=== PATIENT | female | born 1940 | race Caucasian/White ===

== ENCOUNTER 2017-11-30 23:46 | Emergency (ER) | payer MEDICARE, MEDICAID, SELFPAY ==
[2017-11-30 23:53] VITALS: BP 131/74; PULSE 82; RESP 18; TEMP 37.8; O2SAT 94; BMI 76.1
--- NOTE | 2017-12-01 00:12 | [facility].EDFEV ---
ED Disposition Clinical Impression: Influenza Disposition: Home, Self-Care Condition on Discharge: Good Instructions: DI for Influenza -- Adult Additional Instructions: advil/tyenol and see pcp for follow up Referrals: Fidel Muse MD [Emergency Provider] - - Critical Care Critical Care Time: No Attestation: On , the high probability of a clinically significant, sudden or life threatening deterioration of the following system(s) required my full and direct attention, intervention and personal management. The time I documented below is in addition to time spent performing reported procedures but includes the following listed in this critical care notation. Medical Decision Making - Medical Records Medical records reviewed: Yes: I reviewed the patient's medical records. Vital Signs: 11/30/17 23:53 Temperature 100.1 F H Temperature Source Oral Pulse Rate [Right Radial] 82 Respiratory Rate 18 Blood Pressure [Right Arm] 131/74 Blood Pressure Mean [Right Arm] 93 Blood Pressure Source [Right Arm] Automatic Cuff Blood Pressure Position [Right Arm] Supine 02 Sat by Pulse Oximetry 94 L Oxygen Delivery Method Room Air - Lab Data Lab results reviewed: Yes: I reviewed the patient's lab results. Lab Results 12/01/17 00:28: WBC 4.7 L, RBC 4.33, Hgb 12.3, Hct 36.0 L, MCV 83.1, MCH 28.3, MCHC 34.1, RDW 13.9, Plt Count 178, MPV 7.0 L, Neut % (Auto) 78.7, Lymph % (Auto) 12.2, Bureau % (Auto) 8.3, Eos % (Auto) 0.3, Baso % (Auto) 0.6, Neut # (Auto) 3.7, Lymph # (Auto) 0.6 L, Bureau # (Auto) 0.4, Eos # (Auto) 0.0, Baso # (Auto) 0.0 12/01/17 00:28: Sodium 134 L, Potassium 3.9, Chloride 99, Carbon Dioxide 29, Anion Gap 9.9, BUN 14, Creatinine 1.46 H, Estimated Creat Clear 27, Estimated GFR 35 L, Est GFR ( Amer) 42 L, Glucose 108 H, Calcium 8.6, Total Bilirubin 0.5, AST 43 H, ALT 27, Alkaline Phosphatase 78, Total Protein 7.2, Albumin 3.3 L, Globulin 3.9 H, Albumin/Globulin Ratio 0.8 L 12/01/17 00:28: Lactic Acid 1.1 12/01/17 00:28: Influenza Type A Ag Positive A, Influenza Type B Ag Negative 12/01/17 00:40: Urine Color Dark yellow, Urine Appearance Clear, Urine pH 6.0, Ur Specific [place] 1.025, Urine Protein Trace, Urine Glucose (UA) Negative, Urine Ketones Negative, Urine Blood 1+, Urine Nitrate Negative, Urine Bilirubin Negative, Urine Urobilinogen 0.2, Ur Leukocyte Esterase Negative, Urine RBC 3-5, Urine WBC 3-5, Ur Squamous Epith Cells 5-10, Urine Bacteria 1+, Fine Granular Casts Occasional, Urine Mucus 1+ Result diagrams: 12/01/17 00:28 12/01/17 00:28 Orders (Tests/Meds): ED MEDICATIONS Discontinued Medications Generic Name Dose Route Start Last Admin Trade Name Freq PRN Reason Stop Dose Admin Lactated Ringer's 0 ml 12/01/17 00:15 12/01/17 00:47 Lactated Ringer's 1000 Ml Bag IV 12/01/17 00:16 1,000 ml BOLUS ONE Administration ORDERS Category Date Time Status CXR 2 view (NOT portable) [XR chest 2V] Stat Exams 12/01/17 00:14 Taken Blood Culture Stat Micro 12/01/17 00:28 Received - Radiology Data #1 Image(s): Chest Image Reviewed: Yes I reviewed the patient's radiology image Preliminary Findings: Normal/NAD - Bro Inquiry Pt receiving controlled substance: No Fever HPI - General Chief Complaint: Fever Stated Complaint: Fever of 103 Sore throat,coughing Time Seen by Provider: 12/01/17 00:12 Mode of Arrival: Ambulatory Source of Information: Patient, Relative, Medical Record Limitations: No Limitations Description of Symptoms (Recalled from ER Triage Doc. by RN): fever, sore throat, possible loose stool - History of Present Illness HPI Narrative: pt with fever and make up arranger cough which started over the last 2 days MD complaint: fever Onset (ago): day(s) Associated symptoms: sore throat Treatments prior to arrival fever: acetaminophen - Related Data Home Medications Medication Instructions Recorded Confirmed Amlodipine Besylate [Norvasc 5mg 5 mg P
--- NOTE | 2017-12-01 00:14 | XR_ITS ---
XR chest 2V HISTORY: ITS.REASON: cough ORDERING PHYSICIAN: Fidel Muse MD PATIENT AGE: 77 years COMPARISON: 02/27/2016 FINDINGS: The cardiomediastinal silhouette and pulmonary vascularity are within normal limits. The lungs are clear without infiltrates, suspicious nodules, or pleural effusions. No acute bony abnormalities. IMPRESSION: No change with no acute finding
--- NOTE | 2017-12-01 00:16 | ED_ITS ---
ED Disposition Clinical Impression: Influenza Disposition: Home, Self-Care Condition on Discharge: Good Instructions: DI for Influenza -- Adult Additional Instructions: advil/tyenol and see pcp for follow up Referrals: Fidel Muse MD [Emergency Provider] - - Critical Care Critical Care Time: No Attestation: On , the high probability of a clinically significant, sudden or life threatening deterioration of the following system(s) required my full and direct attention, intervention and personal management. The time I documented below is in addition to time spent performing reported procedures but includes the following listed in this critical care notation. Medical Decision Making - Medical Records Medical records reviewed: Yes: I reviewed the patient's medical records. Vital Signs: 11/30/17 23:53 Temperature 100.1 F H Temperature Source Oral Pulse Rate [Right Radial] 82 Respiratory Rate 18 Blood Pressure [Right Arm] 131/74 Blood Pressure Mean [Right Arm] 93 Blood Pressure Source [Right Arm] Automatic Cuff Blood Pressure Position [Right Arm] Supine 02 Sat by Pulse Oximetry 94 L Oxygen Delivery Method Room Air - Lab Data Lab results reviewed: Yes: I reviewed the patient's lab results. Lab Results 12/01/17 00:28: WBC 4.7 L, RBC 4.33, Hgb 12.3, Hct 36.0 L, MCV 83.1, MCH 28.3, MCHC 34.1, RDW 13.9, Plt Count 178, MPV 7.0 L, Neut % (Auto) 78.7, Lymph % (Auto ) 12.2, [place] % (Auto) 8.3, Eos % (Auto) 0.3, Baso % (Auto) 0.6, Neut # (Auto) 3.7, Lymph # (Auto) 0.6 L, [place] # (Auto) 0.4, Eos # (Auto) 0.0, Baso # (Auto) 0.0 12/01/17 00:28: Sodium 134 L, Potassium 3.9, Chloride 99, Carbon Dioxide 29, Anion Gap 9.9, BUN 14, Creatinine 1.46 H, Estimated Creat Clear 27, Estimated GFR 35 L, Est GFR ( Amer) 42 L, Glucose 108 H, Calcium 8.6, Total Bilirubin 0.5, AST 43 H, ALT 27, Alkaline Phosphatase 78, Total Protein 7.2, Albumin 3.3 L, Globulin 3.9 H, Albumin/Globulin Ratio 0.8 L 12/01/17 00:28: Lactic Acid 1.1 12/01/17 00:28: Influenza Type A Ag Positive A, Influenza Type B Ag Negative 12/01/17 00:40: Urine Color Dark yellow, Urine Appearance Clear, Urine pH 6.0, Ur Specific [place] 1.025, Urine Protein Trace, Urine Glucose (UA) Negative, Urine Ketones Negative, Urine Blood 1+, Urine Nitrate Negative, Urine Bilirubin Negative, Urine Urobilinogen 0.2, Ur Leukocyte Esterase Negative, Urine RBC 3-5 , Urine WBC 3-5, Ur Squamous Epith Cells 5-10, Urine Bacteria 1+, Fine Granular Casts Occasional, Urine Mucus 1+ Result diagrams: 12/01/17 00:28 12/01/17 00:28 Orders (Tests/Meds): ED MEDICATIONS Discontinued Medications Generic Name Dose Route Start Last Admin Trade Name Freq PRN Reason Stop Dose Admin Lactated Ringer's 0 ml 12/01/17 00:15 12/01/17 00:47 Lactated Ringer's 1000 Ml Bag IV 12/01/17 00:16 1,000 ml BOLUS ONE Administration ORDERS Category Date Time Status CXR 2 view (NOT portable) [XR chest 2V] Stat Exams 12/01/17 00:14 Taken Blood Culture Stat Micro 12/01/17 00:28 Received - Radiology Data #1 Image(s): Chest Image Reviewed: Yes I reviewed the patient's radiology image Preliminary Findings: Normal/NAD - Bro Inquiry Pt receiving controlled substance: No Fever HPI - General Chief Complaint: Fever Stated Complaint: Fever of 103 Sore throat,coughing Time Seen by
[2017-12-01 00:56] LABS: Microscopic, Urine URINE MICROSCOPIC (MICROSCOPIC)
[2017-12-01 00:57] LABS: Alanine Aminotransferase 27 U/L (12-78); Albumin Level 3.3 gm/dL (3.4-5.0); Albumin/Globulin Ratio 0.8 (1.1-1.8); Alkaline Phosphatase 78 U/L (46-116); Anion Gap 9.9 mEq/L (5-15); Aspartate Amino Transferase 43 U/L (15-37); Basophils % 0.6 % (0.1-2.0); Bilirubin,Total 0.5 mg/dL (0.2-1.0); Blood Urea Nitrogen 14 mg/dL (7-18); Calcium 8.6 mg/dL (8.5-10.1); Carbon Dioxide 29 mmol/L (21.0-32.0); Chloride 99 mmol/L (98-107); Creatinine Clearance Estimated 27 mL/min (0-300); Creatinine,Serum 1.46 mg/dL (0.55-1.02); Eosinophils % 0.3 % (0.1-12.0); Estimated Glomerular Filt Rate 35 ml/min (>60); GFR (African American) 42 ML/MIN (>60); Globulin 3.9 gm/dl (1.3-3.2); Glucose 108 mg/dL (74-106); Hemoglobin 12.3 g/dL (12.2-16.2); Lymphocytes # 0.6 K/mm3 (0.7-4.5); Lymphocytes % 12.2 K/mm3 (10-50); Mean Corpuscular HGB Conc 34.1 g/dL (31.8-35.4); Mean Corpuscular Hemoglobin 28.3 pg (27.0-31.2); Mean Corpuscular Volume 83.1 fl (81-99); Monocytes # 0.4 K/mm3 (0.1-1.0); Monocytes % 8.3 % (1.7-9.3); Neutrophils # 3.7 K/mm3 (1.8-7.8); Neutrophils % 78.7 % (37.0-80.0); Platelet Count 178 K/mm3 (142-424); Potassium 3.9 mmoL/L (3.5-5.1); Red Blood Count 4.33 M/mm3 (4.20-5.40); Red Cell Distribution Width 13.9 % (11.5-17.5); Sodium 134 mmol/L (136-145); Total Protein,Serum 7.2 gm/dL (6.4-8.2); White Blood Count 4.7 K/mm3 (4.8-10.8)
[2017-12-01 01:01] LABS: Lactic Acid 1.1 mmol/L (0.4-2.0)
[2017-12-01 01:13] LABS: Appearance,Urine Clear (Clear); Color,Urine Dark Yellow (Yellow); Protein,Urine Trace (Negative); Specific Gravity, Urine 1.025 (1.005-1.030)
[2017-12-01 01:14] LABS: Bilirubin,Urine Negative (Negative); Blood, Urine 1+ (Negative); Glucose,Urine (UA) Negative (Negative); Ketones,Urine Negative (Negative); Leukocyte Esterase,Urine Negative (Negative); Nitrate,Urine Negative (Negative); Urobilinogen,Urine 0.2 EU/dl (0.2)
[2017-12-01 01:24] LABS: Bacteria,Urine 1+ /lpf; Fine Granular Casts,Urine Occasional #/lpf (0); Mucus,Urine 1+ /lpf
[2017-12-01 02:02] VITALS: BP 148/62; PULSE 78; RESP 18; TEMP 37.7
== END 2017-12-01 02:04 | disposition home or self-care (01) ==
PROVIDERS: Emergency Provider Emergency Medicine; Family Provider Nurse Practitioner Family; PCP Internal Medicine Adolescent Medicine
DX: J11.1 Influenza due to unidentified influenza virus with other respiratory manifestations (principal); Z79.02 Long term (current) use of antithrombotics/antiplatelets; Z79.899 Other long term (current) drug therapy
CPT/HCPCS: 71046; 80053; 81001; 83605; 85025; 87040; 87275; 87276; 96360; 96365; 99284

== ENCOUNTER → 2018-02-02 13:01 | Outpatient (CLI) | payer MEDICARE, MEDICAID, SELFPAY ==
--- NOTE | 2018-02-02 13:03 | CI_ITS ---
Cerebrovascular Exam Indications: 433.10 Occlusion/stenosis of carotid artery without cerebral infarction. IMPRESSIONS 1. The bilateral vertebral arteries are patent with normal antegrade flow. 2. Study suggests 50-69% stenosis involving the right internal carotid artery. 3. Study suggests 20-49% stenosis involving the left internal carotid artery. 4. . No change from the study of 25-Mar-2017. History: A bruit of the left carotid artery. A bruit of the right carotid artery. Stroke. Risk factors: Hypertension. Carotid duplex study. Complete study and Doppler flow study including spectral analysis, color and gomez scale imaging. Location: Vascular laboratory. Patient status: Outpatient. Tables: Arterial flow: + +--------+--------+ Location V sys V ed + +--------+--------+ Right CCA - proximal 111cm/s 22.8cm/s + +--------+--------+ Right CCA - distal 85.6cm/s 14.9cm/s + +--------+--------+ Right ECA 150cm/s -------- + +--------+--------+ Right ICA - proximal 158cm/s 42.4cm/s + +--------+--------+ Right ICA - mid 151cm/s 45.6cm/s + +--------+--------+ Right ICA - distal 120cm/s 32.2cm/s + +--------+--------+ Right vertebral 69.9cm/s -------- + +--------+--------+ Left CCA - proximal 109cm/s 23.6cm/s + +--------+--------+ Left CCA - distal 91.1cm/s 21.2cm/s + +--------+--------+ Left ECA 129cm/s -------- + +--------+--------+ Left ICA - proximal 123cm/s 32.2cm/s + +--------+--------+ Left ICA - mid 110cm/s 25.9cm/s + +--------+--------+ Left ICA - distal 69.9cm/s 20.4cm/s + +--------+--------+ Left vertebral 67.6cm/s -------- + +--------+--------+ Velocity ratios: + + + + + + Right, V sys Right, V ed Left, V sys Left, V ed + + + + + + Max ICA/dist CCA 1.85 3.06 1.35 1.52 + + + + + + (Report amended ) Electronically signed by: Romeo Boyd [id number]
== END ==
PROVIDERS: Family Provider Nurse Practitioner Family; PCP Nurse Practitioner Family; Visit Provider Internal Medicine
DX: I25.10 Atherosclerotic heart disease of native coronary artery without angina pectoris (principal); I65.29 Occlusion and stenosis of unspecified carotid artery; R09.89 Other specified symptoms and signs involving the circulatory and respiratory systems
CPT/HCPCS: 93880

== ENCOUNTER → 2018-03-01 09:42 | Outpatient (CLI) | payer MEDICARE, MEDICAID, SELFPAY ==
[2018-03-01 10:35] LABS: Blood Urea Nitrogen 21 mg/dL (7-18); Creatinine,Serum 1.38 mg/dL (0.55-1.02); Estimated Glomerular Filt Rate 37 ml/min (>60); GFR (African American) 45 ML/MIN (>60)
--- NOTE | 2018-03-01 10:55 | CT_ITS ---
CT soft tissue neck w con CLINICAL INDICATION: Throat pain, difficulty swallowing, swollen larynx ITS.REASON: THROAT PAIN ORDERING PHYSICIAN: Go Garcia PATIENT AGE: 77 years TECHNIQUE:Axial, sagittal, and coronal images are generated and reviewed with 75 mL of Isovue-370 contrast. The patient was phonating during the exam. All CT scans at the facility use one or more dose reduction, viz: automated exposure control; ma/kV adjustment per patient size (including targeted exams where dose is matched to indication; i.e. head); or iterative reconstruction technique. FINDINGS: The nasopharynx has an unremarkable appearance. The uvula and epiglottis are unremarkable. No tonsillar abscess or mass evident. There is mild degree of motion artifact obscuring fine detail of the submandibular region and area epiglottic folds. Unremarkable appearing thyroid gland. The trachea and esophagus are midline. No bulky adenopathy. There is mild thickening of the lower cervical esophagus. This is nonspecific. Upper thoracic images show calcified nodes in the pretracheal region. Diffuse idiopathic skeletal hyperostosis is present at C3, C4, C5, and C6 with prominent anterior bridging osteophytes. This could be causing some degree of a dysphagia. Modified barium swallow with speech pathology may further evaluate. There is indentation upon the hypopharynx centrally and on the right secondary to the prominent osteophytes There are air-fluid levels in both maxillary sinuses and sphenoid sinus with moderate mucosal thickening of the ethmoid sinuses. There is mild rightward nasal septal deviation. IMPRESSION: 1. Sinusitis. 2. 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 3. Mild thickening of the lower cervical esophagus nonspecific
== END ==
PROVIDERS: Family Provider Nurse Practitioner Family; PCP Nurse Practitioner Family; Visit Provider Otolaryngology
DX: J38.4 Edema of larynx (principal); K21.9 Gastro-esophageal reflux disease without esophagitis
CPT/HCPCS: 36415; 70491; 82565; 84520; Q9967

== ENCOUNTER → 2018-04-05 14:43 | Outpatient (POV) | payer MEDICARE, MEDICAID, SELFPAY | PROVIDERS: Visit Provider Nurse Practitioner Acute Care | DX: Z00.00 Encounter for general adult medical examination without abnormal findings (principal) ==

== ENCOUNTER → 2019-05-27 09:19 | Outpatient (CLI) | payer MEDICARE, MEDICAID, SELFPAY ==
--- NOTE | 2019-05-27 09:21 | CI_ITS ---
Cerebrovascular Exam Indications: 433.10 Occlusion/stenosis of carotid artery without cerebral infarction. IMPRESSIONS 1. The bilateral vertebral arteries are patent with normal antegrade flow. 2. Study suggests 50-69% stenosis involving the right internal carotid artery. No change from the study of 02-Feb-2018. 3. Study suggests 20-49% stenosis involving the left internal carotid artery. No change from the study of 02-Feb-2018. History: Risk factors: Hypertension. Diabetes mellitus. Hyperlipidemia. Carotid duplex study. Complete study and Doppler flow study including spectral analysis, color and gomez scale imaging. Height: Height: 162.6cm. Height: 64in. Weight: Weight: 93.4kg. Weight: 205.6lb. Body mass index: BMI: 35.4kg/m^2. Body surface area: BSA: 2.09m^2. Location: Vascular laboratory. Patient status: Outpatient. Tables: Arterial flow: + +--------+--------+ Location V sys V ed + +--------+--------+ Right CCA - proximal 99.8cm/s 22.8cm/s + +--------+--------+ Right CCA - distal 99cm/s 19.6cm/s + +--------+--------+ Right ECA 133cm/s -------- + +--------+--------+ Right ICA - proximal 183cm/s 48.3cm/s + +--------+--------+ Right ICA - mid 161cm/s 46cm/s + +--------+--------+ Right ICA - distal 101cm/s 30.6cm/s + +--------+--------+ Right vertebral 65.2cm/s -------- + +--------+--------+ Left CCA - proximal 103cm/s 19.6cm/s + +--------+--------+ Left CCA - distal 85.2cm/s 21.6cm/s + +--------+--------+ Left ECA 121cm/s -------- + +--------+--------+ Left ICA - proximal 128cm/s 34.1cm/s + +--------+--------+ Left ICA - mid 111cm/s 31.4cm/s + +--------+--------+ Left ICA - distal 96.9cm/s 32.3cm/s + +--------+--------+ Left vertebral 57.6cm/s -------- + +--------+--------+ Velocity ratios: + + + + + + Right, V sys Right, V ed Left, V sys Left, V ed + + + + + + Max ICA/dist CCA 1.85 2.46 1.5 1.58 + + + + + + (Report amended ) Electronically signed by: Romeo Boyd [id number]
--- NOTE | 2019-05-27 09:21 | CA_ITS ---
PROCEDURE: 2-D M-mode and color Doppler study INDICATIONS FOR THE TEST: Chest pain COPD Heart Murmur Tobacco Smoking Palpitations Fatigue Syncope Edema HypertensionXDiabetes MellitusX Rheumatic Fever SOBXDOEXObesityXHyperlipidemia Family History HD Additional History PHTN PATIENT INFORMATION HEIGHT: 64 WEIGHT:206 GENDER: Female B/P:126/70 2-D/M-MODE INTERPRETATION: 2-D MEASUREMENTS OBSERVED VALUES IN CMS Right Ventricular Dimension (RVDd) 1.9 Interventricular Septum (Thickness)(IVsd) .9 Left Ventricular Internal Dimensions(LVIDd) 5.0 Left Ventricular Posterior Wall (Thickness)(LVPWd) .9 Aortic Root 2.7 Aortic Cusp Separation 1.9 Left Atrial Dimensions (LAD) 3.1 2D 1. Left atrium is mildly enlarged, left ventricle is normal size, visually estimated ejection fraction 55% with no regional wall motion abnormality. 2. The right atrium and right ventricle are mildly enlarged with normal contractility. 3. The aortic valve is minimally thickened and fibrosed. 4. The mitral and tricuspid valve leaflets are minimally thickened. 5. The pulmonic valve is poorly visualized. 6. No significant pericardial effusion noted. DOPPLER INTERROGATION: Doppler interrogation of the aortic, mitral and tricuspid valvular presence of mild mitral and tricuspid regurgitation, calculated right ventricular systolic pressure is 47 mmHg consistent with moderate pulmonary hypertension. Diastolic parameters are inconclusive CONCLUSION: 1. Mildly enlarged left atrium, normal left ventricular size, visually estimated ejection fraction 55% with no regional wall motion abnormality, diastolic parameters are inconclusive. 2. Mildly enlarged right ventricle with normal contractility. 3. Mild mitral and tricuspid regurgitation, calculated right ventricular systolic pressure is 47 mmHg consistent with moderate pulmonary hypertension. Inferior vena cava is not well visualized. 4. No significant pericardial effusion noted.
--- NOTE | 2019-05-27 09:22 | NM_ITS ---
CARDIOLITE SPECT MYOCARDIAL PERFUSION LEXISCAN, REST AND STRESS: History: Obesity, hypertension, diabetes, hyperlipidemia, family history, shortness of breath, syncope and fatigue Procedure: Patient received a 0.4 mg of intravenous Lexiscan, resting heart rate was 54 bpm resting blood pressure 147/83, with Lexiscan maximum heart rate achieved was 72 bpm which is less than 85% of the maximum] heart rate and a blood pressure was 115/50. With Lexiscan patient complained of shortness of breath Electrocardiogram: Resting echocardiogram showed sinus bradycardia, with Lexiscan there is less than 1.[address] segment depression noted from the baseline EKG, occasional premature ventricular complexes were also seen. The EKG portion of the Lexiscan Myoview is nondiagnostic. . Cardiac stress and resting SPECT images: Cardiac stress and resting SPECT images were obtained using technetium 99 Myoview 30.7 mCi at stress and 10.3 mCi at rest. Gated SPECT further analysis of segmental wall motion and calculation of the ejection fraction also done. Cardiac stress and resting SPECT images show uniform myocardial activity without segmental perfusion abnormality, computer derived ejection fraction is over 65% with no regional wall motion abnormality, right ventricle is normal size and contractility. Conclusion: 1. The EKG portion of the Lexiscan Myoview is nondiagnostic. 2. No scintigraphic evidence of reversible ischemia seen, computer derived ejection fraction is over 65% with no regional wall motion abnormality, right ventricle is normal size and contractility. 3. Normal Lexiscan Myoview study.
[2019-05-27 12:47] LABS: Basophils % 0.5 % (0.1-2.0); Eosinophils # 0.1 K/mm3 (0.0-0.4); Eosinophils % 1.2 % (0.1-12.0); Hematocrit 36.5 % (37.0-47.0); Hemoglobin 11.5 g/dL (12.2-16.2); Lymphocytes # 1.8 K/mm3 (0.7-4.5); Lymphocytes % 30.4 % (10-50); Mean Corpuscular HGB Conc 31.6 g/dL (31.8-35.4); Mean Corpuscular Hemoglobin 26.1 pg (27.0-31.2); Mean Corpuscular Volume 82.8 fl (81-99); Monocytes # 0.2 K/mm3 (0.1-1.0); Monocytes % 3.8 % (1.7-9.3); Neutrophils # 3.8 K/mm3 (1.8-7.8); Neutrophils % 64.1 % (37.0-80.0); Platelet Count 269 K/mm3 (142-424); Red Cell Distribution Width 14.2 % (11.5-17.5)
[2019-05-27 13:31] LABS: Alanine Aminotransferase 43 U/L (12-78); Albumin Level 3.3 gm/dL (3.4-5.0); Albumin/Globulin Ratio 0.9 (1.1-1.8); Alkaline Phosphatase 60 U/L (46-116); Anion Gap 8.9 mEq/L (5-15); Aspartate Amino Transferase 18 U/L (15-37); Bilirubin,Total 0.5 mg/dL (0.2-1.0); Blood Urea Nitrogen 13 mg/dL (7-18); Carbon Dioxide 31 mmol/L (21.0-32.0); Chloride 102 mmol/L (98-107); Chol/HDL Ratio 2.6 (1-3.5); Cholesterol 185 mg/dL (140-200); Estimated Glomerular Filt Rate 44 ml/min (>60); GFR (African American) 53 ML/MIN (>60); Globulin 3.8 gm/dl (1.3-3.2); Glucose 126 mg/dL (74-106); HDL Cholesterol 70 mg/dL (29-89); LDL Cholesterol 78 mg/dL (0-130); Sodium 139 mmol/L (136-145); Thyroid Stimulating Hormone 1.57 uIU/ml (0.358-3.740); Total Protein,Serum 7.1 gm/dL (6.4-8.2); Triglycerides 186 mg/dL (30-200); VLDL Cholesterol 37 mg/dL (0-40)
[2019-05-27 14:22] LABS: Potassium 2.9 mmoL/L (3.5-5.1)
[2019-05-27 16:21] LABS: Hemoglobin A1C 7.4 % (0.0-7.0)
[2019-05-29 22:51] LABS: Microalbumin, Urine <3.0 ug/mL (Not Estab.)
== END ==
PROVIDERS: PCP Nurse Practitioner Family; Visit Provider Urology
DX: I10 Essential (primary) hypertension; I65.23 Occlusion and stenosis of bilateral carotid arteries; R00.1 Bradycardia, unspecified; R06.00 Dyspnea, unspecified; R60.9 Edema, unspecified; Z86.73 Personal history of transient ischemic attack (TIA), and cerebral infarction without residual deficits; E11.9 Type 2 diabetes mellitus without complications; R53.83 Other fatigue; E78.49 Other hyperlipidemia
CPT/HCPCS: 36415; 78452; 80053; 80061; 82043; 82652; 83036; 84436; 84443; 85025; 93017; 93306; 93880; A9502; J2785

== ENCOUNTER → 2019-07-07 08:14 | Outpatient (CLI) | payer MEDICARE, MEDICAID, SELFPAY ==
--- NOTE | 2019-07-07 08:15 | MM_ITS ---
PROCEDURE: MM DIG SCREENING MAMM BI W/CAD CLINICAL INDICATION: screening There is no personal or family history of breast cancer COMPARISON: DIGMAMMS MAMMOGRAM SCREEN-SENIOR STRATEGY ANALYST N/C from 07/28/2007 DIGMAMMS MAMMOGRAM SCREEN-SENIOR STRATEGY ANALYST N/C from 03/08/2009 DMSB DIGITAL MAMM-SCREEN BILATERAL from 07/04/2010 TECHNIQUE: Standard CC and MLO images were obtained. R2 CAD reviewed. FINDINGS: The breasts are composed primarily of fat with minimal scattered fibroglandular densities in each breast. There are scattered benign-appearing micro and macrocalcifications in each breast. There is a biopsy clip seen just deep to the nipple right breast. There is a low-lying node right axilla. There is minimal arterial calcification in each breast. There is no suspicious lesion and no suspicious microcalcifications. IMPRESSION: Fibrofatty parenchyma with no suspicious lesions seen BI-RAD Category: 2 Benign Finding(s) FOLLOW-UP: 1YR 1 Year Follow-up (A letter has been sent to the patient regarding results of the study.) Dictated by: Dr. Jasper Alcantar MD 07/09/2019 10:46 Signed by: <Electronically signed by Dr. Jasper Alcantar MD in [facility]> 07/09/2019 10:46
== END ==
PROVIDERS: PCP Nurse Practitioner Family; Visit Provider Nurse Practitioner Family
DX: Z12.31 Encounter for screening mammogram for malignant neoplasm of breast (principal)
CPT/HCPCS: 77067

== ENCOUNTER → 2019-07-13 17:10 | Outpatient (CLI) | payer MEDICARE, MEDICAID, SELFPAY ==
[2019-07-13 17:54] LABS: Basophils % 0.2 % (0.1-2.0); Eosinophils # 0.1 K/mm3 (0.0-0.4); Eosinophils % 1.7 % (0.1-12.0); Hemoglobin 12.7 g/dL (12.2-16.2); Lymphocytes # 1.6 K/mm3 (0.7-4.5); Lymphocytes % 32.6 % (10-50); Mean Corpuscular HGB Conc 32.6 g/dL (31.8-35.4); Mean Corpuscular Hemoglobin 28.2 pg (27.0-31.2); Mean Corpuscular Volume 86.6 fl (81-99); Monocytes # 0.3 K/mm3 (0.1-1.0); Monocytes % 5.2 % (1.7-9.3); Neutrophils # 2.9 K/mm3 (1.8-7.8); Neutrophils % 60.3 % (37.0-80.0); Platelet Count 262 K/mm3 (142-424); White Blood Count 4.8 K/mm3 (4.8-10.8)
[2019-07-13 19:17] LABS: Alanine Aminotransferase 23 U/L (12-78); Albumin Level 3.3 gm/dL (3.4-5.0); Albumin/Globulin Ratio 0.9 (1.1-1.8); Alkaline Phosphatase 76 U/L (46-116); Anion Gap 11.3 mEq/L (5-15); Aspartate Amino Transferase 20 U/L (15-37); Bilirubin,Total 0.4 mg/dL (0.2-1.0); Blood Urea Nitrogen 10 mg/dL (7-18); Carbon Dioxide 28 mmol/L (21.0-32.0); Chloride 106 mmol/L (98-107); Chol/HDL Ratio 3.8 (1-3.5); Cholesterol 245 mg/dL (140-200); Creatinine,Serum 1.07 mg/dL (0.55-1.02); Estimated Glomerular Filt Rate 50 ml/min (>60); GFR (African American) 60 ML/MIN (>60); Globulin 3.5 gm/dl (1.3-3.2); Glucose 125 mg/dL (74-106); HDL Cholesterol 64 mg/dL (29-89); LDL Cholesterol 149 mg/dL (0-130); Potassium 3.3 mmoL/L (3.5-5.1); Sodium 142 mmol/L (136-145); T4 (Thyroxine) 9.1 ug/dl (4.7-13.3); Total Protein,Serum 6.8 gm/dL (6.4-8.2); Triglycerides 159 mg/dL (30-200); VLDL Cholesterol 32 mg/dL (0-40)
[2019-07-15 14:21] LABS: Vitamin D 25 Hydroxy 12.4 ng/mL (30.0-100.0)
== END ==
PROVIDERS: Visit Provider Nurse Practitioner Family
DX: F41.9 Anxiety disorder, unspecified (principal); I65.29 Occlusion and stenosis of unspecified carotid artery; R53.83 Other fatigue; R22.1 Localized swelling, mass and lump, neck; E55.9 Vitamin D deficiency, unspecified
CPT/HCPCS: 80053; 80061; 82652; 84436; 84443; 85025

== ENCOUNTER → 2019-07-25 13:15 | Outpatient (CLI) | payer MEDICARE, MEDICAID, SELFPAY ==
--- NOTE | 2019-07-25 13:16 | US_ITS ---
PROCEDURE: US THYROID CLINICAL INDICATION: throat pain Right neck pain, on thyroid medication COMPARISON: No exams were available for comparison FINDINGS: Right lobe: 4.5 x 1.7 x 3.3 cm. A 4 mm hypoechoic nodules present in the mid aspect of the right lobe with benign features. In the lower pole there is a 3 mm hypoechoic nodule benign-appearing. Left lobe: 4.5 x 1.4 x 1.8 cm. No discrete nodule. Isthmus: Unremarkable Additional findings: IMPRESSION: Bilateral enlarged thyroid gland. There are 2 small nodules on the right with low level of suspicion for malignancy and none demonstrated on the left Dictated by: Romeo Boyd MD 07/25/2019 16:09 Electronically signed by Romeo Boyd MD in [facility] 07/25/2019 16:09
== END ==
PROVIDERS: PCP Nurse Practitioner Family; Visit Provider Nurse Practitioner Family
DX: R22.1 Localized swelling, mass and lump, neck (principal)
CPT/HCPCS: 76536

== ENCOUNTER → 2019-08-12 13:27 | Outpatient (CLI) | payer MEDICARE, MEDICAID, SELFPAY ==
--- NOTE | 2019-08-12 13:29 | CT_ITS ---
PROCEDURE: CT SOFT TISSUE NECK WO CON CLINICAL HISTORY: abnormal ultrasound COMPARISON: NECKW CT soft tissue neck w con from 03/01/2018 US THYROID from 07/25/2019 TECHNIQUE: Oral Contrast: None IV Contrast: None Axial images obtained with sagittal and coronal reformats. All CT scans at the facility use one or more dose reduction, viz: automated exposure control, ma/kV adjustment per patient size (including targeted exams where dose is matched to indication, i.e. head), or iterative reconstruction technique. FINDINGS: Unremarkable nasopharynx. The maxillary and sphenoid sinuses are unremarkable. The ethmoid sinuses are is are incompletely image superiorly. No mastoid effusion. Scattered small nodes are present in the neck. The submandibular and right parotid glands have an unremarkable appearance. There is a 5 mm soft tissue density in the left parotid gland and may be due to small lymph node. No abnormal fluid collections. No soft tissue masses. There is DISH of the cervical spine as previously described causing some indentation upon the central and right aspect of the esophagus. This is at the C3-C4 C5 and C6 level. This is most pronounced at the C3-C4 and C4-C5 level. Not significantly changed. Lung apices are unremarkable. The thyroid gland does not appear enlarged. The small nodule seen on the ultrasound of the thyroid gland are below limits of resolution on this unenhanced CT scan. There are mild osteoarthritic changes of the sternoclavicular joints. IMPRESSION: Overall no significant change with no acute finding. DISH of the cervical spine. Scattered small cervical nodes with no adenopathy mass or other significant anomaly Dictated by: Romeo Boyd MD 08/13/2019 11:09 Electronically signed by Romeo Boyd MD in [facility] 08/13/2019 11:09
== END ==
PROVIDERS: PCP Nurse Practitioner Family; Visit Provider Nurse Practitioner Family
DX: R13.10 Dysphagia, unspecified (principal)
CPT/HCPCS: 70490

== ENCOUNTER → 2019-08-18 08:39 | Outpatient (CLI) | payer MEDICARE, MEDICAID, SELFPAY ==
--- NOTE | 2019-08-18 08:41 | FL_ITS ---
PROCEDURE: FL BARIUM SWALLOW CLINICAL INDICATION: swallowing difficulty COMPARISON: No exams were available for comparison FINDINGS: Rapid sequence views of the neck and oral pharyngeal area shows no evidence of aspiration. There are prominent anterior spurs in the cervical spine at C3 through C C5 levels. This causes some mass effect upon the cervical esophagus without persistent narrowing. Thoracic esophagus shows moderate tertiary type contractions with a small 3 centimeter sliding-type of hiatal hernia without definite reflux. There is no persistent stricture or mucosal abnormality. IMPRESSION: Cervical spine anterior spurs causing some mass effect upon the cervical esophagus without significant delay in swallowing. No aspiration. Esophageal tertiary contractions. Small sliding-type of hiatal hernia without evidence of esophagitis. Dictated by: Jose Luis Wood 08/18/2019 09:52 Electronically signed by Jose Luis Wood in [facility] 08/18/2019 09:52
== END ==
PROVIDERS: PCP Nurse Practitioner Family; Visit Provider Otolaryngology
DX: E04.1 Nontoxic single thyroid nodule (principal); R13.10 Dysphagia, unspecified
CPT/HCPCS: 74220

== ENCOUNTER → 2019-10-18 15:12 | Outpatient (CLI) | payer MEDICARE, MEDICAID, SELFPAY ==
[2019-10-18 17:14] LABS: Alanine Aminotransferase 15 U/L (12-78); Albumin/Globulin Ratio 0.8 (1.1-1.8); Alkaline Phosphatase 65 U/L (46-116); Anion Gap 11.1 mEq/L (5-15); Aspartate Amino Transferase 12 U/L (15-37); Bilirubin,Total 0.3 mg/dL (0.2-1.0); Blood Urea Nitrogen 12 mg/dL (7-18); Calcium 8.4 mg/dL (8.5-10.1); Carbon Dioxide 29 mmol/L (21.0-32.0); Chloride 105 mmol/L (98-107); Estimated Glomerular Filt Rate 54 ml/min (>60); GFR (African American) 65 ML/MIN (>60); Globulin 3.7 gm/dl (1.3-3.2); Glucose 101 mg/dL (74-106); Potassium 3.1 mmoL/L (3.5-5.1); Sodium 142 mmol/L (136-145); Total Protein,Serum 6.7 gm/dL (6.4-8.2)
== END ==
PROVIDERS: Visit Provider Nurse Practitioner Psychiatric/Mental Health
DX: Z00.00 Encounter for general adult medical examination without abnormal findings (principal); F32.9 Major depressive disorder, single episode, unspecified; F41.1 Generalized anxiety disorder; E87.6 Hypokalemia
CPT/HCPCS: 36415; 80053

== ENCOUNTER → 2019-12-19 15:24 | Outpatient (CLI) | payer MEDICARE, SELFPAY ==
[2019-12-19 17:31] LABS: Alanine Aminotransferase 20 U/L (12-78); Albumin Level 3.3 gm/dL (3.4-5.0); Albumin/Globulin Ratio 1.1 (1.1-1.8); Alkaline Phosphatase 71 U/L (46-116); Anion Gap 12.3 mEq/L (5-15); Aspartate Amino Transferase 18 U/L (15-37); Bilirubin,Total 0.7 mg/dL (0.2-1.0); Blood Urea Nitrogen 8 mg/dL (7-18); Calcium 8.7 mg/dL (8.5-10.1); Carbon Dioxide 29 mmol/L (21.0-32.0); Chloride 105 mmol/L (98-107); Creatinine,Serum 1.09 mg/dL (0.55-1.02); Estimated Glomerular Filt Rate 49 ml/min (>60); GFR (African American) 59 ML/MIN (>60); Glucose 124 mg/dL (74-106); Potassium 3.3 mmoL/L (3.5-5.1); Sodium 143 mmol/L (136-145); Total Protein,Serum 6.3 gm/dL (6.4-8.2)
== END ==
PROVIDERS: Visit Provider Nurse Practitioner Psychiatric/Mental Health
DX: Z00.00 Encounter for general adult medical examination without abnormal findings (principal)
CPT/HCPCS: 36415; 80053

== ENCOUNTER → 2019-12-21 13:28 | Outpatient (CLI) | payer MEDICARE, MEDICAID, SELFPAY ==
--- NOTE | 2019-12-21 13:48 | CA_ITS ---
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 Laterality: Bilateral Indications: Carotid stenosis Risk Factors Hypertension: Hyperlipidemia Diabetes Doppler Spectral Velocity Analysis ECA (R) 141.60/27.90 cm/s ECA (L) 93.40/3.40 cm/s dICA (R) 97.60/27.00 cm/s dICA (L) 69.40/18.00 cm/s Ashwini (R) 163.40/35.30 cm/s Ashwini (L) 102.80/20.60 cm/s pICA (R) 186.90/42.30 cm/s pICA (L) 98.80/17.60 cm/s dCCA (R) 72.80/16.30 cm/s dCCA (L) 72.00/15.40 cm/s pCCA (R) 88.30/13.70 cm/s pCCA (L) 102.30/22.30 cm/s Vert (R) 60.00/13.70 cm/s Vert (L) 49.20/12.30 cm/s ICA/CCA 2.60 ICA/CCA 1.40 Conclusion Duplex evaluation demonstrates stenosis of the right proximal internal carotid artery in the range of 50-69% with PSV =140 cm/sec, EDV <100 cm/sec, and IC/CC Ratio <4.0. Duplex evaluation demonstrates stenosis of the left proximal internal carotid artery in the range of 20-49% with PSV <140 cm/sec, EDV <100 cm/sec, and IC/CC Ratio <4.0. Duplex evaluation demonstrates antegrade flow of the bilateral Vertebral Arteries. Electronically signed by : Romeo Boyd MD 12/21/2019 16:38:40
== END ==
PROVIDERS: PCP Nurse Practitioner Family; Visit Provider Nurse Practitioner Family
DX: I65.23 Occlusion and stenosis of bilateral carotid arteries (principal)
CPT/HCPCS: 93880

== ENCOUNTER → 2020-01-11 15:08 | Outpatient (CLI) | payer MEDICARE, MEDICAID, SELFPAY ==
[2020-01-11 17:33] LABS: Chloride 102 mmol/L (98-107); Potassium 4.6 mmoL/L (3.5-5.1); Sodium 137 mmol/L (136-145)
[2020-01-11 17:35] LABS: Alanine Aminotransferase 23 U/L (12-78); Aspartate Amino Transferase 27 U/L (14-36); Blood Urea Nitrogen 19 mg/dl (7-17); Estimated Glomerular Filt Rate 43 ml/min (>60); GFR (African American) 53 ML/MIN (>60)
[2020-01-11 17:36] LABS: Albumin/Globulin Ratio 1.3 (1.1-1.8); Alkaline Phosphatase 69 U/L (38-126); Anion Gap 14.6 mEq/L (5-15); Bilirubin,Total 0.5 mg/dl (0.2-1.3); Calcium 9.6 mg/dl (8.4-10.2); Carbon Dioxide 25 mmol/L (22.0-30.0); Chol/HDL Ratio 2.4 (1-3.5); Cholesterol 186 mg/dl (140-200); Glucose 130 mg/dl (74-100); HDL Cholesterol 78 mg/dl (40-60); Triglycerides 121 mg/dl (30-150); VLDL Cholesterol 24 mg/dL (0-40)
[2020-01-11 17:43] LABS: INR 0.96 (0.9-1.1)
[2020-01-11 17:48] LABS: Direct LDL Cholesterol 95.34 mg/dL (100-129)
[2020-01-11 17:53] LABS: T4 (Thyroxine) 9.3 ug/dl (5.53-11.0)
[2020-01-11 18:01] LABS: Basophils % 0.5 % (0.1-2.0); Eosinophils # 0.1 K/mm3 (0.0-0.4); Eosinophils % 1.3 % (0.1-12.0); Hematocrit 39.1 % (37.0-47.0); Hemoglobin 12.8 g/dL (12.2-16.2); Lymphocytes # 1.9 K/mm3 (0.7-4.5); Lymphocytes % 31.9 % (10-50); Mean Corpuscular HGB Conc 32.9 g/dL (31.8-35.4); Mean Corpuscular Hemoglobin 28.1 pg (27.0-31.2); Mean Corpuscular Volume 85.7 fl (81-99); Mean Platelet Volume 8.4 fl (7.4-10.4); Monocytes # 0.3 K/mm3 (0.1-1.0); Monocytes % 4.1 % (1.7-9.3); Neutrophils # 3.7 K/mm3 (1.8-7.8); Neutrophils % 62.2 % (37.0-80.0); Platelet Count 245 K/mm3 (142-424); Red Blood Count 4.56 M/mm3 (4.20-5.40); Red Cell Distribution Width 13.9 % (11.5-17.5)
[2020-01-11 18:07] LABS: Thyroid Stimulating Hormone 1.13 uIU/mL (0.465-4.68)
[2020-01-11 20:01] LABS: Hemoglobin A1C 6.8 % (4.0-6.0)
[2020-01-13 10:15] LABS: Vitamin D 25 Hydroxy 14.8 ng/mL (30.0-100.0)
== END ==
PROVIDERS: Visit Provider Nurse Practitioner Family
DX: E11.9 Type 2 diabetes mellitus without complications (principal); R05 Cough; F41.9 Anxiety disorder, unspecified; I65.29 Occlusion and stenosis of unspecified carotid artery; M79.646 Pain in unspecified finger(s); E55.9 Vitamin D deficiency, unspecified; Z79.84 Long term (current) use of oral hypoglycemic drugs; Z79.899 Other long term (current) drug therapy
CPT/HCPCS: 36415; 80053; 80061; 82652; 83036; 84436; 84443; 85025; 85610

== ENCOUNTER → 2020-09-26 15:57 | Outpatient (CLI) | payer MEDICARE, MEDICAID, SELFPAY ==
[2020-09-26 18:12] LABS: Alanine Aminotransferase 17 U/L (12-78); Albumin Level 3.9 g/dl (3.5-5.0); Albumin/Globulin Ratio 1.2 (1.1-1.8); Alkaline Phosphatase 95 U/L (38-126); Aspartate Amino Transferase 28 U/L (14-36); Bilirubin,Total 0.9 mg/dl (0.2-1.3); Blood Urea Nitrogen 8 mg/dl (7-17); Calcium 9.6 mg/dl (8.4-10.2); Carbon Dioxide 29 mmol/L (22.0-30.0); Chloride 102 mmol/L (98-107); Cholesterol 259 mg/dl (140-200); Estimated Glomerular Filt Rate 61 ml/min (>60); GFR (African American) 73 ML/MIN (>60); Globulin 3.3 g/dL (1.3-3.2); Glucose 138 mg/dl (74-100); HDL Cholesterol 85 mg/dl (40-60); Sodium 137 mmol/L (136-145); Total Protein,Serum 7.2 g/dl (6.3-8.2); Triglycerides 131 mg/dl (30-150); VLDL Cholesterol 26 mg/dL (0-40)
[2020-09-26 18:30] LABS: T4 (Thyroxine) 10.5 ug/dl (5.53-11.0)
[2020-09-26 18:43] LABS: Thyroid Stimulating Hormone 1.52 uIU/mL (0.465-4.68)
[2020-09-27 20:52] LABS: Microalbumin/Creatinine Ratio 42.6
[2020-09-27 20:56] LABS: Creatinine,Urine Random 118 mg/dL (Not Estab.)
== END ==
PROVIDERS: Visit Provider Nurse Practitioner Family
DX: E11.9 Type 2 diabetes mellitus without complications (principal); I65.29 Occlusion and stenosis of unspecified carotid artery; R19.7 Diarrhea, unspecified; Z79.84 Long term (current) use of oral hypoglycemic drugs; Z79.899 Other long term (current) drug therapy
CPT/HCPCS: 80053; 80061; 82043; 82570; 84436; 84443

== ENCOUNTER → 2020-10-02 14:21 | Outpatient (CLI) | payer MEDICARE, MEDICAID, SELFPAY ==
[2020-10-02 15:13] LABS: Basophils % 0.4 % (0.1-2.0); Eosinophils # 0.2 K/mm3 (0.0-0.4); Eosinophils % 3.2 % (0.1-12.0); Hematocrit 38.7 % (37.0-47.0); Hemoglobin 13.1 g/dL (12.2-16.2); Lymphocytes # 1.7 K/mm3 (0.7-4.5); Lymphocytes % 34.5 % (10-50); Mean Corpuscular HGB Conc 33.8 g/dL (31.8-35.4); Mean Corpuscular Volume 82.7 fl (81-99); Mean Platelet Volume 6.8 fl (7.4-10.4); Monocytes # 0.2 K/mm3 (0.1-1.0); Neutrophils # 2.9 K/mm3 (1.8-7.8); Neutrophils % 57.9 % (37.0-80.0); Platelet Count 294 K/mm3 (142-424); Red Blood Count 4.68 M/mm3 (4.20-5.40); Red Cell Distribution Width 14.3 % (11.5-17.5)
[2020-10-02 17:01] LABS: Hemoglobin A1C 6.4 % (4.0-6.0)
== END ==
PROVIDERS: Visit Provider Nurse Practitioner Family
DX: E11.9 Type 2 diabetes mellitus without complications (principal); E55.9 Vitamin D deficiency, unspecified; Z79.84 Long term (current) use of oral hypoglycemic drugs
CPT/HCPCS: 36415; 83036; 85025

== ENCOUNTER → 2020-11-01 13:43 | Outpatient (CLI) | payer MEDICARE, MEDICAID, SELFPAY ==
--- NOTE | 2020-11-01 13:49 | XR_ITS ---
PROCEDURE: XR PELVIS 1-2V CLINICAL INDICATION: lower back pain/hip pain, recent fall COMPARISON: No exams were available for comparison TECHNIQUE: XR Pelvis AP View FINDINGS: No fracture or dislocation is evident. There are mild osteoarthritic changes of the hips. Degenerative changes are present in the lumbar spine. No lytic or blastic change. IMPRESSION: Degenerative changes otherwise negative Dictated by: Romeo Boyd MD 11/01/2020 16:50 Romeo Boyd MD in [facility] 11/01/2020 16:50
--- NOTE | 2020-11-01 13:49 | XR_ITS ---
PROCEDURE: XR LUMBAR SPINE 2-3V CLINICAL INDICATION: lower back pain/hip pain, recent fall COMPARISON: CR LS5 LUMBAR SPINE 5 VIEWS from 07/30/2017 FINDINGS: Mild lumbar scoliosis convex right. Multilevel degenerative disc disease from T12 to S1 with anterior osteophytes. 5 mm anterolisthesis of L3 on L4. No fracture or dislocation. No lytic or blastic change. Other findings:Generalized vascular calcification IMPRESSION: Multilevel lumbar spondylosis which is slightly progressed compared to the previous exam Dictated by: Romeo Boyd MD 11/01/2020 16:45 Romeo Boyd MD in [facility] 11/01/2020 16:45
== END ==
PROVIDERS: PCP Nurse Practitioner Family; Visit Provider Nurse Practitioner Family
DX: M25.552 Pain in left hip (principal); M25.551 Pain in right hip; M54.5 Low back pain
CPT/HCPCS: 72100; 72170

== ENCOUNTER → 2020-11-23 13:20 | Outpatient (CLI) | payer MEDICARE, MEDICAID, SELFPAY ==
--- NOTE | 2020-11-23 13:21 | MR_ITS ---
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 3-D MIP and myelographic images are also rendered and reviewed FINDINGS: There is normal alignment. The spinal cord ends at the L2-L3 level. L1-L2: Bulging disc is present anteriorly with anterior osteophytes. L2-L3: Degenerative disc disease with bulging disc. There is a small left paracentral disc protrusion/small disc osteophyte complex. This along with facet and ligamentum hypertrophy is causing moderate left lateral recess narrowing and left-sided foraminal narrowing. The left paracentral disc protrusion has developed since the previous exam L3-L4: Mild concentric bulging disc with facet and ligamentum hypertrophy. There is 3 mm anterolisthesis of L3. There is moderate bilateral lateral recess narrowing and mild right and moderate left foraminal narrowing not significantly changed L4-5: Degenerative disc disease with bulging disc with facet and ligamentum hypertrophy causing moderate bilateral foraminal narrowing right greater than left not significantly changed. L5-S1: Degenerative disc disease with bulging disc eccentric to the right causing moderate to severe right-sided foraminal narrowing not significantly changed. No extruded herniated disc are evident. No bony canal stenosis IMPRESSION: Multilevel lumbar spondylosis as described above with degenerative disc disease, facet and ligamentum hypertrophy with bulging discs with lateral recess and foraminal narrowing as detailed above. There is a small left paracentral disc protrusion/disc osteophyte complex at L2-L3. Please see above for detailed description at each level Dictated by: Romeo Boyd MD 11/24/2020 11:48 Romeo Boyd MD in [facility] 11/24/2020 11:48
== END ==
PROVIDERS: PCP Nurse Practitioner Family; Visit Provider Nurse Practitioner Family
DX: R93.89 Abnormal findings on diagnostic imaging of other specified body structures (principal); M54.5 Low back pain
CPT/HCPCS: 72148; 76376

== ENCOUNTER 2021-01-31 14:10 | Emergency (ER) | payer MEDICARE, MEDICAID, SELFPAY ==
[2021-01-31 14:22] VITALS: BP 154/48; PULSE 78; RESP 16; TEMP 37; O2SAT 98; BMI 34.3
--- NOTE | 2021-01-31 14:26 | XR_ITS ---
PROCEDURE: XR ANKLE RT MIN 3V CLINICAL INDICATION: PAIN COMPARISON: CR ANKR3 ANKLE-RT-3 VIEWS from 10/03/2014 FINDINGS: Prior ORIF distal tib fib. There is a lateral fibular bone plate with multiple cortical screws tube which extend into the distal tibia. The most cephalad of these 2 screws is broken in the medial cortical area of the fibula. This is not significantly changed from nichols 18 14. There are mild osteoarthritic changes at the ankle joint with hypertrophic changes of the medial malleolar region and medial aspect of the talus. There is loss of joint space of the ankle joint anteriorly with osteophyte formation and osteosclerosis. Small calcaneal spurs noted in there is enthesophyte at the Achilles insertion. IMPRESSION: Postsurgical changes with broken screw as described above. Osteoarthritic changes. No acute finding. Dictated by: Romeo Boyd MD 01/31/2021 15:39 Romeo Boyd MD in [facility] 01/31/2021 15:39
--- NOTE | 2021-01-31 15:19 | HMH.EDGENADL ---
ED Disposition Clinical Impression: Right ankle pain Qualifiers: Chronicity: acute Qualified Code(s): M25.571 - Pain in right ankle and joints of right foot Disposition: Home, Self-Care Condition on Discharge: Good Additional Instructions: Wear orthopedic boot and stay off of your feet as much as possible. Ibuprofen as prescribed. Tylenol 3 as needed for pain. Follow-up with orthopedics, Dr. Goins, call for appointment. Additional instructions for CONTROLLED SUBSTANCES: You have been prescribed a medication that is a controlled substance. Controlled substances include pain medications known as opiates and sedative nerve medications known as benzodiazepines. Tramadol, fioricet, and gabapentin are also controlled substances. Some common opiates include: Codeine (such as Tylenol #3) Hydrocodone (Vicodin, Lortab, Lorcet, [place]) Oxycodone (Percocet, Percodan, Oxycodone, Oxy IR) Some common benzodiazepines include: Diazepam (Valium) Lorazepam (Ativan) Alprazolam (Xanax) Clonazepam (Klonopin) Oxazepam (Serax) All of these controlled substances are highly addictive and frequently abused. Misuse can and frequently does lead to addiction as well as overdose and . Medication should be stored in a locked cabinet or other secure storage unit. Do not store the medication in a motor vehicle. Short term supplies, 3 days or less, are prescribed because of the highly addictive nature of the medication. Any of the controlled substance medication NOT taken should be disposed of properly and NOT SAVED. The recommended method of disposing of unused medications is: Place the medicines in a sealable plastic bag. If the medicine is a solid, crush it or add water to dissolve it. Add something undesirable (cat litter, coffee grounds, etc.) Dispose of sealed bag in household trash Do not flush or pour unused medicines down a sink or drain. Controlled substances should not be shared, given away or sold. Because of the addictive nature and frequent abuse, these medications are sometimes stolen. These medications should be kept in a safe place where they cannot be stolen. Do not keep them in your car or purse. Lost or stolen prescriptions for controlled substances WILL NOT BE REFILLED in this emergency department, regardless of whether a police report was filed. Prescriptions: Acetaminophen with Codeine [Tylenol with Codeine #3 tablet] 1 tab PO Q6HP PRN #10 tab PRN Reason: Moderate Pain Transmission Status: [facility] Ibuprofen [Ibuprofen 600mg Tab] 600 mg PO Q8H #12 tab Transmission Status: P[facility] to [facility] Referrals: Betsy Klein APRN [Primary Care Provider] - Latrice Goins MD [Physician] - - Critical Care Critical Care Time: No Attestation: On 01/31/21, the high probability of a clinically significant, sudden or life threatening deterioration of the following system(s) required my full and direct attention, intervention and personal management. The time I documented below is in addition to time spent performing reported procedures but includes the following listed in this critical care notation. Medical Decision Making - Bro Inquiry Pt receiving controlled substance: Yes Bro was queried for this patient: Yes Risks and benefits of using a controlled substance: were discussed with pt by me Vital Signs: 01/31/21 14:22 Temperature 98.6 F Temperature Source Oral Pulse Rate [Radial] 78 Respiratory Rate 16 Blood Pressure [Right Arm] 154/48 H Blood Pressure Mean [Right Arm] 83 Blood Pressure Source [Right Arm] Manual Cuff/ Palpation 02 Sat by Pulse Oximetry 98 Oxygen Delivery Method Room Air Orders (Tests/Meds): ORDERS Category Date Time Status Ankle XR -Right minimum 3 Views [XR ankle RT min 3V] Exams 01/31/21 14:26 Taken Stat General Adult HPI - General Chief complaint: PAIN Stated complaint: right ankle pain, unknown jaison
[2021-01-31 15:51] VITALS: BP 130/74; PULSE 78; RESP 16; TEMP 36.6; O2SAT 98
== END 2021-01-31 15:52 | disposition home or self-care (01) ==
PROVIDERS: Emergency Provider Emergency Medicine; PCP Nurse Practitioner Family
DX: M25.571 Pain in right ankle and joints of right foot (principal); F41.8 Other specified anxiety disorders; E78.5 Hyperlipidemia, unspecified; K21.9 Gastro-esophageal reflux disease without esophagitis; I25.10 Atherosclerotic heart disease of native coronary artery without angina pectoris; I10 Essential (primary) hypertension; Z90.11 Acquired absence of right breast and nipple
CPT/HCPCS: 29515; 73610; 99282

== ENCOUNTER 2021-05-26 19:41 | Emergency (ER) | payer MEDICARE, MEDICAID, SELFPAY ==
[2021-05-26 19:45] VITALS: BP 127/85; PULSE 85; RESP 18; TEMP 36.7; O2SAT 98; BMI 34.3
--- NOTE | 2021-05-26 19:48 | XR_ITS ---
PROCEDURE INFORMATION: Exam: XR Left Ankle Exam date and time: 05/26/2021 7:48 PM Age: 80 years old Clinical indication: Injury or trauma; Blunt trauma; Patient HX: Fall , left ankle pain TECHNIQUE: Imaging protocol: XR Left ankle. Views: 3 or more views. COMPARISON: CR FTL3 FOOT-LT-3 VIEWS 01/23/2015 12:22 PM FINDINGS: Bones/joints: Chronic posttraumatic changes in the distal tibia and fibula. No definite acute fracture or malalignment. Soft tissues: Moderate soft tissue edema about the ankle. IMPRESSION: No definite acute osseous abnormality in the left ankle, noting that extensive chronic posttraumatic changes may obscure subtle nondisplaced fractures.
--- NOTE | 2021-05-26 20:30 | HMH.EDUTC ---
[facility] [place] Clinical Impression: Ankle fracture Qualifiers: Encounter type: initial encounter Fracture type: closed Laterality: left Qualified Code(s): S82.892A - Other fracture of left lower leg, initial encounter for closed fracture Disposition: Home, Self-Care Condition on Discharge: Good Instructions: How To Perform RICE (Rest, Ice, Compress, Elevate) Additional Instructions: *weight bearing as tolerated *RICE, Rest the extremity, Ice 15-20 minutes 3-4 times daily, Compress- wear the ryan wrap as discussed as much as possible to help reduce swelling and pain, Elevate the extremity when at rest *Ryan wrap is for support and help control swelling, use it except in the shower. Be sure that is not to tight but not to loose either *Elevate when resting *Ibuprofen every 6-8 hours as needed for pain an inflammation. If need something more can take Tylenol in between doses of Ibuprofen to help Immediately follow up with your family doctor for new or worsening of symptoms, or no noticeable improvement over the next 3-5 days Prescriptions: Wheelchair 1 each MISCELLANE DIRECTED #1 each Prescription Printed Referrals: Betsy Klein APRN [Primary Care Provider] - As needed Eric Cronin MD [Staff Physician] - (Call office in the morning for appointment) Time of Disposition: 20:55 Medical Decision Making - Bro Inquiry Pt receiving controlled substance: No Bro was queried for this patient: No Vital Signs: 05/26/21 19:45 05/26/21 20:42 Temperature 98.0 F 98.0 F Temperature Source Temporal Artery Scan Pulse Rate 85 Pulse Rate [Right Brachial] 85 Respiratory Rate 18 18 Blood Pressure 127/85 Blood Pressure [Right Arm] 127/85 Blood Pressure Mean [Right Arm] 99 Blood Pressure Source [Right Arm] Automatic Cuff Blood Pressure Position [Right Arm] Sitting 02 Sat by Pulse Oximetry 98 Oxygen Delivery Method Room Air Orders (Tests/Meds): ORDERS Category Date Time Status XR ankle LT min 3V Stat Exams 05/26/21 19:48 Taken - Radiology Data #1 Image(s): Ankle Image Reviewed: Yes I reviewed the patient's radiology image ?fracture lateral malleous - Physician Consults Physician Consulted: Dr Cronin Time: 20:52 Reason -: Orthopedic Eval/Care Comment/Response: Spoke with Dr Cronin and he viewed xray and agreed ? fracture lateral malleous advised to place her in short leg splint non-weight bearing RICE and have her call office in the morning for appointment [facility] [place] - General Stated complaint: a/o 05/26 1925 fell twisted ankle Time Seen by Provider: 05/26/21 20:31 Mode of Arrival: Ambulatory Source of Information: Patient Limitations: No Limitations Description of Symptoms (Recalled from Triage Doc. 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 DENIES HITTING HEAD OR LOC HEENT Symptoms (Recalled from RN notes): No Resp Symptoms (Recalled from RN notes): No Skin Symptoms (Recalled from RN notes): No MS Symptoms (Recalled from RN notes): Yes Functional Status (Recalled from RN notes): WNL - History of Present Illness Provider Complaint: Patient states that she was in the bathroom at [facility] [place] when she slipped and fell and twisted her left ankle States that ever since she has been having pain and swelling in her left ankle and hurts when she moves it or tries to walk on it States that she did not hurt herself anywhere else - Related Data Previous Rx's Medication Instructions Recorded amlodipine 5 mg tablet 5 mg PO DAILY #90 tab 05/26/19 hydrochlorothiazide 25 mg tablet 25 mg PO DAILY #90 tab 05/26/19 simvastatin 40 mg tablet 40 mg PO HS #90 tab 05/26/19 metformin 500 mg tablet 500 mg PO DAILY #90 tab 10/21/19 pantoprazole 40 mg tablet,delayed 40 mg PO DAILY #90 tab 10/21/19 release propranolol 10 mg tablet 10 mg PO DAILY #90 tab 10/21/19 trazodone 50 mg tablet 50 mg PO HS #30 tab 03/28/20 Acetaminophen with Codeine 1 tab PO Q6HP PRN #10 tab 01/31/21 [T
[2021-05-26 20:42] VITALS: BP 127/85; PULSE 85; RESP 18; TEMP 36.7; O2SAT 98
== END 2021-05-26 21:06 | disposition home or self-care (01) ==
PROVIDERS: Emergency Provider Nurse Practitioner; PCP Nurse Practitioner Family
DX: S82.892A Other fracture of left lower leg, initial encounter for closed fracture (principal); W01.0XXA Fall on same level from slipping, tripping and stumbling without subsequent striking against object, initial encounter; Y92.019 Unspecified place in single-family (private) house as the place of occurrence of the external cause; I25.10 Atherosclerotic heart disease of native coronary artery without angina pectoris; I10 Essential (primary) hypertension; E78.5 Hyperlipidemia, unspecified; K21.9 Gastro-esophageal reflux disease without esophagitis; F17.210 Nicotine dependence, cigarettes, uncomplicated
CPT/HCPCS: 29515; 73610; 99202; 99203; G0463

== ENCOUNTER → 2021-06-04 12:47 | Outpatient (CLI) | payer MEDICARE, MEDICAID, SELFPAY ==
--- NOTE | 2021-06-04 12:54 | XR_ITS ---
PROCEDURE: XR ANKLE LT MIN 3V CLINICAL INDICATION: left ankle injury COMPARISON: CR FTR3 FOOT-RT-3 VIEWS from 10/03/2014 CR LLL LOWER LEG-LT from 10/03/2014 CR ANKR3 ANKLE-RT-3 VIEWS from 10/03/2014 CR FTL3 FOOT-LT-3 VIEWS from 01/23/2015 CR XR ANKLE RT MIN 3V from 01/31/2021 CR XR ANKLE LT MIN 3V from 05/26/2021 FINDINGS: Displaced distal tibial fracture extends into the medial malleolus is noted with intra-articular extension. Old fractures at the tip of the fibula. Generalized osteopenia is noted. Degenerative changes of the distal tibial fibular joint. The soft tissue swelling adjacent to the medial and lateral malleolus. Achilles tendon enthesopathy and calcaneal spur are noted. IMPRESSION: Displaced distal tibial fracture extending into the medial malleolus with intra-articular extension. Old lateral malleolar fracture. Osteopenia. Dictated by: Dasha Cronin 06/04/2021 14:33 Dasha Cronin in [facility] 06/04/2021 14:33
== END ==
PROVIDERS: PCP Nurse Practitioner Family; Visit Provider Orthopaedic Surgery
DX: S82.892A Other fracture of left lower leg, initial encounter for closed fracture (principal)
CPT/HCPCS: 73610

== ENCOUNTER → 2021-06-12 12:34 | Outpatient (CLI) | payer MEDICARE, MEDICAID, SELFPAY ==
--- NOTE | 2021-06-12 12:43 | XR_ITS ---
PROCEDURE: XR ANKLE LT MIN 3V CLINICAL INDICATION: left ankle fracture; in splint COMPARISON: CR ANKR3 ANKLE-RT-3 VIEWS from 10/03/2014 CR XR ANKLE RT MIN 3V from 01/31/2021 CR XR ANKLE LT MIN 3V from 05/26/2021 CR XR ANKLE LT MIN 3V from 06/04/2021 FINDINGS: Status post closed reduction left distal tibial fracture There is good alignment of the medial malleolar fragment. Fracture line is not well visualized. There is an overlying splint. There is an old fracture of the lateral malleolus with degenerative change at the ankle. Other findings:None. IMPRESSION: Status post closed reduction with good alignment of the medial malleolar intra-articular fracture. Dictated by: Romeo Boyd MD 06/12/2021 14:10 Romeo Boyd MD in [facility] 06/12/2021 14:10
== END ==
PROVIDERS: PCP Nurse Practitioner Family; Visit Provider Orthopaedic Surgery
DX: S82.892A Other fracture of left lower leg, initial encounter for closed fracture (principal)
CPT/HCPCS: 73610

== ENCOUNTER → 2021-06-19 15:55 | Outpatient (CLI) | payer MEDICARE, MEDICAID, SELFPAY ==
--- NOTE | 2021-06-19 15:59 | XR_ITS ---
PROCEDURE: XR ANKLE LT MIN 3V CLINICAL INDICATION: left ankle fx, cast applied COMPARISON: CR XR ANKLE RT MIN 3V from 01/31/2021 CR XR ANKLE LT MIN 3V from 05/26/2021 CR XR ANKLE LT MIN 3V from 06/04/2021 CR XR ANKLE LT MIN 3V from 06/12/2021 FINDINGS: Cast has been placed. There is good alignment of the distal tibial and fibular fractures with only minimal anterior displacement of the distal fibular fracture. Ankle mortise is preserved. The joint spaces are well-preserved. No significant degenerative/arthritic changes. No erosive changes evident. Other findings:None. IMPRESSION: Good alignment status post cast placement of distal tibial and fibular fractures Dictated by: Romeo Boyd MD 06/19/2021 16:50 Romeo Boyd MD in [place] 06/19/2021 16:50
== END ==
PROVIDERS: PCP Nurse Practitioner Family; Visit Provider Orthopaedic Surgery
DX: S82.899A Other fracture of unspecified lower leg, initial encounter for closed fracture (principal)
CPT/HCPCS: 73610

== ENCOUNTER 2021-06-29 16:49 | Emergency (ER) | payer MEDICARE, MEDICAID, SELFPAY ==
[2021-06-29 16:26] VITALS: BP 176/66; PULSE 68; RESP 14; TEMP 36.7; O2SAT 95; BMI 38.6
--- NOTE | 2021-06-29 16:37 | XR_ITS ---
PROCEDURE INFORMATION: Exam: XR Left Hip Exam date and time: 06/29/2021 4:37 PM Age: 80 years old Clinical indication: Injury or trauma; Fall; Blunt trauma (contusions or hematomas); Left; Hip TECHNIQUE: Imaging protocol: XR Left hip. Views: 2 or 3 views hip with pelvis when performed. COMPARISON: CR XR PELVIS 1-2V 11/01/2020 1:56 PM FINDINGS: Bones/joints: Mild degenerative changes in the left hip. No malalignment. No fracture identified. Soft tissues: Soft tissues notable for phleboliths. IMPRESSION: No evidence of acute osseous injury
--- NOTE | 2021-06-29 16:37 | XR_ITS ---
PROCEDURE INFORMATION: Exam: XR Right Hip Exam date and time: 06/29/2021 4:37 PM Age: 80 years old Clinical indication: Injury or trauma; Fall; Blunt trauma (contusions or hematomas); Right; Hip TECHNIQUE: Imaging protocol: XR Right hip. Views: 2 or 3 views hip with pelvis when performed. COMPARISON: CR XR PELVIS 1-2V 11/01/2020 1:56 PM FINDINGS: Bones/joints: Unremarkable. No acute fracture. Soft tissues: Unremarkable. IMPRESSION: No acute findings.
--- NOTE | 2021-06-29 16:53 | CT_ITS ---
PROCEDURE INFORMATION: Exam: CT Pelvis Without Contrast; Skeletal Exam date and time: 06/29/2021 4:53 PM Age: 80 years old Clinical indication: Injury or trauma; Fall; Blunt trauma (contusions or hematomas); Left; Hip TECHNIQUE: Imaging protocol: Computed tomography images of the pelvis without contrast. Exam focused on the skeletal structures. 3D rendering (Not supervised by radiologist): MIP and/or 3D reconstructed images were created by the technologist. Radiation optimization: All CT scans at this facility use at least one of these dose optimization techniques: automated exposure control; mA and/or kV adjustment per patient size (includes targeted exams where dose is matched to clinical indication); or iterative reconstruction. COMPARISON: CT ABDOMEN PELVIS W CON 07/28/2019 4:27 AM FINDINGS: Reproductive: Status post hysterectomy. Bones/joints: Unremarkable. No acute fracture. No dislocation. Mild degenerative changes in the hips, SI joints, and lower lumbar facets. Bones appear osteopenic. Soft tissues: Unremarkable. IMPRESSION: No evidence of acute osseous injury
[2021-06-29 17:19] VITALS: BP 176/66; PULSE 103; RESP 18; O2SAT 96
--- NOTE | 2021-06-29 18:49 | HMH.EDGENADL ---
ED Disposition Clinical Impression: Left groin pain Disposition: Home, Self-Care Condition on Discharge: Good Additional Instructions: Tylenol for pain. Follow-up with your primary care doctor next week. Referrals: Betsy Klein APRN [Primary Care Provider] - - Critical Care Critical Care Time: No Attestation: On 06/29/21, the high probability of a clinically significant, sudden or life threatening deterioration of the following system(s) required my full and direct attention, intervention and personal management. The time I documented below is in addition to time spent performing reported procedures but includes the following listed in this critical care notation. Medical Decision Making - Bro Inquiry Pt receiving controlled substance: No Vital Signs: 06/29/21 16:26 06/29/21 17:19 Temperature 98.1 F Temperature Source Oral Pulse Rate 103 H Pulse Rate [Right Radial] 68 Respiratory Rate 14 18 Blood Pressure 176/66 H Blood Pressure [Right Arm] 176/66 H Blood Pressure Mean [Right Arm] 102 Blood Pressure Source [Right Arm] Automatic Cuff Blood Pressure Position [Right Arm] Supine 02 Sat by Pulse Oximetry 95 96 Oxygen Delivery Method Room Air - Radiology Data #1 Image(s): Hip (bilat) Image Reviewed: Yes I have reviewed radiologist's interpretation PROCEDURE INFORMATION: Exam: XR Right Hip Exam date and time: 06/29/2021 4:37 PM Age: 80 years old Clinical indication: Injury or trauma; Fall; Blunt trauma (contusions or hematomas); Right; Hip TECHNIQUE: Imaging protocol: XR Right hip. Views: 2 or 3 views hip with pelvis when performed. COMPARISON: CR XR PELVIS 1-2V 11/01/2020 1:56 PM FINDINGS: Bones/joints: Unremarkable. No acute fracture. Soft tissues: Unremarkable. IMPRESSION: No acute findings. EDURE INFORMATION: Exam: XR Left Hip Exam date and time: 06/29/2021 4:37 PM Age: 80 years old Clinical indication: Injury or trauma; Fall; Blunt trauma (contusions or hematomas); Left; Hip TECHNIQUE: Imaging protocol: XR Left hip. Views: 2 or 3 views hip with pelvis when performed. COMPARISON: CR XR PELVIS 1-2V 11/01/2020 1:56 PM FINDINGS: Bones/joints: Mild degenerative changes in the left hip. No malalignment. No fracture identified. Soft tissues: Soft tissues notable for phleboliths. IMPRESSION: No evidence of acute osseous injury - CT Data CT Scan: Pelvis Time Received: 18:[address] Reviewed: Yes: I have viewed the radiologist's interpretation Findings Narrative: PROCEDURE INFORMATION: Exam: CT Pelvis Without Contrast; Skeletal Exam date and time: 06/29/2021 4:53 PM Age: 80 years old Clinical indication: Injury or trauma; Fall; Blunt trauma (contusions or hematomas); Left; Hip TECHNIQUE: Imaging protocol: Computed tomography images of the pelvis without contrast. Exam focused on the skeletal structures. 3D rendering (Not supervised by radiologist): MIP and/or 3D reconstructed images were created by the technologist. Radiation optimization: All CT scans at this facility use at least one of these dose optimization techniques: automated exposure control; mA and/or kV adjustment per patient size (includes targeted exams where dose is matched to clinical indication); or iterative reconstruction. COMPARISON: CT ABDOMEN PELVIS W CON 07/28/2019 4:27 AM FINDINGS: Reproductive: Status post hysterectomy. Bones/joints: Unremarkable. No acute fracture. No dislocation. Mild degenerative changes in the hips, SI joints, and lower lumbar facets. Bones appear osteopenic. Soft tissues: Unremarkable. IMPRESSION: No evidence of acute osseous injury General Adult HPI
[2021-06-29 19:37] VITALS: BP 168/74; PULSE 89; RESP 18; TEMP 36.8; O2SAT 95
--- NOTE | 2021-07-01 10:58 | SW/DCPLANNER ---
Addendum entered by Lucita Love 07/01/21 13:21: Melissa with [facility] has stated that she can NOT accept this patient at this time. I attempted to contact patients daughter: no answer and VM full. Patient information has been faxed to [facility] and [facility]. Original Note: I received a phone call from patients daughter (Bonnie) regarding an interest in placement for this patient. Bonnie stated that patient currently has a broken foot and is needed assistance around the home. Bonnie expressed an interest in possible [facility] placement and preferred [facility]. I have faxed patient information to [facility] and I will follow up with Melissa regarding referral. I have explained to Bonnie that patient must be willing to go to placement. Patient currently resides at home.
== END 2021-06-29 19:40 | disposition home or self-care (01) ==
PROVIDERS: Emergency Provider Emergency Medicine; PCP Nurse Practitioner Family
DX: S70.02XA Contusion of left hip, initial encounter (principal); W01.0XXA Fall on same level from slipping, tripping and stumbling without subsequent striking against object, initial encounter; Y92.019 Unspecified place in single-family (private) house as the place of occurrence of the external cause; I10 Essential (primary) hypertension; K21.9 Gastro-esophageal reflux disease without esophagitis; E78.5 Hyperlipidemia, unspecified; I25.10 Atherosclerotic heart disease of native coronary artery without angina pectoris; F41.8 Other specified anxiety disorders; E11.9 Type 2 diabetes mellitus without complications
CPT/HCPCS: 72192; 73502; 99282

== ENCOUNTER → 2021-07-10 13:41 | Outpatient (CLI) | payer MEDICARE, MEDICAID, SELFPAY ==
--- NOTE | 2021-07-10 13:51 | XR_ITS ---
PROCEDURE: XR ANKLE LT MIN 3V CLINICAL INDICATION: left ankle fracture; OUT OF CAST COMPARISON: CR XR ANKLE LT MIN 3V from 05/26/2021 CR XR ANKLE LT MIN 3V from 06/04/2021 CR XR ANKLE LT MIN 3V from 06/12/2021 CR XR ANKLE LT MIN 3V from 06/19/2021 FINDINGS: The cast has been removed. There is good alignment. Soft tissue swelling is present laterally. Old fractures involve the distal fibula. Nondisplaced fractures present at the base of the medial malleolar region. The ankle mortise is slightly widened. There is an old avulsion at the tip of the lateral malleolus. There is diffuse osteopenia. IMPRESSION: Nondisplaced fracture at the base of the medial malleolus not significantly changed. Mildly widened ankle mortise. Old distal fibular fracture. Dictated by: Romeo Boyd MD 07/10/2021 15:20 Romeo Boyd MD in [place] 07/10/2021 15:20
--- NOTE | 2021-07-10 14:34 | XR_ITS ---
PROCEDURE: XR HIP LT 2-3V W/PELVIS CLINICAL INDICATION: left hip pain COMPARISON: CT CT PELVIS WO CON from 06/29/2021 CR XR HIP LT 2-3V W/PELVIS from 06/29/2021 FINDINGS: There has been interval development of a oblique area of sclerosis involving the left femur at the femoral head/neck junction consistent with a nondisplaced fracture with minimal impaction. There are mild osteoarthritic changes of both hips and degenerative changes in the lower lumbar spine. IMPRESSION: Nondisplaced left subcapital femoral neck fracture Dictated by: Romeo Boyd MD 07/10/2021 14:56 Romeo Boyd MD in [facility] 07/10/2021 14:56
== END ==
PROVIDERS: PCP Nurse Practitioner Family; Visit Provider Orthopaedic Surgery
DX: S82.899A Other fracture of unspecified lower leg, initial encounter for closed fracture (principal); M25.552 Pain in left hip
CPT/HCPCS: 73502; 73610

== ENCOUNTER 2021-07-10 15:20 | Outpatient (RCR) | payer MEDICARE, MEDICAID, SELFPAY | END 2021-07-10 16:30 | disposition home or self-care (01) | LOC: PT 15:20 | PROVIDERS: Visit Provider Orthopaedic Surgery | DX: S82.892A Other fracture of left lower leg, initial encounter for closed fracture (principal) | CPT/HCPCS: 97760 ==

== ENCOUNTER 2021-07-10 15:35 | Inpatient (IN) | payer MEDICARE, MEDICAID, SELFPAY ==
[2021-07-10 16:00] VITALS: BP 174/82; PULSE 80; RESP 16; TEMP 36.9; O2SAT 97; BMI 35.0
[2021-07-10 16:26] LABS: Coronavirus 19, PCR Not Detected (NotDetected); Influenza A, PCR Not Detected (NotDetected); Influenza B, PCR Not Detected (NotDetected)
--- NOTE | 2021-07-10 16:54 | XR_ITS ---
PROCEDURE: XR CHEST PORTABLE CLINICAL HISTORY: Preoperative, hip fracture COMPARISON: CR CXR CHEST(2 VIEWS-NOT PORTABLE) from 02/27/2016 CR CXR2V XR chest 2V from 12/01/[address] soft tissue neck w con from 03/01/2018 CR XR CHEST PORTABLE from 02/20/2020 FINDINGS: Mild cardiomegaly without failure. No lobar consolidation or collapse. There is a 14 mm nodular opacity overlying the right upper lobe nonspecific not readily apparent on the previous exam. Calcified node is present in the right hilum. No acute bony abnormalities. IMPRESSION: 14 mm right upper lobe nodular opacity. Nonemergent chest CT suggested for further evaluation. No acute finding. Mild cardiomegaly Dictated by: Romeo Boyd MD 07/10/2021 17:26 Romeo Boyd MD in [facility] 07/10/2021 17:26
[2021-07-10 17:26] LABS: Microscopic, Urine URINE MICROSCOPIC (MICROSCOPIC)
[2021-07-10 17:28] LABS: Basophils % 0.3 % (0.1-2.0); Eosinophils # 0.2 K/mm3 (0.0-0.4); Eosinophils % 2.5 % (0.1-12.0); Hematocrit 33.7 % (37.0-47.0); Hemoglobin 11.1 g/dL (12.2-16.2); Mean Corpuscular Hemoglobin 27.3 pg (27.0-31.2); Mean Corpuscular Volume 82.7 fl (81-99); Mean Platelet Volume 8.7 fl (7.4-10.4); Monocytes # 0.3 K/mm3 (0.1-1.0); Monocytes % 3.6 % (1.7-9.3); Neutrophils # 4.7 K/mm3 (1.8-7.8); Neutrophils % 65.6 % (37.0-80.0); Platelet Count 299 K/mm3 (142-424); Red Blood Count 4.07 M/mm3 (4.20-5.40); Red Cell Distribution Width 14.8 % (11.5-17.5); White Blood Count 7.1 K/mm3 (4.8-10.8)
[2021-07-10 17:48] LABS: Alanine Aminotransferase 20 U/L (12-78); Albumin Level 3.6 g/dl (3.5-5.0); Alkaline Phosphatase 81 U/L (38-126); Anion Gap 10.1 mEq/L (5-15); Aspartate Amino Transferase 30 U/L (14-36); Bilirubin,Total 0.8 mg/dl (0.2-1.3); Blood Urea Nitrogen 8 mg/dl (7-17); Calcium 8.7 mg/dl (8.4-10.2); Carbon Dioxide 30 mmol/L (22.0-30.0); Chloride 100 mmol/L (98-107); Creatinine Clearance Estimated 67 mL/min (50-200); Estimated Glomerular Filt Rate 81 ml/min (>60); GFR (African American) 98 ML/MIN (>60); Globulin 3.5 g/dL (1.3-3.2); Glucose 132 mg/dl (74-100); Potassium 3.1 mmoL/L (3.5-5.1); Sodium 137 mmol/L (136-145); Total Protein,Serum 7.1 g/dl (6.3-8.2)
[2021-07-10 17:51] VITALS: O2SAT 97
[2021-07-10 18:08] LABS: Appearance,Urine CLEAR (Clear); Bilirubin,Urine Negative (Negative); Blood, Urine Negative (Negative); Color,Urine YELLOW (Yellow); Glucose,Urine (UA) Negative (Negative); Ketones,Urine Negative (Negative); Leukocyte Esterase,Urine Negative (Negative); Nitrate,Urine Negative (Negative); Protein,Urine Negative (Negative); Urobilinogen,Urine 0.2 EU/dl (0.2)
[2021-07-10 20:00] VITALS: BP 160/76; PULSE 74; RESP 18; TEMP 36.9; O2SAT 97
--- NOTE | 2021-07-10 21:31 | HMH.HP ---
*Admission Date: 07/10/21 *Chief complaint: hip pain *History of present illness: this patient presented to the ortho office for follow up for prev lt ankle fx - pt had been living with son - pt has been non-compliant with use of walker and wt bearing and had had a fall 06/29/21 and was seen in the ed and had neg xrays of hip and pelvis including ct of pelvis - pt was seen by myself in office and continued to have groin pain and dec wt bearing - pt has hx of lumbar disease on mri with both facet and foraminal disease- pt was seen by ortho with persistent sx of hip and groin pain - pt was discovered to have hip fx and admitted for eval and treatment - [facility] History I have reviewed the patient's past medical history: Yes Medical History: Reports:: Anxiety, Arrhythmia, Carotid Stenosis, Coronary Artery Disease, Cerebrovascular Accident, Depression, Gastroesophageal Reflux Disease(GERD), Hyperlipidemia, Hypertension, MRSA Denies:: Cancer, Diabetes Mellitus Type 1, Diabetes Mellitus Type 2, Internal Pacemaker, Lung Disease, Seizures *Have you ever received a pneumonia vaccine?: Yes *Have you received a flu vaccine this season?: Yes Other Medical History: Reports: Arthritis, Sinus Problems. Denies: Blood Transfusion Reaction Laterality Cases: Right: Mastectomy, Tonsillectomy, Bilateral: Carpal Tunnel Release, Other Other Surgeries: Yes: Appendectomy, Cardiac Catheterization, Cholecystectomy, Colonoscopy, Hysterectomy-Total, Hysterectomy-Partial. No: Pacemaker Amputation: No Fractures: Yes - *Social History Smoking Status: Never smoker Tobacco Type: cigarettes # Packs/Day (cigarettes): 1 Alcohol Intake: never Substance Use Type: denies use *Occupational Status:: retired Housing: house Household Members: family *Travel in the last 8 weeks: None - Psychiatric History Pschychiatric History:: Reports:: Anxiety, Depression Family Hx:: Cancer, Heart Attack, Stroke Review of Systems - Review of Systems Review of systems:: pertinent systems reviewed and negative unless documented below - Constitutional Denies fever(s) - Eyes Denies change in vision - ENT Denies sore throat - *Cardiovascular Denies chest pain - *Respiratory Denies cough - *Gastrointestinal Denies abdominal pain - *Genitourinary Denies blood in urine - *Musculoskeletal Reports joint pain, Reports back pain, Reports limited joint movement - Integumentary/Breasts Denies rash - *Neurologic Reports frequent falls, Denies seizure-like activity - Psychiatric Denies behavioral changes Meds Home Medications Medication Instructions Recorded Confirmed Type amlodipine 5 mg tablet 5 mg PO DAILY #90 tab 05/26/19 07/10/21 Rx hydrochlorothiazide 25 mg tablet 25 mg PO DAILY #90 tab 05/26/19 07/10/21 Rx simvastatin 40 mg tablet 40 mg PO HS #90 tab 05/26/19 07/10/21 Rx metformin 500 mg tablet 500 mg PO DAILY #90 tab 10/21/19 07/10/21 Rx pantoprazole 40 mg tablet,delayed 40 mg PO DAILY #90 tab 10/21/19 07/10/21 Rx release propranolol 10 mg tablet 10 mg PO DAILY #90 tab 10/21/19 07/10/21 Rx trazodone 50 mg tablet 50 mg PO HS #30 tab 03/28/20 07/10/21 Rx tramadol 50 mg tablet 50 mg PO TID PRN #14 tab 05/28/21 07/10/21 Rx Cetirizine HCl See Rx Instructions .ROUTE .COMPLEX 07/10/21 07/10/21 History Cholecalciferol (Vitamin D3) See Rx Instructions .ROUTE .COMPLEX 07/10/21 07/10/21 History [Vitamin D3] Clopidogrel Bisulfate [Plavix] See Rx Instructions .ROUTE .COMPLEX 07/10/21 07/10/21 History Ergocalciferol (Vitamin D2) See Rx Instructions .ROUTE .COMPLEX 07/10/21 07/10/21 History [Drisdol] Ibuprofen [Ibuprofen 600mg Tab] 600 mg PO Q8H 07/10/21 07/10/21 History Montelukast Sodium [Singulair] See Rx Instructions .ROUTE .COMPLEX 07/10/21 07/10/21 History Sertraline HCl [Zoloft] See Rx Instructions .ROUTE .COMPLEX 07/10/21 07/10/21 History Wheelchair 1 each MISCELLANE DIRECTED 07/10/21 07/10/21 History hydrOXYzine HCL [Hydroxyzine HCl] See Rx Instructions .ROUTE
--- NOTE | 2021-07-10 23:27 | ECG_ITS ---
APPROVED REPORT Exam: Resting ECG HR:77 bpm ECG Measurements Heart Rate 77 AXES ND 118 P 63 QRSd 82 QRS 14 QT 404 T 34 QTc 457 Conclusion Normal sinus rhythm Low voltage QRS Late R wave progression Abnormal ECG Electronically signed by : Ted Mares MD 07/11/2021 17:34:14
[2021-07-11] VITALS (29 sets, daily range): BP systolic 113–192; BP diastolic 52–79; PULSE 54–69; RESP 14–20; TEMP 35.5–37.2; O2SAT 95–100; BMI 35.0
--- NOTE | 2021-07-11 03:50 | PC.NURSE ---
Pt is A/O x4. No acute changes this shift. Pt remains on room air with stats >90%. Bowles is draining clear, yellow urine. Pt has had x3 loose BM this shift. Pt denies any pain this shift. Pt has a surgical/walking boot on her left foot. Bruising noted to left hip from fall. IV is patent and infusing LR @ 75ml/hr. VSS, will continue to monitor.
--- NOTE | 2021-07-11 07:00 | CA_ITS ---
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00 (160-240 msec) E/A Ratio 1.62 MED E' 13.70 (< 7 cm/sec) MED A' 4.50 cm/s E'/MED E' Ratio 6.83 (>14) LAT E' 10.90 (<10 cm/sec) LAT A' 3.40 cm/s E/LAT E' Ratio 8.59 (>14) Aortic Valve AO Peak GR. 6.50 mmHg Mitral Valve MV E Max Edilberto. 94.00 (40-130 cm/s) MV A Velocity 58.00 (40-130 cm/s) E/A Ratio 1.62 MV Decel. Time 207.00 (160-240 ms) MV PHT 61.00 ms Pulmonary Valve PV Peak Velocity 150.00 (50-150 cm/s) Tricuspid Valve TR P. Velocity 335.00 cm/s RAP Estimate 10.00 mmHg RVSP 54.80 mmHg Left Ventricle Left atrium is moderately enlarged, left ventricle is normal size, mild concentric left ventricular hypertrophy, visually estimated ejection fraction 55% with no regional wall motion abnormality, grade 2 diastolic dysfunction seen without tissue Doppler evidence of raise left atrial pressure. Right Ventricle Right atrium is moderately enlarged, right ventricle is mildly dilated with normal contractility. Aortic Valve Aortic valve is minimally thickened and fibrosed, there is no aortic stenosis or aortic insufficiency. Mitral Valve Mitral valve leaflets are minimally thickened, there is mild mitral regurgitation. Tricuspid Valve Tricuspid valve grossly normal, there is mild tricuspid regurgitation, calculated right ventricular systolic pressure is 55 mmHg. Pulmonic Valve Pulmonic valve is poorly visualized. Great Vessels Aortic root is normal size. Pericardium No significant pericardial effusion noted. Conclusion 1. Moderate biatrial enlargement, normal left ventricular size, mild concentric left ventricular hypertrophy, visually estimated ejection fraction 55% with no regional wall motion abnormality, grade 2 diastolic dysfunction seen without tissue Doppler evidence of raise left atrial pressure. 2. Mildly enlarged right ventricle with normal contractility. 3. Mild mitral and tricuspid regurgitation, calculated right ventricular systolic pressure is 55 mmHg. 4. No significant pericardial effusion noted. Electronically signed by : Marc Gibbons MD 07/12/2021 12:39:18
--- NOTE | 2021-07-11 07:00 | CA_ITS ---
APPROVED REPORT Bilateral Lower Extremity Venous Study for DVT. 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 Indications immbolity and left hip fx Risk Factors Immobility Obesity Vein Imaging CFV (R): compressive, spontaneous, phasic, augmentation SFJ (R): compressive, spontaneous, phasic, augmentation FEM (R): compressive, spontaneous, phasic, augmentation POP (R): compressive, spontaneous, phasic, augmentation DFV (R): compressive, spontaneous, phasic, augmentation PTV (R): compressive, spontaneous, phasic, augmentation GSV (R): compressive, spontaneous, phasic, augmentation Peroneals (R):Difficult to image compressive, spontaneous, phasic, augmentation GAS (R): compressive, spontaneous, phasic, augmentation CFV (L): compressive, spontaneous, phasic, augmentation SFJ (L): compressive, spontaneous, phasic, augmentation FEM (L): compressive, spontaneous, phasic, augmentation POP (L): compressive, spontaneous, phasic, augmentation DFV (L): compressive, spontaneous, phasic, augmentation PTV (L): Not Visualized GSV (L): compressive, spontaneous, phasic, augmentation Peroneals (L):Not Visualized GAS (L): Not Visualized Findings Bilateral lower extremity negative for DVT/SVT. Vessels compressible LLE has boot , LLE not scanned below the popliteal vein d/t boot for ankle fx. Conclusion Bilateral lower extremity negative for DVT/SVT. Vessels compressible LLE has boot , LLE not scanned below the popliteal vein d/t boot for ankle fx. Electronically signed by : Romeo Boyd MD 07/11/2021 16:08:21
--- NOTE | 2021-07-11 07:18 | P.CONPHA_ITS ---
[facility] Pharmacy VTE Monitoring - Patient Demographics Admission date: 07/11/21 Report Date: 07/11/21 Time: 07:18 Allergies/Adverse Reactions: Patient Allergies No Known Allergies Allergy (Verified 07/10/21 14:10) Height: 1.63 m Weight: 93.1 kg Patient Problems: Current Active Problems Hip fracture (Acute) Obesity (BMI 30-39.9) (Acute) CAD (coronary artery disease) (Acute) High grade dysplasia in colonic adenoma (Acute) Depression (Acute) Hypokalemia (Acute) Carotid artery stenosis (Chronic) HLD (hyperlipidemia) (Chronic) HTN (hypertension) (Chronic) GERD (gastroesophageal reflux disease) (Chronic) History of CVA (cerebrovascular accident) (Acute) - VTE Risk Labs: VTE Related Lab Results Hgb 11.1 g/dL (12.2-16.2) L 07/10/21 17:02 Hct 33.7 % (37.0-47.0) L 07/10/21 17:02 Plt Count 299 K/mm3 (142-424) 07/10/21 17:02 BUN 8 mg/dl (7-17) 07/10/21 17:02 Creatinine 0.70 mg/dl (0.52-1.04) 07/10/21 17:02 Estimated Creat Clear 67 mL/min (50-200) 07/10/21 17:02 Clinical Trial Participant: No - Prophylaxis VTE Prophylaxis Ordered?: Yes Types of VTE Prophylaxis: IPCS Knee High
--- NOTE | 2021-07-11 08:03 | HMH.PHAINT ---
CLARIFIED HOME MEDICATION LIST USING LIST FROM OUTPATIENT PHARMACY AND USING PATIENT INTERVIEW
--- NOTE | 2021-07-11 08:21 | HMH.CNCARD ---
History of Present Illness Consult date: 07/11/21 Requesting physician: Fidel Muse Consult reason: pre-op evaluation Chief complaint: left hip pain after fall Additional Medical History:: 1. Suspected CAD, no history of cardiac angiogram A. Lexiscan Myoview 06/03, no ischemia with normal ejection fraction 2. History of CVA, on Plavix therapy A. Carotid ultrasound, 12/2019, R ICA 50-69%, LICA, 20/49% 3. Hypertension 4. Hyperlipidemia 5. 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 History of GERD 7. History of anxiety 8. 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, 2019, lost to follow up due to COVID History of present illness: this patient presented to the ortho office for follow up for prev lt ankle fx - pt had been living with son - pt has been non-compliant with use of walker and wt bearing and had had a fall 06/29/21 and was seen in the ed and had neg xrays of hip and pelvis including ct of pelvis - pt was seen by myself in office and continued to have groin pain and dec wt bearing - pt has hx of lumbar disease on mri with both facet and foraminal disease- pt was seen by ortho with persistent sx of hip and groin pain - pt was discovered to have hip fx and admitted for eval and treatment - The above per Dr. Muse Cardiology consulted for preop evaluation. Patient was cleared for colonoscopy early last year and denies any cardiac complaints since that visit in November 2019. Preliminary report of echocardiogram today shows preserved ejection fraction with no significant valvular heart disease. [facility] History Medical History: Reports:: Anxiety, Arrhythmia, Carotid Stenosis, Coronary Artery Disease, Cerebrovascular Accident, Depression, Gastroesophageal Reflux Disease(GERD), Hyperlipidemia, Hypertension, MRSA Denies:: Cancer, Diabetes Mellitus Type 1, Diabetes Mellitus Type 2, Internal Pacemaker, Lung Disease, Seizures *Have you ever received a pneumonia vaccine?: Yes *Have you received a flu vaccine this season?: Yes Other Medical History: Reports: Arthritis, Sinus Problems. Denies: Blood Transfusion Reaction Laterality Cases: Right: Mastectomy, Tonsillectomy, Bilateral: Carpal Tunnel Release, Other Other Surgeries: Yes: Appendectomy, Cardiac Catheterization, Cholecystectomy, Colonoscopy, Hysterectomy-Total, Hysterectomy-Partial. No: Pacemaker Amputation: No Fractures: Yes - *Social History Smoking Status: Never smoker Tobacco Type: cigarettes # Packs/Day (cigarettes): 1 Alcohol Intake: never Substance Use Type: denies use *Occupational Status:: other Housing: house Household Members: family *Travel in the last 8 weeks: None - Psychiatric History Pschychiatric History:: Reports:: Anxiety, Depression Family Hx:: Cancer, Heart Attack, Stroke Meds Home Medications Medication Instructions Recorded Confirmed Type trazodone 50 mg tablet 50 mg PO HS #30 tab 03/28/20 07/10/21 Rx Cetirizine HCl 10 mg PO DAILY 07/10/21 07/11/21 History Cholecalciferol (Vitamin D3) 50 mcg PO DAILY 07/10/21 07/11/21 History [Vitamin D3] Clopidogrel Bisulfate [Plavix] 75 mg PO DAILY 07/10/21 07/11/21 History Ergocalciferol (Vitamin D2) 1,250 mcg PO WEEKLY 07/10/21 07/11/21 History [Drisdol] Ibuprofen [Ibuprofen 600mg Tab] 600 mg PO TIDP PRN 07/10/21 07/11/21 History Montelukast Sodium [Singulair] 10 mg PO HS 07/10/21 07/11/21 History Sertraline HCl [Zoloft] 100 mg PO HS 07/10/21 07/11/21 History hydrOXYzine HCL [Hydroxyzine HCl] 25 mg PO HS 07/10/21 07/11/21 History lisinopriL [Lisinopril] 10 mg PO DAILY 07/10/21 07/11/21 History Allergies Allergy/AdvReac Type Severity Reaction Status Date / Time No Known Allergies Allergy Verified 07/10/21 14:10 Exam Vital signs and Labs for Last 24 Hours: Temp Pulse Resp BP Pulse Ox 98.2 F 67 20 192/79 H 97 07/11/21 08:00 07/11/21 08:00 07/11/21 08:00 07/11/21 08:00 07/11/21 08:00 Laboratory Results - last 24 hr
--- NOTE | 2021-07-11 08:29 | HMH.ACPN2 ---
Internal Medicine - PN: Subj *Date: 07/11/21 *Time: 09:53 Interval history: 80 YOF sitting bed, she reports L Hip pain is controlled, long discussion regarding need for surgery. She agrees to surgery and will discuss rehab post-surgery. Exam Vital signs and Labs for Last 24 Hours: Temp Pulse Resp BP Pulse Ox 98.2 F 67 20 192/79 H 97 07/11/21 08:00 07/11/21 08:00 07/11/21 08:00 07/11/21 08:00 07/11/21 08:00 Laboratory Results - last 24 hr 07/10/21 16:20: SARS-CoV-2 (PCR) Not detected, Influenza A Untype (PCR) Not detected, Influenza Type B (PCR) Not detected 07/10/21 17:02: WBC 7.1, RBC 4.07 L, Hgb 11.1 L, Hct 33.7 L, MCV 82.7, MCH 27.3, MCHC 33.0, RDW 14.8, Plt Count 299, MPV 8.7, Neut % (Auto) 65.6, Lymph % (Auto) 28.0, [place] % (Auto) 3.6, Eos % (Auto) 2.5, Baso % (Auto) 0.3, Neut # (Auto) 4.7, Lymph # (Auto) 2.0, [place] # (Auto) 0.3, Eos # (Auto) 0.2, Baso # (Auto) 0.0 07/10/21 17:02: Sodium 137, Potassium 3.1 L, Chloride 100, Carbon Dioxide 30, Anion Gap 10.1, BUN 8, Creatinine 0.70, Estimated Creat Clear 67, Estimated GFR 81, Est GFR ( Amer) 98, Glucose 132 H, Calcium 8.7, Total Bilirubin 0.8, AST 30, ALT 20, Alkaline Phosphatase 81, Total Protein 7.1, Albumin 3.6, Globulin 3.5 H, Albumin/Globulin Ratio 1.0 L 07/10/21 17:02: Blood Type A Negative, Antibody Screen Negative 07/10/21 17:24: Urine Color Yellow, Urine Appearance Clear, Urine pH 6.0, Ur Specific [place] 1.010, Urine Protein Negative, Urine Glucose (UA) Negative, Urine Ketones Negative, Urine Blood Negative, Urine Nitrate Negative, Urine Bilirubin Negative, Urine Urobilinogen 0.2, Ur Leukocyte Esterase Negative, Urine RBC None, Urine WBC None, Ur Squamous Epith Cells None, Urine Bacteria None I & O for Last 24 hours: Intake & Output 07/08/21 07/09/21 07/10/21 07/11/21 23:59 23:59 23:59 23:59 Intake Total 120 / 120 350 / 350 Output Total 1950 / 1950 Balance 120 / 120 -1600 / -1600 Weight 204 lb 5 oz 205 lb 4 oz - Constitutional no acute distress, chronically ill appearing - *Routine HEENT Exam Head: Present: normocephalic Eye: Present: EOMI ENT: Present: mucous membranes moist - *Routine Neck Exam Present: trachea midline. Absent: tracheal deviation - *Routine Respiratory Exam Present: CTA bilaterally. Absent: accessory muscle use - *Routine Cardiovascular Exam Present: RRR - *Routine Abdominal Exam Present: soft, normoactive bowel sounds. Absent: tenderness, firm - *Routine Extremities Exam Present: edema, pulses intact. Absent: cyanosis, clubbing, full ROM, calf tenderness Comments: Boot to LLE - *Routine Skin Exam Present: intact, dry, warm, scars. Absent: cyanosis Comments: Surgical scars R Ankle - *Routine Neurological Exam Present: alert, oriented X3. Absent: altered mental status - Routine Psychiatric Exam Present: normal affect, normal thought process Assessment and Plan (1) Hip fracture Status: Acute Qualifiers: Encounter type: initial encounter Fracture type: closed Laterality: left Qualified Code(s): S72.002A - Fracture of unspecified part of neck of left femur, initial encounter for closed fracture Category: Medical Code(s): S72.009A - Fracture of unspecified part of neck of unspecified femur, initial encounter for closed fracture (2) Obesity (BMI 30-39.9) Status: Acute Category: Medical Code(s): E66.9 - Obesity, unspecified (3) History of CVA (cerebrovascular accident) Status: Acute Category: Medical Code(s): Z86.73 - Personal history of transient ischemic attack (TIA), and cerebral infarction without residual deficits (4) Carotid artery stenosis Status: Chronic Qualifiers: Laterality: bilateral Qualified Code(s): I65.23 - Occlusion and stenosis of bilateral carotid arteries Category: Medical Code(s): I65.29 - Occlusion and stenosis of unspecified carotid artery (5) GERD (gastroesophageal reflux disease) Status: Chronic Qu
--- NOTE | 2021-07-11 09:21 | HMH.ANESCL ---
[facility] Anesthesia Checklist - Patient Identification Patient Identification: Arm Band - Structural Data Admitted From: Inpatient Planned Operative Procedure/s: Hip pinning Consent for Planned Operative Procedure(s) Verified: Yes - NPO Status Verified Time NPO: 00:00 - Additional verifications Anesthesia Reactions: No Hx Blood Transfusions: No Blood Transfusion Reaction: No - Airway Assessment C-Spine Mobility Assessed: Yes TMJ Mobility Assessed: Yes Dentition: Edentulous - Neurological Assessment Level of Consciousness: Awake Hx Seizures: No Numbness or tingling in extremities: No - Anesthesia Plan Anesthesia Risk discussed: Yes Anesthesia Plan: Verified ASA Class: III Anesthesia Type: MAC w/Spinal [facility] History I have reviewed the patient's past medical history: Yes Medical History: Reports:: Anxiety, Arrhythmia, Carotid Stenosis, Coronary Artery Disease, Cerebrovascular Accident, Depression, Gastroesophageal Reflux Disease(GERD), Hyperlipidemia, Hypertension, MRSA Denies:: Cancer, Diabetes Mellitus Type 1, Diabetes Mellitus Type 2, Internal Pacemaker, Lung Disease, Seizures *Have you ever received a pneumonia vaccine?: Yes *Have you received a flu vaccine this season?: Yes Other Medical History: Reports: Arthritis, Sinus Problems. Denies: Blood Transfusion Reaction Anesthesia experience/problems:: None Laterality Cases: Right: Mastectomy, Tonsillectomy, Bilateral: Carpal Tunnel Release, Other Other Surgeries: Yes: Appendectomy, Cardiac Catheterization, Cholecystectomy, Colonoscopy, Hysterectomy-Total, Hysterectomy-Partial. No: Pacemaker Amputation: No Fractures: Yes - *Social History Smoking Status: Never smoker Tobacco Type: cigarettes # Packs/Day (cigarettes): 1 Alcohol Intake: never Substance Use Type: denies use *Occupational Status:: other Housing: house Household Members: family *Travel in the last 8 weeks: None - Psychiatric History Pschychiatric History:: Reports:: Anxiety, Depression Family Hx:: Cancer, Heart Attack, Stroke
--- NOTE | 2021-07-11 09:25 | HMH.ORTHPN ---
Subjective Date: 07/11/21 Time: 08:50 Principal diagnosis: Fracture neck of femur, left hip Interval history: 80-year-old female with closed nondisplaced/minimally impacted subcapital femoral neck fracture admitted for cannulated screw fixation today. She says she is doing well and had a good night. She reports mild left hip pain. She is cleared for surgery by cardiology as well as by Dr. Muse. She is n.p.o. for surgery later this morning. She says she is hungry and wants to eat. PN: Obj Ex Vital signs: Temp Pulse Resp BP Pulse Ox 98.2 F 67 20 192/79 H 97 07/11/21 08:00 07/11/21 08:00 07/11/21 08:00 07/11/21 08:00 07/11/21 08:00 - Constitutional no acute distress, obese - Routine HEENT Exam Head: Present: normocephalic, atraumatic Eye: Present: EOMI ENT: Present: mucous membranes moist - Routine Neck Exam Present: supple, trachea midline - Routine Respiratory Exam Present: CTA bilaterally - Routine Cardiovascular Exam Present: RRR - Routine Abdominal Exam Present: soft, normoactive bowel sounds - Routine Extremities Exam Comments: On examination of her lower extremities, the limb lengths are equal. The alignment is neutral. On examination of the LEFT hip the skin is intact. There is fading ecchymosis over the lateral aspect of the upper thigh. She has large pannus with dermatitis/rash over the groin crease. She is tender over the LEFT hip. Any attempted movements of the LEFT hip are painful. Thigh and calf are soft and nontender. She has well-healed surgical scar over the anterior aspect of both knee joints. Dorsalis pedis and posterior tibial pulses are palpable 1+ bilaterally. Sensation is grossly intact. She is nontender over the knee joint and has good range of knee movements. Diagnostic imaging: The left hip x-rays performed yesterday show a mildly impacted nondisplaced left subcapital femoral neck fracture. The hip joint space is well preserved. No other acute changes noted. On examination of the left ankle, she is in a cam walker boot. On examination out of the boot, there is no erythema or induration. There is minimal residual swelling around the ankle and over the dorsum of the foot. There is mild tenderness over the ankle joint and both the malleoli. She is nontender over the proximal fibula; nontender over the soft tissue compartments. Calf is soft and nontender. No signs of compartment syndrome or DVT noted. The ankle joint is somewhat stiff. Patient has good range of active toe movements. Dorsalis pedis pulses 1+ distally. Capillary refill is brisk. Sensation is intact to light touch throughout. Diagnostic imaging: X-rays of the ankle performed yesterday are showing healing medial and lateral malleolus fractures. No complications noted on the x-rays. - Routine Skin Exam Present: intact - Routine Neurological Exam Present: alert, oriented X3 - Routine Psychiatric Exam Present: normal affect, cooperative - Urinary Catheter Management Bowles Cath placed during this visit: no Progress Note: A&P (1) Hip fracture Status: Acute (2) Obesity (BMI 30-39.9) Status: Acute (3) History of CVA (cerebrovascular accident) Status: Acute (4) Carotid artery stenosis Status: Chronic (5) GERD (gastroesophageal reflux disease) Status: Chronic (6) HLD (hyperlipidemia) Status: Chronic (7) HTN (hypertension) Status: Chronic (8) CAD (coronary artery disease) Status: Acute (9) Depression Status: Acute (10) High grade dysplasia in colonic adenoma Status: Acute (11) Hypokalemia Status: Acute Assessment and Plan for All Diagnoses:: I have again reviewed the clinical and x-ray findings with the patient a. I have discussed the diagnosis and management options in detail including both nonsurgical and surgical. She sustained a nondisplaced/impacted subcapital femoral neck fracture on the left side when she fell 10 days ago. The fr
--- NOTE | 2021-07-11 09:38 | HMH.PHAINT ---
CLARIFIED HOME MEDICATION LIST USING LIST FROM CLINIC PHARMACY, PT INTERVIEW AND LISTS FROM VARIOUS OFFICES
--- NOTE | 2021-07-11 11:06 | XR_ITS ---
PROCEDURE: XR HIP LT 2-3V W/PELVIS CLINICAL INDICATION: LT HIP SCREW FIXATION COMPARISON: No exams were available for comparison FINDINGS: Fluoroscopy time: 1.18 minutes Multiple images submitted with C-arm showing interval placement of 3 screws from the greater trochanteric region there is a femoral neck into the femoral head region stabilizing the sub capital fracture with good alignment. IMPRESSION: Good alignment status post ORIF left subcapital NOF fracture Dictated by: Romeo Boyd MD 07/11/2021 12:16 Romeo Boyd MD in [place] 07/11/2021 12:16
--- NOTE | 2021-07-11 11:43 | P.PN_ITS ---
[facility] Anesthesia Record Part I Intake, IV Amount: 150 Estimated blood loss (mL): 50 Urine output (mL): 500 Blood Pressure: 113/63 SaO2: 97 Pulse Rate: 56 Respiratory Rate: 14 Temperature: 98 F Patient is:: Drowsy Stable to PACU at:: 11:53
--- NOTE | 2021-07-11 12:21 | SUR.PHASEI ---
1213- detailed report called to eloise Powers on med surg by eloise rainey. Pt has large bruise on left hip from the prior fall. Reddened, raw areas under folds.
--- NOTE | 2021-07-11 12:40 | HMH.OPNOTE ---
Date of procedure: 07/11/21 Pre-op Diagnosis:: Fracture neck of femur, left hip Post-op Diagnosis:: Same Procedure performed:: Cannulated screw fixation, left hip Surgeon:: Eric Cronin MD Logistics System Engineer(s):: Shivani Boucher CHANGE MANAGEMENT DIRECTOR:: Jesse David Anesthesia: spinal Estimated blood loss (mL): 50 Clinical Note:: Patient is a 80-year-old female who sustained a closed nondisplaced, minimally impacted fracture neck of LEFT femur following an unwitnessed fall at home about 10 days ago. Internal fixation with cannulated hip screws was indicated to relieve pain and restore function. Patient is recovering from a left ankle fracture sustained about 6 weeks ago and is in a cam walker boot. Please refer to my office note for full details. Operative findings:: Closed nondisplaced minimally impacted femoral neck fracture LEFT hip as noted on the preoperative hip x-rays. The proximal femur bone quality is good. Operative note:: On the day of the procedure the patient was met on the floor, and a physical examination was performed. The operative side and site were marked and initialed by me. I reviewed the clinical and x-ray findings with the patient. I have discussed the diagnosis and management options in detail including both nonsurgical and surgical. We discussed the surgical options in the form of either cannulated hip screw fixation or hemiarthroplasty/total hip arthroplasty. We discussed the pros and cons of these procedures. Given that the fracture appears to be stable with valgus impaction, I have recommended a cannulated hip screw fixation. We discussed the possibility of nonunion, avascular necrosis, loss of fixation and the likely need for further surgery in future if we elected this option. I explained the procedure, risks and benefits, alternatives and the expected postoperative course. I explained with drawings and x-ray pictures of the fracture and the proposed surgical procedure. The complications discussed include but are not limited to- infection, injury to nerves and blood vessels, DVT and PE, femur fracture, limb length inequality, implant failure, nonunion, malunion, avascular necrosis, loss of fixation, heterotopic ossification, incomplete relief of pain, incomplete return of function or motion, likely need for further surgery in future including conversion to a brittany-or total hip arthroplasty, anesthetic/medical complications including heart attack, stroke, transfusion reactions and even . We discussed how any of these events can be devastating. We have discussed nonsurgical alternatives as well. We also discussed the postoperative course including the rehab and physical therapy required. All the questions were answered and patient verbalized a good understanding. Patient understood the risks, agreed to proceed with surgery, signed the consent form and no guarantees or assurances were given or implied. Following appropriate preoperative workup and medical clearance, patient was brought to the operating room and a spinal anesthesia was administered. Patient was then positioned supine on the fracture table and all the bony prominences were appropriately padded. The LEFT foot was secured in the footplate and the footplate was attached to the fracture table. The RIGHT leg was placed out of the way in a leg rose. Under fluoroscopic guidance the fracture was visualized and noted to be still holding good in valgus impaction with no change in position compared to the preoperative x-rays. The LEFT hip and thigh were then prepped and draped in the usual sterile fashion. Administration of prophylactic antibiotics was confirmed with the anesthetic team (2 g of IV Ancef was administered). A preprocedure timeout was performed as per the hospital protocol. After marking the level of the greater trochanter on the skin and the proposed screw trajectory under fluoroscopy, a skin incision was made for the lateral approach to the proximal femur. The dissection was then carried
--- NOTE | 2021-07-11 12:58 | SUR.PHASEI ---
1215- Prior to discharge from PACU, attempted to obtain temp. and was unable to get axillary or oral temp readings with multiple attempts. Rectal temp- 94.1 obtained. Pt kept in PACU at this time with additional cyndi paws and blankets applied to pt. POLY OPERATOR notified, no further orders given at this time. Med surg was notified of this. Will continue to monitor.
--- NOTE | 2021-07-11 13:14 | SUR.PHASEI ---
1235- Rechecked rectal temp, it was 95.9 at this time. Jann paws and warm blankets remain on the pt. Continuing to monitor. 1300- 96.1 rectal temp at this time. Jann paws and warm blankets remain. Continuing to monitor.
--- NOTE | 2021-07-11 13:22 | SUR.PHASEI ---
1315- recal temp 97.4 at this time. Report called to Med surg to then transport pt upstairs. Warm blankets applied for transport. V/S stable at this time.
--- NOTE | 2021-07-11 13:39 | SW/DCPLANNER ---
Addendum entered by [facility] 07/12/21 14:11: Jessica with [facility] has confirmed that services will begin Thursday for this patient. Addendum entered by [facility] 07/12/21 12:53: Patient information has been faxed to [facility]. I also spoke with son whom would rather patient discharge to a skilled facility but understands it is patients decision. Son stated that patient has a walker, wheelchair if needed and BSC. Patient will discharge today. Addendum entered by [facility] 07/12/21 10:51: CORRECTION patient will be set up with [facility] home health: currently established but will require a new order. Addendum entered by [facility] 07/12/21 09:55: I spoke with this patient this AM regarding discharge plans. Patient has stated multiple times that she wants to discharge back home with her sons. Patient stated that she has a walker at home but is agreeable to home health services. I will set up home health at time of discharge w/ [facility]. Patient will discharge home later today. Original Note: I have attempt to contact patients family regarding discharge plans for this patient: no answer VM left. I will follow up with patient once surgery is complete and patient arrives back to Med/Surg floor. Placement options available in [place] at this time are [facility] and [facility].
[2021-07-11 14:40] LABS: Basophils % 0.4 % (0.1-2.0); Eosinophils % 0.5 % (0.1-12.0); Hematocrit 32.1 % (37.0-47.0); Hemoglobin 10.5 g/dL (12.2-16.2); Lymphocytes # 1.1 K/mm3 (0.7-4.5); Lymphocytes % 14.1 % (10-50); Mean Corpuscular HGB Conc 32.8 g/dL (31.8-35.4); Mean Corpuscular Hemoglobin 27.2 pg (27.0-31.2); Mean Platelet Volume 8.2 fl (7.4-10.4); Monocytes # 0.2 K/mm3 (0.1-1.0); Monocytes % 2.4 % (1.7-9.3); Neutrophils # 6.4 K/mm3 (1.8-7.8); Neutrophils % 82.6 % (37.0-80.0); Platelet Count 297 K/mm3 (142-424); Red Blood Count 3.87 M/mm3 (4.20-5.40); Red Cell Distribution Width 14.7 % (11.5-17.5); White Blood Count 7.8 K/mm3 (4.8-10.8)
[2021-07-11 14:44] LABS: Blood Urea Nitrogen 8 mg/dl (7-17); Calcium 8.3 mg/dl (8.4-10.2); Carbon Dioxide 30 mmol/L (22.0-30.0); Chloride 100 mmol/L (98-107); Creatinine Clearance Estimated 67 mL/min (50-200); Estimated Glomerular Filt Rate 81 ml/min (>60); GFR (African American) 98 ML/MIN (>60); Glucose 173 mg/dl (74-100); Magnesium 1.6 mg/dl (1.6-2.3); Sodium 137 mmol/L (136-145)
[2021-07-11 14:49] LABS: C-Reactive Protein 4.5 mg/L (0-4)
[2021-07-11 16:46] LABS: Erythrocyte Sedimentation Rate 31 mm/hr (0-30)
[2021-07-11 17:51] LABS: POC Glucose,Bedside 184 (70-110)
[2021-07-11 17:51] LABS: POC Glucose,Bedside 149 (70-110)
[2021-07-11 19:48] LABS: POC Glucose,Bedside 168 (70-110)
--- NOTE | 2021-07-12 03:20 | PC.NURSE ---
Pt rested well this shift. No acute changes t/o night. Pt c/o pain x1, admin meds per MAR with favorable results. Pt remains on 2L NC with stats 98%-99%. Dressing on left hip is C/D/I. Bowles is draining clear, yellow urine. Noted walking boot to left foot from recent left ankle fracture. Pt denies N/V. VSS, will continue to monitor.
[2021-07-12 04:00] VITALS: BP 182/60; PULSE 63; RESP 18; TEMP 37; O2SAT 99
[2021-07-12 05:30] LABS: POC Glucose,Bedside 162 (70-110)
[2021-07-12 06:33] LABS: Basophils % 0.3 % (0.1-2.0); Eosinophils # 0.2 K/mm3 (0.0-0.4); Eosinophils % 2.8 % (0.1-12.0); Hematocrit 32.2 % (37.0-47.0); Hemoglobin 10.7 g/dL (12.2-16.2); Lymphocytes # 1.7 K/mm3 (0.7-4.5); Lymphocytes % 20.3 % (10-50); Mean Corpuscular HGB Conc 33.2 g/dL (31.8-35.4); Mean Corpuscular Hemoglobin 27.9 pg (27.0-31.2); Mean Corpuscular Volume 83.9 fl (81-99); Mean Platelet Volume 8.2 fl (7.4-10.4); Monocytes # 0.3 K/mm3 (0.1-1.0); Monocytes % 3.4 % (1.7-9.3); Neutrophils % 73.2 % (37.0-80.0); Platelet Count 274 K/mm3 (142-424); Red Blood Count 3.83 M/mm3 (4.20-5.40); Red Cell Distribution Width 14.8 % (11.5-17.5); White Blood Count 8.2 K/mm3 (4.8-10.8)
[2021-07-12 06:36] VITALS: BMI 34.3
[2021-07-12 06:41] VITALS: BP 162/84; PULSE 58; RESP 18; O2SAT 97
[2021-07-12 06:58] LABS: Alanine Aminotransferase 22 U/L (12-78); Albumin Level 3.4 g/dl (3.5-5.0); Albumin/Globulin Ratio 1.2 (1.1-1.8); Alkaline Phosphatase 73 U/L (38-126); Anion Gap 10.4 mEq/L (5-15); Aspartate Amino Transferase 34 U/L (14-36); Bilirubin,Total 0.5 mg/dl (0.2-1.3); Blood Urea Nitrogen 10 mg/dl (7-17); Calcium 8.4 mg/dl (8.4-10.2); Carbon Dioxide 32 mmol/L (22.0-30.0); Chloride 98 mmol/L (98-107); Creatinine Clearance Estimated 66 mL/min (50-200); Estimated Glomerular Filt Rate 69 ml/min (>60); GFR (African American) 84 ML/MIN (>60); Globulin 2.9 g/dL (1.3-3.2); Glucose 155 mg/dl (74-100); Potassium 3.4 mmoL/L (3.5-5.1); Sodium 137 mmol/L (136-145); Total Protein,Serum 6.3 g/dl (6.3-8.2)
[2021-07-12 08:00] VITALS: BP 152/57; PULSE 66; RESP 18; TEMP 36.8; O2SAT 100
--- NOTE | 2021-07-12 09:20 | PC.NURSE ---
at to change incisional dressing. Pt assisted to standing position per me and (while using her walker for stability. Pt tolerated getting out of chair and to a standing position x2 assist well. V/O received from to discontinue Bowles Cath, IV, and O2 at this time. Repeated/Verified.
--- NOTE | 2021-07-12 09:33 | HMH.OTEV ---
OT Inpatient Evaluation Rehab OT IP Evaluation Start: 07/11/21 12:25 Freq: ONCE Status: Active Protocol: Document 07/12/21 08:58 MIRTA (Rec: 07/12/21 09:28 ELISAMARIBELL [id number]) Rehab OT IP Assessment Subjective History 80 year old female referred to skilled IP services after s/p Cannulated screw fixation, who sustained a closed nondisplaced, minimally impacted fracture neck of LEFT femur following an unwitnessed fall at home about 10 days ago. Internal fixation with cannulated hip screws was indicated to relieve pain and restore function. Patient is recovering from a left ankle fracture sustained about 6 weeks ago and is in a cam walker boot. Patient lives in 1 story home with son and no GARIMA. Patient verbalize using cane and RW at times but ambulated independently. Patient completed all ADLS independently with son who assisted housekeeping and cooking. Subjective I want to go home. Instructed Patient on proper hand/foot placement to complete supine->sit @ EOB requiring Min A. Instructed Patient on proper hand and foot placement to complete SPT from EOB->recliner with usage of RW. No LOB. Consulted with family service caseworker re: proper placement. Objective Patient Orientation Person,Time,Name,Birthday,Year Upper Extremity Gross ROM WNL Bed Mobility bed mobility - supine/sit Assist Level Minimal x 1 (25% assist) Transfer Training Sit/Stand Transfer Assist Level Minimal x 1 (25% assist) Chair Transfer Ability Minimal x 1 (25% assist) Chair Transfer Technique Sit to/from Ambulatory Chair Transfer Assistive Devices Rolling Walker Lower Body Dressing Ability Assistance X1 Upper Body Dressing Ability Assistance X1 Rehab OT IP prob,goals,plan Problems Date of Evaluation:
--- NOTE | 2021-07-12 09:40 | PC.NURSE ---
F/C discontinued per protocol. Tolerated well. IV saline also discontinued with catheter intact. 2x2 gauze and coban applied to site. Tolerated well.
--- NOTE | 2021-07-12 09:46 | HMH.DCSUM ---
General - General Admission date:: 07/10/21 Discharge date: 07/12/21 HPI HPI: this patient presented to the ortho office for follow up for prev lt ankle fx - pt had been living with son - pt has been non-compliant with use of walker and wt bearing and had had a fall 06/29/21 and was seen in the ed and had neg xrays of hip and pelvis including ct of pelvis - pt was seen by myself in office and continued to have groin pain and dec wt bearing - pt has hx of lumbar disease on mri with both facet and foraminal disease- pt was seen by ortho with persistent sx of hip and groin pain - pt was discovered to have hip fx and admitted for eval and treatment - Hospital Course Hospital Course: 80 YOF presented to the ortho office for follow up for prev lt ankle fx - pt had been living with son - pt has been non-compliant with use of walker and wt bearing and had had a fall 06/29/21 and was seen in the ed and had neg xrays of hip and pelvis including ct of pelvis - pt was seen by myself in office and continued to have groin pain and dec wt bearing - pt has hx of lumbar disease on mri with both facet and foraminal disease- pt was seen by ortho with persistent sx of hip and groin pain - pt was discovered to have hip fx and admitted for eval and treatment - 07/10/21 CXR: IMPRESSION: 14 mm right upper lobe nodular opacity. Nonemergent chest CT suggested for further evaluation. No acute finding. Mild cardiomegaly Dictated by: Romeo Boyd MD 07/10/21 ECHO: Conclusion 1. Moderate biatrial enlargement, normal left ventricular size, mild concentric left ventricular hypertrophy, visually estimated ejection fraction 55% with no regional wall motion abnormality, grade 2 diastolic dysfunction seen without tissue Doppler evidence of raise left atrial pressure. 2. Mildly enlarged right ventricle with normal contractility. 3. Mild mitral and tricuspid regurgitation, calculated right ventricular systolic pressure is 55 mmHg. 4. No significant pericardial effusion noted. Electronically signed by : Marc Gibbons MD 07/11/21 Venous Dupplez: Findings Bilateral lower extremity negative for DVT/SVT. Vessels compressible LLE has boot , LLE not scanned below the popliteal vein d/t boot for ankle fx. Conclusion Bilateral lower extremity negative for DVT/SVT. Vessels compressible LLE has boot , LLE not scanned below the popliteal vein d/t boot for ankle fx. Electronically signed by : Romeo Boyd MD 07/11/21 L Hip XR: FINDINGS: Fluoroscopy time: 1.18 minutes Multiple images submitted with C-arm showing interval placement of 3 screws from the greater trochanteric region there is a femoral neck into the femoral head region stabilizing the sub capital fracture with good alignment. IMPRESSION: Good alignment status post ORIF left subcapital NOF fracture Dictated by: Romeo Boyd MD 07/11/21 Ortho performed a cannulated screw fixation LEFT hip Ortho has seen and recommends: I have reviewed the clinical findings and progress with the patient. Patient is doing well and advised her to continue mobilization weight bearing as tolerated. Discontinue IV fluids as patient is eating and drinking well. Discontinue Bowles catheter today. Continue PT/OT, pain management with as needed narcotic analgesics. Apparently patient refused to go to rehab facility and is keen to go back home with home health after discharge. Care management to look into discharge planning. From an orthopedic standpoint, patient can be discharged when medically appropriate. Recommend DVT prophylaxis for 6 weeks postop- appropriate agents include Lovenox, Aspirin 325 mg, Xarelto (Rivaroxaban), Eliquis (apixaban) and Coumadin. Follow-up in my office in 2 weeks? time with check x-ray. Please feel free to call our office at [phone] for any orthopaedic questions. Continue medical management as per Dr. Muse. 80-year-old female patient lying in bed resting quiet
--- NOTE | 2021-07-12 10:25 | HMH.ANESII ---
[facility] Anesthesia Record Part II Discharge Time: 12:23 Destination: floor PACU nurse assessment reviewed?: Yes Patient Condition:: Good Anesthesia Complications:: None Swallowing reflex intact?: Yes Cyanosis?: No Blood Pressure: 150/73 Pulse Rate: 63 Temperature: 97.8 F Mental Status: Alert & Oriented Pain level:: 5 Nausea and/or vomitting:: None Intake, IV Amount: 1,500
[2021-07-12 10:26] VITALS: BP 150/73; PULSE 63; TEMP 36.6
--- NOTE | 2021-07-12 10:30 | HMH.ORTHPN ---
Subjective Date: 07/12/21 Time: 10:00 Principal diagnosis: Fracture neck of femur, left hip Interval history: Patient is a 80-year-old female, status post cannulated screw fixation LEFT hip, post op day #1. She is sitting out in a chair and appears comfortable; says she is doing well and is eating and drinking well. She says her pain is well controlled with as needed pain medication. No history of any fevers, chills or rigors. No history of any nausea, vomiting, chest pain or SOB. PN: Obj Ex Vital signs: Temp Pulse Resp BP Pulse Ox 97.8 F 63 18 150/73 H 100 07/12/21 10:07/12/21 10:07/12/21 08:00 07/12/21 10:07/12/21 08:00 Narrative: Laboratory Results - last 24 hr 07/11/21 05:39: POC Glucose 149 H 07/11/21 14:10: WBC 7.8, RBC 3.87 L, Hgb 10.5 L, Hct 32.1 L, MCV 83.0, MCH 27.2, MCHC 32.8, RDW 14.7, Plt Count 297, MPV 8.2, Neut % (Auto) 82.6 H, Lymph % (Auto) 14.1, Bracken % (Auto) 2.4, Eos % (Auto) 0.5, Baso % (Auto) 0.4, Neut # (Auto) 6.4, Lymph # (Auto) 1.1, Bracken # (Auto) 0.2, Eos # (Auto) 0.0, Baso # (Auto) 0.0 07/11/21 14:10: Sodium 137, Potassium 3.0 L, Chloride 100, Carbon Dioxide 30, Anion Gap 10.0, BUN 8, Creatinine 0.70, Estimated Creat Clear 67, Estimated GFR 81, Est GFR ( Amer) 98, Glucose 173 H D, Calcium 8.3 L, Magnesium 1.6 07/11/21 14:10: ESR 31 H 07/11/21 14:10: C-Reactive Protein 4.5 H 07/11/21 17:38: POC Glucose 184 H 07/11/21 19:42: POC Glucose 168 H 07/12/21 05:12: POC Glucose 162 H 07/12/21 06:15: WBC 8.2, RBC 3.83 L, Hgb 10.7 L, Hct 32.2 L, MCV 83.9, MCH 27.9, MCHC 33.2, RDW 14.8, Plt Count 274, MPV 8.2, Neut % (Auto) 73.2, Lymph % (Auto) 20.3, Bracken % (Auto) 3.4, Eos % (Auto) 2.8, Baso % (Auto) 0.3, Neut # (Auto) 6.0, Lymph # (Auto) 1.7, Bracken # (Auto) 0.3, Eos # (Auto) 0.2, Baso # (Auto) 0.0 07/12/21 06:15: Sodium 137, Potassium 3.4 L, Chloride 98, Carbon Dioxide 32 H, Anion Gap 10.4, BUN 10, Creatinine 0.80, Estimated Creat Clear 66, Estimated GFR 69, Est GFR ( Amer) 84, Glucose 155 H, Calcium 8.4, Total Bilirubin 0.5, AST 34, ALT 22, Alkaline Phosphatase 73, Total Protein 6.3, Albumin 3.4 L, Globulin 2.9, Albumin/Globulin Ratio 1.2 Intake & Output 07/09/21 07/10/21 07/11/21 07/12/21 11:59 11:59 11:59 11:59 Intake Total 620 / 620 2330 / 2330 Output Total 1950 / 1950 550 / 550 Balance -1330 / -1330 1780 / 1780 Weight 205 lb 4 oz 201 lb 1 oz Vitals, I&O and Labs: I reviewed the vital signs, lab results, medication, nursing notes, medical progress notes and also discussed with the nursing staff regarding patient?s progress.] Exam: General appearance: Alert, awake, no acute distress Cardiovascular: regular rate & rhythm Respiratory: no respiratory distress; speaks in full sentences ABD: soft and nontender. Neuro: alert, awake oriented x 3 Psych: Appropriate mood and affect Genitourinary: Catheter in situ. On examination of the LEFT lower extremity, the limb lengths are equal. The alignment is neutral. The dressings over the hip/thigh are clean, dry and intact. I have changed the dressings and the incision looks clean and healthy. Attempted movements of the hip are painful. Distal neurovascular status is intact. Distal pulses are 1+. Distal sensation is intact to light touch throughout. No motor deficits noted distally. Calf is soft and nontender. No clinical signs of DVT noted. 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
--- NOTE | 2021-07-12 10:44 | PC.NURSE ---
Pt's son at bs visiting. Waiting to speak to CM.
--- NOTE | 2021-07-12 11:23 | PC.NURSE ---
PT here to see pt.
--- NOTE | 2021-07-12 11:39 | PC.NURSE ---
PT x2 walking with pt (while using her walker) in hallway
[2021-07-12 12:00] VITALS: BP 173/71; PULSE 62; RESP 20; TEMP 36.8; O2SAT 93
--- NOTE | 2021-07-12 12:00 | HMH.PTEV ---
Physical Therapy Evaluation Rehab PT IP Evaluation Start: 07/11/21 12:25 Freq: ONCE Status: Active Protocol: Document 07/12/21 11:49 PHORNE (Rec: 07/12/21 12:00 PHORNE [id number]) Subjective/History History History Pt is 80 year old female admitted to [facility] s/p left hip ORIF. Pt also has left ankle fracture. Subjective Subjective Pt reports feeling well this morning and stated she has already been out of the bed once. Pt reports she lives alone in one level home and lives next door to her son. Pt said she used a rollator prior to admittance to [facility]. Pt reported left ankle fracture secondary to fall in bathroom in community. Eval completed by TYLER Mcmahon. Rehab PT IP Eval Objective Appearance Patient Behavior Appropriate,Cooperative Patient Orientation Place,Name,Birthday Difficulty following instructions none Speech Pattern Clear,Appropriate,Coherent Ambulation Patient Able to Ambulate Yes Ambulation Observation IP General Gait Pattern Observation Wide Based Gait,Shuffling Step Ambulation Distance (feet) 50 Ambulation Assistive Device Rolling Walker Ambulation Ability Contact Guard/Hand Hold Balance Ability to Arise Able, w/o using arms Standing Balance Steady, wide stance Dynamic Sitting Balance Ability Normal Dynamic Standing Balance Ability Good Transfers Bed Transfer Ability Minimal x 1 (25% assist) Sit to Stand Bed Transfer Ability Contact Guard/Hand Hold ROM All Extremities PT ROM Status WFL MMT All Extremities PT MMT WFL Rehab PT IP prob,goals,plan Problems Date of Evaluation: 07/12/21 PT IP Problems Bed Mobility,Gait,Balance, Safety Rehab Potential Rehab Potential Good Equipment Needs Assistive Devices Rolling / Wheeled Walker Plan PT Intervention Plan Bed Mobility,Gait,Balance, Safety,Therapeutic Exercise PT Plan Frequency BID Duration LOS Discharge Goals Bed Transfer Ability Contact Guard/Hand Hold Sit to Stand Chair Transfer Ability Contact Guard/Hand Hold Ambulation Assistive Device Rolling Walker Ambulation Distance (feet) 60 Discharge Plan PT Discharge Plan Pt would be
--- NOTE | 2021-07-12 13:29 | HMH.PHAINT ---
DISCHARGE MEDICATION COUNSELING COMPLETE. DISCUSSED ADDITION OF XARELTO AND NORCO. DISCUSSED BLEED RISK AND WHEN TO SEEK CARE. PATIENT ENDORSED NO QUESTIONS AT THIS TIME.
--- NOTE | 2021-07-12 15:37 | PC.NURSE ---
Discharged home via w/c with son. discharge instructions given to both pt and son. both verbalizes understanding.
== END 2021-07-12 15:39 | disposition home health service (06) | DRG 482 ==
PROVIDERS: Orthopaedic Surgery; Admitting Provider Emergency Medicine; PCP Nurse Practitioner Family; Visit Provider Emergency Medicine
PROC: 0QH704Z Insertion of Internal Fixation Device into Left Upper Femur, Open Approach (ICD-10-PCS; principal; 2021-07-11 09:00)
DX: S72.002A Fracture of unspecified part of neck of left femur, initial encounter for closed fracture (principal); I25.10 Atherosclerotic heart disease of native coronary artery without angina pectoris; I10 Essential (primary) hypertension; K21.9 Gastro-esophageal reflux disease without esophagitis; E11.9 Type 2 diabetes mellitus without complications; Z79.84 Long term (current) use of oral hypoglycemic drugs; E87.6 Hypokalemia; Z79.01 Long term (current) use of anticoagulants; F32.9 Major depressive disorder, single episode, unspecified; Z79.899 Other long term (current) drug therapy; W01.0XXA Fall on same level from slipping, tripping and stumbling without subsequent striking against object, initial encounter; Y92.019 Unspecified place in single-family (private) house as the place of occurrence of the external cause; E66.9 Obesity, unspecified; Z86.73 Personal history of transient ischemic attack (TIA), and cerebral infarction without residual deficits; E78.5 Hyperlipidemia, unspecified; I65.29 Occlusion and stenosis of unspecified carotid artery; Z68.34 Body mass index [BMI] 34.0-34.9, adult; M19.90 Unspecified osteoarthritis, unspecified site; Z91.19 Patient's noncompliance with other medical treatment and regimen
CPT/HCPCS: 36415; 71045; 73502; 73610; 76000; 80048; 80053; 81001; 82962; 83735; 85025; 85651; 86140; 86850; 93005; 93306; 93970; 97162; 97165; 97760; C1713; J3370; U0003

== ENCOUNTER → 2021-07-24 14:41 | Outpatient (CLI) | payer MEDICARE, MEDICAID, SELFPAY ==
--- NOTE | 2021-07-24 14:47 | XR_ITS ---
PROCEDURE: XR HIP LT 2-3V W/PELVIS CLINICAL INDICATION: sp LT hip cannulated screw fixation COMPARISON: CR XR HIP LT 2-3V W/PELVIS from 07/10/2021 FINDINGS: S/p cannulated screw fixation of the mildly impacted left femoral neck fracture. There is good alignment. 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
== END ==
PROVIDERS: PCP Nurse Practitioner Family; Visit Provider Orthopaedic Surgery
DX: S72.002A Fracture of unspecified part of neck of left femur, initial encounter for closed fracture (principal); Z09 Encounter for follow-up examination after completed treatment for conditions other than malignant neoplasm
CPT/HCPCS: 73502

== ENCOUNTER 2021-07-24 16:59 | Emergency (ER) | payer MEDICARE, MEDICAID, SELFPAY ==
[2021-07-24 17:00] VITALS: BP 175/71; PULSE 75; RESP 18; TEMP 36.8; O2SAT 95; BMI 32.5
--- NOTE | 2021-07-24 17:04 | HMH.EDGENADL ---
ED Disposition Clinical Impression: Hypertension Qualifiers: Hypertension type: primary hypertension Qualified Code(s): I10 - Essential (primary) hypertension Disposition: Home, Self-Care Condition on Discharge: Fair Additional Instructions: Please follow-up with your primary care physician in about 1 week to have your blood pressure medicines adjusted. Return immediately to the emergency department if you should develop headache, shortness of breath, chest pain, or if you feel confused. Referrals: Betsy Klein APRN [Primary Care Provider] - - Critical Care Critical Care Time: No Attestation: On , the high probability of a clinically significant, sudden or life threatening deterioration of the following system(s) required my full and direct attention, intervention and personal management. The time I documented below is in addition to time spent performing reported procedures but includes the following listed in this critical care notation. Medical Decision Making - Medical Records Medical records reviewed: Yes: I reviewed the patient's medical records. - Bro Inquiry Pt receiving controlled substance: No Medical Decision Narrative: The patient was referred to the emergency department by her primary care provider for elevated blood pressure. Upon arrival to the emergency department and prior to any intervention the patient's blood pressure was 175/71. The patient is asymptomatic. Based on the recommendations and clinical guidelines of the [employer] for asymptomatic hypertension the patient does not require a work-up in the emergency department today. She will be discharged in stable condition with instructions to follow-up with her primary care physician for outpatient management of her blood pressure. General Adult HPI - General Stated complaint: BP up Time Seen by Provider: 07/24/21 17:05 Mode of Arrival: Ambulatory Source of Information: Patient - History of Present Illness HPI narrative: The patient was referred to the emergency department by her primary care physician for elevated blood pressure. The patient denies chest pain, shortness of breath, or headache, or confusion. - Related Data Home Medications Medication Instructions Recorded Confirmed Cetirizine HCl 10 mg PO DAILY 07/10/21 07/24/21 Cholecalciferol (Vitamin D3) 50 mcg PO DAILY 07/10/21 07/24/21 [Vitamin D3] Clopidogrel Bisulfate [Plavix] 75 mg PO DAILY 07/10/21 07/24/21 Ergocalciferol (Vitamin D2) 1,250 mcg PO WEEKLY 07/10/21 07/24/21 [Drisdol] Ibuprofen [Ibuprofen 600mg 600 mg PO TIDP PRN 07/10/21 07/24/21 Tablet] Montelukast Sodium [Singulair] 10 mg PO HS 07/10/21 07/24/21 Sertraline HCl [Zoloft] 100 mg PO HS 07/10/21 07/24/21 hydrOXYzine HCL [Hydroxyzine HCl] 25 mg PO HS 07/10/21 07/24/21 lisinopriL [Lisinopril] 10 mg PO DAILY 07/10/21 07/24/21 Previous Rx's Medication Instructions Recorded trazodone 50 mg tablet 50 mg PO HS #30 tab 03/28/20 Rivaroxaban [Xarelto 10mg tablet] 10 mg PO DAILY 35 Days #35 tab 07/12/21 Allergies Allergy/AdvReac Type Severity Reaction Status Date / Time No Known Allergies Allergy Verified 07/24/21 15:30 [facility] History - Hepatitis A Screen Drug use history?: No Attestation statement:: This patient has been screened for Hepatitis A risk factors. I have reviewed the patient's past medical history: Yes Medical History: Reports:: Anxiety, Arrhythmia, Carotid Stenosis, Coronary Artery Disease, Cerebrovascular Accident, Depression, Gastroesophageal Reflux Disease(GERD), Hyperlipidemia, Hypertension, MRSA Denies:: Cancer, Diabetes Mellitus Type 1, Diabetes Mellitus Type 2, Internal Pacemaker, Lung Disease, Seizures Other Medical History: Reports: Arthritis, Sinus Problems. Denies: Blood Transfusion Reaction Comment: hypertension, depression, acid reflux, stroke, anemia, angina, RA, CTS, Heart failure Laterality Cases: Right: Mastectomy, Tonsi
[2021-07-24 17:05] VITALS: BP 175/71; PULSE 90; O2SAT 95
[2021-07-24 17:31] VITALS: BP 157/56; PULSE 75; O2SAT 96
[2021-07-24 18:03] VITALS: BP 157/56; PULSE 80; RESP 18; TEMP 36.8; O2SAT 95
== END 2021-07-24 18:05 | disposition home or self-care (01) ==
LOC: ER 17:15
PROVIDERS: Emergency Provider Emergency Medicine; PCP Nurse Practitioner Family
DX: I16.0 Hypertensive urgency (principal); F41.8 Other specified anxiety disorders; I25.10 Atherosclerotic heart disease of native coronary artery without angina pectoris; K21.9 Gastro-esophageal reflux disease without esophagitis; E78.5 Hyperlipidemia, unspecified; Z79.899 Other long term (current) drug therapy
CPT/HCPCS: 73502; 99281

== ENCOUNTER 2021-07-25 11:55 | Emergency (ER) | payer MEDICARE, MEDICAID, SELFPAY ==
[2021-07-25] VITALS (9 sets, daily range): BP systolic 98–203; BP diastolic 72–81; PULSE 67–71; RESP 20; TEMP 37; O2SAT 95–99; BMI 42.9
--- NOTE | 2021-07-25 12:03 | PC.NURSE ---
Pt asked to sit in lobby due to high volume in ED at this time. Went out and assessed patient. No distress at this time. Pt b/p 180/80. Pt advised as soon as bed was available we would bring her back. Pt agreeable with POC at this time.
--- NOTE | 2021-07-25 13:13 | HMH.EDGENADL ---
ED Disposition Clinical Impression: Elevated blood pressure reading Disposition: Home, Self-Care Condition on Discharge: Fair Additional Instructions: You have been evaluated for elevated blood pressure reading. There are no signs of endorgan damage at this time. Please take all medications as prescribed. Follow-up with your primary care doctor. Return to the emergency department at once for any symptoms of elevated blood pressure including headache, vision changes, chest pain, palpitations Referrals: Betsy Klien APRN [Primary Care Provider] - Time of Disposition: 16:04 - Critical Care Critical Care Time: No Attestation: On 07/25/21, the high probability of a clinically significant, sudden or life threatening deterioration of the following system(s) required my full and direct attention, intervention and personal management. The time I documented below is in addition to time spent performing reported procedures but includes the following listed in this critical care notation. Medical Decision Making - Medical Records Medical records reviewed: Yes: I reviewed the patient's medical records. - Bro Inquiry Pt receiving controlled substance: No Vital Signs: 07/25/21 13:08 07/25/21 13:12 07/25/21 13:31 Temperature 98.6 F Temperature Source Oral Pulse Rate 71 69 Pulse Rate [Left Radial] 71 Respiratory Rate 20 Blood Pressure 203/78 H 196/80 H Blood Pressure [Right Arm] 129/81 Blood Pressure Mean 97 118 Blood Pressure Mean [Right Arm] 97 Blood Pressure Source [Right Arm] Automatic Cuff Blood Pressure Position [Right Arm] Sitting 02 Sat by Pulse Oximetry 99 97 97 Oxygen Delivery Method Room Air 07/25/21 14:01 Temperature Temperature Source Pulse Rate 68 Pulse Rate [Left Radial] Respiratory Rate Blood Pressure 98/72 L Blood Pressure [Right Arm] Blood Pressure Mean 80 Blood Pressure Mean [Right Arm] Blood Pressure Source [Right Arm] Blood Pressure Position [Right Arm] 02 Sat by Pulse Oximetry 96 Oxygen Delivery Method - Lab Data Lab Results 07/25/21 14:51: WBC 6.3, RBC 3.92 L, Hgb 10.7 L, Hct 33.4 L, MCV 85.1, MCH 27.3, MCHC 32.1, RDW 15.9, Plt Count 289, MPV 7.9, Neut % (Auto) 68.1, Lymph % (Auto) 26.4, [place] % (Auto) 2.6, Eos % (Auto) 2.3, Baso % (Auto) 0.5, Neut # (Auto) 4.3, Lymph # (Auto) 1.7, [place] # (Auto) 0.2, Eos # (Auto) 0.2, Baso # (Auto) 0.0 07/25/21 14:51: Sodium 138, Potassium 3.1 L, Chloride 98, Carbon Dioxide 32 H, Anion Gap 11.1, BUN 5 L, Creatinine 0.70, Estimated Creat Clear 39, Estimated GFR 81, Est GFR ( Amer) 98, Glucose 121 H, Calcium 8.9, Total Bilirubin 1.2, AST 27, ALT 17, Alkaline Phosphatase 94, Total Protein 7.0, Albumin 3.7, Globulin 3.3 H, Albumin/Globulin Ratio 1.1 Result diagrams: 07/25/21 14:51 07/25/21 14:51 Medical Decision Narrative: In summary this is a 80-year-old female ending to the emergency department with elevated blood pressure reading at home. Patient clinically stable on arrival. Vital signs within normal limits, pressure is 150 systolic. Plan to observe. Next blood pressure reading was 210 systolic. She states she does not have headache or vision changes. Is asymptomatic when her blood pressure is this high. Will obtain CBC and BMP to assess for endorgan dysfunction. Initial laboratory results are reassuring. No renal insufficiency. Patient counseled to continue taking medications as prescribed. Follow-up with PCP. Monitor blood pressure at home. Return for any symptoms of high blood pressure including vision changes, headache, dizziness, nausea, vomiting. General Adult HPI - General Stated complaint: high blood pressure Time Seen by Provider: 07/25/21 13:13 Mode of Arrival: Wheelchair Source of Information: Patient Limitations: No Limitations - History of Present Illness HPI narrative: 80-year-old female presenting to the emergency department with elevated blood pressure reading. She arr
[2021-07-25 15:11] LABS: Basophils % 0.5 % (0.1-2.0); Eosinophils # 0.2 K/mm3 (0.0-0.4); Eosinophils % 2.3 % (0.1-12.0); Hematocrit 33.4 % (37.0-47.0); Hemoglobin 10.7 g/dL (12.2-16.2); Lymphocytes # 1.7 K/mm3 (0.7-4.5); Lymphocytes % 26.4 % (10-50); Mean Corpuscular HGB Conc 32.1 g/dL (31.8-35.4); Mean Corpuscular Hemoglobin 27.3 pg (27.0-31.2); Mean Corpuscular Volume 85.1 fl (81-99); Mean Platelet Volume 7.9 fl (7.4-10.4); Monocytes # 0.2 K/mm3 (0.1-1.0); Monocytes % 2.6 % (1.7-9.3); Neutrophils # 4.3 K/mm3 (1.8-7.8); Neutrophils % 68.1 % (37.0-80.0); Platelet Count 289 K/mm3 (142-424); Red Blood Count 3.92 M/mm3 (4.20-5.40); Red Cell Distribution Width 15.9 % (11.5-17.5); White Blood Count 6.3 K/mm3 (4.8-10.8)
[2021-07-25 15:27] LABS: Alanine Aminotransferase 17 U/L (12-78); Albumin Level 3.7 g/dl (3.5-5.0); Albumin/Globulin Ratio 1.1 (1.1-1.8); Alkaline Phosphatase 94 U/L (38-126); Anion Gap 11.1 mEq/L (5-15); Aspartate Amino Transferase 27 U/L (14-36); Bilirubin,Total 1.2 mg/dl (0.2-1.3); Blood Urea Nitrogen 5 mg/dl (7-17); Calcium 8.9 mg/dl (8.4-10.2); Carbon Dioxide 32 mmol/L (22.0-30.0); Chloride 98 mmol/L (98-107); Creatinine Clearance Estimated 39 mL/min (50-200); Estimated Glomerular Filt Rate 81 ml/min (>60); GFR (African American) 98 ML/MIN (>60); Globulin 3.3 g/dL (1.3-3.2); Glucose 121 mg/dl (74-100); Potassium 3.1 mmoL/L (3.5-5.1); Sodium 138 mmol/L (136-145)
== END 2021-07-25 16:29 | disposition home or self-care (01) ==
PROVIDERS: Emergency Medicine; Emergency Provider Nurse Practitioner; PCP Nurse Practitioner Family
DX: I16.0 Hypertensive urgency (principal); I25.10 Atherosclerotic heart disease of native coronary artery without angina pectoris; F41.8 Other specified anxiety disorders; K21.9 Gastro-esophageal reflux disease without esophagitis; E78.5 Hyperlipidemia, unspecified; Z79.899 Other long term (current) drug therapy
CPT/HCPCS: 80053; 85025; 99282

== ENCOUNTER → 2021-07-31 12:35 | Outpatient (CLI) | payer MEDICARE, MEDICAID, SELFPAY ==
--- NOTE | 2021-07-31 12:36 | CA_ITS ---
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 Indications: bilateral carotid artery stenosis Risk Factors Hypertension: Hyperlipidemia Doppler Spectral Velocity Analysis ECA (R) 92.50/ cm/s ECA (L) 105.40/ cm/s dICA (R) 80.10/17.20 cm/s dICA (L) 96.30/20.20 cm/s Ashwini (R) 111.20/26.70 cm/s Ashwini (L) 96.30/15.40 cm/s pICA (R) 152.90/34.20 cm/s pICA (L) 99.40/23.10 cm/s dCCA (R) 89.00/18.70 cm/s dCCA (L) 76.30/16.30 cm/s pCCA (R) 95.00/18.70 cm/s pCCA (L) 108.80/15.40 cm/s Vert (R) 47.90/ cm/s Vert (L) 43.30/ cm/s ICA/CCA 1.70 ICA/CCA 1.30 Findings Duplex evaluation demonstrates stenosis of the right proximal internal carotid artery in the range of 50-69%. Duplex evaluation demonstrates stenosis of the left proximal internal carotid artery in the range of 20-49%. Duplex evaluation demonstrates antegrade flow of the bilateral Vertebral Arteries. Conclusion Duplex evaluation demonstrates stenosis of the right proximal internal carotid artery in the range of 50-69%. Duplex evaluation demonstrates stenosis of the left proximal internal carotid artery in the range of 20-49%. Duplex evaluation demonstrates antegrade flow of the bilateral Vertebral Arteries. Electronically signed by : Romeo Boyd MD 07/31/2021 16:21:08
== END ==
PROVIDERS: PCP Nurse Practitioner Family; Visit Provider Urology
DX: I65.23 Occlusion and stenosis of bilateral carotid arteries (principal); Z86.73 Personal history of transient ischemic attack (TIA), and cerebral infarction without residual deficits
CPT/HCPCS: 93880

== ENCOUNTER → 2021-08-05 13:47 | Outpatient (CLI) | payer MEDICARE, MEDICAID, SELFPAY ==
[2021-08-05 15:05] LABS: Anion Gap 11.7 mEq/L (5-15); Blood Urea Nitrogen 10 mg/dl (7-17); Calcium 9.3 mg/dl (8.4-10.2); Carbon Dioxide 32 mmol/L (22.0-30.0); Chloride 96 mmol/L (98-107); Estimated Glomerular Filt Rate 60 ml/min (>60); GFR (African American) 73 ML/MIN (>60); Glucose 129 mg/dl (74-100); Potassium 3.7 mmoL/L (3.5-5.1); Sodium 136 mmol/L (136-145)
== END ==
PROVIDERS: Visit Provider Nurse Practitioner Family
DX: E78.2 Mixed hyperlipidemia (principal); I10 Essential (primary) hypertension; K21.9 Gastro-esophageal reflux disease without esophagitis; Z86.73 Personal history of transient ischemic attack (TIA), and cerebral infarction without residual deficits
CPT/HCPCS: 36415; 80048

== ENCOUNTER → 2021-08-14 08:18 | Outpatient (CLI) | payer MEDICARE, MEDICAID, SELFPAY ==
[2021-08-15 09:38] LABS: Basophils % 0.4 % (0.1-2.0); Eosinophils # 0.1 K/mm3 (0.0-0.4); Eosinophils % 1.1 % (0.1-12.0); Hematocrit 42.1 % (37.0-47.0); Hemoglobin 13.1 g/dL (12.2-16.2); Lymphocytes # 2.3 K/mm3 (0.7-4.5); Lymphocytes % 37.3 % (10-50); Mean Corpuscular HGB Conc 31.1 g/dL (31.8-35.4); Mean Corpuscular Hemoglobin 27.2 pg (27.0-31.2); Mean Corpuscular Volume 87.4 fl (81-99); Mean Platelet Volume 10.3 fl (7.4-10.4); Monocytes # 0.3 K/mm3 (0.1-1.0); Monocytes % 5.1 % (1.7-9.3); Neutrophils # 3.5 K/mm3 (1.8-7.8); Neutrophils % 56.1 % (37.0-80.0); Platelet Count 294 K/mm3 (142-424); Red Blood Count 4.81 M/mm3 (4.20-5.40); Red Cell Distribution Width 15.2 % (11.5-17.5); White Blood Count 6.3 K/mm3 (4.8-10.8)
[2021-08-15 10:17] LABS: Alanine Aminotransferase 29 U/L (12-78); Albumin/Globulin Ratio 1.2 (1.1-1.8); Alkaline Phosphatase 94 U/L (38-126); Anion Gap 11.9 mEq/L (5-15); Aspartate Amino Transferase 36 U/L (14-36); Bilirubin,Total 0.4 mg/dl (0.2-1.3); Blood Urea Nitrogen 28 mg/dl (7-17); Calcium 9.3 mg/dl (8.4-10.2); Carbon Dioxide 27 mmol/L (22.0-30.0); Chloride 101 mmol/L (98-107); Chol/HDL Ratio 3.1 (1-3.5); Cholesterol 251 mg/dl (140-200); Estimated Glomerular Filt Rate 48 ml/min (>60); GFR (African American) 58 ML/MIN (>60); Globulin 3.3 g/dL (1.3-3.2); Glucose 169 mg/dl (74-100); HDL Cholesterol 81 mg/dl (40-60); Potassium 3.9 mmoL/L (3.5-5.1); Sodium 136 mmol/L (136-145); Total Protein,Serum 7.3 g/dl (6.3-8.2); Triglycerides 136 mg/dl (30-150); VLDL Cholesterol 27 mg/dL (0-40)
[2021-08-15 10:28] LABS: Direct LDL Cholesterol 135.38 mg/dL (100-129)
[2021-08-15 10:34] LABS: 25-OH Vitamin D, Total 40.7 ng/mL (30-100)
[2021-08-15 10:36] LABS: T4 (Thyroxine) 8.4 ug/dl (5.53-11.0)
[2021-08-15 10:49] LABS: Thyroid Stimulating Hormone 1.73 uIU/mL (0.465-4.68)
[2021-08-15 22:04] LABS: Hemoglobin A1C 6.7 % (4.0-6.0)
== END ==
PROVIDERS: Visit Provider Nurse Practitioner Family
DX: E11.9 Type 2 diabetes mellitus without complications; I10 Essential (primary) hypertension; E78.5 Hyperlipidemia, unspecified; R19.7 Diarrhea, unspecified; E55.9 Vitamin D deficiency, unspecified; E66.9 Obesity, unspecified
CPT/HCPCS: 80053; 80061; 82306; 83036; 84436; 84443; 85025

== ENCOUNTER → 2021-08-21 13:29 | Outpatient (CLI) | payer MEDICARE, MEDICAID, SELFPAY ==
--- NOTE | 2021-08-21 13:32 | XR_ITS ---
PROCEDURE: XR HIP LT 2-3V W/PELVIS CLINICAL INDICATION: sx 07/11/21 Follow-up surgery COMPARISON: CT CT ABDOMEN PELVIS W CON from 07/28/2019 CR XR HIP LT 2-3V W/PELVIS from 07/24/2021 FINDINGS: Status post left hip pinning. Good alignment of the femoral neck fracture with no significant displacement. Osteosclerosis noted at the fracture site. Mild osteoarthritic changes of the hips and degenerative changes in the lumbar spine. There is a linear area of calcification noted projecting over the left ilium inferiorly and is actually within the soft tissues as seen on a previous CT of 07/28/2019 IMPRESSION: Good alignment status post pinning left hip Dictated by: Romeo Boyd MD 08/21/2021 15:42 Romeo Boyd MD in [place] 08/21/2021 15:42
--- NOTE | 2021-08-21 13:32 | XR_ITS ---
PROCEDURE: XR ANKLE LT MIN 3V CLINICAL INDICATION: left ankle fracture COMPARISON: CR XR ANKLE LT MIN 3V from 06/04/2021 CR XR ANKLE LT MIN 3V from 06/12/2021 CR XR ANKLE LT MIN 3V from 06/19/2021 CR XR ANKLE LT MIN 3V from 07/10/2021 FINDINGS: There is a healing fracture involving the distal aspect of the left fibula. The fracture line is still visible medially. Developing callus formation is noted. There is good alignment. Ankle mortise is preserved. Well-circumscribed calcific density overlies the tip of the fibula may be due to an old injury. IMPRESSION: Healing distal fibular fracture Dictated by: Romeo Boyd MD 08/21/2021 15:44 Romeo Boyd MD in [place] 08/21/2021 15:44
== END ==
PROVIDERS: PCP Nurse Practitioner Family; Visit Provider Orthopaedic Surgery
DX: S82.842D Displaced bimalleolar fracture of left lower leg, subsequent encounter for closed fracture with routine healing (principal); S72.002A Fracture of unspecified part of neck of left femur, initial encounter for closed fracture; Z09 Encounter for follow-up examination after completed treatment for conditions other than malignant neoplasm
CPT/HCPCS: 73502; 73610

== ENCOUNTER → 2021-08-30 09:06 | Outpatient (CLI) | payer MEDICARE, MEDICAID, SELFPAY ==
--- NOTE | 2021-08-30 09:07 | XR_ITS ---
PROCEDURE: XR DEXA AXIAL SKELETON CLINICAL HISTORY: evaluate for osteoporosis COMPARISON: No exams were available for comparison FINDINGS: The right hip BMD is 0.696 with a T-score of -1.4. The left hip BMD is with a T-score of . The lumbar spine BMD is 1.111 with a T-score of 0.6. 1/3 radius density is 0.543 with a T-score -2.5 IMPRESSION: This patient is considered osteoporotic according to the World Health Organization criteria. Fracture risk is high. Treatment is advised. Based on these results a follow-up exam is recommended in 1 year. Dictated by: Romeo Boyd MD 08/30/2021 13:31 Romeo Boyd MD in [place] 08/30/2021 13:31
== END ==
PROVIDERS: PCP Nurse Practitioner Family; Visit Provider Orthopaedic Surgery
DX: M81.0 Age-related osteoporosis without current pathological fracture (principal)
CPT/HCPCS: 77080

== ENCOUNTER → 2021-10-02 14:18 | Outpatient (CLI) | payer MEDICARE, MEDICAID, SELFPAY ==
--- NOTE | 2021-10-02 14:21 | XR_ITS ---
PROCEDURE: XR HIP LT 2-3V W/PELVIS CLINICAL INDICATION: sp LT hip cannulated screw fixation, sx 07/11/21 COMPARISON: CR XR HIP LT 2-3V W/PELVIS from 08/21/2021 FINDINGS: Status post cannulated screw placement on the left with a nondisplaced subcapital femoral neck fracture with sclerosis developing at the fracture site consistent with healing. Mild osteoarthritic changes of the hips. IMPRESSION: Good alignment status post cannulated screw placement stabilizing the healing left femoral neck fracture Dictated by: Romeo Boyd MD 10/02/2021 18:26 Romeo Boyd MD in [place] 10/02/2021 18:26
== END ==
PROVIDERS: PCP Nurse Practitioner Family; Visit Provider Orthopaedic Surgery
DX: Z09 Encounter for follow-up examination after completed treatment for conditions other than malignant neoplasm (principal); S72.002D Fracture of unspecified part of neck of left femur, subsequent encounter for closed fracture with routine healing
CPT/HCPCS: 73502

== ENCOUNTER 2021-11-26 09:40 | Emergency (ER) | payer MEDICARE, MEDICAID, SELFPAY ==
[2021-11-26 09:55] VITALS: BP 111/85; PULSE 66; RESP 18; TEMP 36.8; O2SAT 97; BMI 34.3
--- NOTE | 2021-11-26 09:55 | XR_ITS ---
FINAL REPORT TECHNIQUE: Single view chest CLINICAL HISTORY: cough COMPARISON: 07/10/2021 FINDINGS: A single view of the chest was obtained. The heart and mediastinum are within normal limits. There is mild right base atelectasis or pneumonia, worse from prior exam. There is no pneumothorax. Osseous structures are unremarkable. IMPRESSION: Mild right base atelectasis or pneumonia. Reviewed, Interpreted and Dictated by Brian Queen III, MD Transcribed by Yuliya Anthony Authenticated by Brian Queen III, MD on 11/26/2021 11:15:00 AM [facility]
[2021-11-26 10:18] LABS: Influenza A, PCR Not Detected (NotDetected); Influenza B, PCR Not Detected (NotDetected)
--- NOTE | 2021-11-26 10:20 | ECG_ITS ---
APPROVED REPORT Exam: Resting ECG HR:60 bpm ECG Measurements Heart Rate 60 AXES [place] 120 P 46 QRSd 80 QRS 11 QT 434 T 42 QTc 434 Conclusion Normal sinus rhythm Normal ECG Electronically signed by : Ted Mares MD 11/28/2021 13:46:49
[2021-11-26 10:26] LABS: Basophils % 0.5 % (0.1-2.0); Eosinophils % 0.9 % (0.1-12.0); Hematocrit 39.2 % (37.0-47.0); Hemoglobin 13.2 g/dL (12.2-16.2); Lymphocytes # 1.2 K/mm3 (0.7-4.5); Lymphocytes % 31.5 % (10-50); Mean Corpuscular HGB Conc 33.6 g/dL (31.8-35.4); Mean Corpuscular Hemoglobin 27.6 pg (27.0-31.2); Mean Corpuscular Volume 82.2 fl (81-99); Mean Platelet Volume 8.1 fl (7.4-10.4); Monocytes # 0.2 K/mm3 (0.1-1.0); Monocytes % 3.7 % (1.7-9.3); Neutrophils # 2.5 K/mm3 (1.8-7.8); Neutrophils % 63.5 % (37.0-80.0); Platelet Count 195 K/mm3 (142-424); Red Blood Count 4.77 M/mm3 (4.20-5.40); Red Cell Distribution Width 16.4 % (11.5-17.5)
[2021-11-26 10:28] LABS: Chloride 98 mmol/L (98-107); Sodium 133 mmol/L (136-145)
[2021-11-26 10:30] LABS: Alanine Aminotransferase 26 U/L (12-78); Aspartate Amino Transferase 38 U/L (14-36); Blood Urea Nitrogen 22 mg/dl (7-17); Creatinine Clearance Estimated 54 mL/min (50-200); Estimated Glomerular Filt Rate 43 ml/min (>60); GFR (African American) 52 ML/MIN (>60)
[2021-11-26 10:31] LABS: Albumin Level 4.1 g/dl (3.5-5.0); Albumin/Globulin Ratio 1.2 (1.1-1.8); Alkaline Phosphatase 76 U/L (38-126); Bilirubin,Total 0.6 mg/dl (0.2-1.3); Calcium 9.2 mg/dl (8.4-10.2); Carbon Dioxide 26 mmol/L (22.0-30.0); Globulin 3.5 g/dL (1.3-3.2); Glucose 140 mg/dl (74-100); Total Protein,Serum 7.6 g/dl (6.3-8.2)
[2021-11-26 10:40] LABS: NT Pro Brain Natriuretic Pep. 200 pg/mL (0-450)
[2021-11-26 10:44] LABS: Microscopic, Urine URINE MICROSCOPIC (MICROSCOPIC)
[2021-11-26 10:45] LABS: Appearance,Urine CLEAR (Clear); Blood, Urine Negative (Negative); Color,Urine YELLOW (Yellow); Glucose,Urine (UA) Negative (Negative); Ketones,Urine Negative (Negative); Leukocyte Esterase,Urine TRACE (Negative); Nitrate,Urine Negative (Negative); Protein,Urine TRACE (Negative); Specific Gravity, Urine >= 1.030 (1.005-1.030); Urobilinogen,Urine 0.2 EU/dl (0.2)
[2021-11-26 10:45] LABS: Troponin I < 0.01 ng/ml (0.00-0.034)
[2021-11-26 10:49] LABS: Coronavirus 19, PCR Detected (NotDetected)
[2021-11-26 10:53] LABS: Bilirubin,Urine 1+ (Negative)
--- NOTE | 2021-11-26 11:29 | PC.NURSE ---
Called care management for pt going home on o2
--- NOTE | 2021-11-26 11:34 | HMH.EDGENADL ---
ED Disposition Clinical Impression: Pneumonia due to COVID-19 virus Community acquired pneumonia Qualifiers: Laterality: right Lung location: lower lobe of lung Qualified Code(s): J18.9 - Pneumonia, unspecified organism Disposition: Home, Self-Care Condition on Discharge: Good Instructions: DI for Pneumonia -- Adult Prescriptions: cephALEXin [Cephalexin 500mg Tab] 500 mg PO BID #20 tab Transmission Status: Pending to [facility] Doxycycline Monohydrate [Doxycycline [place] 100mg Tab] 100 mg PO Q12 #20 tab Transmission Status: Pending to [facility] methylPREDNISolone [Medrol 4mg tab] 4 mg PO DIRECTED #21 tab Transmission Status: Pending to [facility] Referrals: Betsy Klein APRN [Primary Care Provider] - - Critical Care Critical Care Time: No Attestation: On 11/26/21, the high probability of a clinically significant, sudden or life threatening deterioration of the following system(s) required my full and direct attention, intervention and personal management. The time I documented below is in addition to time spent performing reported procedures but includes the following listed in this critical care notation. Medical Decision Making - Medical Records Medical records reviewed: Yes: I reviewed the patient's medical records. - Bro Inquiry Pt receiving controlled substance: No Vital Signs: 11/26/21 09:55 Temperature 98.3 F Temperature Source Oral Pulse Rate [Right Radial] 66 Respiratory Rate 18 Blood Pressure [Left Arm] 111/85 Blood Pressure Mean [Left Arm] 93 Blood Pressure Source [Left Arm] Automatic Cuff Blood Pressure Position [Left Arm] Supine 02 Sat by Pulse Oximetry 97 Oxygen Delivery Method Room Air - Lab Data Lab Results 11/26/21 09:58: SARS-CoV-2 (PCR) Detected A, Influenza A Untype (PCR) Not detected, Influenza Type B (PCR) Not detected 11/26/21 10:01: WBC 4.0 L, RBC 4.77, Hgb 13.2, Hct 39.2, MCV 82.2, MCH 27.6, MCHC 33.6, RDW 16.4, Plt Count 195, MPV 8.1, Neut % (Auto) 63.5, Lymph % (Auto) 31.5, [place] % (Auto) 3.7, Eos % (Auto) 0.9, Baso % (Auto) 0.5, Neut # (Auto) 2.5, Lymph # (Auto) 1.2, [place] # (Auto) 0.2, Eos # (Auto) 0.0, Baso # (Auto) 0.0 11/26/21 10:01: Sodium 133 L, Potassium 3.0 L, Chloride 98, Carbon Dioxide 26, Anion Gap 12.0, BUN 22 H, Creatinine 1.20 H, Estimated Creat Clear 54, Estimated GFR 43 L, Est GFR ( Amer) 52 L, Glucose 140 H, Calcium 9.2, Total Bilirubin 0.6, AST 38 H, ALT 26, Alkaline Phosphatase 76, Troponin I < 0.01, NT-Pro-B Natriuret Pep 200, Total Protein 7.6, Albumin 4.1, Globulin 3.5 H, Albumin/Globulin Ratio 1.2 11/26/21 10:38: Urine Color Yellow, Urine Appearance Clear, Urine pH 5.0, Ur Specific [place] >= 1.030, Urine Protein Trace, Urine Glucose (UA) Negative, Urine Ketones Negative, Urine Blood Negative, Urine Nitrate Negative, Urine Bilirubin 1+ A, Urine Urobilinogen 0.2, Ur Leukocyte Esterase Trace, Urine RBC None, Urine WBC 3-5, Ur Squamous Epith Cells 3-5, Urine Bacteria None Result diagrams: 11/26/21 10:01 11/26/21 10:01 Orders (Tests/Meds): ED MEDICATIONS Generic Name Dose Route Start Last Admin Trade Name Freq PRN Reason Stop Dose Admin Potassium Chloride/Water 100 mls @ 100 mls/hr 11/26/21 11:34 11/26/21 11:40 Potassium Chloride 10meq/100ml Ivpb IV 11/26/21 12:33 100 mls/hr ONCE ONE Administration Ceftriaxone Sodium 1 gm/ 50 mls @ 100 mls/hr 11/26/21 11:45 Sodium Chloride IV 12/10/21 11:44 Q24H SUSI Discontinued Medications Generic Name Dose Route Start Last Admin Trade Name Freq PRN Reason Stop Dose Admin Dexamethasone Sodium Phosphate 10 mg 11/26/21 11:05 11/26/21 11:20 Dexamethasone 4mg/Ml 5ml Mdv IV 11/26/21 11:06 10 mg ONCE ONE Administration Doxycycline Hyclate 100 mg 11/26/21 11:38 11/26/21 11:41 Doxycycline Hycl 100 Mg Tablet PO 11/26/21 11:39 100 mg ONCE STA Administration Potassium Chloride 40 meq 11/26/21 11:34 11/26/21 11:40
--- NOTE | 2021-11-26 11:53 | SW/DCPLANNER ---
Addendum entered by Lucita Love 11/26/21 12:03: Marilyn rose/ Casandra has stated that portable tank will be delivered to ED room soon. Original Note: Patient information/order has been faxed to [facility] for home O2 + portable tank. This patient will return home from the ED today once O2 has arrived.
[2021-11-26 15:04] VITALS: BP 191/79; PULSE 66; RESP 19; TEMP 36.8; O2SAT 100
== END 2021-11-26 15:04 | disposition home or self-care (01) ==
PROVIDERS: Emergency Provider Emergency Medicine; PCP Nurse Practitioner Family
DX: J18.9 Pneumonia, unspecified organism (principal); J12.82 Pneumonia due to coronavirus disease 2019; F41.8 Other specified anxiety disorders; I25.10 Atherosclerotic heart disease of native coronary artery without angina pectoris; K21.9 Gastro-esophageal reflux disease without esophagitis; I10 Essential (primary) hypertension; E78.5 Hyperlipidemia, unspecified
CPT/HCPCS: 71045; 80053; 81001; 83880; 84484; 85025; 93005; 96365; 96367; 96375; 99284; C9803; J0696; U0003; U0005

== ENCOUNTER → 2022-01-28 14:50 | Outpatient (CLI) | payer MEDICARE, MEDICAID, SELFPAY ==
--- NOTE | 2022-01-28 14:54 | XR_ITS ---
FINAL REPORT CLINICAL HISTORY: sp LT hip cannulated screw fixation COMPARISON: October 02, 2021 FINDINGS: Left hip with pelvis Three views were obtained. There is no acute fracture or dislocation. There are postoperative changes from ORIF of the left femoral head and neck. There is a chronic fracture of the femoral neck, stable from prior. There is mild degenerative change. There is no acute soft tissue abnormality. IMPRESSION: Stable postoperative change of the left femoral head and neck. Reviewed, Interpreted and Dictated by Brian Queen III, MD Transcribed by Kapil Cardenas Authenticated by Brian Queen III, MD on 01/28/2022 04:16:01 PM [facility]
== END ==
PROVIDERS: PCP Nurse Practitioner Family; Visit Provider Orthopaedic Surgery
DX: Z09 Encounter for follow-up examination after completed treatment for conditions other than malignant neoplasm (principal); M25.552 Pain in left hip
CPT/HCPCS: 73502

== ENCOUNTER 2022-04-06 21:09 | Emergency (ER) | payer MEDICARE, MEDICAID, SELFPAY ==
[2022-04-06 21:13] VITALS: BP 174/56; PULSE 63; RESP 17; O2SAT 96; BMI 34.4
--- NOTE | 2022-04-06 21:29 | ECG_ITS ---
APPROVED REPORT Exam: Resting ECG HR:63 bpm ECG Measurements Heart Rate 63 AXES RI 131 P 78 QRSd 86 QRS 43 QT 430 T 66 QTc 438 Conclusion SINUS RHYTHM NORMAL ECG UNCONFIRMED REPORT Electronically signed by : Ted Mares MD 04/07/2022 17:47:20
--- NOTE | 2022-04-06 21:29 | HMH.EDDIZZ ---
ED Disposition Clinical Impression: Dizziness, Infestation by bed bug Disposition: Home, Self-Care Condition on Discharge: Good Instructions: DI for Dizziness-Nonvertigo Additional Instructions: fluids and see pcp this week Referrals: Provider,Referral, [Primary Care Provider] - - Critical Care Critical Care Time: No Attestation: On 04/06/22, the high probability of a clinically significant, sudden or life threatening deterioration of the following system(s) required my full and direct attention, intervention and personal management. The time I documented below is in addition to time spent performing reported procedures but includes the following listed in this critical care notation. Medical Decision Making - Medical Records Medical records reviewed: Yes: I reviewed the patient's medical records. - Bro Inquiry Pt receiving controlled substance: No Vital Signs: 04/06/22 21:13 04/06/22 22:19 04/06/22 22:47 Pulse Rate 65 Pulse Rate [Orthostatic Lying Right Brachial] 70 Pulse Rate [Orthostatic Sitting Right Brachial] 62 Pulse Rate [Orthostatic Standing Right Brachial] 86 Pulse Rate [Right Radial] 63 Respiratory Rate 17 Blood Pressure 175/62 H Blood Pressure [Orthostatic Lying Right Arm] 165/65 H Blood Pressure [Orthostatic Sitting Right Arm] 149/57 H Blood Pressure [Orthostatic Standing Right Arm] 141/68 H Blood Pressure [Right Arm] 174/56 H Blood Pressure Mean [Right Arm] 95 Blood Pressure Source [Right Arm] Automatic Cuff Blood Pressure Position [Right Arm] Supine 02 Sat by Pulse Oximetry 96 93 L Oxygen Delivery Method Room Air Room Air - Lab Data Lab results reviewed: Yes: I reviewed the patient's lab results. Lab Results 04/06/22 21:15: Sodium 136, Potassium 3.4 L, Chloride 100, Carbon Dioxide 30, Anion Gap 9.4, BUN 15, Creatinine 1.00, Estimated Creat Clear 65, Estimated GFR 53 L, Est GFR ( Amer) 65, Glucose 184 H, Calcium 9.9, Total Bilirubin 0.4, AST 29, ALT 20, Alkaline Phosphatase 82, Troponin I < 0.01, Total Protein 7.6, Albumin 4.2, Globulin 3.4 H, Albumin/Globulin Ratio 1.2, TSH 1.91, Thyroxine (T4) 11.6 H 04/06/22 21:15: NT-Pro-B Natriuret Pep 461 H 04/06/22 21:15: WBC 7.4, RBC 4.41, Hgb 12.5, Hct 37.2, MCV 84.4, MCH 28.4, MCHC 33.7, RDW 15.1, Plt Count 350, MPV 7.3 L, Neut % (Auto) 56.9, Lymph % (Auto) 31.9, [place] % (Auto) 5.2, Eos % (Auto) 4.0, Baso % (Auto) 2.0, Neut # (Auto) 4.2, Lymph # (Auto) 2.4, [place] # (Auto) 0.4, Eos # (Auto) 0.3, Baso # (Auto) 0.2 04/06/22 22:18: Urine Color Yellow, Urine Appearance Clear, Urine pH 5.0, Ur Specific [place] >= 1.030, Urine Protein Negative, Urine Glucose (UA) Trace, Urine Ketones Negative, Urine Blood Negative, Urine Nitrate Negative, Urine Bilirubin Negative, Urine Urobilinogen 0.2, Ur Leukocyte Esterase Negative, Urine RBC 3-5, Urine WBC 5-10, Ur Squamous Epith Cells 5-10, Urine Bacteria 1+ Result diagrams: 04/06/22 21:15 04/06/22 21:15 Orders (Tests/Meds): ED MEDICATIONS Generic Name Dose Route Start Last Admin Trade Name Freq PRN Reason Stop Dose Admin Sodium Chloride 1,000 mls @ 999 mls/hr 04/06/22 22:00 04/06/22 21:50 Sod Chlor 0.9% 1000ml Bag IV 04/06/22 23:00 999 mls/hr .Q1H1M SUSI Administration Sodium Chloride 10 ml 04/06/22 21:32 Sodium Chloride 0.9% 10ml Flush Syringe IV 05/06/22 21:31 NEEDED PRN Maintain IV Site Discontinued Medications Generic Name Dose Route Start Last Admin Trade Name Freq PRN Reason Stop Dose Admin Sodium Chloride 500 mls @ 999 mls/hr 04/06/22 22:00 Sod Chlor 0.9% 1000ml Bag IV 04/06/22 22:30 .Q31M SUSI Sodium Chloride 500 ml 04/06/22 21:35 Sodium Chloride 0.9% 500ml Bag IV 04/06/22 21:36 ONCE ONE ORDERS Category Date Time Status Troponin I Q3H Lab 04/07/22 00:45 Ordered Troponin I Q3H Lab 04/07/22 03:45 Ordered Urine Culture Stat Micro 04/06/22 22:18 Received - Radiology Data #1 I
--- NOTE | 2022-04-06 21:33 | XR_ITS ---
PROCEDURE INFORMATION: Exam: XR Chest Exam date and time: 04/06/2022 9:39 PM Age: 81 years old Clinical indication: Other: Weakness TECHNIQUE: Imaging protocol: XR of the chest. Views: 2 views. COMPARISON: CR XR CHEST PORTABLE 11/26/2021 10:10 AM FINDINGS: Lungs: Calcified pulmonary granulomata. Lung parenchyma is otherwise clear. Pleural spaces: Unremarkable. No pleural effusion. No pneumothorax. Heart/Mediastinum: Calcified right paratracheal lymph node. Bones/joints: Unremarkable. IMPRESSION: No acute cardiopulmonary abnormality. Old granulomatous disease.
[2022-04-06 21:44] LABS: Chloride 100 mmol/L (98-107); Potassium 3.4 mmoL/L (3.5-5.1); Sodium 136 mmol/L (136-145)
[2022-04-06 21:45] LABS: Basophils # 0.2 K/mm3 (0-0.2); Eosinophils # 0.3 K/mm3 (0.0-0.4); Hematocrit 37.2 % (37.0-47.0); Hemoglobin 12.5 g/dL (12.2-16.2); Lymphocytes # 2.4 K/mm3 (0.7-4.5); Lymphocytes % 31.9 % (10-50); Mean Corpuscular HGB Conc 33.7 g/dL (31.8-35.4); Mean Corpuscular Hemoglobin 28.4 pg (27.0-31.2); Mean Corpuscular Volume 84.4 fl (81-99); Mean Platelet Volume 7.3 fl (7.4-10.4); Monocytes # 0.4 K/mm3 (0.1-1.0); Monocytes % 5.2 % (1.7-9.3); Neutrophils # 4.2 K/mm3 (1.8-7.8); Neutrophils % 56.9 % (37.0-80.0); Platelet Count 350 K/mm3 (142-424); Red Blood Count 4.41 M/mm3 (4.20-5.40); Red Cell Distribution Width 15.1 % (11.5-17.5); White Blood Count 7.4 K/mm3 (4.8-10.8)
[2022-04-06 21:46] LABS: Alanine Aminotransferase 20 U/L (12-78); Aspartate Amino Transferase 29 U/L (14-36); Blood Urea Nitrogen 15 mg/dl (7-17); Creatinine Clearance Estimated 65 mL/min (50-200); Estimated Glomerular Filt Rate 53 ml/min (>60); GFR (African American) 65 ML/MIN (>60)
[2022-04-06 21:47] LABS: Albumin Level 4.2 g/dl (3.5-5.0); Albumin/Globulin Ratio 1.2 (1.1-1.8); Alkaline Phosphatase 82 U/L (38-126); Anion Gap 9.4 mEq/L (5-15); Bilirubin,Total 0.4 mg/dl (0.2-1.3); Calcium 9.9 mg/dl (8.4-10.2); Carbon Dioxide 30 mmol/L (22.0-30.0); Globulin 3.4 g/dL (1.3-3.2); Glucose 184 mg/dl (74-100); Total Protein,Serum 7.6 g/dl (6.3-8.2)
--- NOTE | 2022-04-06 21:47 | PC.NURSE ---
pt gone to RAD
--- NOTE | 2022-04-06 21:57 | PC.NURSE ---
Pt back from RAD
[2022-04-06 22:06] LABS: NT Pro Brain Natriuretic Pep. 461 pg/mL (0-450)
[2022-04-06 22:09] LABS: Troponin I < 0.01 ng/ml (0.00-0.034)
[2022-04-06 22:11] LABS: T4 (Thyroxine) 11.6 ug/dl (5.53-11.0)
[2022-04-06 22:19] VITALS: BP 141/68; BP 149/57; BP 165/65; PULSE 62; PULSE 70; PULSE 86
[2022-04-06 22:21] LABS: Microscopic, Urine URINE MICROSCOPIC (MICROSCOPIC)
[2022-04-06 22:23] LABS: Appearance,Urine CLEAR (Clear); Bilirubin,Urine Negative (Negative); Blood, Urine Negative (Negative); Color,Urine YELLOW (Yellow); Glucose,Urine (UA) TRACE (Negative); Ketones,Urine Negative (Negative); Leukocyte Esterase,Urine Negative (Negative); Nitrate,Urine Negative (Negative); Protein,Urine Negative (Negative); Specific Gravity, Urine >= 1.030 (1.005-1.030); Urobilinogen,Urine 0.2 EU/dl (0.2)
[2022-04-06 22:24] LABS: Thyroid Stimulating Hormone 1.91 uIU/mL (0.465-4.68)
[2022-04-06 22:27] LABS: Bacteria,Urine 1+ /lpf
[2022-04-06 22:47] VITALS: BP 175/62; PULSE 65; O2SAT 93
[2022-04-06 23:49] VITALS: TEMP 36.8
--- NOTE | 2022-04-07 00:24 | PC.NURSE ---
pt daughter arrived to take her home pt voiced concerns about the mental status of her mother and the reason she came today i advised that she speak with the primary tomorrow at her appointment
[2022-04-07 00:26] VITALS: BP 144/60; PULSE 61; RESP 16; TEMP 37.1; O2SAT 98
== END 2022-04-07 00:31 | disposition home or self-care (01) ==
PROVIDERS: Emergency Provider Emergency Medicine
DX: R42 Dizziness and giddiness (principal); B88.9 Infestation, unspecified; I25.10 Atherosclerotic heart disease of native coronary artery without angina pectoris; E78.5 Hyperlipidemia, unspecified; I10 Essential (primary) hypertension; F41.9 Anxiety disorder, unspecified; I49.9 Cardiac arrhythmia, unspecified; I65.29 Occlusion and stenosis of unspecified carotid artery; F32.A Depression, unspecified; K21.9 Gastro-esophageal reflux disease without esophagitis; R82.90 Unspecified abnormal findings in urine; Z86.73 Personal history of transient ischemic attack (TIA), and cerebral infarction without residual deficits; Z86.14 Personal history of Methicillin resistant Staphylococcus aureus infection
CPT/HCPCS: 71046; 80053; 81001; 83880; 84436; 84443; 84484; 85025; 87086; 87088; 87186; 93005; 96360; 99284

== ENCOUNTER → 2022-04-07 13:16 | Outpatient (CLI) | payer MEDICARE, MEDICAID, SELFPAY | PROVIDERS: PCP Nurse Practitioner Family; Visit Provider Nurse Practitioner Family | DX: R73.09 Other abnormal glucose (principal) | CPT/HCPCS: 83036 ==

== ENCOUNTER 2023-01-27 11:10 | Emergency (ER) | payer MEDICARE, MEDICAID, SELFPAY ==
[2023-01-27] VITALS (16 sets, daily range): BP systolic 97–247; BP diastolic 71–153; PULSE 66–93; RESP 16–22; TEMP 36.6–37.3; O2SAT 94–98; BMI 27.4
--- NOTE | 2023-01-27 11:32 | XR_ITS ---
FINAL REPORT CLINICAL HISTORY: concern for infection vs fx FINDINGS: 2 views of the left foot were obtained. There is no acute fracture or dislocation. There are mild degenerative changes. There is an os ossific density inferior to the lateral malleolus. IMPRESSION: Mild degenerative change. Reviewed, Interpreted and Dictated by Brian Queen III, MD Transcribed by Kapil Cardenas Authenticated and [facility]
--- NOTE | 2023-01-27 11:32 | CT_ITS ---
FINAL REPORT TECHNIQUE: Thin section axial CT images were obtained utilizing a CT angiogram protocol. Coronal and sagittal reformatted images were submitted. This study was performed with techniques to keep radiation doses as low as reasonably achievable (ALARA). Individualized dose reduction techniques using automated exposure control or adjustment of mA and/or kV according to the patient's size were employed. CLINICAL HISTORY: concern for vascular insufficiency FINDINGS: CTA LOWER EXTREMITIES The abdominal aorta is patent without evidence of aneurysm. There is diffuse vascular calcification. The celiac axis and SMA are patent. The BELEM is unremarkable. The renal arteries are patent. The common iliac arteries are patent. Right lower extremity: The right internal and external iliac arteries are patent. The femoral artery is patent. Knee arthroplasty obscures portions of the popliteal artery. There are multiple stenoses of the peroneal artery. The anterior tibial artery is marked caliber but patent. The posterior tibial artery is patent. There is postoperative change of the distal tibia and fibula. Left lower extremity: The left internal and external iliac arteries are patent. The femoral artery is patent. The arthroplasty obscures portions of the popliteal artery. The peroneal artery is patent. The anterior tibial artery is small caliber but patent. The posterior tibial artery is patent. Review of the remainder of the abdomen demonstrates small bilateral pleural effusions. The gallbladder is unremarkable. The solid abdominal organs are unremarkable. 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 Reviewed, Interpreted and Dictated by Brian Queen III, MD Transcribed by Kapil Cardenas Authenticated and [facility]
--- NOTE | 2023-01-27 11:32 | HMH.EDGENADL ---
Discharge Plan Disposition Patient Disposition: Home, Self-Care Condition: Fair Prescriptions Prescriptions: New sulfamethoxazole-trimethoprim [Bactrim DS] 800-160 mg tablet 1 tab PO Q12H 7 Days Qty: 14 0RF cefadroxil 500 mg capsule 500 mg PO BID 7 Days Qty: 14 0RF No Action cetirizine 10 mg tablet See Rx Instructions .ROUTE .COMPLEX Rx Instructions: TAKE ONE TABLET BY MOUTH EVERY DAY patient needs an appt before anymore refills sertraline 100 mg tablet See Rx Instructions .ROUTE .COMPLEX Rx Instructions: TAKE ONE TABLET BY MOUTH EVERY DAY FOR SLEEP clopidogrel 75 mg tablet See Rx Instructions .ROUTE .COMPLEX Rx Instructions: TAKE ONE TABLET BY MOUTH EVERY DAY patient needs an appt before anymore refills lisinopril 10 mg tablet See Rx Instructions .ROUTE .COMPLEX Rx Instructions: TAKE ONE TABLET BY MOUTH EVERY DAY patient needs an appt before anymore refills montelukast 10 mg tablet See Rx Instructions .ROUTE .COMPLEX Rx Instructions: TAKE ONE TABLET BY MOUTH EVERY DAY AT BEDTIME patient needs an appt before anymore refills hydroxyzine HCl 25 mg tablet See Rx Instructions .ROUTE .COMPLEX Rx Instructions: TAKE ONE TABLET BY MOUTH EVERY DAY AT BEDTIME FOR ANXIETY MAY CAUSE DROWSINESS hydrochlorothiazide 25 mg tablet See Rx Instructions .ROUTE .COMPLEX Rx Instructions: TAKE 1/2 TABLET BY MOUTH EVERY DAY Jardiance 10 mg tablet See Rx Instructions .ROUTE .COMPLEX Rx Instructions: TAKE ONE TABLET BY MOUTH EVERY DAY patient needs an appt before anymore refills Referrals Follow up/Referrals: Fidel Muse MD [Staff Physician] - See instructions (Needs follow-up for hypokalemia, hypertension) Provider,MD Steven [Primary Care Provider] - See instructions Activity Restrictions/Add. Instructions Additional Instructions/Restrictions: Take antibiotics twice daily for 7 days as prescribed for the full course. Primary care providers have been provided on a sheet, call 1 at your earliest convenience within the next 24 hours to establish care and establish close follow-up. If you have any other concerning signs or symptoms, return to the ER promptly for further evaluation. Clinical Impressions Clinical Impression: Cellulitis of foot, left Instructions Patient Instructions: DI for Laceration Repair Discharge ED Provider: Sam Hoang General Adult HPI General Chief complaint: Wound/Laceration Stated complaint: L foot wound Time Seen by Provider: 01/27/23 11:12 History of Present Illness HPI narrative: This is an 82-year-old female with history of hypertension, hyperlipidemia, diabetes, neuropathy presenting with left foot injury. Per son, patient has been in normal state of health. Him and his girlfriend went to check on patient today, 01/27 and noticed that her left foot was draining, appeared painful. Because of this, brought her to the ED. Patient denies any trauma, pain,, fevers, chills, redness streaking up her leg, or any other concerns at this time. Related Data Home Medications Medication Instructions Recorded Confirmed cetirizine 10 mg tablet See Rx Instructions .Route 01/27/23 01/27/23 .COMPLEX Allergy symptoms clopidogrel 75 mg tablet See Rx Instructions .Route 01/27/23 01/27/23 .COMPLEX Blood thinner empagliflozin 10 mg tablet See Rx Instructions .Route 01/27/23 01/27/23 (Jardiance) .COMPLEX Diabetes hydrochlorothiazide 25 mg tablet See Rx Instructions .Route 01/27/23 01/27/23 .COMPLEX . hydroxyzine HCl 25 mg tablet See Rx Instructions .Route 01/27/23 01/27/23 .COMPLEX Anxiety lisinopril 10 mg tablet See Rx Instructions .Route 01/27/23 01/27/23 .COMPLEX High blood pressure montelukast 10 mg tablet See Rx Instructions .Route 01/27/23 01/27/23 .COMPLEX Allergy symptoms sertraline 100 mg tablet See Rx Instructions .Ro
[2023-01-27 12:28] LABS: Basophils % 0.7 % (0.1-2.0); Eosinophils % 0.5 % (0.1-12.0); Hematocrit 31.9 % (37.0-47.0); Hemoglobin 9.9 g/dL (12.2-16.2); Lymphocytes # 1.1 K/mm3 (0.7-4.5); Lymphocytes % 18.2 % (10-50); Mean Corpuscular Hemoglobin 22.2 pg (27.0-31.2); Mean Corpuscular Volume 71.6 fl (81-99); Monocytes # 0.2 K/mm3 (0.1-1.0); Monocytes % 3.2 % (1.7-9.3); Neutrophils # 4.7 K/mm3 (1.8-7.8); Neutrophils % 77.4 % (37.0-80.0); Platelet Count 311 K/mm3 (142-424); Red Blood Count 4.45 M/mm3 (4.20-5.40); Red Cell Distribution Width 18.6 % (11.5-17.5); White Blood Count 6.1 K/mm3 (4.8-10.8)
[2023-01-27 12:37] LABS: Chloride 93 mmol/L (98-107); Sodium 136 mmol/L (136-145)
[2023-01-27 12:39] LABS: Alanine Aminotransferase 20 U/L (12-78); Aspartate Amino Transferase 30 U/L (14-36); Blood Urea Nitrogen 8 mg/dl (7-17); Creatinine Clearance Estimated 47 mL/min (50-200); Estimated Glomerular Filt Rate 53 ml/min (>60); GFR (African American) 64 ML/MIN (>60)
--- NOTE | 2023-01-27 12:39 | PC.NURSE ---
patient assisted to BS commode and back to bed.
[2023-01-27 12:40] LABS: Albumin Level 3.7 g/dl (3.5-5.0); Albumin/Globulin Ratio 1.1 (1.1-1.8); Alkaline Phosphatase 90 U/L (38-126); Anion Gap 9.3 mEq/L (5-15); Bilirubin,Total 2.2 mg/dl (0.2-1.3); Calcium 8.4 mg/dl (8.4-10.2); Carbon Dioxide 36 mmol/L (22.0-30.0); Globulin 3.3 g/dL (1.3-3.2); Glucose 161 mg/dl (74-100); Lactic Acid 1.8 mmol/L (0.7-2.1)
[2023-01-27 12:41] LABS: Potassium 2.3 mmoL/L (3.5-5.1)
--- NOTE | 2023-01-27 13:11 | PC.NURSE ---
pt to CT
[2023-01-27 13:28] LABS: Coronavirus 19, PCR Not Detected (NotDetected); Influenza A, PCR Not Detected (NotDetected); Influenza B, PCR Not Detected (NotDetected)
--- NOTE | 2023-01-27 13:54 | PC.NURSE ---
patient given warm blankets
--- NOTE | 2023-01-27 14:14 | PC.NURSE ---
pt had aidan use bsc when finished stated cant breathe, o2 sats 86-88%, after repositioning now up to 96%
[2023-01-27 15:00] LABS: VBG Oxygen Saturation 69.4 % (50-70); VBG PH 7.45 mmol/L (7.31-7.41); VBG PO2 38.9 mmol/L (28-40); VBG Total CO2 32.5 mmol/L (23-27)
--- NOTE | 2023-01-27 15:08 | XR_ITS ---
FINAL REPORT CLINICAL HISTORY: SOA COMPARISON: 04/06/2022 FINDINGS: SINGLE-VIEW CHEST The heart size is normal. The mediastinum is normal. There are worsening bilateral opacities, may represent pneumonia or edema. There is no pneumothorax. IMPRESSION: Worsening pneumonia versus edema. Reviewed, Interpreted and Dictated by Brian Queen III, MD Transcribed by Homa Marshall Authenticated and [facility]
[2023-01-27 15:31] LABS: Troponin I < 0.01 ng/ml (0.00-0.034)
--- NOTE | 2023-01-27 15:39 | PC.NURSE ---
Bernie RN assisted in cleaning patient after urinating in the bed. Bed changed and gauze pads put on L foot prior to placing non skid socks. Patient placed back in bed and then needed back up to [facility] commode. Patient had BM and was placed back into bed. RT notified of need for a breathing treatment
[2023-01-27 16:07] LABS: Troponin I 0.01 ng/ml (0.00-0.034)
== END 2023-01-27 16:51 | disposition home or self-care (01) ==
PROVIDERS: Emergency Provider Emergency Medicine
DX: L03.116 Cellulitis of left lower limb (principal); I10 Essential (primary) hypertension; E78.5 Hyperlipidemia, unspecified; E11.40 Type 2 diabetes mellitus with diabetic neuropathy, unspecified; E04.1 Nontoxic single thyroid nodule; Z87.891 Personal history of nicotine dependence; Z20.822 Contact with and (suspected) exposure to COVID-19
CPT/HCPCS: 36415; 71045; 73620; 73706; 80053; 82803; 83605; 84484; 85025; 87040; 96361; 96374; 96375; 99284; 99285; C9803; Q9967; U0003; U0005

== ENCOUNTER 2023-02-08 13:10 | Emergency (ER) | payer MEDICARE, MEDICAID, SELFPAY ==
[2023-02-08 13:10] VITALS: BP 124/77; PULSE 74; RESP 16; TEMP 36.8; O2SAT 97; BMI 29.2
--- NOTE | 2023-02-08 13:16 | XR_ITS ---
PROCEDURE INFORMATION: Exam: XR Left Foot Exam date and time: 02/08/2023 1:39 PM Age: 82 years old Clinical indication: Edema and swelling, leg or foot; Yes, it is localized; Additional info: Concern for nec fasc TECHNIQUE: Imaging protocol: Radiologic exam of the left foot. Views: 3 or more views. COMPARISON: CR XR FOOT LT 2V 01/27/2023 1:30 PM FINDINGS: Bones/joints: No acute fracture. No dislocation. No radiographic evidence of osteomyelitis. Soft tissues: Diffuse soft tissue edema. IMPRESSION: No acute osseous abnormality.
--- NOTE | 2023-02-08 13:44 | PC.NURSE ---
SON AT BEDSIDE
[2023-02-08 13:45] LABS: C-Reactive Protein 9.4 mg/L (0-4)
[2023-02-08 13:48] LABS: Erythrocyte Sedimentation Rate 26 mm/hr (0-30)
--- NOTE | 2023-02-08 13:54 | HMH.EDGENADL ---
Discharge Plan Disposition Patient Disposition: Home, Self-Care Condition: Fair Prescriptions Prescriptions: New clindamycin HCl 300 mg capsule 300 mg PO Q8H 10 Days Qty: 30 0RF levofloxacin 750 mg tablet 750 mg PO DAILY 10 Days Qty: 10 0RF No Action sertraline 100 mg tablet See Rx Instructions .ROUTE .COMPLEX Qty: 90 0RF Dose Instruction: TAKE ONE TABLET BY MOUTH EVERY DAY FOR SLEEP Rx Instructions: TAKE ONE TABLET BY MOUTH EVERY DAY FOR SLEEP cetirizine 10 mg tablet See Rx Instructions .ROUTE .COMPLEX Rx Instructions: TAKE ONE TABLET BY MOUTH EVERY DAY patient needs an appt before anymore refills clopidogrel 75 mg tablet See Rx Instructions .ROUTE .COMPLEX Rx Instructions: TAKE ONE TABLET BY MOUTH EVERY DAY patient needs an appt before anymore refills lisinopril 10 mg tablet See Rx Instructions .ROUTE .COMPLEX Rx Instructions: TAKE ONE TABLET BY MOUTH EVERY DAY patient needs an appt before anymore refills montelukast 10 mg tablet See Rx Instructions .ROUTE .COMPLEX Rx Instructions: TAKE ONE TABLET BY MOUTH EVERY DAY AT BEDTIME patient needs an appt before anymore refills hydroxyzine HCl 25 mg tablet See Rx Instructions .ROUTE .COMPLEX Rx Instructions: TAKE ONE TABLET BY MOUTH EVERY DAY AT BEDTIME FOR ANXIETY MAY CAUSE DROWSINESS hydrochlorothiazide 25 mg tablet See Rx Instructions .ROUTE .COMPLEX Rx Instructions: TAKE 1/2 TABLET BY MOUTH EVERY DAY Jardiance 10 mg tablet See Rx Instructions .ROUTE .COMPLEX Rx Instructions: TAKE ONE TABLET BY MOUTH EVERY DAY patient needs an appt before anymore refills sulfamethoxazole-trimethoprim [Bactrim DS] 800-160 mg tablet 1 tab PO Q12H 7 Days Qty: 14 0RF cefadroxil 500 mg capsule 500 mg PO BID 7 Days Qty: 14 0RF Referrals Follow up/Referrals: Provider,Referral, MD [Primary Care Provider] - See instructions Clinical Impressions Clinical Impression: Recurrent cellulitis of lower leg Instructions Patient Instructions: DI for Cellulitis -- Adult Discharge ED Provider: Clay Tse General Adult HPI General Chief complaint: Skin/Abscess/Foreign Body Stated complaint: leg infection Time Seen by Provider: 02/08/23 13:11 Mode of Arrival: EMS Source of Information: EMS Limitations: pt alert to self, birthdate, location Description of Symptoms (Recalled from ER Triage Doc. by RN): pt c/o wound on left foot. pt unable to answer questions regarding when she first noticed the wound or if she has had a fever. History of Present Illness HPI narrative: Patient is a 82-year-old female with a past medical history of hyperlipidemia, hypertension, neuropathy who presents with concern for left foot infection. History is limited due to the patient's baseline mental status. She does not recall when she first noticed the wound. Does not recall any fever. Denies any other wounds. Denies any shortness of breath. Denies any chills. Related Data Home Medications Medication Instructions Recorded Confirmed cetirizine 10 mg tablet See Rx Instructions .Route 01/27/23 01/27/23 .COMPLEX Allergy symptoms clopidogrel 75 mg tablet See Rx Instructions .Route 01/27/23 01/27/23 .COMPLEX Blood thinner empagliflozin 10 mg tablet See Rx Instructions .Route 01/27/23 01/27/23 (Jardiance) .COMPLEX Diabetes hydrochlorothiazide 25 mg tablet See Rx Instructions .Route 01/27/23 01/27/23 .COMPLEX . hydroxyzine HCl 25 mg tablet See Rx Instructions .Route 01/27/23 01/27/23 .COMPLEX Anxiety lisinopril 10 mg tablet See Rx Instructions .Route 01/27/23 01/27/23 .COMPLEX High blood pressure montelukast 10 mg tablet See Rx Instructions .Route 01/27/23 01/27/23 .COMPLEX Allergy symptoms Previous Rx's Medication Instructions Recorded cefadroxil 500 mg capsule 500 mg PO BID 7 days #14 caps 01/27/23
[2023-02-08 14:08] LABS: Basophils % 0.8 % (0.1-2.0); Eosinophils # 0.1 K/mm3 (0.0-0.4); Eosinophils % 1.3 % (0.1-12.0); Hematocrit 29.8 % (37.0-47.0); Lymphocytes # 0.9 K/mm3 (0.7-4.5); Lymphocytes % 19.2 % (10-50); Mean Corpuscular HGB Conc 30.1 g/dL (31.8-35.4); Mean Corpuscular Volume 69.9 fl (81-99); Mean Platelet Volume 7.9 fl (7.4-10.4); Monocytes # 0.2 K/mm3 (0.1-1.0); Monocytes % 3.8 % (1.7-9.3); Neutrophils # 3.7 K/mm3 (1.8-7.8); Neutrophils % 74.8 % (37.0-80.0); Platelet Count 249 K/mm3 (142-424); Red Blood Count 4.27 M/mm3 (4.20-5.40); White Blood Count 4.9 K/mm3 (4.8-10.8)
[2023-02-08 15:36] VITALS: BP 124/77; PULSE 74; RESP 16; TEMP 36.8; O2SAT 97
== END 2023-02-08 15:40 | disposition home or self-care (01) ==
PROVIDERS: Emergency Provider Student in an Organized Health Care Education/Training Program
DX: L03.116 Cellulitis of left lower limb (principal)
CPT/HCPCS: 73630; 85025; 85651; 86140; 99284; 99285

== ENCOUNTER → 2023-02-12 10:00 | Outpatient (CLI) | payer MEDICARE, MEDICAID, SELFPAY ==
[2023-02-12 10:42] LABS: Basophils % 0.8 % (0.1-2.0); Eosinophils # 0.1 K/mm3 (0.0-0.4); Eosinophils % 1.9 % (0.1-12.0); Hematocrit 32.5 % (37.0-47.0); Hemoglobin 9.5 g/dL (12.2-16.2); Lymphocytes # 1.1 K/mm3 (0.7-4.5); Lymphocytes % 22.1 % (10-50); Mean Corpuscular HGB Conc 29.1 g/dL (31.8-35.4); Mean Corpuscular Hemoglobin 20.8 pg (27.0-31.2); Mean Corpuscular Volume 71.5 fl (81-99); Mean Platelet Volume 8.1 fl (7.4-10.4); Monocytes # 0.2 K/mm3 (0.1-1.0); Monocytes % 3.6 % (1.7-9.3); Neutrophils # 3.7 K/mm3 (1.8-7.8); Neutrophils % 71.6 % (37.0-80.0); Platelet Count 295 K/mm3 (142-424); Red Blood Count 4.55 M/mm3 (4.20-5.40); Red Cell Distribution Width 19.1 % (11.5-17.5); White Blood Count 5.1 K/mm3 (4.8-10.8)
[2023-02-12 10:53] LABS: Hemoglobin A1C 7.1 % (4.0-6.0)
[2023-02-12 11:23] LABS: Alanine Aminotransferase 14 U/L (12-78); Albumin Level 3.9 g/dl (3.5-5.0); Albumin/Globulin Ratio 1.3 (1.1-1.8); Alkaline Phosphatase 91 U/L (38-126); Aspartate Amino Transferase 22 U/L (14-36); Bilirubin,Total 1.2 mg/dl (0.2-1.3); Blood Urea Nitrogen 10 mg/dl (7-17); Calcium 8.8 mg/dl (8.4-10.2); Carbon Dioxide 32 mmol/L (22.0-30.0); Chloride 97 mmol/L (98-107); Estimated Glomerular Filt Rate 53 ml/min (>60); GFR (African American) 64 ML/MIN (>60); Glucose 115 mg/dl (74-100); Sodium 136 mmol/L (136-145); Total Protein,Serum 6.9 g/dl (6.3-8.2)
[2023-02-12 11:27] LABS: Anion Gap 10.2 mEq/L (5-15); Potassium 3.2 mmoL/L (3.5-5.1)
[2023-02-12 11:35] LABS: Iron 32 ug/dL (37-170)
[2023-02-12 11:41] LABS: Total Iron Binding Capacity 521 ug/dL (265-497)
[2023-02-12 11:42] LABS: Free Thyroxine Index 3.9 ug/dL (5.93-13.13); T4 (Thyroxine) 10.5 ug/dl (5.53-11.0); Triiodothryronine (T3) Uptake 37 % (23.5-40.5)
[2023-02-12 11:56] LABS: Thyroid Stimulating Hormone 1.42 uIU/mL (0.465-4.68)
[2023-02-12 12:10] LABS: Ferritin 20.1 ng/ml (11.1-264)
[2023-02-12 12:30] LABS: Vitamin B12 464 pg/mL (239-931)
[2023-02-12 12:33] LABS: Folate 8.58 ng/mL
[2023-02-13 12:12] LABS: Rapid Plasma Reagin Ab Titer Non Reactive (NonRea<1:1)
== END ==
PROVIDERS: PCP Nurse Practitioner Family; Visit Provider Nurse Practitioner Family
DX: S91.302A Unspecified open wound, left foot, initial encounter (principal); E11.69 Type 2 diabetes mellitus with other specified complication; D50.9 Iron deficiency anemia, unspecified; R41.89 Other symptoms and signs involving cognitive functions and awareness; Z79.84 Long term (current) use of oral hypoglycemic drugs
CPT/HCPCS: 36415; 80053; 82607; 82728; 82746; 83036; 83540; 83550; 84436; 84443; 84479; 85025; 86593

== ENCOUNTER → 2023-02-14 10:36 | Outpatient (CLI) | payer MEDICARE, MEDICAID, SELFPAY ==
--- NOTE | 2023-02-14 11:00 | XR_ITS ---
PROCEDURE INFORMATION: Exam: XR Left Foot Complete; Alignment Exam date and time: 02/14/2023 11:05 AM Age: 82 years old Clinical indication: Pain; Foot; Bilateral; Additional info: Wound of foot TECHNIQUE: Imaging protocol: Radiologic exam of the left foot. Views: 3 or more views. COMPARISON: CR XR FOOT LT MIN 3V 02/08/2023 1:39 PM FINDINGS: Bones/joints: Spurring along the posterior and plantar calcaneus. No acute fracture or dislocation. Soft tissues: Normal. IMPRESSION: No acute fracture or dislocation.
--- NOTE | 2023-02-14 11:00 | XR_ITS ---
PROCEDURE INFORMATION: Exam: XR Right Foot Complete; Alignment Exam date and time: 02/14/2023 11:05 AM Age: 82 years old Clinical indication: Pain; Foot; Bilateral; Additional info: Wound of foot TECHNIQUE: Imaging protocol: Radiologic exam of the right foot. Views: 3 or more views. COMPARISON: CR XR ANKLE RT MIN 3V 01/31/2021 2:25 PM FINDINGS: Bones/joints: Surgical changes again noted of the ankle. Spurring along the posterior and plantar calcaneus. No acute fracture or dislocation. Soft tissues: Normal. IMPRESSION: No acute fracture or dislocation.
[2023-02-14 12:05] LABS: Basophils % 0.6 % (0.1-2.0); Eosinophils # 0.1 K/mm3 (0.0-0.4); Eosinophils % 1.5 % (0.1-12.0); Hemoglobin 8.8 g/dL (12.2-16.2); Lymphocytes # 1.3 K/mm3 (0.7-4.5); Lymphocytes % 24.8 % (10-50); Mean Corpuscular HGB Conc 29.5 g/dL (31.8-35.4); Mean Corpuscular Hemoglobin 20.7 pg (27.0-31.2); Mean Corpuscular Volume 70.3 fl (81-99); Mean Platelet Volume 8.7 fl (7.4-10.4); Monocytes # 0.2 K/mm3 (0.1-1.0); Monocytes % 4.1 % (1.7-9.3); Neutrophils # 3.5 K/mm3 (1.8-7.8); Neutrophils % 68.9 % (37.0-80.0); Platelet Count 254 K/mm3 (142-424); Red Blood Count 4.27 M/mm3 (4.20-5.40); White Blood Count 5.1 K/mm3 (4.8-10.8)
[2023-02-14 12:25] LABS: Chloride 96 mmol/L (98-107)
[2023-02-14 12:26] LABS: Potassium 3.2 mmoL/L (3.5-5.1); Sodium 136 mmol/L (136-145)
[2023-02-14 12:28] LABS: Alkaline Phosphatase 73 U/L (38-126); Anion Gap 11.2 mEq/L (5-15); Bilirubin,Total 0.9 mg/dl (0.2-1.3); Carbon Dioxide 32 mmol/L (22.0-30.0)
[2023-02-14 12:29] LABS: Albumin Level 3.7 g/dl (3.5-5.0); Albumin/Globulin Ratio 1.3 (1.1-1.8); Calcium 8.8 mg/dl (8.4-10.2); Globulin 2.9 g/dL (1.3-3.2); Glucose 103 mg/dl (74-100); Total Protein,Serum 6.6 g/dl (6.3-8.2)
[2023-02-14 12:34] LABS: C-Reactive Protein 2.8 mg/L (0-4)
[2023-02-14 13:05] LABS: Erythrocyte Sedimentation Rate 26 mm/hr (0-30)
[2023-02-14 14:40] LABS: Alanine Aminotransferase 12 U/L (12-78); Aspartate Amino Transferase 23 U/L (14-36); Blood Urea Nitrogen 9 mg/dl (7-17); Estimated Glomerular Filt Rate 53 ml/min (>60); GFR (African American) 64 ML/MIN (>60)
== END ==
PROVIDERS: PCP Nurse Practitioner Family; Visit Provider Nurse Practitioner Family
DX: S91.301A Unspecified open wound, right foot, initial encounter; S91.302A Unspecified open wound, left foot, initial encounter
CPT/HCPCS: 36415; 73630; 80053; 85025; 85651; 86140

== ENCOUNTER → 2023-02-19 23:24 | Outpatient (CLI) | payer MEDICARE, MEDICAID, SELFPAY | PROVIDERS: PCP Nurse Practitioner Family; Visit Provider Nurse Practitioner Family | DX: S91.309A Unspecified open wound, unspecified foot, initial encounter (principal) ==

== ENCOUNTER → 2023-03-12 07:54 | Outpatient (CLI) | payer MEDICARE, MEDICAID, SELFPAY ==
--- NOTE | 2023-03-12 08:13 | MR_ITS ---
FINAL REPORT CLINICAL HISTORY: encephalopathy, worsening confusion. MEMORY LOSS. DIZZINESS. COMPARISON: none FINDINGS: Multiplanar MR imaging of the brain was performed without and with contrast. There is motion artifact on many of the images decreasing sensitivity of this exam. There is age-appropriate atrophy. There are moderate chronic ischemic/gliotic changes. There are bilateral areas of encephalomalacia left larger than right consistent with prior infarcts. No acute intracranial abnormality. No area of abnormal restricted diffusion is identified. No abnormal contrast enhancement is seen. There is mucosal thickening in the ethmoid air cells and left sphenoid sinus. IMPRESSION: No acute intracranial abnormality. 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
[2023-03-12 08:16] LABS: Blood Urea Nitrogen 26 mg/dl (7-17); Estimated Glomerular Filt Rate 60 ml/min (>60); GFR (African American) 73 ML/MIN (>60)
== END ==
PROVIDERS: PCP Nurse Practitioner Family; Visit Provider Nurse Practitioner Family
DX: G93.40 Encephalopathy, unspecified (principal); R09.02 Hypoxemia; Z86.73 Personal history of transient ischemic attack (TIA), and cerebral infarction without residual deficits
CPT/HCPCS: 36415; 70553; 82565; 84520; 94762; A9576

== ENCOUNTER 2023-07-04 11:40 | Inpatient (IN) | payer MEDICARE, SELFPAY ==
[2023-07-04] VITALS (14 sets, daily range): BP systolic 111–240; BP diastolic 53–165; PULSE 72–140; RESP 16–22; TEMP 35–37.1; O2SAT 94–97; BMI 33.3; BMI 31.0
--- NOTE | 2023-07-04 11:43 | CT_ITS ---
PROCEDURE INFORMATION: Exam: CTA Neck With Contrast Exam date and time: 07/04/2023 11:53 AM Age: 82 years old Clinical indication: Stroke-like symptoms; Altered mental status/memory loss; Additional info: Found down, AMS, h/o stroke TECHNIQUE: Imaging protocol: Computed tomographic angiography of the neck with contrast. 3D rendering (Not supervised by radiologist): MIP and/or 3D reconstructed images were created by the technologist. Radiation optimization: All CT scans at this facility use at least one of these dose optimization techniques: automated exposure control; mA and/or kV adjustment per patient size (includes targeted exams where dose is matched to clinical indication); or iterative reconstruction. Contrast material: ISOVUE; Contrast volume: 100 ml; Contrast route: INTRAVENOUS (IV); REPORTING DATA: Count of CT and Cardiac NM exams in prior 12 months: This patient has received [address] and 0 known cardiac nuclear medicine studies in the 12 months prior to the current study. COMPARISON: CT SOFT TISSUE NECK WO CON 08/12/2019 1:45 PM FINDINGS: Right common carotid artery: No stenosis. No dissection or occlusion. Right internal carotid artery: Mild atherosclerotic changes contribute to less than 50% stenosis by NASCET criteria at the origin of right internal carotid artery. Right external carotid artery: No occlusion or stenosis of the origin. Left common carotid artery: No stenosis. No dissection or occlusion. Left internal carotid artery: Moderate atherosclerotic changes contribute to 50-69% stenosis per NASCET criteria at the origin of left internal carotid artery. Left external carotid artery: No occlusion or stenosis of the origin. Right vertebral artery: No stenosis. No dissection or occlusion. Left vertebral artery: No stenosis. No dissection or occlusion. Right subclavian artery: No flow-limiting stenosis in the proximal right subclavian artery. Left subclavian artery: There is [id number] narrowing of the origin of left subclavian artery. Paranasal sinuses: Scattered mucosal thickening throughout the paranasal sinuses. Soft tissues: Normal. No significant soft tissue swelling. Bones/joints: Multilevel degenerative changes of the included spine. Other findings: Motion artifact does moderately limit the sensitivity of this examination. IMPRESSION: 1. Mild atherosclerotic changes contribute to less than 50% stenosis by NASCET criteria at the origin of right internal carotid artery. 2. Moderate atherosclerotic changes contribute to 50-69% stenosis per NASCET criteria at the origin of left internal carotid artery. 3. There is jiul-rh-[id number] narrowing of the origin of left subclavian artery. REFERENCES: NASCET CRITERIA. The degree of stenosis in the cervical segment of the internal carotid artery is based on NASCET criteria. Normal is no stenosis. Mild is less than 50% stenosis. Moderate is 50-69% stenosis. Severe is 70% to 99% stenosis. Total occlusion is no detectable patent lumen.
--- NOTE | 2023-07-04 11:43 | CT_ITS ---
PROCEDURE INFORMATION: Exam: CT Head Without Contrast Exam date and time: 07/04/2023 11:50 AM Age: 82 years old Clinical indication: Stroke-like symptoms; Altered mental status/memory loss; Additional info: Found down, AMS, h/o stroke TECHNIQUE: Imaging protocol: Computed tomography of the head without contrast. Radiation optimization: All CT scans at this facility use at least one of these dose optimization techniques: automated exposure control; mA and/or kV adjustment per patient size (includes targeted exams where dose is matched to clinical indication); or iterative reconstruction. Other technique: STROKE PROTOCOL was implemented. REPORTING DATA: Count of CT and Cardiac NM exams in prior 12 months: This patient has received [address] and 0 known cardiac nuclear medicine studies in the 12 months prior to the current study. COMPARISON: MR HEAD/BRAIN WO/W CON 03/12/2023 8:16 AM FINDINGS: Brain: There is hypodensity with loss of the gomez-white matter differentiation along the left occipital lobe, new from prior brain MRI. The age is indeterminate but likely subacute/chronic infarcts. There are scattered hypodensities in the periventricular and subcortical white matter. The appearance is nonspecific, but most likely represents chronic small vessel disease in a person of this age. Cerebral ventricles: There is a normal-variant cavum septum vergae. There is diffuse prominence of the ventricles and CSF containing spaces which can be attributed to age-related volume loss. No hydrocephalus or midline shift identified. Paranasal sinuses: Visualized sinuses are unremarkable. No fluid levels. Mastoid air cells: Visualized mastoid air cells are well aerated. Bones/joints: Unremarkable. No acute fracture. Soft tissues: Unremarkable. 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 Smaller region of encephalomalacia/gliosis in the right frontal lobe is better characterized on prior brain MRI. Other findings: . IMPRESSION: Focal hypodensity with loss of the gomez-white matter differentiation along the left occipital lobe, new from prior brain MRI. The age is indeterminate but likely subacute/chronic infarcts. Further evaluation with brain MRI is recommended. ASSESSMENT: ASPECTS ([place] Stroke Program Early CT Score) is 10, which is only applicable for MCA stroke patients.
--- NOTE | 2023-07-04 11:43 | XR_ITS ---
PROCEDURE INFORMATION: Exam: XR Chest Exam date and time: 07/04/2023 12:17 PM Age: 82 years old Clinical indication: Injury or trauma; Fall; Other: Found down; Additional info: Found down, AMS, h/o stroke TECHNIQUE: Imaging protocol: Radiologic exam of the chest. Views: 1 view. COMPARISON: CR XR CHEST PORTABLE 01/27/2023 3:25 PM FINDINGS: Lungs: Subpleural reticulation noted with upper lobe gradient, in keeping with interstitial changes. Lungs are hypoaerated. Right lower lobe granuloma noted. No evidence of pneumonia or interstitial edema. Pleural spaces: Unremarkable. No pleural effusion. No pneumothorax. Heart/Mediastinum: Cardiomegaly noted. Bones/joints: Unremarkable. IMPRESSION: No evidence of pneumonia or interstitial edema.
--- NOTE | 2023-07-04 11:43 | CT_ITS ---
PROCEDURE INFORMATION: Exam: CTA Head With Contrast, Arteriography Exam date and time: 07/04/2023 11:53 AM Age: 82 years old Clinical indication: Stroke-like symptoms; Altered mental status/memory loss; Generalized weakness; Additional info: Found down, AMS, h/o stroke TECHNIQUE: Imaging protocol: Computed tomographic angiography of the head with contrast. Exam focused on the arteries. 3D rendering (Not supervised by radiologist): MIP and/or 3D reconstructed images were created by the technologist. Radiation optimization: All CT scans at this facility use at least one of these dose optimization techniques: automated exposure control; mA and/or kV adjustment per patient size (includes targeted exams where dose is matched to clinical indication); or iterative reconstruction. Contrast material: ISOVUE; Contrast volume: 100 ml; Contrast route: INTRAVENOUS (IV); REPORTING DATA: Count of CT and Cardiac NM exams in prior 12 months: This patient has received [address] and 0 known cardiac nuclear medicine studies in the 12 months prior to the current study. COMPARISON: CT HEAD/BRAIN WO CON 07/04/2023 11:50 AM FINDINGS: ANTERIOR CIRCULATION: Right internal carotid artery: Intracranial segment is patent with no significant stenosis. No aneurysm. Right middle cerebral artery: No occlusion or significant stenosis. No aneurysm. Right anterior cerebral artery: No occlusion or significant stenosis. No aneurysm. Left internal carotid artery: Intracranial segment is patent with no significant stenosis. No aneurysm. Left middle cerebral artery: No occlusion or significant stenosis. No aneurysm. Left anterior cerebral artery: No occlusion or significant stenosis. No aneurysm. POSTERIOR CIRCULATION: Right vertebral artery: No occlusion or significant stenosis. No aneurysm. Left vertebral artery: No occlusion or significant stenosis. No aneurysm. Basilar artery: No occlusion or significant stenosis. No aneurysm. Right posterior cerebral artery: No occlusion or significant stenosis. No aneurysm. Left posterior cerebral artery: There is a short segment of [id number] narrowing along the P1 segment of left posterior cerebral artery. Brain: For findings in the head, please refer to the separately dictated head CT report under a separate accession number. Cerebral ventricles: No ventriculomegaly. Bones/joints: Unremarkable. No acute fracture. Soft tissues: Unremarkable. IMPRESSION: There is a short segment of [id number] narrowing along the P1 segment of left posterior cerebral artery.
--- NOTE | 2023-07-04 11:43 | XR_ITS ---
PROCEDURE INFORMATION: Exam: XR Pelvis Exam date and time: 07/04/2023 12:17 PM Age: 82 years old Clinical indication: Injury or trauma; Fall; Other: Found down; Additional info: Found down, AMS, h/o stroke TECHNIQUE: Imaging protocol: Radiologic exam of the pelvis. Views: 1 or 2 view. COMPARISON: CR XR HIP LT 2-3V W/PELVIS 01/28/2022 2:57 PM FINDINGS: Bones/joints: Three traversing screws noted in the left femur. No hardware-related complication noted. No visible fracture or dislocation. Excreted material in the urinary bladder partially obscures the sacral structures. Soft tissues: Unremarkable. IMPRESSION: No visible fracture or dislocation.
--- NOTE | 2023-07-04 11:43 | CT_ITS ---
PROCEDURE INFORMATION: Exam: CT Cervical Spine Without Contrast Exam date and time: 07/04/2023 11:56 AM Age: 82 years old Clinical indication: Injury or trauma; Fall; Blunt trauma; Additional info: Found down, AMS, h/o stroke TECHNIQUE: Imaging protocol: Computed tomography of the cervical spine without contrast. Radiation optimization: All CT scans at this facility use at least one of these dose optimization techniques: automated exposure control; mA and/or kV adjustment per patient size (includes targeted exams where dose is matched to clinical indication); or iterative reconstruction. REPORTING DATA: Count of CT and Cardiac NM exams in prior 12 months: This patient has received [address] and 0 known cardiac nuclear medicine studies in the 12 months prior to the current study. COMPARISON: CT ANGIO NECK 07/04/2023 11:53 AM FINDINGS: Bones/joints: Vertebral alignment is maintained. There is preservation of vertebral body heights. Facet joints are aligned. Odontoid process is intact. Atlantoaxial interval maintained. No acute fracture. Uncovertebral and facet arthropathy result in varying degrees of neural foraminal narrowing at multiple levels. Anterior flowing osteophytes in keeping with DISH Paranasal sinuses: Scattered mucosal thickening throughout the paranasal sinuses. Lungs: Lung apices are normal. Soft tissues: Prevertebral and paravertebral soft tissues are maintained Other findings: Motion artifact does moderately limit the sensitivity of this examination. IMPRESSION: No acute fracture. No traumatic subluxation.
--- NOTE | 2023-07-04 11:56 | PC.NURSE ---
pt is at ct
[2023-07-04 11:59] LABS: Basophils % 0.6 % (0.1-2.0); Eosinophils # 0.2 K/mm3 (0.0-0.4); Eosinophils % 3.1 % (0.1-12.0); Hematocrit 39.1 % (37.0-47.0); Hemoglobin 12.7 g/dL (12.2-16.2); Lymphocytes % 31.2 % (10-50); Mean Corpuscular HGB Conc 32.6 g/dL (31.8-35.4); Mean Corpuscular Volume 86.1 fl (81-99); Mean Platelet Volume 7.6 fl (7.4-10.4); Monocytes # 0.3 K/mm3 (0.1-1.0); Monocytes % 4.8 % (1.7-9.3); Neutrophils # 3.9 K/mm3 (1.8-7.8); Neutrophils % 60.3 % (37.0-80.0); Platelet Count 301 K/mm3 (142-424); Red Blood Count 4.54 M/mm3 (4.20-5.40); Red Cell Distribution Width 16.3 % (11.5-17.5); White Blood Count 6.5 K/mm3 (4.8-10.8)
--- NOTE | 2023-07-04 12:01 | HMH.EDGENADL ---
Discharge Plan Disposition Patient Disposition: Admitted Condition: Fair Clinical Impressions Clinical Impression: Occipital stroke, Hypothermia, Encephalopathy acute Discharge ED Provider: Melissa Sutton General Adult HPI General Chief complaint: Neuro Symptoms/Deficit Stated complaint: Stroke protocol Time Seen by Provider: 07/04/23 11:43 Mode of Arrival: EMS History of Present Illness HPI narrative: This patient is a 82-year-old female with a history of CVA with no reported residual deficits, dementia, hypertension, hyperlipidemia, GERD, and obesity presenting to the emergency department for evaluation by EMS. EMS reports that the patient was last normal around 0130 this morning. Later in the morning, family found her in bed, very weak. Typically she is ambulatory on her own, however they had to help her to the restroom and then could not get her off the toilet on their own. EMS reports that they then noted shaking activity of her entire body. Once EMS got there, the patient was limp and unresponsive to sternal rub. She has since gradually woken up, but she has been nonverbal. She has not been following commands or been cooperative with their examination. Patient does not contribute to history at this time, staring blankly when asked questions. No family is present at bedside yet. Once family arrived, her daughter reports that the patient lives in apartment alone, however she and her brother have separate adjacent apartments. They have cameras in her apartment to keep an eye on her, and they help her get into and out of bed and administer her medications daily. She is on Plavix for her history of prior CVA. Her daughter notes that when she went to bed around 1:30 AM last night, she was normal, however this morning she found her sitting upright on the edge of her bed. She was unable to get up to go to the bathroom. She states that she was able to finally maneuver her to the bedside commode, however shortly after this, the patient became rigid and had what she thought may have been a seizure. She was unconscious on the floor at time of EMS arrival. No recent fevers, cough, congestion, or infectious symptoms noted. Related Data Home Medications Medication Instructions Recorded Confirmed empagliflozin 10 mg tablet See Rx Instructions .Route 01/27/23 03/26/23 (Jardiance) .COMPLEX Diabetes hydrochlorothiazide 25 mg tablet See Rx Instructions .Route 01/27/23 03/26/23 .COMPLEX . ascorbic acid (vitamin C) 500 mg 500 mg PO DAILY 03/26/23 03/26/23 tablet (Vitamin C) buspirone 5 mg tablet 5 mg PO BID 03/26/23 03/26/23 ferrous sulfate 325 mg (65 mg 325 mg PO DAILY 03/26/23 03/26/23 iron) tablet (FeroSul) Previous Rx's Medication Instructions Recorded hydroxyzine HCl 25 mg tablet 25 mg PO BID PRN itching #30 tabs 02/08/23 cetirizine 10 mg tablet See Rx Instructions .Route 04/08/23 .COMPLEX #90 tabs clopidogrel 75 mg tablet See Rx Instructions .Route 04/08/23 .COMPLEX #90 tabs lisinopril 10 mg tablet See Rx Instructions .Route 04/08/23 .COMPLEX High blood pressure #30 tabs sertraline 100 mg tablet See Rx Instructions .Route 06/15/23 .COMPLEX #30 tabs Allergies Allergy/AdvReac Type Severity Reaction Status Date / Time No Known Allergies Allergy Verified 03/26/23 08:45 [facility] Disclaimer: The information contained in this section may have been updated after the patient was seen, as this information can be updated by other users. Medical History Thyroid nodule Social History Smoking Status: Never smoker second hand exposure: Yes alcohol intake: never substance use type: denies use current occupational status: other Travel in the last 8 weeks: None household members: family housing: house number of children: 6 current occupational exposures/hazards: No caffeine
[2023-07-04 12:03] LABS: Alanine Aminotransferase 25 U/L (12-78); Albumin Level 3.9 g/dl (3.5-5.0); Alkaline Phosphatase 71 U/L (38-126); Anion Gap 16.7 mEq/L (5-15); Aspartate Amino Transferase 29 U/L (14-36); Bilirubin,Total 0.8 mg/dl (0.2-1.3); Blood Urea Nitrogen 18 mg/dl (7-17); Carbon Dioxide 24 mmol/L (22.0-30.0); Chloride 105 mmol/L (98-107); Creatine Kinase 26 U/L (30-135); Estimated Glomerular Filt Rate 69 ml/min (>60); GFR (African American) 83 ML/MIN (>60); Globulin 3.9 g/dL (1.3-3.2); Glucose 168 mg/dl (74-100); Potassium 3.7 mmoL/L (3.5-5.1); Sodium 142 mmol/L (136-145); Total Protein,Serum 7.8 g/dl (6.3-8.2)
--- NOTE | 2023-07-04 12:04 | ECG_ITS ---
APPROVED REPORT Exam: Resting ECG HR:102 bpm ECG Measurements Heart Rate 102 AXES GA 148 P 66 QRSd 85 QRS 36 QT 373 T 57 QTc 432 Conclusion SINUS TACHYCARDIA POSSIBLE RIGHT VENTRICULAR CONDUCTION DELAY [RSR (QR) IN V1/V2] MODERATE ST DEPRESSION [0.05+ mV ST DEPRESSION] ABNORMAL ECG UNCONFIRMED REPORT Electronically signed by : Ted Mares MD 07/04/2023 21:00:43
[2023-07-04 12:14] LABS: POC Glucose,Bedside 161 (70-110)
--- NOTE | 2023-07-04 12:15 | PC.NURSE ---
upon assessment, pts rectal temp was 95.0. MD made aware. cyndi huggar placed on pt, 1L warmed NS was hung and connected to pt.
[2023-07-04 12:20] LABS: Procalcitonin 0.031 ng/mL (0.0-2.0)
[2023-07-04 12:22] LABS: Appearance,Urine CLEAR (Clear); Bilirubin,Urine Negative (Negative); Blood, Urine Negative (Negative); Color,Urine YELLOW (Yellow); Glucose,Urine (UA) Negative (Negative); Ketones,Urine Negative (Negative); Leukocyte Esterase,Urine Negative (Negative); Microscopic, Urine URINE MICROSCOPIC (MICROSCOPIC); Nitrate,Urine Negative (Negative); Protein,Urine 1+ (Negative); Specific Gravity, Urine 1.025 (1.005-1.030); Urobilinogen,Urine 0.2 EU/dl (0.2)
[2023-07-04 12:22] LABS: T4 (Thyroxine) 12.4 ug/dl (5.53-11.0)
[2023-07-04 12:31] LABS: RBC,Urine Occasional #/hpf (0-3); Squamous Epithelial Cell,Urine Occasional #/hpf (0-5); WBC,Urine Occasional #/hpf (0-3)
[2023-07-04 12:35] LABS: Thyroid Stimulating Hormone 1.64 uIU/mL (0.465-4.68)
[2023-07-04 12:37] LABS: VBG Base Excess -2.6 mmol/L (-2.4-2.3); VBG HCO3 23.3 mmol/L (23-30); VBG Oxygen Saturation 96.6 % (50-70); VBG PH 7.33 mmol/L (7.31-7.41); VBG PO2 93.2 mmol/L (28-40); VBG Total CO2 24.7 mmol/L (23-27)
[2023-07-04 12:46] LABS: Troponin I 0.02 ng/ml (0.00-0.034)
--- NOTE | 2023-07-04 12:48 | PC.NURSE ---
at speaking with family
--- NOTE | 2023-07-04 13:15 | PC.NURSE ---
changed pt sheet on bed x2 placed a brief and purewick. daughter at bs
--- NOTE | 2023-07-04 13:24 | EXP.HP ---
History of Present Illness *Admission Date: 07/04/23 *Reason for visit:: confusion *History of present illness: Ms. Ledbetter is an 82 year old female with a past medical history of CVA x2, dementia, CAD, hypertension, HLD, iron deficiency and obesity. She presented to the ED via EMS because her daughter, with whom she lives, was concerned that she was confused and not verbally responsive to her questions. The patient responded to most my questions with, I don't understand, and family at bedside tell me this is an abnormal response for her. At baseline she is disoriented to place and time but recognizes family members and can follow simple commands; she needs help with bathing but can walk with a walker, toilet on her own and feed herself. Workup from the ED: Head CT Focal hypodensity with loss of the gomez-white matter differentiation along the left occipital lobe, new from prior brain MRI. The age is indeterminate but likely subacute/chronic infarcts. Further evaluation with brain MRI is recommended. Neck CTA 1. Mild atherosclerotic changes contribute to less than 50% stenosis by NASCET criteria at the origin of right internal carotid artery. 2. Moderate atherosclerotic changes contribute to 50-69% stenosis per NASCET criteria at the origin of left internal carotid artery. 3. There is angv-um-mnghhxdt narrowing of the origin of left subclavian artery. Head CTA There is a short segment of tyyeupru-ps-fifjua narrowing along the P1 segment of left posterior cerebral artery. [facility] Disclaimer: The information contained in this section may have been updated after the patient was seen, as this information can be updated by other users. Medical History (Updated 07/04/23 @ 19:47 by Rony Felix MD) FHx: total knee replacement Thyroid nodule Surgical History (Updated 07/04/23 @ 14:23 by Lucita Aguilera RN) History of carpal tunnel surgery History of hip surgery Social History Smoking Status: Never smoker second hand exposure: Yes alcohol intake: never substance use type: denies use current occupational status: other Travel in the last 8 weeks: None household members: family housing: house number of children: 6 current occupational exposures/hazards: No caffeine: Yes Meds Home Medications and Allergies Home Medications Medication Instructions Recorded Confirmed Type hydrochlorothiazide 25 mg tablet 25 mg PO DAILY Hypertension 01/27/23 07/04/23 History ascorbic acid (vitamin C) 500 mg 500 mg PO DAILY vitamin 03/26/23 07/04/23 History tablet (Vitamin C) buspirone 5 mg tablet 5 mg PO BID Depression 03/26/23 07/04/23 History ferrous sulfate 325 mg (65 mg 325 mg PO DAILY iron 03/26/23 07/04/23 History iron) tablet (FeroSul) cetirizine 10 mg tablet 10 mg PO DAILY allergies 07/04/23 07/04/23 History clopidogrel 75 mg tablet 75 mg PO DAILY Blood Thinner 07/04/23 07/04/23 History lisinopril 10 mg tablet 10 mg PO DAILY Hypertension 07/04/23 07/04/23 History sertraline 100 mg tablet 100 mg PO HS mood 07/04/23 07/04/23 History New Prescriptions to Start Prescriptions: Allergies Allergy/AdvReac Type Severity Reaction Status Date / Time No Known Allergies Allergy Verified 03/26/23 08:45 Exam Data for Last 24 hours Vital signs and Labs for Last 24 Hours: Temp Pulse Resp BP Pulse Ox O2 Del Method 95.0 F L 97 H 19 198/101 H 94 L Room Air 07/04/23 11:40 07/04/23 13:01 07/04/23 11:40 07/04/23 13:01 07/04/23 13:01 07/04/23 13:01 Laboratory Results - last 24 hr 07/04/23 11:43: VBG pH 7.33, VBG pCO2 45.0, VBG pO2 93.2 H, VBG HCO3 23.3, VBG Total CO2 24.7, VBG O2 Saturation 96.6 H, VBG Base Excess -2.6 L 07/04/23 11:47: WBC 6.5, RBC 4.54, Hgb 12.7, Hct 39.1, MCV 86.1, MCH 28.0, MCHC 32.6, RDW 16.3, Plt Count 301, MPV 7.6, Neut % (Auto) 60.3, Lymph % (Auto) 31.2, [place] % (Auto) 4.8, Eos % (Auto) 3.1, Bas
--- NOTE | 2023-07-04 13:28 | PC.NURSE ---
pt's recheck rectal temp was 98.5
--- NOTE | 2023-07-04 13:40 | PC.NURSE ---
report called to yuliya on second floor
--- NOTE | 2023-07-04 14:07 | PC.NURSE ---
pt arrived to floor 1356 by stretcher.
[2023-07-04 14:21] LABS: Lactic Acid 1.7 mmol/L (0.7-2.1)
--- NOTE | 2023-07-04 15:15 | PC.NURSE ---
patient family states medications come in the dose packs for day and night. no bottles to bring.
--- NOTE | 2023-07-04 15:41 | HMH.SLAPHASI ---
Speech & Language Evaluation Speech/Language Aphasia Evaluation Start: 07/04/23 15:21 Freq: once Status: Complete Protocol: Document 07/04/23 15:25 OBDULIO (Rec: 07/04/23 15:40 OBDULIO [id number]) Aphasia Assessment/Goals/Plan Assessment Date of Evaluation: 07/04/23 Evaluation Type Initial Certification Assessment/Problems CVA per stroke protocol per MD order. Does Patient Qualify for Service Yes Qualify/Failure Comment Based on clinical observations made during informal cognitive-linguistic evaluation and the clinical bedside swallow evaluation, pt would benefit from skilled speech therapy services to f/u for diet tolerance and address cognitive linguistic deficits. Plan Pt will be seen # times/week 3 for # weeks 4 Anticipate reaching STG in # weeks 2 Anticipate reaching LTG in # weeks 4 Pt/Guardian verbally ack understanding Yes of dx/prognosis/goals G -code Required No STG-Verbal Expressive Language Automatic Speech 50 Repetitive Abilities 50 Residential Goals Increase verbal expression skills to Yes: 50% communicate w/family & friends. Increase cognitive skills to communicate Yes: 50% w/family & friends Education Instructions provided Discussed clinical observations made throughout the evaluations, diet recommendations and aspiration precautions with pt, pt's family, nursing, and MD all of which expressed understanding . 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 EMS reports that the patient was last normal around 0130 this
--- NOTE | 2023-07-04 15:45 | HMH.SLDYSPHA ---
Speech & Language Evaluation Speech/Language Dysphagia Evaluation Start: 07/04/23 15:41 Freq: ONCE Status: Active Protocol: Document 07/04/23 15:41 OBDULIO (Rec: 07/04/23 15:44 OBDULIO [id number]) Dysphagia Assess/Goals/Plan Assessment Date of Evaluation: 07/04/23 Evaluation Type Initial Certification Assessment/Problems cva per md order Does Patient Qualify for Service Yes Qualify/Failure Comment Based on clinical observations made during CSE, pt would benefit from skilled speech therapy services to f/u for diet tolerance and diet texture analysis. Recommendations PHYSICIAN CERTIFICATION: The specified therapy services are required, authorized, and reviewed every 30 days. Pt will be seen # times/week 3 for # weeks 4 Diet Recommendations Pureed Liquid Type Recommendations Normal/Thin SL Swallow Guidelines Assist w/all meals,Alt bite w/ sip thru meal,High aspiration risk,Chk mough for pocketing, Crush meds as allowed* Crush Meds Crush all meds Dysphagia Swallow Precautions/Strategies Sitting Upright (90 deg),No Straw,Small Bites and Sips, Alternate Liquids/Solids Place Food on Either side of Mouth Plan Anticipate reaching STG in # weeks 2 Anticipate reaching LTG in # weeks 4 Pt/Guardian verbally ack understanding Yes of dx/prognosis/goals G -code Required No Upholsterer Inside Goals Diet pureed with Liquids Thin Liquids Education Instructions provided Discussed CSE results and diet recommendations, as well as aspiration precautions with MD , pt, nurisng, and pt's family all of which expressed understanding. 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
[2023-07-04 15:50] LABS: Troponin I < 0.01 ng/ml (0.00-0.034)
--- NOTE | 2023-07-04 16:22 | HMH.PTEV ---
Physical Therapy Evaluation Rehab PT IP Evaluation Start: 07/04/23 13:21 Freq: ONCE Status: Active Protocol: Document 07/04/23 15:53 PDESEROUX (Rec: 07/04/23 16:22 [email or web address] [id number]) Subjective/History History History Pt. is a 82 yoa female with a history of dementia, CVA w/ no reported residual effects other than cognitive function, hypertension, hyperlipidemia, and GERD who presents to 2nd [address] [facility] Inpatient for the Physical Therapy Inpatient initial evaluation this date( 07/04/23) for a stroke. Secondary to pt. being a poor historian d/t current cognitive abilities, pt.'s daughter was the historian for the subjective history. Pt.'s daughter reports pt.'s PLOF was ambulatory w/ FWW on her own with some assistance and the ability to follow simple commands including w/ bed transfers and dresssing. However, pt.'s daughter reports this morning(07/04/23) pt.'s was unable to follow simple commands and execute simple ADLs as described in prior sentence. Pt.'s daughter also reports after she assisted pt. to her bedside commode that the pt. began to have a full body spasm or shake while sitting on the commode. Pt.'s daughter reports what was a seizure- like activity, but states pt. does not have a history of seizures. Therefore, EMS was then called. Pt.'s daughter reports that her brother(pt.'s son) has recently moved in w/ the pt. into her apartment for assistance, but he had previously lived in the next door apartment. Pt.'s daughter reports that she lives in the other next door apartmen
--- NOTE | 2023-07-04 17:01 | PC.NURSE ---
per dr dinh, for permssive htn, okay with a b/p up to 220/120.
--- NOTE | 2023-07-04 17:39 | PC.NURSE ---
pt unable to answer most questions at this time. pt will shake head yes or no. pt does no always follow commands, extra coaching needed to do small tasks such as rolling over. pt up x2 with walker. incon of b&b. per family, at pts baseline she will make basic needs known t them, she gets up without assist to ambulate, follows commands without repeating instructions. since arriving to floor, pt has attempted to get out of bed multiple times, bed alarm on for pt safety, pt is still very weak and has a hard time standing up alone and still confused. speech eval done on pt, pureed foods with thin liquids, pt done well at supper and ate 100% with total assistance from tech. tech stated pt has to see the food or she wont open her mouth to eat. son currently at bs. no concerns at this time
--- NOTE | 2023-07-04 20:09 | CT_ITS ---
PROCEDURE INFORMATION: Exam: CT Head Without Contrast Exam date and time: 07/04/2023 8:27 PM Age: 82 years old Clinical indication: Stroke-like symptoms; Other: Seizure TECHNIQUE: Imaging protocol: Computed tomography of the head without contrast. Radiation optimization: All CT scans at this facility use at least one of these dose optimization techniques: automated exposure control; mA and/or kV adjustment per patient size (includes targeted exams where dose is matched to clinical indication); or iterative reconstruction. Other technique: STROKE PROTOCOL was implemented. REPORTING DATA: Count of CT and Cardiac NM exams in prior 12 months: This patient has received [address] and 0 known cardiac nuclear medicine studies in the 12 months prior to the current study. COMPARISON: CT HEAD/BRAIN WO CON 07/04/2023 11:50 AM FINDINGS: Limitations: Patient motion. Brain: Age-related volume loss. Decreased attenuation of the supratentorial white matter is likely secondary to chronic microvascular ischemia. There is chronic infarct within the left ASSISTANT SITE MANAGER territory. Stable low density at the left occipital lobe. No definite acute intracranial hemorrhage. No midline shift. Cerebral ventricles: Ventriculomegaly is commensurate for degree of volume loss. Paranasal sinuses: There is mucosal disease of the sphenoid sinus on the left. Mastoid air cells: Visualized mastoid air cells are well aerated. Bones/joints: No definite acute calvarial fracture. Soft tissues: Unremarkable. IMPRESSION: 1. Motion limited examination. 2. No definite acute intracranial hemorrhage. 3. Stable left occipital lobe low density, possible subacute infarct. ASSESSMENT: ASPECTS ([place] Stroke Program Early CT Score) is 10.
--- NOTE | 2023-07-04 23:09 | EXP.DC.SUM ---
General Admission date:: 07/04/23 Discharge date: 07/04/23 HPI HPI HPI: Ms. Ledbetter is an 82 year old female with a past medical history of CVA x2, dementia, CAD, hypertension, HLD, iron deficiency and obesity. She presented to the ED via EMS because her daughter, with whom she lives, was concerned that she was confused and not verbally responsive to her questions. The patient responded to most my questions with, I don't understand, and family at bedside tell me this is an abnormal response for her. At baseline she is disoriented to place and time but recognizes family members and can follow simple commands; she needs help with bathing but can walk with a walker, toilet on her own and feed herself. Workup from the ED: Head CT Focal hypodensity with loss of the gomez-white matter differentiation along the left occipital lobe, new from prior brain MRI. The age is indeterminate but likely subacute/chronic infarcts. Further evaluation with brain MRI is recommended. Neck CTA 1. Mild atherosclerotic changes contribute to less than 50% stenosis by NASCET criteria at the origin of right internal carotid artery. 2. Moderate atherosclerotic changes contribute to 50-69% stenosis per NASCET criteria at the origin of left internal carotid artery. 3. There is vcqe-py-edijbszy narrowing of the origin of left subclavian artery. Head CTA There is a short segment of xxkxqina-ta-plapyn narrowing along the P1 segment of left posterior cerebral artery. ED physician attempted to transfer to . Since pt was out of TPA window, the patient was admitted to [facility] for further medical management and PT/OT therapy Hospital Course Hospital Course Hospital Course: 82-year-old female presenting to the Emergency Department for evaluation of encephalopathy and weakness. Patient's history includes prior CVA on Plavix, obesity, CAD, hypertension, and hyperlipidemia which are not at goal therapy. This complicates all aspects of care by increasing patient's risk for morbidity. The patient arrived mute and unable to follow commands. Given this, high concern for stroke. The patient was taken emergently to CT scan for CT head and CTA head neck stroke protocol. NIH stroke score is effectively 9, however most of the components of the score are not scoreable given the patient is mute and is not following commands. She is quite resistant to testing. Fingerstick blood glucose is 161 upon arrival. Patient is hypothermic with a temp of 95 degrees. Workup included broad lab evaluation including infectious work-up, cultures, troponins, and urinalysis; CT head, CTA head and neck were ordered as above. Chest x-ray was also ordered. Patient was placed on a bear hugger and given a liter bolus of warm IV fluids. An acute stroke in the left occipital region and significant encephalomalacia from prior stroke was noted on CTA. Labs were obtained that demonstrated no significantly concerning abnormalities. Neurosurgery at [facility] (Dr. Iqbal) was consulted and advised no intervenable large vessel occlusion. He advises moderate to severe stenosis, for which the patient can follow-up outpatient. Patient is outside the tPA window given that her last known normal was 1:30 AM (07/04/23). She is not a candidate for thrombectomy for [facility]. Given these things, the patient was not a transfer to a facility with neurology for evaluation, she was admitted for medication management as well as PT/OT evaluation. It was reported that the patient had seizure activity prior to arriving at the ED. Upon evening rounds the patient had a tonic colonic seizure. She received 2 grams of Keppra and a repeat head CT which did not show any newly acute changes. The family at bedside was agreeable for transfer to another facility. I attempted transfer to [facility] with Dr. Wells. The patient is no requiring acute intervention so Dr. Wells accepted the consult and requested the patient be sampson
--- NOTE | 2023-07-04 23:46 | PC.NURSE ---
Active Medications Clopidogrel Bisulfate (Clopidogrel 75mg Tab) 75 mg PO DAILY SUSI Stop: 08/03/23 15:59 Last Admin: 07/04/23 17:14 Dose: 75 mg Hydralazine HCl (Hydralazine 20mg/Ml Vial) 10 mg IV Q4HP PRN PRN Reason: SBP>220 or DBP>120 Stop: 08/03/23 19:49 Levetiracetam 1,000 mg/ Sodium (Chloride) 110 mls @ 220 mls/hr IV ONCE ONE Stop: 07/04/23 20:08 Last Admin: 07/04/23 20:39 Dose: 220 mls/hr Levetiracetam 1,000 mg/ Sodium (Chloride) 110 mls @ 220 mls/hr IV ONCE ONE Stop: 07/04/23 20:25 Last Admin: 07/04/23 21:20 Dose: Not Given Miscellaneous (Consider Pt For Statin At Discharge-Stroke) 1 each NOTAPPLIC NEEDED PRN PRN Reason: Reminder for med @discharge Stop: 08/03/23 13:20 Ondansetron HCl (Ondansetron 4mg/2ml Vial) 4 mg IV ONCE ONE Stop: 07/04/23 20:39 Last Admin: 07/04/23 20:48 Dose: 4 mg
[2023-07-05] VITALS: PULSE 10
[2023-07-05 00:11] VITALS: BP 165/114; PULSE 93; RESP 18; TEMP 37.9; O2SAT 100
--- NOTE | 2023-07-05 00:28 | PC.NURSE ---
Pt left the floor @ 0027 with flight crew to [facility]
--- NOTE | 2023-07-05 00:40 | PC.NURSE ---
Per LENS MOUNTER pt had seizure like activity lasting approximately one minute around 1999. 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 2000mg IV keppra administered per orders. Seizure pads applied. Pt off floor for repeat head CT, returned without complication. Family at bedside, one on one staffing remains in place. Pt accepted to [facility], report called to Kay Cavanaugh RN. Pt transferred to care of flight team.
[2023-07-07 19:03] LABS: Levetiracetam (Keppra) <2.0 ug/mL (10.0-40.0)
== END 2023-07-05 00:27 | disposition short-term general hospital (02) | DRG 66 ==
LOC: ER 13:18 → 2ND 17:05
PROVIDERS: Nurse Practitioner Critical Care Medicine; Admitting Provider Internal Medicine; Emergency Provider Emergency Medicine; Visit Provider Internal Medicine
DX: I63.233 Cerebral infarction due to unspecified occlusion or stenosis of bilateral carotid arteries (principal); E66.9 Obesity, unspecified; I25.10 Atherosclerotic heart disease of native coronary artery without angina pectoris; F03.90 Unspecified dementia, unspecified severity, without behavioral disturbance, psychotic disturbance, mood disturbance, and anxiety; I10 Essential (primary) hypertension; E78.2 Mixed hyperlipidemia; R68.0 Hypothermia, not associated with low environmental temperature; Z68.31 Body mass index [BMI] 31.0-31.9, adult
CPT/HCPCS: 36415; 70450; 70496; 70498; 71045; 72125; 72170; 80053; 80177; 81001; 82550; 82803; 82962; 83605; 84145; 84436; 84443; 84484; 85025; 87040; 92523; 92610; 93005; 97162; 99291; J1953; J2405; Q9967

== ENCOUNTER → 2023-08-03 13:40 | Outpatient (CLI) | payer MEDICARE, SELFPAY ==
[2023-08-03 14:05] LABS: Microscopic, Urine URINE MICROSCOPIC (MICROSCOPIC)
[2023-08-03 15:27] LABS: Appearance,Urine CLEAR (Clear); Bilirubin,Urine Negative (Negative); Blood, Urine Negative (Negative); Color,Urine YELLOW (Yellow); Glucose,Urine (UA) Negative (Negative); Ketones,Urine TRACE (Negative); Leukocyte Esterase,Urine 1+ (Negative); Nitrate,Urine Negative (Negative); Protein,Urine Negative (Negative); Specific Gravity, Urine 1.025 (1.005-1.030); Urobilinogen,Urine 0.2 EU/dl (0.2)
[2023-08-03 15:34] LABS: Bacteria,Urine 1+ /lpf; RBC,Urine Occasional #/hpf (0-3)
== END ==
PROVIDERS: PCP Nurse Practitioner Family; Visit Provider Nurse Practitioner Family
DX: R41.0 Disorientation, unspecified (principal); N39.0 Urinary tract infection, site not specified; B96.29 Other Escherichia coli [E. coli] as the cause of diseases classified elsewhere
CPT/HCPCS: 81001; 87086; 87088; 87186

== ENCOUNTER 2023-08-20 11:10 | Emergency (ER) | payer MEDICARE, MEDICAID, SELFPAY ==
--- NOTE | 2023-08-20 11:25 | ECG_ITS ---
APPROVED REPORT Exam: Resting ECG HR:60 bpm ECG Measurements Heart Rate 60 AXES KS 139 P 73 QRSd 74 QRS 61 QT 430 T 46 QTc 431 Conclusion SINUS RHYTHM NORMAL ECG UNCONFIRMED REPORT Electronically signed by : Ted Mares MD 08/22/2023 08:01:31
[2023-08-20 11:31] VITALS: BP 170/65; PULSE 59; O2SAT 95
[2023-08-20 11:34] VITALS: BP 193/79; PULSE 74; RESP 16; TEMP 36.8; O2SAT 98; BMI 34.3
--- NOTE | 2023-08-20 11:44 | HMH.EDGENADL ---
Discharge Plan Disposition Patient Disposition: Home, Self-Care Condition: Good Prescriptions Prescriptions: New lisinopril 20 mg tablet 20 mg PO BID Qty: 60 0RF No Action buspirone 5 mg tablet 5 mg PO BID ascorbic acid (vitamin C) [Vitamin C] 500 mg tablet 500 mg PO DAILY Patient Comments: TAKE ONE TABLET BY MOUTH EVERY DAY ferrous sulfate [FeroSul] 325 mg (65 mg iron) tablet 325 mg PO DAILY Patient Comments: TAKE ONE TABLET BY MOUTH EVERY DAY lisinopril 10 mg tablet 10 mg PO DAILY cetirizine 10 mg tablet 10 mg PO DAILY sertraline 100 mg tablet 100 mg PO HS clopidogrel 75 mg tablet 75 mg PO DAILY hydrochlorothiazide 25 mg tablet 25 mg PO DAILY Referrals Follow up/Referrals: Ted Mares MD [Primary Care Provider] - See instructions Activity Restrictions/Add. Instructions Additional Instructions/Restrictions: PlacementYou were evaluated in the emergency department today. At this time, we are increasing your lisinopril to twice a day as opposed to 1 time a day. A refill of this was sent in for you. Keep a log of your blood pressures at home. Take it twice a day. Present to Dr. Mares with your log so he can make medication adjustments appropriately. You are scheduled tentatively for 08/25 12:30pm in [place] in Dr. Mares's office. Return to the emergency department for new or worsening symptoms, such as headaches, mental status change, chest pain, or other concerns. Clinical Impressions Clinical Impression: Asymptomatic hypertension Instructions Patient Instructions: DI for High Blood Pressure Discharge ED Provider: Melissa Sutton General Adult HPI General Chief complaint: Recheck/Abnormal Lab/Rx Stated complaint: high bp Time Seen by Provider: 08/20/23 11:31 Mode of Arrival: Wheelchair Source of Information: Patient Limitations: No Limitations Description of Symptoms (Recalled from ER Triage Doc. by RN): 82 yo F presents to ED with c/o high blood pressure. pts family states that home health nurse was there for a visit and pts blood pressure was high. pt has no complaints. History of Present Illness HPI narrative: This patient is an 82-year-old female with a history of hypertension, hyperlipidemia, CVA, CAD, dementia, anxiety, and depression presented to the emergency department for evaluation with concern for high blood pressure readings at home. Patient has an in-home care nurse at home who was taking her blood pressure today and noted her pressure was 200/70. It was taken again, and it was still 190 systolic. Given this, they sent the patient in for evaluation. Patient had her morning blood pressure medication, including 20 mg of lisinopril. This was taken 3 hours after this. Patient denies any concerns or complaints and is currently at her baseline. She denies any headaches, vision changes, numbness, tingling, new weakness, chest pain, shortness of breath, swelling, or other concerns. Family does confirm that the patient is at her baseline and has not had any complaints or illnesses recently. Related Data Home Medications Medication Instructions Recorded Confirmed hydrochlorothiazide 25 mg tablet 25 mg PO DAILY Hypertension 01/27/23 07/04/23 ascorbic acid (vitamin C) 500 mg 500 mg PO DAILY vitamin 03/26/23 07/04/23 tablet (Vitamin C) buspirone 5 mg tablet 5 mg PO BID Depression 03/26/23 07/04/23 ferrous sulfate 325 mg (65 mg 325 mg PO DAILY iron 03/26/23 07/04/23 iron) tablet (FeroSul) cetirizine 10 mg tablet 10 mg PO DAILY allergies 07/04/23 07/04/23 clopidogrel 75 mg tablet 75 mg PO DAILY Blood Thinner 07/04/23 07/04/23 lisinopril 10 mg tablet 10 mg PO DAILY Hypertension 07/04/23 07/04/23 sertraline 100 mg tablet 100 mg PO HS mood 07/04/23 07/04/23 Previous Rx's Medication Instructions Recorded lisinopril 20 mg tablet 20 mg PO BID #60 tabs 08/20/23 Allergies Allergy/AdvReac Type Severity Reaction St
[2023-08-20 11:55] LABS: Chloride 102 mmol/L (98-107)
[2023-08-20 11:56] LABS: Potassium 4.5 mmoL/L (3.5-5.1); Sodium 137 mmol/L (136-145)
[2023-08-20 11:58] LABS: Blood Urea Nitrogen 16 mg/dl (7-17); Creatinine Clearance Estimated 63 mL/min (50-200); Estimated Glomerular Filt Rate 69 ml/min (>60); GFR (African American) 83 ML/MIN (>60)
[2023-08-20 11:59] LABS: Anion Gap 10.5 mEq/L (5-15); Carbon Dioxide 29 mmol/L (22.0-30.0); Glucose 134 mg/dl (74-100)
[2023-08-20 12:01] VITALS: BP 175/68; PULSE 56; O2SAT 96
--- NOTE | 2023-08-20 12:13 | PC.NURSE ---
called Dr amaya office in [place] spoke with community service aide she said would call back
--- NOTE | 2023-08-20 12:16 | PC.NURSE ---
on phone with dr latham
[2023-08-20 12:46] VITALS: BP 175/68; PULSE 56; RESP 16; TEMP 36.8
== END 2023-08-20 12:47 | disposition home or self-care (01) ==
PROVIDERS: Emergency Provider Emergency Medicine; PCP Internal Medicine Adolescent Medicine
DX: I10 Essential (primary) hypertension (principal); I25.10 Atherosclerotic heart disease of native coronary artery without angina pectoris; E78.5 Hyperlipidemia, unspecified; G62.9 Polyneuropathy, unspecified; K21.9 Gastro-esophageal reflux disease without esophagitis; F03.90 Unspecified dementia, unspecified severity, without behavioral disturbance, psychotic disturbance, mood disturbance, and anxiety; F41.9 Anxiety disorder, unspecified; F32.A Depression, unspecified; Z86.73 Personal history of transient ischemic attack (TIA), and cerebral infarction without residual deficits; Z87.891 Personal history of nicotine dependence
CPT/HCPCS: 80048; 93005; 99283

== ENCOUNTER 2023-11-06 23:07 | Observation (INO) | payer MEDICARE, SELFPAY ==
[2023-11-06 23:07] VITALS: BP 159/93; PULSE 104; RESP 16; TEMP 39.4; O2SAT 96; BMI 35.7
--- NOTE | 2023-11-06 23:09 | XR_ITS ---
PROCEDURE INFORMATION: Exam: XR Chest Exam date and time: 11/06/2023 11:18 PM Age: 83 years old Clinical indication: Shortness of breath; Additional info: SOA TECHNIQUE: Imaging protocol: Radiologic exam of the chest. Views: 1 view. COMPARISON: CR XR CHEST PORTABLE 07/04/2023 12:17 PM FINDINGS: Lungs: Unremarkable. No consolidation. Pleural spaces: Unremarkable. No pleural effusion. No pneumothorax. Heart/Mediastinum: Staple calcified granuloma or lymph node projecting over the right paratracheal stripe. No cardiomegaly. Calcified atherosclerotic changes of the thoracic aorta. Bones/joints: No acute findings. IMPRESSION: No acute pulmonary findings.
--- NOTE | 2023-11-06 23:13 | ED_ITS ---
Discharge Plan Disposition Patient Disposition: Home, Self-Care Clinical Impressions Clinical Impression: COVID-19, Acute alteration in mental status Fever Qualifiers: Encounter type: initial encounter Discharge ED Provider: Justino Mayes General Adult HPI General Chief complaint: Nausea/Vomiting/Diarrhea Stated complaint: SOA Time Seen by Provider: 11/06/23 23:08 History of Present Illness HPI narrative: 83-year-old female, presentation complicated by history as reported below, presents with altered mental status, fever, generalized weakness. Family reports that she was in her normal state of health 2 days ago. She normally is walkie-talkie and is able to care for herself. Today she has been extremely weak, she has had to be bilaterally carried from the couch to the bathroom and back. She has been confused and not acting herself. Per son, she has history of UTIs because she always wipes back to front, we have been telling her for 40 years but what he can do. Patiently is pleasantly confused but is unable to provide any significant history. She vomited in route with EMS. Related Data Home Medications Medication Instructions Recorded Confirmed buspirone 5 mg tablet 5 mg PO BID Depression 03/26/23 11/06/23 ferrous sulfate 325 mg (65 mg 325 mg PO DAILY iron 03/26/23 11/06/23 iron) tablet (FeroSul) cetirizine 10 mg tablet 10 mg PO DAILY allergies 07/04/23 11/06/23 clopidogrel 75 mg tablet 75 mg PO DAILY Blood Thinner 07/04/23 11/06/23 sertraline 100 mg tablet 100 mg PO HS mood 07/04/23 11/06/23 ascorbic acid (vitamin C) 500 mg 500 mg PO DAILY 11/06/23 11/06/23 tablet (Vitamin C) atorvastatin 80 mg tablet 80 mg PO DAILY 11/06/23 11/06/23 ferrous sulfate 325 mg (65 mg 325 mg PO DAILY 11/06/23 11/06/23 iron) tablet (FeroSul) trazodone 50 mg tablet 50 mg PO HS 11/06/23 11/06/23 Previous Rx's Medication Instructions Recorded lisinopril 20 mg tablet 20 mg PO BID #60 tabs 08/20/23 Allergies Allergy/AdvReac Type Severity Reaction Status Date / Time No Known Allergies Allergy Verified 03/26/23 08:45 [facility] Disclaimer: The information contained in this section may have been updated after the mendozaen phillip was seen, as this information can be updated by other users. Medical History Ankle fracture Bilateral hearing loss Cellulitis of foot, left Colitis Community acquired pneumonia Cough Diarrhea Dizziness Dysphagia Elevated blood pressure reading Encephalopathy Encounter for pre-operative cardiovascular clearance Encounter for wound care FHx: total knee replacement Finger infection Finger pain GERD (gastroesophageal reflux disease) High grade dysplasia in colonic adenoma Hip fracture Hip pain History of CVA (cerebrovascular accident) History of CVA (cerebrovascular accident) Hypokalemia Hypoxemia Infestation by bed bug Influenza Left groin pain Neuropathy Occipital stroke Pneumonia due to COVID-19 virus Pre-op evaluation Recurrent cellulitis of lower leg Right ankle pain Thyroid nodule URI with cough and congestion Viral upper respiratory illness Surgical History History of carpal tunnel surgery History of hip surgery Social History Smoking Status: Unknown if ever smoked second hand exposure: Yes alcohol intake: never substance use type: denies use current occupational status: other Travel in the last 8 weeks: None household members: family housing: house number of children: 6 current occupational exposures/hazards: No caffeine: Yes ROS Obtained: Yes All systems reviewed & no additional complaints except as documented Physical Exam General General appearance: alert and other (Pleasantly confused) Head Head exam: atraumatic and normocephalic Eye Eye exam: Present normal appearance, PERRL and EOMI ENT ENT exam: Present normal oropharynx and normal external ear exam Neck Neck exam: Present normal inspection and full ROM Chest Chest inspection: Present normal inspection and symmetric chest wall rise; Absent tenderness Respiratory Respiratory exam: Present wheezes (Trace left-sided); Absent respiratory distress Cardiovascular Cardiovascular exam: Present normal rhythm and tachycardia Abdominal Exam Abdominal exam: Present soft and distention; Absent tenderness or guarding Extremities Exam Extremities exam: Present normal inspection and edema (Bilateral lower extremity); Absent joint swelling Back Exam Back exam: Present normal inspection; Absent tenderness Neurological Exam Neurological exam: Present alert and other (Interactive, follows simple co mmands, oriented to self, otherwise confused. Moving all extremities.) Psychiatric Psychiatric exam: Present normal mood Skin Skin exam: Present warm, dry, normal color and other (Apparent yeast infection in the inguinal folds) Lymphatic Lymphatic Findings: no adenopathy Medical Decision Making Medical Records Medical records reviewed: Yes I reviewed the patient's medical records. Bro Inquiry Pt receiving controlled substance: No Bro was queried for this patient: No Vital Signs: 11/06/23 23:07 Temperature 102.9 F H Temperature Source Rectal Pulse Rate [Right] 104 H Respiratory Rate 16 Blood Pressure [Right Arm] 159/93 H Blood Pressure Mean [Right Arm] 115 02 Sat by Pulse Oximetry 96 Lab Data Lab results reviewed: Yes I reviewed the patient's lab results. Lab Results 11/06/23 23:00: WBC 5.7, RBC 4.83, Hgb 14.6, Hct 42.4, MCV 87.8, MCH 30.3, MCHC 34.5, RDW 13.6, Plt Count 156, MPV 7.3 L, Neut % (Auto) 73.1, Lymph % (Auto) 19.4, Crisp % (Auto) 6.2, Eos % (Auto) 0.5, Baso % (Auto) 0.8, Neut # (Auto) 4.2, Lymph # (Auto) 1.1, Crisp # (Auto) 0.4, Eos # (Auto) 0.0, Baso # (Auto) 0.1, Sodium 135 L, Potassium 4.5, Chloride 97 L, Carbon Dioxide 32 H, Anion Gap 10.5, BUN 20 H, Creatinine 1.00, Estimated Creat Clear 67, Estimated GFR 53 L, Est GFR ( Amer) 64, Glucose 161 H, Calcium 9.0, Magnesium 1.7, Total Bilirubin 0.7, AST 42 H, ALT 39, Alkaline Phosphatase 69, Troponin I < 0.01, Total Protein 8.2, Albumin 4.6, Globulin 3.6 H, Albumin/Globulin Ratio 1.3, Lipase 156, SARS-CoV-2 (PCR) Detected A, Influenza A Untype (PCR) Not detected, Influenza Type B (PCR) Not detected 11/06/23 23:12: VBG pH 7.34, VBG pCO2 56.0 H, VBG pO2 40.4 H, VBG HCO3 29.3, VBG Total CO2 31.1 H, VBG O2 Saturation 73.0 H, VBG Base Excess 3.5 H 11/06/23 23:15: Urine Color Yellow, Urine Appearance Clear, Urine pH 7.0, Ur Specific Fowler 1.020, Urine Protein Negative, Urine Glucose (UA) Trace, Urine Ketones Negative, Urine Blood Negative, Urine Nitrate Negative, Urine Bilirubin Negative, Urine Urobilinogen 0.2, Ur Leukocyte Esterase Negative, Urine RBC None, Urine WBC None, Ur Squamous Epith Cells Occasional 11/06/23 23:00 11/06/23 23:00 Orders (Tests/Meds): ED MEDICATIONS Generic Name Dose Route Start Last Admin Trade Name Freq PRN Reason Stop Dose Admin Acetaminophen 650 mg 11/06/23 23:48 Acetaminophen 325mg Tab PO 12/06/23 23:47 Q4HP PRN Fever or Mild Pain (1-3) Enoxaparin Sodium 40 mg 11/07/23 09:00 Enoxaparin 40mg/0.4ml Syringe SQ 12/07/23 08:59 DAILY [facility] Sodium Chloride 1,000 mls @ 50 mls/hr 11/06/23 23:45 Sod Chlor 0.9% 1000ml Bag IV 12/06/23 23:44 .Q20H SUSI Morphine Sulfate 2 mg 11/06/23 23:48 Morphine 2mg/Ml Syringe IV 12/06/23 23:47 Q2HP PRN Severe Pain (7-10) Ondansetron HCl 4 mg 11/06/23 23:48 Ondansetron 4mg/2ml Vial IV 12/06/23 23:47 Q8HP PRN Nausea Pantoprazole Sodium 40 mg 11/07/23 09:00 Pantoprazole 40mg Tablet PO 12/07/23 08:59 DAILY [facility] ORDERS Category Date Time Status CXR --portable [XR chest portable] Stat Exams 11/06/23 23:09 Taken CBC w/Auto Diff [Complete Blood Count Auto Diff] Stat Lab 11/06/23 23:00 Completed CMP [Comprehensive Metabolic Panel] Stat Lab 11/06/23 23:00 Completed Complete Blood Count Auto Diff AMLAB Lab 11/07/23 06:00 Ordered Comprehensive Metabolic Panel AMLAB Lab 11/07/23 06:00 Ordered Lipase Stat Lab 11/06/23 23:00 Completed Magnesium Stat Lab 11/06/23 23:00 Completed Rapid PCR Covid and Flu A/B Stat Lab 11/06/23 23:00 Completed Troponin I Q3H Lab 11/06/23 23:00 Completed Troponin I Q3H Lab 11/07/23 02:15 Ordered UA [Urinalysis and Microscopic] Stat Lab 11/06/23 23:15 Completed Blood Culture Stat Micro 11/06/23 23:00 Ordered Urine Culture Stat Micro 11/06/23 23:15 Received VBG [Venous Blood Gas] Stat RT 11/06/23 23:12 Completed ECG initial Besson Routine Y 11/06/23 23:30 Completed HEART Score History (anamnesis): Slightly suspicious ECG: Normal Age: >65 years Risk factors: 3 or more risk factors Troponin: </= normal limit HEART Score: 4 Medical Decision Narrative: 83-year-old female, presentation complicated by history of multiple strokes, dementia, obesity, diabetes presents with fever, generalized weakness and altered mental status. History was obtained via conversation with EMS, patient, patient family. On arrival, patient is febrile to 1-2.9, mildly tachycardic, alert and interactive though disoriented, and only weak, moving all extremities spontaneously. Differential includes but is not limited to sepsis, pneumonia, UTI, bacteremia, COVID, flu, meningititis encephalitis. Workup initiated including CBC CMP lipase troponin EKG chest x-ray COVID flu swab urinalysis. Laboratory workup independently interpreted by me and significant for clean urine without evidence of infection, no significant leukocytosis, renal function at baseline, COVID-positive.. Imaging independently interpreted by me and significant for stable lung exam without evidence of new focal opacity. See radiology read for full review of final results. EKG independently interpreted by me and significant for sinus rhythm, rate of 98, no concerning ST or T wave changes.. Broad-spectrum antibiotic coverage was considered given fever and altered mental status, but deemed unnecessary due to COVID-positive, no apparent UTI pneumonia or obvious bacterial infection. Given patient history, exam and workup, patient's presentation most likely represents fever, tachycardia, altered mental status and generalized weakness secondary to acute COVID-19 infection. Interactive discussion was had with hospitalist on-call for admission for further evaluation and management. Care complicated by social determinants of health including advanced age. Procedures Risk/Benefits of Procedure(s) Were Explained: Yes Critical Care Critical Care Time Critical Care Time: No
[2023-11-06 23:19] LABS: Influenza A, PCR Not Detected (NotDetected); Influenza B, PCR Not Detected (NotDetected)
[2023-11-06 23:20] LABS: Basophils # 0.1 K/mm3 (0-0.2); Basophils % 0.8 % (0.1-2.0); Eosinophils % 0.5 % (0.1-12.0); Hematocrit 42.4 % (37.0-47.0); Hemoglobin 14.6 g/dL (12.2-16.2); Lymphocytes # 1.1 K/mm3 (0.7-4.5); Lymphocytes % 19.4 % (10-50); Mean Corpuscular HGB Conc 34.5 g/dL (31.8-35.4); Mean Corpuscular Hemoglobin 30.3 pg (27.0-31.2); Mean Corpuscular Volume 87.8 fl (81-99); Mean Platelet Volume 7.3 fl (7.4-10.4); Monocytes # 0.4 K/mm3 (0.1-1.0); Monocytes % 6.2 % (1.7-9.3); Neutrophils # 4.2 K/mm3 (1.8-7.8); Neutrophils % 73.1 % (37.0-80.0); Platelet Count 156 K/mm3 (142-424); Red Blood Count 4.83 M/mm3 (4.20-5.40); Red Cell Distribution Width 13.6 % (11.5-17.5); White Blood Count 5.7 K/mm3 (4.8-10.8)
[2023-11-06 23:23] LABS: Chloride 97 mmol/L (98-107); Potassium 4.5 mmoL/L (3.5-5.1); Sodium 135 mmol/L (136-145)
[2023-11-06 23:23] LABS: Microscopic, Urine URINE MICROSCOPIC (MICROSCOPIC)
[2023-11-06 23:25] LABS: Lipase 156 U/L (23-300)
[2023-11-06 23:26] LABS: Alanine Aminotransferase 39 U/L (12-78); Albumin Level 4.6 g/dl (3.5-5.0); Albumin/Globulin Ratio 1.3 (1.1-1.8); Alkaline Phosphatase 69 U/L (38-126); Anion Gap 10.5 mEq/L (5-15); Aspartate Amino Transferase 42 U/L (14-36); Bilirubin,Total 0.7 mg/dl (0.2-1.3); Blood Urea Nitrogen 20 mg/dl (7-17); Carbon Dioxide 32 mmol/L (22.0-30.0); Creatinine Clearance Estimated 67 mL/min (50-200); Estimated Glomerular Filt Rate 53 ml/min (>60); GFR (African American) 64 ML/MIN (>60); Globulin 3.6 g/dL (1.3-3.2); Glucose 161 mg/dl (74-100); Magnesium 1.7 mg/dl (1.6-2.3); Total Protein,Serum 8.2 g/dl (6.3-8.2)
[2023-11-06 23:28] LABS: Appearance,Urine CLEAR (Clear); Bilirubin,Urine Negative (Negative); Blood, Urine Negative (Negative); Color,Urine YELLOW (Yellow); Glucose,Urine (UA) TRACE (Negative); Ketones,Urine Negative (Negative); Leukocyte Esterase,Urine Negative (Negative); Nitrate,Urine Negative (Negative); Protein,Urine Negative (Negative); Urobilinogen,Urine 0.2 EU/dl (0.2)
--- NOTE | 2023-11-06 23:30 | ECG_ITS ---
APPROVED REPORT Exam: Resting ECG HR:98 bpm ECG Measurements Heart Rate 98 AXES MS 157 P 82 QRSd 86 QRS 36 QT 326 T 74 QTc 381 Conclusion SINUS RHYTHM NORMAL ECG UNCONFIRMED REPORT Electronically signed by : Ted Mares MD 11/11/2023 09:10:40
[2023-11-06 23:33] LABS: VBG Base Excess 3.5 mmol/L (-2.4-2.3); VBG HCO3 29.3 mmol/L (23-30); VBG PH 7.34 mmol/L (7.31-7.41); VBG PO2 40.4 mmol/L (28-40); VBG Total CO2 31.1 mmol/L (23-27)
[2023-11-06 23:38] LABS: Squamous Epithelial Cell,Urine Occasional #/hpf (0-5)
[2023-11-06 23:39] LABS: Troponin I < 0.01 ng/ml (0.00-0.034)
[2023-11-06 23:43] LABS: Coronavirus 19, PCR Detected (NotDetected)
--- NOTE | 2023-11-06 23:49 | PC.NURSE ---
OBSERVATION ADMISSION TO 218 WITH DX OF COVID TO SERVICE OF THE HOSPITALIST.
--- NOTE | 2023-11-06 23:50 | P.HP_ITS ---
History of Present Illness *Admission Date: 11/06/23 *Reason for visit:: fever *History of present illness: This is 83-year-old female, PMHx of dementia, HTN, HLD, CAD, CVA brought in to the emergency department with altered mental status, fever, generalized weakness. History is limited due to patient history of dementia. Per ER documentation family reported that she was in her normal state of health 2 days ago. She normally is able to care for herself. Today she has been extremely weak, unable to get up and walk by herself. She has been confused and not acting herself. Per son, she also has history of UTIs. Patiently is pleasantly confused but is unable to provide any significant history. She vomited in route with EMS. Admitted for treatment and management. [facility] Disclaimer: The information contained in this section may have been updated after the patient was seen, as this information can be updated by other users. Medical History Ankle fracture Bilateral hearing loss Cellulitis of foot, left Colitis Community acquired pneumonia Cough Diarrhea Dizziness Dysphagia Elevated blood pressure reading Encephalopathy Encounter for pre-operative cardiovascular clearance Encounter for wound care FHx: total knee replacement Finger infection Finger pain GERD (gastroesophageal reflux disease) High grade dysplasia in colonic adenoma Hip fracture Hip pain History of CVA (cerebrovascular accident) History of CVA (cerebrovascular accident) Hypokalemia Hypoxemia Infestation by bed bug Influenza Left groin pain Neuropathy Occipital stroke Pneumonia due to COVID-19 virus Pre-op evaluation Recurrent cellulitis of lower leg Right ankle pain Thyroid nodule URI with cough and congestion Viral upper respiratory illness Surgical History History of carpal tunnel surgery History of hip surgery Social History Smoking Status: Unknown if ever smoked second hand exposure: Yes alcohol intake: never substance use type: denies use current occupational status: other Travel in the last 8 weeks: None household members: family housing: house number of children: 6 current occupational exposures/hazards: No caffeine: Yes Review of Systems Review of Systems Review of systems:: unable to obtain Meds Home Medications and Allergies Home Medications Medication Instructions Recorded Confirmed Type buspirone 5 mg tablet 5 mg PO BID Depression 03/26/23 11/06/23 History ferrous sulfate 325 mg (65 mg 325 mg PO DAILY iron 03/26/23 11/06/23 History iron) tablet (FeroSul) cetirizine 10 mg tablet 10 mg PO DAILY allergies 07/04/23 11/06/23 History clopidogrel 75 mg tablet 75 mg PO DAILY Blood Thinner 07/04/23 11/06/23 History sertraline 100 mg tablet 100 mg PO HS mood 07/04/23 11/06/23 History ascorbic acid (vitamin C) 500 mg 500 mg PO DAILY Supplement 11/06/23 11/06/23 History tablet (Vitamin C) atorvastatin 80 mg tablet 80 mg PO DAILY Cholesterol 11/06/23 11/06/23 History trazodone 50 mg tablet 50 mg PO HS sleep 11/06/23 11/06/23 History levetiracetam 500 mg tablet 500 mg PO BID SEIZURES 11/07/23 11/07/23 History lisinopril 20 mg tablet 20 mg PO BID Hypertension 11/07/23 11/07/23 History New Prescriptions to Start Prescriptions: Allergies Allergy/AdvReac Type Severity Reaction Status Date / Time No Known Allergies Allergy Verified 03/26/23 08:45 Exam Data for Last 24 hours Vital signs and Labs for Last 24 Hours: Temp Pulse Resp BP Pulse Ox 102.9 F H 104 H 16 159/93 H 96 11/06/23 23:07 11/06/23 23:07 11/06/23 23:07 11/06/23 23:07 11/06/23 23:07 Laboratory Results - last 24 hr 11/06/23 23:00: WBC 5.7, RBC 4.83, Hgb 14.6, Hct 42.4, MCV 87.8, MCH 30.3, MCHC 34.5, RDW 13.6, Plt Count 156, MPV 7.3 L, Neut % (Auto) 73.1, Lymph % (Auto) 19.4, [place] % (Auto) 6.2, Eos % (Auto) 0.5, Baso % (Auto) 0.8, Neut # (Auto) 4.2, Lymph # (Auto) 1.1, [place] # (Auto) 0.4, Eos # (Auto) 0.0, Baso # (Auto) 0.1, Sodium 135 L, Potassium 4.5, Chloride 97 L, Carbon Dioxide 32 H, Anion Gap 10.5, BUN 20 H, Creatinine 1.00, Estimated Creat Clear 67, Estimated GFR 53 L, Est GFR ( Amer) 64, Glucose 161 H, Calcium 9.0, Magnesium 1.7, Total Bilirubin 0.7, AST 42 H, ALT 39, Alkaline Phosphatase 69, Troponin I < 0.01, Total Protein 8.2, Albumin 4.6, Globulin 3.6 H, Albumin/Globulin Ratio 1.3, Lipase 156, SARS-CoV-2 (PCR) Detected A, Influenza A Untype (PCR) Not detected, Influenza Type B (PCR) Not detected 11/06/23 23:12: VBG pH 7.34, VBG pCO2 56.0 H, VBG pO2 40.4 H, VBG HCO3 29.3, VBG Total CO2 31.1 H, VBG O2 Saturation 73.0 H, VBG Base Excess 3.5 H 11/06/23 23:15: Urine Color Yellow, Urine Appearance Clear, Urine pH 7.0, Ur Specific [place] 1.020, Urine Protein Negative, Urine Glucose (UA) Trace, Urine Ketones Negative, Urine Blood Negative, Urine Nitrate Negative, Urine Bilirubin Negative, Urine Urobilinogen 0.2, Ur Leukocyte Esterase Negative, Urine RBC None, Urine WBC None, Ur Squamous Epith Cells Occasional I & O for Last 24 hours: Intake & Output 11/03/23 11/04/23 11/05/23 11/06/23 23:59 23:59 23:59 23:59 Weight 97.522 kg Constitutional Constitutional: mild distress and cooperative *Routine HEENT Exam Head: Present normocephalic and atraumatic Eye: Present EOMI, PERRL and normal accommodation ENT: Present mucous membranes moist *Routine Neck Exam Neck: Present supple, full ROM and trachea midline *Routine Respiratory Exam Respiratory: Present diminished air movement, normal respiratory effort, able to speak in complete sentences and symmetric chest movement *Routine Cardiovascular Exam Cardiovascular: Present RRR, Normal S1 and Normal S2 *Routine Abdominal Exam Abdominal: Present normoactive bowel sounds and obese; Absent organomegaly *Routine Rectal Exam Rectal:: deferred *Routine Genitalia Exam Genitalia:: deferred *Routine Extremities Exam Extremities: Present full ROM and pulses intact; Absent cyanosis, clubbing or edema *Routine Skin Exam Skin: Present intact, dry and warm *Routine Neurological Exam Neurological: Present altered mental status Routine Psychiatric Exam Psychiatric: Present unable to assess H&P: Result Imaging and Cardiology EKG: Status: image reviewed by me and Preliminary report Chest x-ray: Status: image reviewed by me, Preliminary report and final report Assessment and Plan *Assessment and plan (1) Acute alteration in mental status: Status: Acute Category: Medical Code(s): R41.82 - Altered mental status, unspecified (2) COVID-19: Status: Acute Category: Medical Code(s): U07.1 - COVID-19 (3) Fever: Status: Acute Qualifiers: Fever type: due to other condition Qualified Code(s): R50.81 - Fever presenting with conditions classified elsewhere Category: Medical Code(s): R50.9 - Fever, unspecified (4) HTN (hypertension): Status: Chronic Qualifiers: Hypertension type: primary hypertension Qualified Code(s): I10 - Essential (primary) hypertension Category: Medical Code(s): I10 - Essential (primary) hypertension (5) HLD (hyperlipidemia): Status: Chronic Qualifiers: Hyperlipidemia type: mixed hyperlipidemia Qualified Code(s): E78.2 - Mixed hyperlipidemia Category: Medical Code(s): E78.5 - Hyperlipidemia, unspecified (6) History of CVA (cerebrovascular accident): Status: Chronic Category: Medical Code(s): Z86.73 - Personal history of transient ischemic attack (TIA), and cerebral infarction without residual deficits (7) Dementia: Problem Comment: Memory loss slowly progressive for at least 5-10 years, worse post CVA 2016, details unknown. Work-up consistent with dementia, possibly mixed type, especially vascular. Status: Acute Qualifiers: Dementia behavioral or psychological symptom: with anxiety Dementia severity: unspecified severity Dementia type: unspecified type Qualified Code(s): F03.94 - Unspecified dementia, unspecified severity, with anxiety Category: Medical Code(s): F03.90 - Unspecified dementia, unspecified severity, without behavioral disturbance, psychotic disturbance, mood disturbance, and anxiety Plan 83-year-old female, PMHx of dementia, HTN, HLD, CAD, CVA brought in to the emergency department with altered mental status, fever, generalized weakness. History is limited due to patient history of dementia. Per ER documentation family reported that she was in her normal state of health 2 days ago. on Arrival patient pleasantly confused. Underwent to CXR, imaging reviewed and are negative for acute focal process. Labs are grossly unremarkable. Patient found febrile and coughing, does not look septic, or on any distress. Discussed with ER doctor for admission .Plan as follow: -AMS, unclear baseline due to history of dementia. last time seen normal 2 days ago: Admit patient. Dispo Med-surg cont IV fluid repeat labs. monitor for electrolyes imbalances fall precaution PT/OT eval -Covid19 without PNA: Due to onset of symptoms. Patient is febrile and coughing requested started on remdesivir pharmacy to dose it, an monitor Currently on RA monitor O2 sat tylenool for temp higher than 100F monitor for sepsis droplets precautions Chronic conditons HTN, HLD, CVA, conditons stables. reviewed. reconciled and resume home meds Lovenox for DVT ppx. On protonix Full code Attending attestation Patient was seen and evaluated at the bedside myself, agree with [employer] note.
[2023-11-07] VITALS (10 sets, daily range): BP systolic 143–174; BP diastolic 64–120; PULSE 60–97; RESP 16–18; TEMP 36.6–37.5; O2SAT 95–96; BMI 32.2
--- NOTE | 2023-11-07 01:03 | PC.NURSE ---
Patient arrived to floor via stretcher from ED at 1:00.
[2023-11-07] MEDS: 0.9 % SODIUM CHLORIDE 1000ML 1,000 ML 50 ML IV (01:12)
[2023-11-07 02:54] LABS: Troponin I 0.01 ng/ml (0.00-0.034)
[2023-11-07] MEDS: REMDESIVIR 200 MG in 0.9 % SODIUM CHLORIDE 250 ML 250 MG IV (04:56)
[2023-11-07 07:43] LABS: Basophils % 0.3 % (0.1-2.0); Eosinophils % 0.3 % (0.1-12.0); Hematocrit 38.3 % (37.0-47.0); Hemoglobin 13.4 g/dL (12.2-16.2); Lymphocytes # 1.2 K/mm3 (0.7-4.5); Lymphocytes % 24.2 % (10-50); Mean Corpuscular Hemoglobin 30.4 pg (27.0-31.2); Mean Corpuscular Volume 86.9 fl (81-99); Monocytes # 0.4 K/mm3 (0.1-1.0); Monocytes % 7.2 % (1.7-9.3); Neutrophils # 3.5 K/mm3 (1.8-7.8); Neutrophils % 68.1 % (37.0-80.0); Platelet Count 131 K/mm3 (142-424); Red Blood Count 4.41 M/mm3 (4.20-5.40); Red Cell Distribution Width 13.5 % (11.5-17.5); White Blood Count 5.1 K/mm3 (4.8-10.8)
[2023-11-07 07:47] LABS: Chloride 98 mmol/L (98-107); Potassium 4.2 mmoL/L (3.5-5.1); Sodium 135 mmol/L (136-145)
[2023-11-07 07:50] LABS: Alanine Aminotransferase 32 U/L (12-78); Albumin/Globulin Ratio 1.2 (1.1-1.8); Alkaline Phosphatase 69 U/L (38-126); Anion Gap 11.2 mEq/L (5-15); Aspartate Amino Transferase 32 U/L (14-36); Bilirubin,Total 0.7 mg/dl (0.2-1.3); Blood Urea Nitrogen 17 mg/dl (7-17); Calcium 8.5 mg/dl (8.4-10.2); Carbon Dioxide 30 mmol/L (22.0-30.0); Creatinine Clearance Estimated 60 mL/min (50-200); Estimated Glomerular Filt Rate 60 ml/min (>60); GFR (African American) 73 ML/MIN (>60); Globulin 3.3 g/dL (1.3-3.2); Glucose 159 mg/dl (74-100); Total Protein,Serum 7.3 g/dl (6.3-8.2)
[2023-11-07] MEDS: ATORVASTATIN 40MG TABLET 80 MG PO (09:57)
[2023-11-07] MEDS: BENZONATATE 100MG CAPSULE 200 MG PO ×3 (09:58→20:11)
[2023-11-07] MEDS: LISINOPRIL 20MG TABLET 20 MG PO ×2 (09:58→20:11)
[2023-11-07] MEDS: CLOPIDOGREL 75MG TAB 75 MG PO (09:58)
[2023-11-07] MEDS: BUSPIRONE HCL 5 MG TABLET PO ×2 (09:58→20:11)
[2023-11-07] MEDS: ASCORBIC ACID 500MG TAB 500 MG PO (09:58)
[2023-11-07] MEDS: PANTOPRAZOLE 40MG TABLET 40 MG PO (09:58)
[2023-11-07] MEDS: LORATADINE 10MG TABLET 10 MG PO (09:59)
[2023-11-07] MEDS: levETIRAcetam 500 MG TABLET PO ×2 (14:13→20:11)
--- NOTE | 2023-11-07 14:18 | [facility].PTEV ---
Physical Therapy Evaluation Rehab PT IP Evaluation Start: 11/07/23 02:36 Freq: ONCE Status: Active Protocol: Document 11/07/23 14:09 HWADE (Rec: 11/07/23 14:18 HWADE [id number]) Subjective/History History History Pt is a 83 year old female that presented to [facility] ED with reports of AMS, fever and generalized weakness per family. History is limited d/t dementia. Pt was found to have COVID-19 and was admitted for further evaluation and management of AMS. Ankle fracture Bilateral hearing loss Cellulitis of foot, left Colitis Community acquired pneumonia Cough Diarrhea Dizziness Dysphagia Elevated blood pressure reading Encephalopathy Encounter for pre-operative cardiovascular clearance Encounter for wound care FHx: total knee replacement Finger infection Finger pain GERD (gastroesophageal reflux disease) High grade dysplasia in colonic adenoma Hip fracture Hip pain History of CVA ( cerebrovascular accident) History of CVA ( cerebrovascular accident) Hypokalemia Hypoxemia Infestation by bed bug Influenza Left groin pain Neuropathy Occipital stroke Pneumonia due to COVID-19 virus Pre-op evaluation Recurrent cellulitis of lower leg Right ankle pain Thyroid nodule URI with cough and congestion Viral upper respiratory illness Subjective Subjective Pt presents supine asleep in bed, awakes to PT voice. Pt denies need for PT intervention but is agreeable to sit on EOB. Pt disoriented x4. Pt frequently states I don't want to move, I'm going back to bed during evaluation . Pt was unable to provide history but per nursing and medical record, pt lives at home with her son in an apartment and is normally able to walk; limited in independence d/t dementia. Pt performed supine to sit on EOB with min A requiring max encouragement. Once sitting EOB, pt refused attempt to stand stating I'm not getting up, I am going back to bed and proceeded to lay back down requiring min A for placement of BLE's in bed. Following evaluation, pt left supine in bed with call light and all needs within reach, bed alarm active. New diagnosis of cancer in past 12 No months? Rehab PT IP Eval Objective Appearance Patient Behavior Uncooperative,Confused,Patient Baseline Difficulty following instructions moderate Speech Pattern Clear Ambulation Patient Able to Ambulate No Balance Ability to Arise Unable Sitting Balance Steady, safe Dynamic Sitting Balance Ability Good Transfers Bed Transfer Ability Minimal x 1 (25% assist) ROM All Extremities PT ROM Status WFL MMT All Extremities PT MMT ABN Abnormal MMT Grade grossly 3+/5 based on functional mobility assessment performed Rehab PT IP prob,goals,plan Problems Date of Evaluation: 11/07/23 PT IP Problems Bed Mobility,Transfers,Gait, Balance,Self care,Safety Rehab Potential Rehab Potential Fair Equipment Needs Assistive Devices Rolling / Wheeled Walker Plan PT Intervention Plan Bed Mobility,Transfers,Gait, Balance,Self care,Safety, Therapeutic Exercise PT Plan Frequency Daily Duration LOS Discharge Goals Bed Transfer Ability Supervision/Stand by Sit to Stand Chair Transfer Ability Supervision/Stand by Ambulation Assistive Device Rolling Walker Ambulation Distance (feet) 50 Discharge Plan PT Discharge Plan Once medically stable, pt is most appropriate to d/c home with 24hr assistance from son and HHPT to address deficits. Recommend skilled PT intervention during hospital admission to improve functional mobility, reduce risk of falls, prevent functional decline and allow pt to return to [facility]. Eval Complexity Eval Charge Codes 82947 - Moderate Complexity PHYSICIAN CERTIFICATION: I certify the specified therapy services for Nicole Ledbetter are required, authorized, and reviewed every 30 days.
--- NOTE | 2023-11-07 15:46 | P.PN_ITS ---
Subjective *Date: 11/07/23 *Time: 15:46 Interval history: patient was seen and evaluated at the bedside. no acute events reported, denies chest pain, shortness of breath, nausea, vomiting, abdominal pain. Exam Data for Last 24 hours Vital signs and Labs for Last 24 Hours: Temp Pulse Resp BP Pulse Ox O2 Del Method 98.8 F 70 16 145/78 H 96 Room Air 11/07/23 11:19 11/07/23 12:00 11/07/23 11:19 11/07/23 11:19 11/07/23 11:19 11/07/23 13:00 Laboratory Results - last 24 hr 11/06/23 23:00: WBC 5.7, RBC 4.83, Hgb 14.6, Hct 42.4, MCV 87.8, MCH 30.3, MCHC 34.5, RDW 13.6, Plt Count 156, MPV 7.3 L, Neut % (Auto) 73.1, Lymph % (Auto) 19.4, [place] % (Auto) 6.2, Eos % (Auto) 0.5, Baso % (Auto) 0.8, Neut # (Auto) 4.2, Lymph # (Auto) 1.1, [place] # (Auto) 0.4, Eos # (Auto) 0.0, Baso # (Auto) 0.1, Sodium 135 L, Potassium 4.5, Chloride 97 L, Carbon Dioxide 32 H, Anion Gap 10.5, BUN 20 H, Creatinine 1.00, Estimated Creat Clear 67, Estimated GFR 53 L, Est GFR ( Amer) 64, Glucose 161 H, Calcium 9.0, Magnesium 1.7, Total Bilirubin 0.7, AST 42 H, ALT 39, Alkaline Phosphatase 69, Troponin I < 0.01, Total Protein 8.2, Albumin 4.6, Globulin 3.6 H, Albumin/Globulin Ratio 1.3, Lipase 156, SARS-CoV-2 (PCR) Detected A, Influenza A Untype (PCR) Not detected, Influenza Type B (PCR) Not detected 11/06/23 23:12: VBG pH 7.34, VBG pCO2 56.0 H, VBG pO2 40.4 H, VBG HCO3 29.3, VBG Total CO2 31.1 H, VBG O2 Saturation 73.0 H, VBG Base Excess 3.5 H 11/06/23 23:15: Urine Color Yellow, Urine Appearance Clear, Urine pH 7.0, Ur Specific [place] 1.020, Urine Protein Negative, Urine Glucose (UA) Trace, Urine Ketones Negative, Urine Blood Negative, Urine Nitrate Negative, Urine Bilirubin Negative, Urine Urobilinogen 0.2, Ur Leukocyte Esterase Negative, Urine RBC None, Urine WBC None, Ur Squamous Epith Cells Occasional 11/07/23 02:25: Troponin I 0.01 11/07/23 06:43: WBC 5.1, RBC 4.41, Hgb 13.4, Hct 38.3, MCV 86.9, MCH 30.4, MCHC 35.0, RDW 13.5, Plt Count 131 L, MPV 8.0, Neut % (Auto) 68.1, Lymph % (Auto) 24.2, [place] % (Auto) 7.2, Eos % (Auto) 0.3, Baso % (Auto) 0.3, Neut # (Auto) 3.5, Lymph # (Auto) 1.2, [place] # (Auto) 0.4, Eos # (Auto) 0.0, Baso # (Auto) 0.0, Sodium 135 L, Potassium 4.2, Chloride 98, Carbon Dioxide 30, Anion Gap 11.2, BUN 17, Creatinine 0.90, Estimated Creat Clear 60, Estimated GFR 60, Est GFR ( Amer) 73, Glucose 159 H, Calcium 8.5, Total Bilirubin 0.7, AST 32, ALT 32, Alkaline Phosphatase 69, Total Protein 7.3, Albumin 4.0 D, Globulin 3.3 H, Albumin/Globulin Ratio 1.2 I & O for Last 24 hours: Intake & Output 11/04/23 11/05/23 11/06/23 11/07/23 23:59 23:59 23:59 23:59 Output Total 560 / 560 Balance -560 / -560 Weight 97.522 kg 87.679 kg Constitutional Constitutional: no acute distress Comments: appears weak and frail *Routine HEENT Exam Head: Present normocephalic Eye: Present EOMI and PERRL ENT: Present mucous membranes moist *Routine Neck Exam Neck: Present supple; Absent lymphadenopathy *Routine Respiratory Exam Respiratory: Present CTA bilaterally *Routine Cardiovascular Exam Cardiovascular: Present RRR *Routine Abdominal Exam Abdominal: Present soft and normoactive bowel sounds *Routine Extremities Exam Extremities: Absent cyanosis, clubbing or edema *Routine Skin Exam Skin: Present warm; Absent rash *Routine Neurological Exam Neurological: Present alert Comments: AoX1 Assessment and Plan *Assessment and plan (1) Acute alteration in mental status: Status: Acute Category: Medical Code(s): R41.82 - Altered mental status, unspecified (2) COVID-19: Status: Acute Category: Medical Code(s): U07.1 - COVID-19 (3) Fever: Status: Acute Qualifiers: Fever type: due to other condition Qualified Code(s): R50.81 - Fever presenting with conditions classified elsewhere Category: Medical Code(s): R50.9 - Fever, unspecified (4) HTN (hypertension): Status: Chronic Qualifiers: Hypertension type: primary hypertension Qualified Code(s): I10 - Essential (primary) hypertension Category: Medical Code(s): I10 - Essential (primary) hypertension (5) HLD (hyperlipidemia): Status: Chronic Qualifiers: Hyperlipidemia type: mixed hyperlipidemia Qualified Code(s): E78.2 - Mixed hyperlipidemia Category: Medical Code(s): E78.5 - Hyperlipidemia, unspecified (6) History of CVA (cerebrovascular accident): Status: Chronic Category: Medical Code(s): Z86.73 - Personal history of transient ischemic attack (TIA), and cerebral infarction without residual deficits (7) Dementia: Problem Comment: Memory loss slowly progressive for at least 5-10 years, worse post CVA 2016, details unknown. Work-up consistent with dementia, possibly mixed type, especially vascular. Status: Acute Qualifiers: Dementia type: unspecified type Dementia severity: unspecified severity Dementia behavioral or psychological symptom: with anxiety Qualified Code(s): F03.94 - Unspecified dementia, unspecified severity, with anxiety Category: Medical Code(s): F03.90 - Unspecified dementia, unspecified severity, without behavioral disturbance, psychotic disturbance, mood disturbance, and anxiety Plan 83-year-old female, PMHx of dementia, HTN, HLD, CAD, CVA brought in to the emergency department with altered mental status, fever, generalized weakness. History is limited due to patient history of dementia. Per ER documentation family reported that she was in her normal state of health 2 days ago. on Arrival patient pleasantly confused. Underwent to CXR, imaging reviewed and are negative for acute focal process. Labs are grossly unremarkable. Patient found febrile and coughing, does not look septic, or on any distress. Discussed with ER doctor for admission AMS, unclear baseline due to history of dementia. last time seen normal 2 days ago, per family patient is coming bacnk to her baseline cont IV fluid repeat labs. monitor for electrolyes imbalances fall precaution PT/OT eval - may need SNF vs HH Covid19 without PNA Due to onset of symptoms. Patient is febrile and coughing requested started on remdesivir pharmacy to dose it, an monitor Currently on RA monitor O2 sat tylenool for temp higher than 100F monitor for sepsis droplets precautions Chronic conditons HTN, HLD, CVA, conditons stables. reviewed. reconciled and resume home meds Lovenox for DVT ppx. On protonix Full code likely DC tomorrow
--- NOTE | 2023-11-07 18:05 | PC.NURSE ---
pt has slept majority of shift. alert to self, per son pt back to baseline with mentation. attempted to get out of bed multiple times at beginning of shift. bed alarm on for pt safety. x1 episode of diarrhea using bsc, pt needed assistance with standing. follows commands poorly, pt pleasantly confused but stated i can stand by myself, dont help me. per son, pt does this at home and is independent. pt has not ate much this shift <25% with all meals. per the daughter, does not want to send pt to snf at this time. cb within reach, bed alarm on and pt resting.
[2023-11-07] MEDS: TRAZODONE 50MG TABLET 50 MG PO (20:11)
[2023-11-07] MEDS: SERTRALINE 100MG TABLET 100 MG PO (20:11)
[2023-11-08] VITALS: BP 148/91; PULSE 70; PULSE 75; RESP 17; TEMP 36.8; O2SAT 95
[2023-11-08 04:00] VITALS: BP 138/82; PULSE 66; PULSE 80; RESP 17; TEMP 36.8; O2SAT 94; BMI 32.3
--- NOTE | 2023-11-08 05:48 | PC.NURSE ---
Patient has had a good night tonight. Has been presently confused through the night. Patient has had 2 cups of ice cream and tolerated it well. Patient lezama that was placed in the ER has been removed and a brief was placed. Patient takes her her pills whole with no issues. Patient did rip out her IV. Spoke to [employer] about the need for one he was okay with leaving one out as she is planning on D/C today. Patient had a BM and also had a full bed bath. no other issues occurred during this shift
[2023-11-08 07:23] VITALS: BP 134/70; PULSE 65; RESP 17; TEMP 36.8; O2SAT 95
[2023-11-08 08:00] VITALS: PULSE 90
[2023-11-08 08:08] LABS: Alanine Aminotransferase 28 U/L (12-78); Anion Gap 8.7 mEq/L (5-15); Aspartate Amino Transferase 34 U/L (14-36); Blood Urea Nitrogen 17 mg/dl (7-17); Calcium 8.5 mg/dl (8.4-10.2); Carbon Dioxide 27 mmol/L (22.0-30.0); Chloride 99 mmol/L (98-107); Creatinine Clearance Estimated 60 mL/min (50-200); Estimated Glomerular Filt Rate 69 ml/min (>60); GFR (African American) 83 ML/MIN (>60); Glucose 126 mg/dl (74-100); Potassium 3.7 mmoL/L (3.5-5.1); Sodium 131 mmol/L (136-145)
[2023-11-08] MEDS: BENZONATATE 100MG CAPSULE 200 MG PO (09:17)
[2023-11-08] MEDS: PANTOPRAZOLE 40MG TABLET 40 MG PO (09:17)
[2023-11-08] MEDS: LORATADINE 10MG TABLET 10 MG PO (09:17)
[2023-11-08] MEDS: ASCORBIC ACID 500MG TAB 500 MG PO (09:17)
[2023-11-08] MEDS: CLOPIDOGREL 75MG TAB 75 MG PO (09:17)
[2023-11-08] MEDS: levETIRAcetam 500 MG TABLET PO (09:17)
[2023-11-08] MEDS: ATORVASTATIN 40MG TABLET 80 MG PO (09:18)
[2023-11-08] MEDS: LISINOPRIL 20MG TABLET 20 MG PO (09:18)
[2023-11-08] MEDS: BUSPIRONE HCL 5 MG TABLET PO (09:18)
[2023-11-08 11:12] VITALS: BP 120/49; PULSE 63; RESP 17; TEMP 36.8; O2SAT 93
--- NOTE | 2023-11-08 11:32 | EXP.DC.SUM ---
General Admission date:: 11/07/23 Discharge date: 11/08/23 HPI HPI HPI: This is 83-year-old female, PMHx of dementia, HTN, HLD, CAD, CVA brought in to the emergency department with altered mental status, fever, generalized weakness. History is limited due to patient history of dementia. Per ER documentation family reported that she was in her normal state of health 2 days ago. She normally is able to care for herself. Today she has been extremely weak, unable to get up and walk by herself. She has been confused and not acting herself. Per son, she also has history of UTIs. Patiently is pleasantly confused but is unable to provide any significant history. She vomited in route with EMS. Admitted for treatment and management. Hospital Course Hospital Course Hospital Course: Patient was seen and evaluated at the bedside on the day of discharge. Patient is stable for discharge. Patient wishes to be discharged. All patient questions were answered and patient was given time to ask questions. Patient was discharged in stable condition. Patient understands that she can return to ER in case of any sudden changes in health. Total time spent on DC - 38 mins 83-year-old female, PMHx of dementia, HTN, HLD, CAD, CVA brought in to the emergency department with altered mental status, fever, generalized weakness. History is limited due to patient history of dementia. Per ER documentation family reported that she was in her normal state of health 2 days ago. on Arrival patient pleasantly confused. Underwent to CXR, imaging reviewed and are negative for acute focal process. Labs are grossly unremarkable. Patient found febrile and coughing, does not look septic, or on any distress. Discussed with ER doctor for admission AMS,- resolved now at baseline per family, has history of dementia Covid19 without PNA - stable, not requiring O2, will dc on dexamthasone Chronic conditons HTN, HLD, CVA, conditons stables. reviewed. reconciled and resume home meds Lovenox for DVT ppx. On protonix Full code Exam Data for Last 24 hours Vital signs and Labs for Last 24 Hours: Temp Pulse Resp BP Pulse Ox O2 Del Method 98.2 F 63 17 120/49 L 93 L Room Air 11/08/23 11:12 11/08/23 11:12 11/08/23 11:12 11/08/23 11:12 11/08/23 11:12 11/08/23 11:12 Laboratory Results - last 24 hr 11/08/23 07:29: Sodium 131 L, Potassium 3.7, Chloride 99, Carbon Dioxide 27, Anion Gap 8.7, BUN 17, Creatinine 0.80, Estimated Creat Clear 60, Estimated GFR 69, Est GFR ( Amer) 83, Glucose 126 H, Calcium 8.5, AST 34, ALT 28 I & O for Last 24 hours: Intake & Output 11/05/23 11/06/23 11/07/23 11/08/23 23:59 23:59 23:59 23:59 Intake Total 490 / 490 Output Total 660 / 1360 1400 / 1400 Balance -660 / -1110 -910 / -910 Weight 97.522 kg 87.679 kg 88.133 kg Constitutional Constitutional: no acute distress Comments: appears weak and frail *Routine HEENT Exam Head: Present normocephalic Eye: Present EOMI and PERRL ENT: Present mucous membranes moist *Routine Neck Exam Neck: Present supple; Absent lymphadenopathy *Routine Respiratory Exam Respiratory: Present CTA bilaterally *Routine Cardiovascular Exam Cardiovascular: Present RRR *Routine Abdominal Exam Abdominal: Present soft and normoactive bowel sounds *Routine Extremities Exam Extremities: Absent cyanosis, clubbing or edema *Routine Skin Exam Skin: Present warm; Absent rash *Routine Neurological Exam Neurological: Present alert Comments: AoX1 Results Data Completed and Pending Labs on day of discharge: Labs from last 24 hours 11/08/23 07:29 Sodium 131 L Potassium 3.7 Chloride 99 Carbon Dioxide 27 Anion Gap 8.7 BUN 17 Creatinine 0.80 Estimated Creat Clear 60 Estimated GFR 69 Est GFR ( Amer) 83 Glucose 126 H Calcium 8.5 AST 34 ALT 28 DS: Diagnosis Discharge Diagnosis (1) Acute alteration in mental status: Status: Acute Code(s): R41.82 - Altered mental status, unspecified (2) COVID-19: Status: Acute Code(s): U07.1 - COVID-19 (3) Fever: Status: Acute Code(s): R50.9 - Fever, unspecified Qualifiers: Fever type: due to other condition Qualified Code(s): R50.81 - Fever presenting with conditions classified elsewhere (4) HTN (hypertension): Status: Chronic Code(s): I10 - Essential (primary) hypertension Qualifiers: Hypertension type: primary hypertension Qualified Code(s): I10 - Essential (primary) hypertension (5) HLD (hyperlipidemia): Status: Chronic Code(s): E78.5 - Hyperlipidemia, unspecified Qualifiers: Hyperlipidemia type: mixed hyperlipidemia Qualified Code(s): E78.2 - Mixed hyperlipidemia (6) History of CVA (cerebrovascular accident): Status: Chronic Code(s): Z86.73 - Personal history of transient ischemic attack (TIA), and cerebral infarction without residual deficits (7) Dementia: Status: Acute Code(s): F03.90 - Unspecified dementia, unspecified severity, without behavioral disturbance, psychotic disturbance, mood disturbance, and anxiety Qualifiers: Dementia type: unspecified type Dementia severity: unspecified severity Dementia behavioral or psychological symptom: with anxiety Qualified Code(s): F03.94 - Unspecified dementia, unspecified severity, with anxiety Problem details: Memory loss slowly progressive for at least 5-10 years, worse post CVA 2015, details unknown. Work-up consistent with dementia, possibly mixed type, especially vascular. Meds Home Medications and Allergies Home Medications Medication Instructions Recorded Confirmed Type buspirone 5 mg tablet 5 mg PO BID Depression 03/26/23 11/06/23 History ferrous sulfate 325 mg (65 mg 325 mg PO DAILY iron 03/26/23 11/06/23 History iron) tablet (FeroSul) cetirizine 10 mg tablet 10 mg PO DAILY allergies 07/04/23 11/06/23 History clopidogrel 75 mg tablet 75 mg PO DAILY Blood Thinner 07/04/23 11/06/23 History sertraline 100 mg tablet 100 mg PO HS mood 07/04/23 11/06/23 History ascorbic acid (vitamin C) 500 mg 500 mg PO DAILY Supplement 11/06/23 11/06/23 History tablet (Vitamin C) atorvastatin 80 mg tablet 80 mg PO DAILY Cholesterol 11/06/23 11/06/23 History trazodone 50 mg tablet 50 mg PO HS sleep 11/06/23 11/06/23 History levetiracetam 500 mg tablet 500 mg PO BID SEIZURES 11/07/23 11/07/23 History lisinopril 20 mg tablet 20 mg PO BID Hypertension 11/07/23 11/07/23 History New Prescriptions to Start Prescriptions: Allergies Allergy/AdvReac Type Severity Reaction Status Date / Time No Known Allergies Allergy Verified 03/26/23 08:45 Discharge Plan Disposition Patient Disposition: Home Health Service Condition: Fair Discharge Order Discharge Orders: Discharge Order (Routine); Ordered 11/08/23 Ordered By: Vladimir Keenan Follow up Plan Follow up with: Ted Mares MD [Primary Care Provider] - 1 week Prescriptions/Medication Reconciliation: Continued buspirone 5 mg tablet 5 mg PO BID ferrous sulfate [FeroSul] 325 mg (65 mg iron) tablet 325 mg PO DAILY Patient Comments: TAKE ONE TABLET BY MOUTH EVERY DAY cetirizine 10 mg tablet 10 mg PO DAILY sertraline 100 mg tablet 100 mg PO HS clopidogrel 75 mg tablet 75 mg PO DAILY atorvastatin 80 mg tablet 80 mg PO DAILY Patient Comments: TAKE ONE TABLET BY MOUTH EVERY DAY trazodone 50 mg tablet 50 mg PO HS Patient Comments: TAKE ONE TABLET BY MOUTH EVERY DAY AT BEDTIME ascorbic acid (vitamin C) [Vitamin C] 500 mg tablet 500 mg PO DAILY levetiracetam 500 mg tablet 500 mg PO BID Patient Comments: TAKE ONE TABLET BY MOUTH TWICE DAILY lisinopril 20 mg tablet 20 mg PO BID Patient Comments: TAKE ONE TABLET BY MOUTH TWICE DAILY Problem Reconciliation Problems Reviewed?: Yes Patient Discharge Instructions ACTIVITY: Ambulate as tolerated DIET: advance to your usual diet Patient Instructions: Nausea and Vomiting-Adult, DI for COVID-19 (Suspected or Confirmed ), How to Care for Someone with COVID-19, Preventing the Spread of Coronavirus Discharge Instructions Providers Primary Care Provider: Ted Mares Admit Provider: Vladimir Keenan Attending Provider: Vladimir Keenan
[2023-11-08 12:00] VITALS: PULSE 70
--- NOTE | 2023-11-10 11:43 | SW/DCPLANNER ---
Addendum entered by Lucita Love 11/10/23 12:11: Aleshia rose/ [facility] stated that services will begin this week for this patient. Original Note: I received an order for home health services on this patient. I spoke w/ patient's daughter via phone regarding services: agreeable to services. Daughter confirmed that information/order can be faxed to [facility]: I will follow up once Aleshia rose/ [facility] reviews referral.
== END 2023-11-08 13:38 | disposition home health service (06) ==
LOC: ER 23:26 → 2ND 23:55
PROVIDERS: Nurse Practitioner Family; Admitting Provider Internal Medicine; Emergency Provider Emergency Medicine; PCP Internal Medicine Adolescent Medicine; Visit Provider Internal Medicine
DX: R41.82 Altered mental status, unspecified (principal); U07.1 COVID-19; R50.81 Fever presenting with conditions classified elsewhere; I10 Essential (primary) hypertension; E78.2 Mixed hyperlipidemia; Z86.73 Personal history of transient ischemic attack (TIA), and cerebral infarction without residual deficits; F03.94 Unspecified dementia, unspecified severity, with anxiety; Z79.01 Long term (current) use of anticoagulants; Z79.899 Other long term (current) drug therapy; I25.10 Atherosclerotic heart disease of native coronary artery without angina pectoris
CPT/HCPCS: 36415; 51702; 71045; 80048; 80053; 81001; 82803; 83690; 83735; 84450; 84460; 84484; 85025; 87040; 87086; 87636; 93005; 97162; 99285; G0378

== ENCOUNTER 2023-11-19 16:54 | Outpatient (CLI) | payer MEDICARE, SELFPAY | END 2023-11-19 23:59 | LOC: LAB 16:55 | PROVIDERS: PCP Nurse Practitioner Family; Visit Provider Nurse Practitioner Family | DX: R35.0 Frequency of micturition (principal) ==

== ENCOUNTER 2023-11-25 10:30 | Outpatient (CLI) | payer MEDICARE, SELFPAY ==
[2023-11-25 10:38] LABS: Adenovirus F 40/41, stool Not Detected (NotDetected); Astrovirus Not Detected (NotDetected); Campylobacter Not Detected (NotDetected); Clostridium Difficile A/B, PCR Not Detected (NotDetected); Cryptosporidium Not Detected (NotDetected); Cyclospora Cayetanesis Not Detected (NotDetected); Entamoeba histolytica Not Detected (NotDetected); Enteroaggregative E coli Not Detected (NotDetected); Enteropathogenic E coli Not Detected (NotDetected); Enterotoxigenic E coli Not Detected (NotDetected); Norovirus Not Detected (NotDetected); Plesimonas Shigalloides, PCR Not Detected (NotDetected); Rotavirus A Not Detected (NotDetected); Salmonella, PCR Not Detected (NotDetected); Sapovirus Not Detected (NotDetected); Shiga-like toxin E coli Not Detected (NotDetected); Shigella Enterovasive E coli Not Detected (NotDetected); Vibrio Cholerae Not Detected (NotDetected); Vibrio, PCR Not Detected (NotDetected); Yersinia Entercolitica, PCR Not Detected (NotDetected)
[2023-11-25 15:57] LABS: Microscopic, Urine URINE MICROSCOPIC (MICROSCOPIC)
[2023-11-25 18:21] LABS: Appearance,Urine SL CLOUDY (Clear); Bilirubin,Urine Negative (Negative); Blood, Urine TRACE-I (Negative); Color,Urine YELLOW (Yellow); Glucose,Urine (UA) Negative (Negative); Ketones,Urine Negative (Negative); Leukocyte Esterase,Urine 2+ (Negative); Nitrate,Urine Negative (Negative); Protein,Urine Negative (Negative); Specific Gravity, Urine 1.025 (1.005-1.030); Urobilinogen,Urine 0.2 EU/dl (0.2)
[2023-11-25 18:23] LABS: RBC,Urine Occasional #/hpf (0-3); Squamous Epithelial Cell,Urine Occasional #/hpf (0-5)
[2023-11-30 08:20] LABS: Giardia lamblia Detected (NotDetected)
== END 2023-11-25 23:59 ==
PROVIDERS: PCP Nurse Practitioner Family; Visit Provider Nurse Practitioner Family
DX: R19.7 Diarrhea, unspecified; R35.0 Frequency of micturition; N39.0 Urinary tract infection, site not specified; B95.62 Methicillin resistant Staphylococcus aureus infection as the cause of diseases classified elsewhere; A07.1 Giardiasis [lambliasis]
CPT/HCPCS: 81001; 87086; 87506

== ENCOUNTER 2024-01-18 01:19 | Observation (INO) | payer MEDICARE, SELFPAY ==
[2024-01-18] VITALS (9 sets, daily range): BP systolic 100–175; BP diastolic 66–103; PULSE 60–69; RESP 16–20; TEMP 36.6–37.1; O2SAT 94–97; BMI 36.3; BMI 35.3
--- NOTE | 2024-01-18 01:27 | XR_ITS ---
PROCEDURE INFORMATION: Exam: XR Left Ankle Exam date and time: 01/18/2024 1:33 AM Age: 83 years old Clinical indication: Injury or trauma; Fall; Blunt trauma; Ankle; Left; Additional info: Fall deformity TECHNIQUE: Imaging protocol: Radiologic exam of the left ankle. Views: 3 or more views. COMPARISON: CT ANGIO LE LT 01/27/2023 1:09 PM FINDINGS: Bones/joints: Comminuted trimalleolar fracture with associated soft tissue swelling. There is diffuse osseous demineralization. No additional fracture or dislocation. No aggressive osseous lesion. Soft tissues: Soft tissues otherwise within normal limits. IMPRESSION: Comminuted trimalleolar fracture with associated soft tissue swelling.
--- NOTE | 2024-01-18 01:27 | XR_ITS ---
PROCEDURE INFORMATION: Exam: XR Left Foot Exam date and time: 01/18/2024 1:33 AM Age: 83 years old Clinical indication: Injury or trauma; Fall; Blunt trauma; Foot; Left; Additional info: Fall pain TECHNIQUE: Imaging protocol: Radiologic exam of the left foot. Views: 3 or more views. COMPARISON: CR XR FOOT WT BEARING LT 3V 02/14/2023 11:05 AM FINDINGS: Bones/joints: Partially imaged trimalleolar fracture. There is a plantar calcaneal enthesophyte. There is diffuse osseous demineralization. Soft tissues: Normal. IMPRESSION: Partially imaged trimalleolar fracture.
--- NOTE | 2024-01-18 01:27 | XR_ITS ---
PROCEDURE INFORMATION: Exam: XR Pelvis Exam date and time: 01/18/2024 1:33 AM Age: 83 years old Clinical indication: Injury or trauma; Fall; Blunt trauma (contusions or hematomas); Bilateral; Pelvic region TECHNIQUE: Imaging protocol: Radiologic exam of the pelvis. Views: 1 or 2 view. COMPARISON: CR XR PELVIS 1-2V 07/04/2023 12:17 PM FINDINGS: Bones/joints: Left-sided partially cancellous screws traverse the femoral neck. There is diffuse osseous demineralization. There is mild osteoarthritis of the hips with joint space narrowing, productive changes, and subchondral sclerosis. There are partially visualized degenerative changes of the sacroiliac joints and lumbar spine as well as some degenerative disease of the pubic symphysis. The osseous structures are intact, with no signs of acute fracture, dislocation, or malalignment. Age-related degenerative changes are observed. There is no evidence of abnormal bone density or destructive lesions. Soft tissues: The soft tissues appear within normal limits. Vasculature: Multiple pelvic phleboliths are present. IMPRESSION: At the time of imaging, the study shows no acute osseous abnormalities but does reveal signs of age-related degenerative changes.
--- NOTE | 2024-01-18 01:27 | XR_ITS ---
FINAL REPORT CLINICAL HISTORY: fall COMPARISON: 07/04/2023 FINDINGS: A single portable view of the chest was obtained. The heart size and pulmonary vascularity are within normal limits. The mediastinum is within normal limits. No acute pulmonary abnormality is identified. The bony thorax is intact. There are degenerative changes in the shoulders. IMPRESSION: No active cardiopulmonary disease. Reviewed, Interpreted and Dictated by Brian Queen III, MD Transcribed by Ashlee Owens Authenticated and [facility]
--- NOTE | 2024-01-18 01:27 | XR_ITS ---
PROCEDURE INFORMATION: Exam: XR Left Tibia and Fibula Exam date and time: 01/18/2024 1:33 AM Age: 83 years old Clinical indication: Injury or trauma; Fall; Blunt trauma; Lower leg; Left; Additional info: Fall deformity TECHNIQUE: Imaging protocol: Radiologic exam of the left tibia and fibula. Views: 2 views. COMPARISON: CT ANGIO LE LT 01/27/2023 1:09 PM FINDINGS: Bones/joints: Status post total knee arthroplasty. Comminuted trimalleolar fracture is partially imaged.. There is diffuse osseous demineralization. There is a plantar calcaneal enthesophyte. Soft tissues: There is some soft tissue swelling. IMPRESSION: Status post total knee arthroplasty. Comminuted trimalleolar fracture is partially imaged..
--- NOTE | 2024-01-18 01:28 | XR_ITS ---
PROCEDURE INFORMATION: Exam: XR Left Forearm Exam date and time: 01/18/2024 1:33 AM Age: 83 years old Clinical indication: Injury or trauma; Fall; Blunt trauma (contusions or hematomas); Arm, lower; Left; Additional info: Fall pain TECHNIQUE: Imaging protocol: Radiologic exam of the left forearm. Views: 2 views. COMPARISON: CR XR HAND LT MIN 3V 01/18/2024 1:33 AM FINDINGS: Bones/joints: There is diffuse osseous demineralization. The osseous structures are intact, with no signs of acute fracture, dislocation, or malalignment. Age-related degenerative changes are observed. There is no evidence of abnormal bone density or destructive lesions. Soft tissues: The soft tissues appear within normal limits. IMPRESSION: At the time of imaging, the study shows no acute osseous abnormalities but does reveal signs of age-related degenerative changes.
--- NOTE | 2024-01-18 01:28 | XR_ITS ---
PROCEDURE INFORMATION: Exam: XR Left Hand Exam date and time: 01/18/2024 1:33 AM Age: 83 years old Clinical indication: Injury or trauma; Fall; Blunt trauma (contusions or hematomas); Hand; Left; Additional info: Fall pain TECHNIQUE: Imaging protocol: Radiologic exam of the left hand. Views: 3 or more views. COMPARISON: CR XR FOREARM LT 2V 01/18/2024 1:33 AM FINDINGS: Bones/joints: There is diffuse osseous demineralization. The osseous structures are intact, with no signs of acute fracture, dislocation, or malalignment. Age-related degenerative changes are observed. There is no evidence of abnormal bone density or destructive lesions. Soft tissues: The soft tissues appear within normal limits. Other findings: Evidence for old distal radial trauma. IMPRESSION: At the time of imaging, the study shows no acute osseous abnormalities but does reveal signs of age-related degenerative changes.
--- NOTE | 2024-01-18 01:34 | CT_ITS ---
PROCEDURE INFORMATION: Exam: CT Head Without Contrast Exam date and time: 01/18/2024 1:58 AM Age: 83 years old Clinical indication: Injury or trauma; Fall; Blunt trauma (contusions or hematomas); Additional info: Fall, advanced age, distracting injury TECHNIQUE: Imaging protocol: Computed tomography of the head without contrast. Radiation optimization: All CT scans at this facility use at least one of these dose optimization techniques: automated exposure control; mA and/or kV adjustment per patient size (includes targeted exams where dose is matched to clinical indication); or iterative reconstruction. COMPARISON: 1. CT HEAD/BRAIN WO CON 07/04/2023 8:[address] ANGIO HEAD 07/04/2023 11:[address] HEAD/BRAIN WO CON 07/04/2023 11:50 AM FINDINGS: Brain: Stable changes of old left middle cerebral artery territory infarct with ex vacuo dilatation of the left lateral ventricle. The brain parenchyma appears unremarkable, with no signs of acute intracranial hemorrhage or significant mass effect. There is hypodensity in the subcortical and periventricular white matter which is technically nonspecific but most often related to chronic microvascular disease. Cerebral ventricles: Mild ventricular enlargement consistent with age-related cerebral atrophy is noted. There is a persistent cavum septum pellucidum. Paranasal sinuses: Paranasal sinuses show age-appropriate mucosal thickening. Dense opacification of the maxillary sinuses is new from prior. There are scattered areas of sinus mucosal thickening. Mastoid air cells: Visualized mastoid air cells are well aerated. Bones/joints: There are no skull fractures or bony lesions. Soft tissues: Unremarkable. IMPRESSION: Presumably age-related and chronic changes without acute intracranial abnormality.
[2024-01-18] MEDS: ACETAMINOPHEN 500MG TAB 1000 MG PO (01:38)
[2024-01-18] MEDS: MORPHINE 4MG/ML SYRINGE 4 MG IV (01:38)
[2024-01-18] MEDS: KETOROLAC 30MG/ML VIAL 30 MG IV (01:38)
--- NOTE | 2024-01-18 02:04 | PC.NURSE ---
Assisted CT with xrays and CT, pt back to room.
[2024-01-18] MEDS: KETAMINE 50MG/1ML SYRINGE 15 MG IV (02:37)
--- NOTE | 2024-01-18 02:37 | XR_ITS ---
PROCEDURE INFORMATION: Exam: XR Left Ankle Exam date and time: 01/18/2024 2:35 AM Age: 83 years old Clinical indication: Injury or trauma; Fall; Blunt trauma; Ankle; Left; Additional info: Post reduction TECHNIQUE: Imaging protocol: Radiologic exam of the left ankle. Views: 3 or more views. COMPARISON: CR XR ANKLE LT MIN 3V 01/18/2024 1:33 AM FINDINGS: Bones/joints: Interval reduction of trimalleolar fracture with placement of casting material. Soft tissues: Normal. IMPRESSION: Interval reduction of trimalleolar fracture with placement of casting material.
--- NOTE | 2024-01-18 02:45 | PC.NURSE ---
Dr Mayes talking with Dr Lopez about pt. CR
--- NOTE | 2024-01-18 02:48 | PC.NURSE ---
Dr. Lopez pagevaldemar
--- NOTE | 2024-01-18 02:58 | HMH.EDGENADL ---
Discharge Plan Disposition Patient Disposition: Admitted Chief Complaint: Fall Prescriptions Prescriptions: No Action buspirone 5 mg tablet 5 mg PO BID ferrous sulfate [FeroSul] 325 mg (65 mg iron) tablet 325 mg PO DAILY Patient Comments: TAKE ONE TABLET BY MOUTH EVERY DAY cetirizine 10 mg tablet 10 mg PO DAILY sertraline 100 mg tablet 100 mg PO HS clopidogrel 75 mg tablet 75 mg PO DAILY atorvastatin 80 mg tablet 80 mg PO DAILY Patient Comments: TAKE ONE TABLET BY MOUTH EVERY DAY trazodone 50 mg tablet 50 mg PO HS Patient Comments: TAKE ONE TABLET BY MOUTH EVERY DAY AT BEDTIME ascorbic acid (vitamin C) [Vitamin C] 500 mg tablet 500 mg PO DAILY levetiracetam 500 mg tablet 500 mg PO BID Patient Comments: TAKE ONE TABLET BY MOUTH TWICE DAILY lisinopril 20 mg tablet 20 mg PO BID Patient Comments: TAKE ONE TABLET BY MOUTH TWICE DAILY dexamethasone 6 mg tablet 6 mg PO DAILY 5 Days Qty: 5 0RF Referrals Follow up/Referrals: Andressa Salinas APRN [Primary Care Provider] - See instructions Clinical Impressions Clinical Impression: Dementia, Physical debility Closed trimalleolar fracture of ankle Qualifiers: Encounter type: initial encounter Laterality: left Qualified Code(s): S82.852A - Displaced trimalleolar fracture of left lower leg, initial encounter for closed fracture Discharge ED Provider: Justino Mayes Adult HPI General Chief complaint: Fall Stated complaint: fall Time Seen by Provider: 01/18/24 01:20 Mode of Arrival: EMS Source of Information: EMS Limitations: Physical Limitations Description of Symptoms (Recalled from ER Triage Doc. by RN): Pt brought in from home by EMS after a fall in her bathroom. EMS states she was assisted to standing position, did not complain of any pain, walked with her walker to couch, when they lifted her legs to couch EMS noticed deformity to her left ankle. No LOC. History of Present Illness HPI narrative: 84-year-old female with history of dementia, hypertension hyperlipidemia coronary artery disease prior CVA presents with fall and left ankle deformity. She was walking with her walker in the bathroom when she fell. She reports that she did not hit her head, denies any neck pain back pain chest pain abdominal pain or any pain besides her left ankle. She has an obvious deformity of the left ankle. She did walk on it at home prior to noticing that it was deformed. Patient is very hard of hearing. History obtained from EMS, patient, family. Related Data Home Medications Medication Instructions Recorded Confirmed buspirone 5 mg tablet 5 mg PO BID Depression 03/26/23 01/18/24 ferrous sulfate 325 mg (65 mg 325 mg PO DAILY iron 03/26/23 01/18/24 iron) tablet (FeroSul) cetirizine 10 mg tablet 10 mg PO DAILY allergies 07/04/23 01/18/24 clopidogrel 75 mg tablet 75 mg PO DAILY Blood Thinner 07/04/23 01/18/24 sertraline 100 mg tablet 100 mg PO HS mood 07/04/23 01/18/24 ascorbic acid (vitamin C) 500 mg 500 mg PO DAILY Supplement 11/06/23 01/18/24 tablet (Vitamin C) atorvastatin 80 mg tablet 80 mg PO DAILY Cholesterol 11/06/23 01/18/24 trazodone 50 mg tablet 50 mg PO HS sleep 11/06/23 01/18/24 levetiracetam 500 mg tablet 500 mg PO BID SEIZURES 11/07/23 01/18/24 lisinopril 20 mg tablet 20 mg PO BID Hypertension 11/07/23 01/18/24 Previous Rx's Medication Instructions Recorded dexamethasone 6 mg tablet 6 mg PO DAILY 5 days #5 tabs 11/08/23 Allergies Allergy/AdvReac Type Severity Reaction Status Date / Time No Known Allergies Allergy Verified 03/26/23 08:45 [facility] Disclaimer: The information contained in this section may have been updated after the patient was seen, as this information can be updated by other users. Medical History Ankle fracture Bilateral hearing loss Cellulitis of foot, left Colitis Community acquired pneumonia Cough Diarrhea Dizziness Dysphagia Elevated blood pressure reading Encephalopathy Encounter for pre-operative cardiovascular clearance Encounter for wound care FHx: total knee replacement Finger infection Finger pain GERD (gastroesophageal reflux disease) High grade dysplasia in colonic adenoma Hip fracture Hip pain History of CVA (cerebrovascular accident) History of CVA (cerebrovascular accident) Hypokalemia Hypoxemia Infestation by bed bug Influenza Left groin pain Neuropathy Occipital stroke Pneumonia due to COVID-19 virus Pre-op evaluation Recurrent cellulitis of lower leg Right ankle pain Thyroid nodule URI with cough and congestion Viral upper respiratory illness Surgical History History of carpal tunnel surgery History of hip surgery Social History Smoking Status: Never smoker second hand exposure: Yes alcohol intake: never substance use type: denies use current occupational status: other Travel in the last 8 weeks: None household members: family housing: house number of children: 6 current occupational exposures/hazards: No caffeine: Yes ROS Obtained: Yes All systems reviewed & no additional complaints except as documented Physical Exam General General appearance: alert and in no apparent distress Head Head exam: atraumatic and normocephalic Eye Eye exam: Present normal appearance, PERRL and EOMI ENT ENT exam: Present normal oropharynx and normal external ear exam Neck Neck exam: Present normal inspection and full ROM; Absent tenderness Chest Chest inspection: Present normal inspection and symmetric chest wall rise; Absent tenderness Respiratory Respiratory exam: Present normal lung sounds bilaterally; Absent respiratory distress Cardiovascular Cardiovascular exam: Present regular rate and normal rhythm Abdominal Exam Abdominal exam: Present soft; Absent distention, tenderness or guarding Extremities Exam Extremities exam: Present other (Mild tenderness of the left wrist. No obvious deformity. Obvious deformity of the left ankle, bimalleolar swelling, intact neurovascular status, closed injury) Back Exam Back exam: Present normal inspection; Absent tenderness Neurological Exam Neurological exam: Present alert and other (Partially oriented, at baseline mental status per son); Absent motor sensory deficit Psychiatric Psychiatric exam: Present normal affect and normal mood Skin Skin exam: Present warm, dry and normal color Lymphatic Lymphatic Findings: no adenopathy Medical Decision Making Medical Records Medical records reviewed: Yes I reviewed the patient's medical records. Bro Inquiry Pt receiving controlled substance: No Bro was queried for this patient: No Vital Signs: 01/18/24 01:19 01/18/24 01:33 01/18/24 02:05 Temperature 98.7 F Temperature Source Oral Pulse Rate 66 65 Pulse Rate [Left] 69 Respiratory Rate 20 Blood Pressure 103/66 L 142/76 H Blood Pressure [Right Arm] 175/73 H Blood Pressure Mean 73 82 Blood Pressure Mean [Right Arm] 107 Blood Pressure Source [Right Arm] Automatic Cuff Blood Pressure Position [Right Arm] Supine 02 Sat by Pulse Oximetry 95 94 L 94 L Oxygen Delivery Method 01/18/24 02:34 Temperature Temperature Source Pulse Rate 68 Pulse Rate [Left] Respiratory Rate Blood Pressure 160/103 H Blood Pressure [Right Arm] Blood Pressure Mean 122 Blood Pressure Mean [Right Arm] Blood Pressure Source [Right Arm] Blood Pressure Position [Right Arm] 02 Sat by Pulse Oximetry 94 L Oxygen Delivery Method Room Air Lab Data Lab results reviewed: Yes I reviewed the patient's lab results. Orders (Tests/Meds): ED MEDICATIONS Discontinued Medications Generic Name Dose Route Start Last Admin Trade Name Lauriq PRN Reason Stop Dose Admin Acetaminophen 1,000 mg 01/18/24 01:28 01/18/24 01:38 Acetaminophen 500mg Tab PO 01/18/24 01:29 1,000 mg ONCE ONE Administration Ketamine HCl 15 mg 01/18/24 02:21 01/18/24 02:37 Ketamine 500mg/10ml Vial IV 01/18/24 02:22 Not Given ONCE ONE Ketamine HCl 15 mg 01/18/24 02:36 01/18/24 02:37 Ketamine 50mg/1ml Syringe IV 01/18/24 02:37 15 mg ONCE ONE Administration Ketorolac Tromethamine 30 mg 01/18/24 01:28 01/18/24 01:38 Ketorolac 30mg/Ml Vial IV 01/18/24 01:29 30 mg ONCE ONE Administration Morphine Sulfate 4 mg 01/18/24 01:28 01/18/24 01:38 Morphine 4mg/Ml Syringe IV 01/18/24 01:29 4 mg ONCE ONE Administration ORDERS Category Date Time Status CT head/brain wo con Stat Cat Scan 01/18/24 01:34 Taken Ankle XR - Left minimum 3 Views [XR ankle LT min 3V] Exams 01/18/24 01:27 Taken Stat Ankle XR - Left minimum 3 Views [XR ankle LT min 3V] Exams 01/18/24 02:37 Taken Stat CXR --portable [XR chest portable] Stat Exams 01/18/24 01:27 Taken Fibula/tibia XR left 2 views [XR tibia fibula LT 2V] Exams 01/18/24 01:27 Completed Stat Forearm XR left 2 views [XR forearm LT 2V] Stat Exams 01/18/24 01:28 Taken Hand XR left minimum 3 views [XR hand LT min 3V] Stat Exams 01/18/24 01:28 Taken Pelvis XR 1-2 views [XR pelvis 1-2V] Stat Exams 01/18/24 01:27 Completed XR foot LT min 3V Stat Exams 01/18/24 01:27 Taken Medical Decision Narrative: 83-year-old female with history of dementia, hypertension hyperlipidemia, coronary artery disease, prior CVA presents with fall from standing with left ankle deformity. Patient denies head trauma, no evidence of head/neck trauma on exam. history was obtained interactive discussion with patient, EMS, son. On arrival, patient is afebrile, hemodynamically stable, alert and partially oriented, at baseline mental status per family, moving all extremities spontaneously. Full physical exam performed and significant for tenderness to the left wrist, deformity of the left ankle, mild tenderness to palpation, intact neurovascular status, otherwise atraumatic exam Differential includes but is not limited to intracranial trauma, intrathoracic trauma, intra-abdominal trauma, spine trauma, extremity trauma, fracture, dislocation, neurovascular/ligamentous injury. Patient was given p.o. Tylenol, IV Toradol, IV morphine for symptomatic management and correction of underlying abnormalities. Workup initiated including radiographs of the chest, pelvis, left lower extremity, left upper extremity, CT head. On re-evaluation, patient [remains afebrile, HD stable.] Imaging independently interpreted by me and significant for comminuted left bimalleolar fracture. No evidence of fracture of the imaged left upper extremity. No intracranial bleeding noted on CT head. See radiology read for full review of final results. The fracture was reduced and splinted by me at bedside, satisfactory reduction noted on my interpretation of postreduction x-ray. I discussed the case with Dr. Lopez. Patient will require surgery, but will have to wait least a week for the swelling to dissipate. Given patient's age, dementia, physical disability and acute left ankle fracture, patient is unsafe at home at this time as she does not have the resources at home to adequately care for her condition. Given this, I had an interactive discussion with the hospitalist on-call who admitted the patient for further management. Procedures Risk/Benefits of Procedure(s) Were Explained: Yes Orthopedic Fracture Reduction Fracture #1: Time Out Performed: Yes Side: left Fracture Reduction Location: tibia and fibula Technique: direct manipulation Post Reduction X-rays Demonstrate: acceptable reduction Post-reduction neuro exam: no change Post-reduction vascular exam: intact and no change Splint Applied: Yes Patient Tolerated Procedure: well and no complications Additional Comments: applied by me Orthopedic Splinting/Casting Injury #1: Side: left Lower Extremity Injury Location: lower leg and ankle Lower Extremity Immobilizer: posterior splint and stirrup splint Additional Comments: applied by me Post Cast/Splinting Neuro Status: intact and no change Post Cast/Splinting Vasc Status: intact and no change Critical Care Critical Care Time Critical Care Time: No
--- NOTE | 2024-01-18 03:02 | PC.NURSE ---
notified coreen aircraft engine mechanic supervisor of admission
--- NOTE | 2024-01-18 03:07 | P.HP_ITS ---
Attending attestation Patient was seen and evaluated at the bedside myself, agree with CARI note. History of Present Illness *Admission Date: 01/18/24 *Reason for visit:: Left ankle fracture *History of present illness: 83 year old female presented to [facility] ED via ems after falling while ambulating to the bathroom. PMHX of dementia, htn, hld, cad, cva, anxiety, and gerd. The ED workup revealed a left trimalleolar fracture. Please see Dr. Queen note. Dr. Burks reduced the ankle in the ED with satisfactory. Due to injury, dementia, and limited resources at home, the pt did not feel safe going home. Dr. carranza was consulted and will not be able to due surgery until a week due to swelling. The ED physician consulted the Hospitalist team for further medical management. I admitted the pt to the medical floor. She will have a PT consult placed for the morning. Upon admission, pt will not answer my questions. Her left ankle is splinted. [facility] Disclaimer: The information contained in this section may have been updated after the patient was seen, as this information can be updated by other users. Medical History (Updated 01/18/24 @ 03:57 by ANJANA Aguirre) Acute alteration in mental status Acute CVA (cerebrovascular accident) Ankle fracture Anxiety Asymptomatic hypertension Bilateral hearing loss CAD (coronary artery disease) Carotid artery stenosis Cellulitis of foot, left Colitis Community acquired pneumonia Cough COVID-19 Dementia Depression Diarrhea Dizziness Dysphagia Dyspnea E-coli UTI Edema Elevated blood pressure reading Encephalopathy Encephalopathy acute Encounter for pre-operative cardiovascular clearance Encounter for wound care Fever FHx: total knee replacement Finger infection Finger pain GERD (gastroesophageal reflux disease) High grade dysplasia in colonic adenoma Hip fracture Hip pain History of CVA (cerebrovascular accident) History of CVA (cerebrovascular accident) History of CVA (cerebrovascular accident) HLD (hyperlipidemia) HTN (hypertension) Hypokalemia Hypothermia Hypoxemia Infestation by bed bug Influenza Left groin pain Neuropathy Obesity (BMI 30-39.9) Occipital stroke Pneumonia due to COVID-19 virus Pre-op evaluation Recurrent cellulitis of lower leg Right ankle pain Thyroid nodule URI with cough and congestion UTI (urinary tract infection) Viral upper respiratory illness Surgical History History of carpal tunnel surgery History of hip surgery Social History Smoking Status: Never smoker second hand exposure: Yes alcohol intake: never substance use type: denies use current occupational status: other Travel in the last 8 weeks: None household members: family housing: house number of children: 6 current occupational exposures/hazards: No caffeine: Yes Review of Systems Review of Systems Review of systems:: unable to obtain Meds Home Medications and Allergies Home Medications Medication Instructions Recorded Confirmed Type buspirone 5 mg tablet 5 mg PO BID Depression 03/26/23 01/18/24 History ferrous sulfate 325 mg (65 mg 325 mg PO DAILY iron 03/26/23 01/18/24 History iron) tablet (FeroSul) cetirizine 10 mg tablet 10 mg PO DAILY allergies 07/04/23 01/18/24 History clopidogrel 75 mg tablet 75 mg PO DAILY Blood Thinner 07/04/23 01/18/24 History sertraline 100 mg tablet 100 mg PO HS mood 07/04/23 01/18/24 History ascorbic acid (vitamin C) 500 mg 500 mg PO DAILY Supplement 11/06/23 01/18/24 History tablet (Vitamin C) atorvastatin 80 mg tablet 80 mg PO DAILY Cholesterol 11/06/23 01/18/24 History trazodone 50 mg tablet 50 mg PO HS sleep 11/06/23 01/18/24 History levetiracetam 500 mg tablet 500 mg PO BID SEIZURES 11/07/23 01/18/24 History lisinopril 20 mg tablet 20 mg PO BID Hypertension 11/07/23 01/18/24 History dexamethasone 6 mg tablet 6 mg PO DAILY 5 days #5 tabs 11/08/23 01/18/24 Rx New Prescriptions to Start Prescriptions: Allergies Allergy/AdvReac Type Severity Reaction Status Date / Time No Known Allergies Allergy Verified 03/26/23 08:45 Exam Data for Last 24 hours Vital signs and Labs for Last 24 Hours: Temp Pulse Resp BP Pulse Ox O2 Del Method 98.7 F 68 20 160/103 H 94 L Room Air 01/18/24 01:19 01/18/24 02:34 01/18/24 01:19 01/18/24 02:34 01/18/24 02:34 01/18/24 02:34 I & O for Last 24 hours: Intake & Output 01/15/24 01/16/24 01/17/24 01/18/24 23:59 23:59 23:59 23:59 Weight 96.162 kg Constitutional Constitutional: no acute distress and obese *Routine HEENT Exam Head: Present normocephalic Eye: Present PERRL ENT: Present mucous membranes moist *Routine Neck Exam Neck: Present full ROM *Routine Respiratory Exam Respiratory: Present symmetric chest movement *Routine Cardiovascular Exam Cardiovascular: Present RRR *Routine Abdominal Exam Abdominal: Present soft and normoactive bowel sounds; Absent tenderness *Routine Rectal Exam Rectal:: deferred *Routine Genitalia Exam Genitalia:: deferred *Routine Extremities Exam Extremities: Absent full ROM (s/p left ankle reduction ) *Routine Skin Exam Skin: Present intact *Routine Neurological Exam Neurological: Present alert; Absent oriented X3 Assessment and Plan *Assessment and plan (1) Ankle fracture: Status: Acute Qualifiers: Encounter type: initial encounter Fracture type: closed Laterality: left Qualified Code(s): S82.892A - Other fracture of left lower leg, initial encounter for closed fracture Category: Medical Code(s): S82.899A - Other fracture of unspecified lower leg, initial encounter for closed fracture (2) CVA (cerebral vascular accident): Status: Acute Category: Medical Code(s): I63.9 - Cerebral infarction, unspecified (3) Dementia: Problem Comment: Memory loss slowly progressive for at least 5-10 years, worse post CVA 2015, details unknown. Work-up consistent with dementia, possibly mixed type, especially vascular. Status: Acute Qualifiers: Dementia behavioral or psychological symptom: with anxiety Dementia severity: unspecified severity Dementia type: unspecified type Qualified Code(s): F03.94 - Unspecified dementia, unspecified severity, with anxiety Category: Medical Code(s): F03.90 - Unspecified dementia, unspecified severity, without behavioral disturbance, psychotic disturbance, mood disturbance, and anxiety (4) Anxiety: Status: Acute Category: Medical Code(s): F41.9 - Anxiety disorder, unspecified (5) CAD (coronary artery disease): Status: Acute Qualifiers: Associated angina: without angina Coronary Disease-Associated Artery/Lesion type: [place] artery [place] vs. transplanted heart: [place] heart Qualified Code(s): I25.10 - Atherosclerotic heart disease of [place] coronary artery without angina pectoris Category: Medical Code(s): I25.10 - Atherosclerotic heart disease of [place] coronary artery without angina pectoris (6) GERD (gastroesophageal reflux disease): Status: Acute Qualifiers: Esophagitis presence: without esophagitis Qualified Code(s): K21.9 - Gastro-esophageal reflux disease without esophagitis Category: Medical Code(s): K21.9 - Gastro-esophageal reflux disease without esophagitis (7) HLD (hyperlipidemia): Status: Acute Qualifiers: Hyperlipidemia type: mixed hyperlipidemia Qualified Code(s): E78.2 - Mixed hyperlipidemia Category: Medical Code(s): E78.5 - Hyperlipidemia, unspecified (8) HTN (hypertension): Status: Acute Qualifiers: Hypertension type: primary hypertension Qualified Code(s): I10 - Essential (primary) hypertension Category: Medical Code(s): I10 - Essential (primary) hypertension Plan 83 year old female presented to [facility] ED via ems after falling while ambulating to the bathroom. PMHX of dementia, htn, hld, cad, cva, anxiety, and gerd. The ED workup revealed a left trimalleolar fracture from the ankle xray. Please see Dr. Queen note. Dr. Burks reduced the ankle in the ED with satisfactory. Due to injury, dementia, and limited resources at home, the pt did not feel safe going home. Dr. carranza was consulted and will not be able to due surgery until a week due to swelling. The ED physician consulted the Hospitalist team for further medical management. I admitted the pt to the medical floor. She will have a PT consult placed for the morning. Her blood work is unremarkable, her CT of the head is without hemorrhage, Xrays of left hand, forearm, and pelvis are without fracture. Upon admission, her son told nursing staff that pt has not received a bath since her last admission in October of 2023. I will also place a social wo rk consult. ANKLE FRACTURE -Ankle Xray reviewed and reveals left trimalleolar fracture -Reduced and splinted in ED by Dr. Mayes -Due to swelling, pt unable to have surgery for a week -Pt admitted to medical floor due to not being able to safely return home -PT consult, thank you for the help!! -Social service consult, thank you for the help!! CVA DEMENTIA ANXIETY CAD GERD HLD HTN -continue home medications vitamin c, lipitor, buspar, plavix, dexamethasone, iron, keppra, lisinopril, claritin, and sertraline FULL CODE REGULAR DIET DVT: SUB Q HEPARIN
[2024-01-18 03:20] LABS: Chloride 104 mmol/L (98-107); Sodium 138 mmol/L (136-145)
[2024-01-18 03:21] LABS: Basophils % 0.6 % (0.1-2.0); Eosinophils # 0.2 K/mm3 (0.0-0.4); Eosinophils % 2.5 % (0.1-12.0); Hemoglobin 12.6 g/dL (12.2-16.2); Lymphocytes # 1.8 K/mm3 (0.7-4.5); Lymphocytes % 27.6 % (10-50); Mean Corpuscular HGB Conc 32.3 g/dL (31.8-35.4); Mean Corpuscular Hemoglobin 30.1 pg (27.0-31.2); Mean Corpuscular Volume 93.2 fl (81-99); Mean Platelet Volume 7.9 fl (7.4-10.4); Monocytes # 0.3 K/mm3 (0.1-1.0); Monocytes % 5.1 % (1.7-9.3); Neutrophils # 4.2 K/mm3 (1.8-7.8); Neutrophils % 64.3 % (37.0-80.0); Platelet Count 207 K/mm3 (142-424); Potassium 4.1 mmoL/L (3.5-5.1); Red Blood Count 4.19 M/mm3 (4.20-5.40); Red Cell Distribution Width 14.4 % (11.5-17.5); White Blood Count 6.5 K/mm3 (4.8-10.8)
[2024-01-18 03:23] LABS: Blood Urea Nitrogen 20 mg/dl (7-17); Creatinine Clearance Estimated 66 mL/min (50-200); Estimated Glomerular Filt Rate 60 ml/min (>60); GFR (African American) 73 ML/MIN (>60)
[2024-01-18 03:24] LABS: Anion Gap 6.1 mEq/L (5-15); Calcium 9.2 mg/dl (8.4-10.2); Carbon Dioxide 32 mmol/L (22.0-30.0); Glucose 186 mg/dl (74-100)
--- NOTE | 2024-01-18 03:27 | PC.NURSE ---
Patient arrived to floor via stretcher from ED at 3:23.
[2024-01-18] MEDS: NYSTATIN TOPICAL POWDER 30GM 30 GM TP ×5 (04:25→21:56)
--- NOTE | 2024-01-18 05:34 | PC.NURSE ---
Pt is alert to self. Pt son provided admission information to the best of his ability, states pt daughter is POA. Excoriation noted under breast and abdominal skin folds. Stage 1 to buttock. Left ankle splint in place. Pt has had no complaints since arriving to floor and has rested well. Bed alarm on. Call light in reach.
[2024-01-18 06:43] LABS: Basophils % 0.4 % (0.1-2.0); Eosinophils # 0.1 K/mm3 (0.0-0.4); Eosinophils % 1.8 % (0.1-12.0); Hematocrit 34.6 % (37.0-47.0); Hemoglobin 11.5 g/dL (12.2-16.2); Lymphocytes # 1.6 K/mm3 (0.7-4.5); Lymphocytes % 20.3 % (10-50); Mean Corpuscular HGB Conc 33.3 g/dL (31.8-35.4); Mean Corpuscular Hemoglobin 30.7 pg (27.0-31.2); Mean Corpuscular Volume 92.3 fl (81-99); Mean Platelet Volume 8.1 fl (7.4-10.4); Monocytes # 0.3 K/mm3 (0.1-1.0); Monocytes % 4.4 % (1.7-9.3); Neutrophils # 5.6 K/mm3 (1.8-7.8); Neutrophils % 73.1 % (37.0-80.0); Platelet Count 188 K/mm3 (142-424); Red Blood Count 3.75 M/mm3 (4.20-5.40); Red Cell Distribution Width 14.3 % (11.5-17.5); White Blood Count 7.6 K/mm3 (4.8-10.8)
[2024-01-18 07:04] LABS: Anion Gap 6.3 mEq/L (5-15); Blood Urea Nitrogen 21 mg/dl (7-17); Calcium 8.8 mg/dl (8.4-10.2); Carbon Dioxide 31 mmol/L (22.0-30.0); Chloride 104 mmol/L (98-107); Creatinine Clearance Estimated 64 mL/min (50-200); Estimated Glomerular Filt Rate 60 ml/min (>60); GFR (African American) 73 ML/MIN (>60); Glucose 166 mg/dl (74-100); Potassium 4.3 mmoL/L (3.5-5.1); Sodium 137 mmol/L (136-145)
--- NOTE | 2024-01-18 07:43 | HMH.PHAINT1 ---
Pharmacy Intervention Comments: Verified home medications using external fill history and provider notes from previous hospital stay (11/08/23).
[2024-01-18] MEDS: ASCORBIC ACID 500MG TAB 500 MG PO (09:56)
[2024-01-18] MEDS: ATORVASTATIN 40MG TABLET 80 MG PO (09:56)
[2024-01-18] MEDS: BUSPIRONE HCL 5 MG TABLET PO ×2 (09:57→21:55)
[2024-01-18] MEDS: CLOPIDOGREL 75MG TAB 75 MG PO (09:57)
[2024-01-18] MEDS: LISINOPRIL 20MG TABLET 20 MG PO ×2 (09:58→21:55)
[2024-01-18] MEDS: levETIRAcetam 500 MG TABLET PO ×2 (09:58→21:56)
[2024-01-18] MEDS: FERROUS SULFATE 325MG TABLET 325 MG PO (09:58)
[2024-01-18] MEDS: LORATADINE 10MG TABLET 10 MG PO (09:59)
--- NOTE | 2024-01-18 10:17 | SW/DCPLANNER ---
Addendum entered by Lucita Love 01/19/24 10:42: [facility] stated that she can accept patient today I[facility] level of care. Addendum entered by Lucita Love 01/19/24 10:01: [facility] stated that she can accept this patient today pending son/daughter is available to complete paperwork. I am waiting to hear back from [facility]. Patient is medically stable for discharge today. Addendum entered by Rebeca Suggs RN 01/18/24 15:20: Patient's daughter Yuliya called and stated that she is ok with both [place] and [place]. She also stated that she works 3rd shift, and to please continue to call until she answers as she may be sleeping but is fine with being woken up. Original Note: Due to patient's AMS I attempted to call and speak w/ family regarding plans at time of discharge. PT evaluated patient and recommended placement. I spoke w/ patient's son regarding discharge plans. 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 Son is agreeable for information to be faxed to [facility] in [place] at this time. Son is NOT interested in placement at [facility] in [place]. I will fax information to [facility] and continue to follow up w/ patient's family. Discharge date is unknown at this time.
--- NOTE | 2024-01-18 10:48 | HMH.PTEV ---
Physical Therapy Evaluation Rehab PT IP Evaluation Start: 01/18/24 03:06 Freq: ONCE Status: Active Protocol: Document 01/18/24 09:15 AIDAN (Rec: 01/18/24 10:48 AIDAN [id number]) Subjective/History History History Per H&P: 83 year old female presented to [facility] ED via ems after falling while ambulating to the bathroom. PMHX of dementia , htn, hld, cad, cva, anxiety, and gerd. The ED workup revealed a left trimalleolar fracture. Please see Dr. Queen note. Dr. Burks reduced the ankle in the ED with satisfactory. Due to injury, dementia, and limited resources at home, the pt did not feel safe going home. Dr. carranza was consulted and will not be able to due surgery until a week due to swelling. The ED physician consulted the Hospitalist team for further medical management. I admitted the pt to the medical floor. She will have a PT consult placed for the morning. Upon admission, pt will not answer my questions. Her left ankle is splinted. Subjective Subjective Subjective hx limited d/t pt [place]. PLOF per pt report: Lives alone in single story apartment. IND with functional mobility without AD. New diagnosis of cancer in past 12 No months? Rehab PT IP Eval Objective Appearance Patient Behavior Appropriate,Cooperative Patient Orientation Person,Place Difficulty following instructions none Speech Pattern Clear Ambulation Patient Able to Ambulate No Balance Ability to Arise Able, w/o using arms Sitting Balance Steady, safe Standing Balance Unsteady Transfers Bed Transfer Ability Supervision/Stand by Sit to Stand Bed Transfer Ability Maximum x 2 (75% assist) Rehab PT IP prob,goals,plan Problems Date of Evaluation: 01/18/24 PT IP Problems Bed Mobility,Transfers,Gait, Balance,Safety Rehab Potential Rehab Potential Good Equipment Needs Assistive Devices Rolling / Wheeled Walker Plan PT Intervention Plan Bed Mobility,Transfers,Gait, Balance,Safety,Therapeutic Exercise Other Intervention Plan 1-2 times PT Plan Frequency Daily Duration LOS Discharge Goals Bed Transfer Ability Independent Sit to Stand Chair Transfer Ability Maximum x 1 (75% assist) Discharge Plan PT Discharge Plan Pt not safe to return home at this time d/t current level of functional mobility. Pt required Max A x 2 to attempt stand and was unable to achieve full STS d/t global weakness. PT recommending short-term rehabilitation stay upon d/c from [facility]. Pt would benefit from skilled PT while at [facility] to prevent further functional decline and maximize safety with mobility. Eval Complexity Eval Charge Codes 24340 - High Complexity PHYSICIAN CERTIFICATION: I certify the specified therapy services for Nicole Ledbetter are required, authorized, and reviewed every 30 days.
[2024-01-18] MEDS: SERTRALINE 100MG TABLET 100 MG PO (21:55)
[2024-01-18] MEDS: HEPARIN SODIUM 5,000 UNIT/ML VIAL 5000 UNIT SQ (21:57)
[2024-01-19] VITALS: BP 158/85; PULSE 84; RESP 16; TEMP 36.7; O2SAT 94
[2024-01-19] MEDS: TRAZODONE 50MG TABLET 50 MG PO (01:25)
[2024-01-19 03:58] VITALS: BMI 35.3
--- NOTE | 2024-01-19 05:46 | PC.NURSE ---
Pt is alert to self only. Pt refusing to stay in the bed, [employer]PORATE ACCOUNT DIRECTOR aware and spoke with patient. Pt has not rested throughout night. Incontinent and has used bedside commode, refuses to use purewick or bedpan. Splint to left ankle in place. Bed alarm on. Call light in reach.
[2024-01-19 08:00] VITALS: BP 161/67; PULSE 76; RESP 18; TEMP 37.3; O2SAT 96
[2024-01-19] MEDS: CLOPIDOGREL 75MG TAB 75 MG PO (10:13)
[2024-01-19] MEDS: BUSPIRONE HCL 5 MG TABLET PO (10:13)
[2024-01-19] MEDS: HYDROCODONE/APAP 5/325 MG TABLET 1 TAB PO (10:13)
[2024-01-19] MEDS: ATORVASTATIN 40MG TABLET 80 MG PO (10:13)
[2024-01-19] MEDS: HEPARIN SODIUM 5,000 UNIT/ML VIAL 5000 UNIT SQ (10:14)
[2024-01-19] MEDS: LISINOPRIL 20MG TABLET 20 MG PO (10:14)
[2024-01-19] MEDS: levETIRAcetam 500 MG TABLET PO (10:14)
[2024-01-19] MEDS: FERROUS SULFATE 325MG TABLET 325 MG PO (10:14)
[2024-01-19] MEDS: ASCORBIC ACID 500MG TAB 500 MG PO (10:14)
[2024-01-19] MEDS: LORATADINE 10MG TABLET 10 MG PO (10:14)
[2024-01-19] MEDS: NYSTATIN TOPICAL POWDER 30GM 30 GM TP (10:14)
--- NOTE | 2024-01-19 11:43 | P.DS_ITS ---
General Admission date:: 01/18/24 Discharge date: 01/19/24 HPI HPI HPI: 83 year old female presented to [facility] ED via ems after falling while ambulating to the bathroom. PMHX of dementia, htn, hld, cad, cva, anxiety, and gerd. The ED workup revealed a left trimalleolar fracture. Please see Dr. Queen note. Dr. Burks reduced the ankle in the ED with satisfactory. Due to injury, dementia, and limited resources at home, the pt did not feel safe going home. Dr. lopez was consulted and will not be able to due surgery until a week due to swelling. The ED physician consulted the Hospitalist team for further medical management. I admitted the pt to the medical floor. She will have a PT consult placed for the morning. Upon admission, pt will not answer my questions. Her left ankle is splinted. Hospital Course Hospital Course Hospital Course: 83 year old female presented to [facility] ED via ems after falling while ambulating to the bathroom. PMHX of dementia, htn, hld, cad, cva, anxiety, and gerd. The ED workup revealed a left trimalleolar fracture from the ankle xray. Please see Dr. Queen note. Dr. Burks reduced the ankle in the ED with satisfactory. Due to injury, dementia, and limited resources at home, the pt did not feel safe going home. Dr. lopez was consulted and will not be able to due surgery until a week due to swelling. The ED physician consulted the Hospitalist team for further medical management. I admitted the pt to the medical floor. She will have a PT consult placed for the morning. Her blood work is unremarkable, her CT of the head is without hemorrhage, Xrays of left hand, forearm, and pelvis are without fracture. Upon admission, her son told nursing staff that pt has not received a bath since her last admission in October of 2023. Social work was consulted. Patient stable during admission. Orthopedics evaluated, recommend surgery in a week due to swelling. Stable for discharge to rehab. Problems addressed as follows: ANKLE FRACTURE -Ankle x-rays reviewed. Left trimalleolar fracture noted. Reduced and splinted in the ER by Dr. Mayes. Due to swelling, unable to have surgery at this time. Scheduled for follow-up with orthopedics to address wound in the next week. Admitted to medicine for management. Has remained stable. Evaluated by therapy, patient needs placement for continued skilled care. Social work assisted with placement, graciously excepted by [facility] for further management. Stable to discharge at this time. On room air, tolerating p.o. intake. Pain minimal, responds to Tylenol. CVA DEMENTIA ANXIETY -Continue trazodone 50 mg nightly for sleep, Zoloft 100 mg nightly for mood, BuSpar 5 mg twice daily for depression. Pleasant and cooperative during admission. Oriented to self and situation CAD HLD HTN -Blood pressure within appropriate range during admission. Continue Lipitor 80 mg daily, Plavix 75 mg daily, lisinopril 20 mg twice daily. Seizure disorder: Continue per 500 mg twice daily Total time spent on discharge 36 minutes in counseling, documentation, chart review, and direct care with patient. Exam Data for Last 24 hours Vital signs and Labs for Last 24 Hours: Temp Pulse Resp BP Pulse Ox O2 Del Method 99.2 F 76 18 161/67 H 96 Room Air 01/19/24 08:00 01/19/24 08:00 01/19/24 08:00 01/19/24 08:00 01/19/24 08:00 01/19/24 08:00 I & O for Last 24 hours: Intake & Output 01/16/24 01/17/24 01/18/24 01/19/24 23:59 23:59 23:59 23:59 Intake Total 0 / 0 120 / 120 Output Total 150 / 150 250 / 250 Balance -150 / -150 -130 / -130 Weight 93.894 kg 93.894 kg Constitutional Constitutional: no acute distress, obese, chronically ill appearing and cooperative Comments: appears weak and frail *Routine HEENT Exam Head: Present normocephalic Eye: Present EOMI and PERRL ENT: Present mucous membranes moist Comments: Hirsutism *Routine Neck Exam Neck: Present supple; Absent lymphadenopathy *Routine Respiratory Exam Respiratory: Present CTA bilaterally; Absent respiratory distress, stridor or wheezes *Routine Cardiovascular Exam Cardiovascular: Present RRR *Routine Abdominal Exam Abdominal: Present soft and normoactive bowel sounds *Routine Rectal Exam Patient deferred: visual exam *Routine Exam Patient deferred: external exam *Routine Extremities Exam Extremities: Absent cyanosis, clubbing or edema Comments: Left ankle in splint. Neurovascularly intact in feet. *Routine Skin Exam Skin: Present warm; Absent rash *Routine Neurological Exam Neurological: Present alert and moving all extremities; Absent altered mental status Comments: AoX1 Routine Psychiatric Exam Psychiatric: Present normal affect DS: Diagnosis Discharge Diagnosis (1) Ankle fracture: Status: Acute Code(s): S82.899A - Other fracture of unspecified lower leg, initial encounter for closed fracture Qualifiers: Encounter type: initial encounter Fracture type: closed Laterality: left Qualified Code(s): S82.892A - Other fracture of left lower leg, initial encounter for closed fracture (2) CVA (cerebral vascular accident): Status: Acute Code(s): I63.9 - Cerebral infarction, unspecified (3) Dementia: Status: Acute Code(s): F03.90 - Unspecified dementia, unspecified severity, without behavioral disturbance, psychotic disturbance, mood disturbance, and anxiety Qualifiers: Dementia type: unspecified type Dementia severity: unspecified severity Dementia behavioral or psychological symptom: with anxiety Qualified Code(s): F03.94 - Unspecified dementia, unspecified severity, with anxiety Problem details: Memory loss slowly progressive for at least 5-10 years, worse post CVA 2016, details unknown. Work-up consistent with dementia, possibly mixed type, especially vascular. (4) Anxiety: Status: Acute Code(s): F41.9 - Anxiety disorder, unspecified (5) CAD (coronary artery disease): Status: Acute Code(s): I25.10 - Atherosclerotic heart disease of [place] coronary artery without angina pectoris Qualifiers: Coronary Disease-Associated Artery/Lesion type: [place] artery [place] vs. transplanted heart: [place] heart Associated angina: without angina Qualified Code(s): I25.10 - Atherosclerotic heart disease of [place] coronary artery without angina pectoris (6) GERD (gastroesophageal reflux disease): Status: Acute Code(s): K21.9 - Gastro-esophageal reflux disease without esophagitis Qualifiers: Esophagitis presence: without esophagitis Qualified Code(s): K21.9 - Gastro-esophageal reflux disease without esophagitis (7) HLD (hyperlipidemia): Status: Acute Code(s): E78.5 - Hyperlipidemia, unspecified Qualifiers: Hyperlipidemia type: mixed hyperlipidemia Qualified Code(s): E78.2 - Mixed hyperlipidemia (8) HTN (hypertension): Status: Acute Code(s): I10 - Essential (primary) hypertension Qualifiers: Hypertension type: primary hypertension Qualified Code(s): I10 - Essential (primary) hypertension Meds Home Medications and Allergies Home Medications Medication Instructions Recorded Confirmed Type buspirone 5 mg tablet 5 mg PO BID Depression 03/26/23 01/18/24 History ferrous sulfate 325 mg (65 mg 325 mg PO DAILY iron 03/26/23 01/18/24 History iron) tablet (FeroSul) cetirizine 10 mg tablet 10 mg PO DAILY allergies 07/04/23 01/18/24 History clopidogrel 75 mg tablet 75 mg PO DAILY Blood Thinner 07/04/23 01/18/24 History sertraline 100 mg tablet 100 mg PO HS mood 07/04/23 01/18/24 History ascorbic acid (vitamin C) 500 mg 500 mg PO DAILY Supplement 11/06/23 01/18/24 History tablet (Vitamin C) atorvastatin 80 mg tablet 80 mg PO DAILY Cholesterol 11/06/23 01/18/24 History trazodone 50 mg tablet 50 mg PO HS sleep 11/06/23 01/18/24 History levetiracetam 500 mg tablet 500 mg PO BID SEIZURES 11/07/23 01/18/24 History lisinopril 20 mg tablet 20 mg PO BID Hypertension 11/07/23 01/18/24 History calcium polycarbophil 625 mg 625 mg PO BID 01/18/24 01/18/24 History tablet (Fiber-Tabs) acetaminophen 325 mg tablet 650 mg PO Q6HP PRN Fever Or Mild 01/19/24 Rx Pain (1-3) 30 days #0 tabs nystatin 100,000 unit/gram topical 1 applic topical QID 10 days 01/19/24 Rx powder New Prescriptions to Start Prescriptions: Allergies Allergy/AdvReac Type Severity Reaction Status Date / Time No Known Allergies Allergy Verified 03/26/23 08:45 Discharge Plan Disposition Patient Disposition: [facility] Condition: Fair Discharge Order Discharge Orders: Discharge Order (Routine); Ordered 01/19/24 Ordered By: Derick Akhtar Follow up Plan Follow up with: Jaciel Lopez DO [Staff Physician] - Enter time for follow up Andressa Salinas APRN [Primary Care Provider] - See instructions Prescriptions/Medication Reconciliation: New acetaminophen 325 mg Tablet 650 mg PO Q6HP PRN (Reason: Fever Or Mild Pain (1-3)) 30 Days Qty: 0 0RF nystatin 100,000 unit/gram Powder 1 applic topical QID 10 Days 0RF Continued buspirone 5 mg tablet 5 mg PO BID ferrous sulfate [FeroSul] 325 mg (65 mg iron) tablet 325 mg PO DAILY Patient Comments: TAKE ONE TABLET BY MOUTH EVERY DAY cetirizine 10 mg tablet 10 mg PO DAILY sertraline 100 mg tablet 100 mg PO HS clopidogrel 75 mg tablet 75 mg PO DAILY atorvastatin 80 mg tablet 80 mg PO DAILY Patient Comments: TAKE ONE TABLET BY MOUTH EVERY DAY trazodone 50 mg tablet 50 mg PO HS Patient Comments: TAKE ONE TABLET BY MOUTH EVERY DAY AT BEDTIME ascorbic acid (vitamin C) [Vitamin C] 500 mg tablet 500 mg PO DAILY levetiracetam 500 mg tablet 500 mg PO BID Patient Comments: TAKE ONE TABLET BY MOUTH TWICE DAILY lisinopril 20 mg tablet 20 mg PO BID Patient Comments: TAKE ONE TABLET BY MOUTH TWICE DAILY calcium polycarbophil [Fiber-Tabs] 625 mg tablet 625 mg PO BID Patient Comments: TAKE ONE TABLET BY MOUTH TWICE DAILY Problem Reconciliation Problems Reviewed?: Yes Patient Discharge Instructions ACTIVITY: Up with assistance DIET: continue same diet Patient Instructions: DI for Ankle Fracture Providers Primary Care Provider: Andressa Salinas Admit Provider: Vladimir Keenan Attending Provider: Vladimir Keenan
--- NOTE | 2024-01-19 15:20 | DIET.NUTRFU ---
Patient sleeping upon visit, spoke to nursing aid and patient did refuse lunch, ate oatmeal and banana for breakfast. Plans to discharge today to [facility]
== END 2024-01-19 15:30 ==
LOC: ER 01:22 → 2ND 03:13
PROVIDERS: Nurse Practitioner Critical Care Medicine; Admitting Provider Internal Medicine; Emergency Provider Emergency Medicine; PCP Nurse Practitioner Family; Visit Provider Internal Medicine
DX: S82.852A Displaced trimalleolar fracture of left lower leg, initial encounter for closed fracture (principal); F03.94 Unspecified dementia, unspecified severity, with anxiety; F41.9 Anxiety disorder, unspecified; I25.10 Atherosclerotic heart disease of native coronary artery without angina pectoris; K21.9 Gastro-esophageal reflux disease without esophagitis; E78.2 Mixed hyperlipidemia; I10 Essential (primary) hypertension; F03.90 Unspecified dementia, unspecified severity, without behavioral disturbance, psychotic disturbance, mood disturbance, and anxiety; F41.8 Other specified anxiety disorders; Z86.73 Personal history of transient ischemic attack (TIA), and cerebral infarction without residual deficits; W19.XXXA Unspecified fall, initial encounter
CPT/HCPCS: 27818; 36415; 70450; 71045; 72170; 73090; 73130; 73590; 73610; 73630; 80048; 85025; 97110; 97163; 99285; G0378

== ENCOUNTER 2024-02-02 09:49 | Outpatient (CLI) | payer MEDICARE, SELFPAY ==
--- NOTE | 2024-02-02 09:54 | XR_ITS ---
FINAL REPORT CLINICAL HISTORY: lt ankle fx COMPARISON: 01/18/2024 FINDINGS: LEFT ANKLE: Three views of the left ankle were obtained. There has been marked interval worsening of the lateral subluxation of the talus at the tibiotalar joint, now measuring approximately 12 mm. There is also lateral displacement of the medial and lateral malleolus fragments, also significantly worse. There is mild and moderate degenerative change. Calcaneal spurs are noted. There is no soft tissue abnormality. IMPRESSION: Interval worsening lateral subluxation of the talus. Worsening displacement of the medial and lateral malleolus fragments. Reviewed, Interpreted and Dictated by Brian Queen III, MD Transcribed by Ashlee Owens Authenticated and [facility]
== END 2024-02-02 23:59 ==
PROVIDERS: PCP Internal Medicine Adolescent Medicine; Visit Provider Orthopaedic Surgery
DX: S82.852A Displaced trimalleolar fracture of left lower leg, initial encounter for closed fracture (principal)
CPT/HCPCS: 73610

== ENCOUNTER 2024-02-10 10:02 | Day surgery (SDC) | payer MEDICARE, MEDICAID, SELFPAY ==
[2024-02-08 13:25] VITALS: BMI 34.3
[2024-02-10] VITALS (8 sets, daily range): BP systolic 111–172; BP diastolic 38–77; PULSE 65–100; RESP 15–18; TEMP 36.3–36.6; O2SAT 92–99
--- NOTE | 2024-02-10 | XR_ITS ---
FINAL REPORT CLINICAL HISTORY: C-ARM ORIF LEFT ANKLE Dose 4.78mGy Time 1:30 FINDINGS: FLUOROSCOPY LESS THAN 1 HOUR HISTORY: Fluoroscopy guidance. Fluoroscopic guidance was provided for ORIF left ankle. 3 spot films were obtained. A total of 1:30 minutes of fluoroscopy time were used. Total DAP: 4.78 mGy IMPRESSION: As above. Reviewed, Interpreted and Dictated by Gal Treadwell MD Transcribed by Ashlee Owens Authenticated and [facility]
[2024-02-10] MEDS: LACTATED RINGERS 1000ML 1,000 ML 25 ML IV (10:20)
[2024-02-10 10:41] LABS: POC Glucose,Bedside 159 (70-110)
[2024-02-10] MEDS: CEFAZOLIN SODIUM 2 GM in 0.9 % SODIUM CHLORIDE 100 ML IV (13:50)
--- NOTE | 2024-02-10 14:19 | EXP.ANES.CKL ---
[facility] Disclaimer: The information contained in this section may have been updated after the patient was seen, as this information can be updated by other users. Medical History E-coli UTI UTI (urinary tract infection) Fever Acute alteration in mental status COVID-19 Asymptomatic hypertension Acute CVA (cerebrovascular accident) FHx: total knee replacement Encephalopathy acute Hypothermia Occipital stroke Encounter for wound care Hypoxemia reportedly post COVID 19 infection, oxygen supplementation through [facility], dtr denies prior sleep study testing History of CVA (cerebrovascular accident) Prior to 2018, CVA deficits per dtr were worsening memory and speech disturbances, denies weakness; further details unknown including but not limited to type of stroke, hospital, neuro follow up Bilateral hearing loss Chronic for 15+ years, dtr declines referral to ENT or audiometrics as patient refuses to consider hearing aides Encephalopathy Encephalopathy consistent with dementia slowly progressive over the last 5-10 years, worse s/p CVA prior to 2018, details unknown. MMSE today 20/30. Dementia Memory loss slowly progressive for at least 5-10 years, worse post CVA 2016, details unknown. Work-up consistent with dementia, possibly mixed type, especially vascular. Recurrent cellulitis of lower leg Cellulitis of foot, left Infestation by bed bug Dizziness Pneumonia due to COVID-19 virus Community acquired pneumonia Elevated blood pressure reading High grade dysplasia in colonic adenoma CAD (coronary artery disease) Obesity (BMI 30-39.9) Hip fracture Left groin pain Ankle fracture Right ankle pain Hip pain Diarrhea Neuropathy Cough Pre-op evaluation URI with cough and congestion Viral upper respiratory illness Finger infection Finger pain Dysphagia Thyroid nodule Colitis Hypokalemia Encounter for pre-operative cardiovascular clearance Edema Dyspnea History of CVA (cerebrovascular accident) Depression Anxiety Carotid artery stenosis HLD (hyperlipidemia) HTN (hypertension) GERD (gastroesophageal reflux disease) History of CVA (cerebrovascular accident) Influenza Surgical History History of carpal tunnel surgery History of hip surgery Family History Other No significant family history Social History Smoking Status: Never smoker second hand exposure: Yes alcohol intake: never substance use type: denies use current occupational status: other Travel in the last 8 weeks: None household members: family housing: house number of children: 6 current occupational exposures/hazards: No caffeine: Yes [facility] Anesthesia Checklist Patient Identification Patient Identification: Arm Band Structural Data Admitted From: Home Planned Operative Procedure/s: ORIF Left Ankle Consent for Planned Operative Procedure(s) Verified: Yes Verified Documents: Surgical Consent and History and Physical NPO Status Verified Time NPO: 00:00 Additional verifications Anesthesia Reactions: No Hx Blood Transfusions: No Blood Transfusion Reaction: No Airway Assessment Mallampati Score:: Class II C-Spine Mobility Assessed: Yes TMJ Mobility Assessed: Yes Dentition: Edentulous Neurological Assessment Level of Consciousness: Awake and Disoriented Anesthesia Plan Anesthesia Risk discussed: Yes Anesthesia Plan: Verified ASA Class: III Anesthesia Type: General w/block (Left Popliteal/Adductor Canal Nerve Block. Risks/benefits explained to family member who verbalized understanding) Preoperative Comments Pre-Operative Comments: History obtained from pt's family member d/t dementia
--- NOTE | 2024-02-10 15:43 | EXP.OP.NOTE ---
Date of procedure: 02/10/24 Pre-op Diagnosis:: Left ankle bimalleolar ankle fracture, malunion Post-op Diagnosis:: Same Procedure performed:: Left ankle open repair bimalleolar nonunion Surgeon:: Jaciel Lopez DO Occupational Therapist Per Diem(s):: Anjel SMITH SPECIAL INSPECTOR:: Roney Hernandez Anesthesia: GETA and regional Estimated blood loss (mL): 25 Clinical Note:: 83-year-old female who suffered a bimalleolar ankle fracture which was reduced. Postreduction x-rays were adequate however she suffers from dementia and the reduction was lost she was initially placed in a cast upon follow-up to the clinic there was residual lateral subluxation of the talus and loss of reduction of the ankle which required operative intervention. d Operative findings:: Malunion left bimalleolar ankle fracture Operative note:: Patient is identified preoperatively. Left ankle marked with yes my initials. Transported operative suite after undergoing a block placed on operating bed general anesthesia ministered airway secured. Left lower extremities and prepped and draped normal sterile fashion. Once prepped and draped final operative timeout performed to identify proper patient procedure and extremity. Everyone involved the case agreed. There were no counter indications to beginning. She did receive preoperative antibiotics. There was severe deformity that was fixed on the lateral ankle upon removing the cast. It was not passively reducible. Marking pen was used to cristian plan incision over the lateral malleolus and marked the fracture site of the fibula. Esmarch was used to exsanguinate the extremity pneumatic tourniquet inflated to 300 mmHg. Skin knife was used incise through skin careful dissection was taken down to identify the fracture site there was callus formation and beginning at the fracture site it was severely shortened and angulated laterally. Great care was taken to mobilize the fracture site at the fracture and mobilized the distal fragment which was healing in a malunited position. Osteotome freer elevator was used to mobilize this area and then reduction was performed to reduce the talus back under the tibia. Plate was then selected from the [employer] distal fibular plates. The locking screws were placed distally and cortical screws placed proximally was able to largely reduce the talus back under the tibia there was very mild residual lateral subluxation. This was not able to be corrected even with mobilization at the fracture site. Medial malleolus fracture was also present Attention was brought to the medial joint line where the guidewires for the cannulated 4 oh cannulated set were utilized in place across the fracture site and 240 cannulated screws were placed in the medial malleolus fragment. This gave significant improvement of the alignment of the ankle with the talus back under the tibia. Irrigation of the wound was performed deep layers closed with Vicryl subcutaneous with Vicryl stapler and the skin for closure. Patient then placed in a well-padded splint taken recovery in stable condition Condition: stable Disposition: PACU Complications:: None apparent
--- NOTE | 2024-02-10 16:06 | EXP.ANES.I ---
[facility] Anesthesia Record Part I Anesthesia Record I Intake, IV Amount: 1,300 Hydration: Adequate Estimated blood loss (mL): 10 Urine output (mL): 0 Blood Products used (#): none Blood Pressure: 157/77 SaO2: 99 Pulse Rate: 100 Airway Patency: Patent Respiratory Rate: 16 Temperature: 97.5 F Patient is:: Drowsy and Stable Stable to PACU at:: 16:00
[2024-02-10 16:45] LABS: POC Glucose,Bedside 183 (70-110)
--- NOTE | 2024-02-11 08:17 | P.PNANES_ITS ---
[facility] Anesthesia Record Part II Anesthesia Record Part II Discharge Time: 16:50 Destination: [facility] PACU nurse assessment reviewed?: Yes Patient Condition:: Good Anesthesia Complications:: None Swallowing reflex intact?: Yes Airway Patency: Patent Cyanosis?: No Blood Pressure: 115/57 SaO2: 92 Respiratory Rate: 12 Pulse Rate: 89 Temperature: 97.8 F Mental Status: Alert & Oriented Pain level:: 0 Nausea and/or vomitting:: None Intake, IV Amount: 1,500 Hydration: Adequate
[2024-02-11 08:18] VITALS: BP 115/57; PULSE 89; RESP 12; TEMP 36.6; O2SAT 92
== END 2024-02-10 17:00 | disposition home or self-care (01) ==
PROVIDERS: PCP Internal Medicine Adolescent Medicine; Visit Provider Orthopaedic Surgery
PROC: (CPT 27814; principal; 2024-02-10 12:00)
DX: Z86.16 Personal history of COVID-19; S82.842P Displaced bimalleolar fracture of left lower leg, subsequent encounter for closed fracture with malunion; W01.0XXD Fall on same level from slipping, tripping and stumbling without subsequent striking against object, subsequent encounter; I25.10 Atherosclerotic heart disease of native coronary artery without angina pectoris; Z79.899 Other long term (current) drug therapy; I10 Essential (primary) hypertension; E78.5 Hyperlipidemia, unspecified
CPT/HCPCS: 27814; 73600; 76000; 82962; 96374; C1713; C1776; J0690; J2405

== ENCOUNTER 2024-02-25 09:25 | Outpatient (CLI) | payer MEDICARE, MEDICAID, SELFPAY ==
--- NOTE | 2024-02-25 09:31 | XR_ITS ---
FINAL REPORT CLINICAL HISTORY: ORIF COMPARISON: 02/02/2024 FINDINGS: LEFT ANKLE: Three views of the left ankle were obtained. Since the prior film of February 01 the patient has undergone interval postoperative change with ORIF of the distal fibular and medial malleolar fractures. There is persistent 4 mm lateral subluxation of the talus, significantly improved since the preoperative exam. There are chronic calcifications inferior to the medial malleolus. Calcaneal spurs are present. IMPRESSION: Interval postoperative change with ORIF of the distal fibular and medial malleolar fractures. There is persistent 4 mm lateral subluxation of the talus, however this is significantly improved when compared with the preoperative films. Reviewed, Interpreted and Dictated by Brian Queen III, MD Transcribed by Latonia Mccray Authenticated and [facility]
== END 2024-02-25 23:59 ==
LOC: RAD 09:27
PROVIDERS: PCP Internal Medicine; Visit Provider Orthopaedic Surgery
DX: M25.572 Pain in left ankle and joints of left foot; S82.852A Displaced trimalleolar fracture of left lower leg, initial encounter for closed fracture
CPT/HCPCS: 73610

== ENCOUNTER 2024-03-17 10:11 | Outpatient (CLI) | payer MEDICARE, MEDICAID, SELFPAY ==
--- NOTE | 2024-03-17 10:48 | XR_ITS ---
FINAL REPORT CLINICAL HISTORY: left ankle orif COMPARISON: None FINDINGS: 3 views reveal postoperative changes in the medial malleolus, with no bony union evident between the fracture fragments. There is also post ORIF of the distal fibula, that does reveal bony union. Three views show no evidence of acute displaced fracture or dislocation of the visualized bony architecture. Mild degenerative changes present in the ankle mortise. IMPRESSION: Postoperative change medial malleolus with no bony union evident between the fracture fragments. Post ORIF distal fibula, where bony union has been attained. Mild degenerative change of the ankle mortise. Reviewed, Interpreted and Dictated by Marcelo Thorpe MD Transcribed by Latonia Mccray Authenticated and [facility]
== END 2024-03-17 23:59 | disposition home or self-care (01) ==
LOC: RAD 10:13
PROVIDERS: Visit Provider Orthopaedic Surgery
DX: M25.572 Pain in left ankle and joints of left foot (principal); S82.892B Other fracture of left lower leg, initial encounter for open fracture type I or II
CPT/HCPCS: 73610

== ENCOUNTER 2024-05-24 14:57 | Outpatient (CLI) | payer MEDICARE, MEDICAID, SELFPAY ==
--- NOTE | 2024-05-24 15:05 | XR_ITS ---
FINAL REPORT CLINICAL HISTORY: left ankle orif COMPARISON: 03/17/2024 FINDINGS: Left ankle Three views were obtained. There are postoperative changes in the medial and lateral malleoli with screw plate and multiple screws. The bony alignment is normal. There are mild degenerative changes. Note is made of calcaneal spurring. IMPRESSION: Postsurgical changes as above. Reviewed, Interpreted and Dictated by Brian Queen III, MD Transcribed by Homa Marshall Authenticated and [facility]
== END 2024-05-24 23:59 | disposition home or self-care (01) ==
PROVIDERS: PCP Orthopaedic Surgery; Visit Provider Orthopaedic Surgery
DX: S82.842A Displaced bimalleolar fracture of left lower leg, initial encounter for closed fracture (principal); M25.572 Pain in left ankle and joints of left foot
CPT/HCPCS: 73610

== ENCOUNTER 2024-08-22 09:17 | Outpatient (CLI) | payer MEDICARE, MEDICAID, SELFPAY ==
--- NOTE | 2024-08-22 09:24 | XR_ITS ---
FINAL REPORT CLINICAL HISTORY: right ankle screw loose COMPARISON: 02/14/2023 FINDINGS: RIGHT ANKLE: Three views of the right ankle were obtained. There are postop changes of an ORIF of the distal tibia and the distal fibula. An upper screw placed on the fibular side is broken, however stable in appearance since a prior exam of February 14, 2023. There is lucency surrounding the inferior screw in the lateral malleolus, that is of uncertain significance, however a loose screw is not excluded. There is no acute fracture or dislocation. The joint spaces and mortise are intact. There is soft tissue swelling present overlying the lateral malleolus. Moderate diffuse degenerative changes present. IMPRESSION: Lucency surrounds the inferior screw present in the lateral malleolus, loosening not excluded. There is soft tissue swelling overlying the lateral malleolus as well. An upper screw in the distal fibula is broken, but stable when compared to prior foot films of February 2023. Reviewed, Interpreted and Dictated by Brian Queen III, MD Transcribed by Latonia Mccray Authenticated and [facility]
== END 2024-08-22 23:59 | disposition home or self-care (01) ==
LOC: RAD 09:19
PROVIDERS: PCP Internal Medicine Adolescent Medicine; Visit Provider Physician Assistant
DX: M25.571 Pain in right ankle and joints of right foot (principal); S82.842A Displaced bimalleolar fracture of left lower leg, initial encounter for closed fracture
CPT/HCPCS: 73610

== ENCOUNTER 2024-09-23 11:31 | Outpatient (CLI) | payer MEDICARE, MEDICAID, SELFPAY ==
--- OUTSIDE RECORDS SUMMARY | 2024-09-23 11:36 | XMS_ITS | Continuity of Care Document ---
Author Organization [address] [place] [address] Address [address] [facility] [address] [place] [address] Phone Care Team Providers Care Development Mechanic Name Role Phone Jasen Blanco DPM Unavailable Unavailable Allergies, Adverse Reactions, Alerts Substance Reaction Status Criticality No Known Allergies Active No Inform ation Medications Medication Instructions Dosage Effective Dates (start - stop) Status Comments sertraline 100 mg tablet - A ctive buspirone 10 mg tablet - Act shady clopidogrel 75 mg tablet - A ctive ferrous sulfate 325 mg (65 mg iron) tablet,delayed release - Active levetiracetam 500 mg tablet - Active trazodone 50 mg tablet - Act shady ascorbic acid (vitamin C) 500 mg tablet - Active cetirizine 10 mg tablet - Ac tive atorvastatin 80 mg tablet - Active Fiber-Lax 625 mg tablet - Ac tive buspirone 5 mg tablet - Acti ve lisinopril 20 mg tablet - Ac tive Calcium Antacid 200 mg (as calcium carbonate 500 mg) chewable tablet - Active cholecalciferol (vitamin D3) 50 mcg (2,000 unit) tablet - Active acetaminophen 325 mg tablet - Active Klayesta 100,000 unit/gram topical powder - Active hydrocodone 5 mg-acetaminophen 325 mg tablet TAKE ONE TABLET BY MOUTH EVERY 4 HOURS NEEDED FOR PAIN - Active nystatin 100,000 unit/gram topical powder - Active Vitamin C 500 mg tablet TAKE ONE TABLET BY MOUTH EVERY DAY - Active Fiber-Tabs 625 mg tablet TAKE ONE TABLET BY MOUTH TWICE DAILY - Active fluconazole 100 mg tablet - Active doxycycline hyclate 100 mg capsule - Active metronidazole 250 mg tablet TAKE ONE TABLET BY MOUTH THREE TIMES DAILY FOR 7 DAYS -- FINISH ALL MEDICINE -- --AVOID ANY PRODUCT(S) CONTAINING ALCOHOL WHILE TAKING THIS MEDICATION-- - Active FeroSul 325 mg (65 mg iron) tablet TAKE ONE TABLET BY MOUTH EVERY DAY - Active dexamethasone 6 mg tablet TAKE 1 TABLET BY MOUTH ONCE DAILY FOR 5 DAYS - Active benzonatate 200 mg capsule TAKE ONE CAPSULE BY MOUTH THREE TIMES DAILY NEEDED FOR cough - Active cefdinir 300 mg capsule TAKE ONE CAPSULE BY MOUTH EVERY TWELVE HOURS FOR 7 DAYS -- FINISH ALL MEDICINE -- - Active lisinopril 10 mg tablet TAKE ONE TABLET BY MOUTH EVERY DAY - Active Problems Condition Type Effective Dates (start - stop) Clini lona Status Comments No Known Problems Procedures Procedure Date COMPRE OPH EXAM NEW PT 1/> DEBRIDE NAIL 1-5 Trim nail(s) 1ST NF CARE SF/LOW MDM 25 Compsve Oral Eval- New/Est Pat REMOVE IMPACTED EAR WAX Advance Directives Directive Yes / No Effective Date File Name Resuscitation Do Not Attempt Resuscitation/DNR N/A N/A Other Directive No N/A N/A WARNING:The information contained in this section is historical and is provided for information only and does not constitute a legal document or any assurance that the information is still accurate. Please verify the information with the rose of the legal document before using it for clinical purposes. Encounters Encounter Description Practice Location Reason(s) For Visit Diagnoses Date Provider Providers Copied on Encounter [address] [place] [address], [address] [facility] [address], [place], [place], [id number], [place] tel:[phone] [facility] No Information 4 Francis Aggarwal. [address] [facility], [address], [place], [address], [place]. [address] [place] [address], [address] [place] [address], [place], [place], [id number], [place] tel:[phone] [facility] Cataract (chief complaint) Combined forms of age-related cataract, bilateral 4 David Pickering. , [place]. Referring Provider: Debbi Kaba. [facility] C[facility] SF/LOW MDM [address] [place] [address], [address] [place] [address], [place], [place], [id number], [place] tel:[phone] [facility] Tinea unguiumNail dystrophyOthe r specified peripheral vascular diseasesAbras ion, left lesser toe(s), initial encounter 4 Francis Aggarwal. [address] [facility], [address], [place], [address], [place]. Referring Provider: Debbi Kaba. [address] [place] [address], [address] [place] [address], [place], [place], [id number], [place] tel:[phone] [facility] Encounter for dental examination and cleaning without abnormal findings 4 Renato Shannon. . Referring Provider: Debbi Kaba. [address] [place] [address], [address] [place] [address], [place], [place], [id number], [place] tel:[phone] [facility] hearing loss (chief complaint) Impacted cerumen, right ear 4 Francisco-Hard hanna Hiral. [address] [facility], [address], [place], [address], [place]. Referring Provider: Debbi Kaba. [address] [place] [address], [address] [place] [address], [place], [place], [id number], [place] tel:[phone] [facility] No Information 4 Francisco-Hard hanna Blackman. [address] [facility], [address], [place], [address], . Family History Family Member Type Diagnosis Age At Onset No Information Payers Payer name Insurance type Covered constitution party ID Saurabh saravia(s) Medicare [place] [id number] Medicaid [facility] [id number] Social History Type Description Quantity Date Captured Comments Sex Female Smoking Status No Information Chief Complaint And Reason For Visit No Information Reason For Referral Reason For Referral No Information Plan Of Treatment Date Type Action Status Appointment Nicole Ledbetter BOOKED Appointment Nicole Ledbetter BOOKED Patient Education Learning About Dental Care and Your Health Problem completed Patient Education Earwax Blockage: Care I nstructions completed History Of Present Illness Encounter Date Complaint History Of Prese nt Illness Cataract The 83 year old patient presents for evaluation of Cataract in the right eye and left eye. It occurs always. The onset was gradual. The symptom is constant. Functional Status Date Functional Assessmen t No Information Instructions Date Instruction Additional Infor steph Return in 12-15 zachary hs for dilated fundus exam. Related to Combined forms of age-related cataract, bilateral Impression/Plan - Ca taracts are moderate and are affecting visual acuity; however, no treatment recommended at this time. We will monitor for progression. Related to Combined forms of age-related cataract, bilateral Follow up - Return i n 12-15 months for dilated fundus exam. Related to Combined forms of age-related cataract, bilateral Toenails 1 b/l were debrided in length and thickness without incident. Follow up in 2-3 months. Related to Tinea unguium All dystrophic nails were debrided in length and thickness as needed to prevent pain and other symptoms. Related to Nail dystrophy Discussed with the abelardo orellana. No dressing needed at this time. Monitor for infection. Related to Abrasion, left lesser toe(s), initial encounter may refer to audiolo gy if pt, family, and/or facility wish to pursue. Follow up in 6-9 months or sooner if needed. Related to Impacted cerumen, right ear Assessments Type Assessment Date No Information Patient Care Teams Name Effective Dates (start - stop) Status Members No Information
--- NOTE | 2024-09-23 11:56 | ECG_ITS ---
APPROVED REPORT Exam: Resting ECG HR:72 bpm ECG Measurements Heart Rate 72 AXES MT 126 P 83 QRSd 73 QRS 44 QT 395 T 51 QTc 420 Conclusion SINUS RHYTHM NORMAL ECG UNCONFIRMED REPORT Electronically signed by : Ted Mares MD 09/25/2024 12:50:58
[2024-09-23 12:02] VITALS: BMI 29.9
[2024-09-23 13:07] LABS: Chloride 104 mmol/L (98-107); Potassium 4.7 mmoL/L (3.5-5.1); Sodium 139 mmol/L (136-145)
[2024-09-23 13:10] LABS: Anion Gap 9.7 mEq/L (5-15); Blood Urea Nitrogen 16 mg/dl (7-17); Carbon Dioxide 30 mmol/L (22.0-30.0); Creatinine Clearance Estimated 56 mL/min (50-200); Estimated Glomerular Filt Rate 53 ml/min (>60); GFR (African American) 64 ML/MIN (>60)
[2024-09-23 13:11] LABS: Calcium 9.3 mg/dl (8.4-10.2); Glucose 181 mg/dl (74-100)
[2024-09-23 13:14] LABS: Basophils % 0.6 % (0.1-2.0); Eosinophils # 0.1 K/mm3 (0.0-0.4); Eosinophils % 2.2 % (0.1-12.0); Hematocrit 42.8 % (37.0-47.0); Hemoglobin 14.4 g/dL (12.2-16.2); Lymphocytes # 1.6 K/mm3 (0.7-4.5); Lymphocytes % 29.7 % (10-50); Mean Corpuscular HGB Conc 33.6 g/dL (31.8-35.4); Mean Corpuscular Hemoglobin 30.8 pg (27.0-31.2); Mean Corpuscular Volume 91.8 fl (81-99); Mean Platelet Volume 7.5 fl (7.4-10.4); Monocytes # 0.2 K/mm3 (0.1-1.0); Monocytes % 4.4 % (1.7-9.3); Neutrophils # 3.4 K/mm3 (1.8-7.8); Neutrophils % 63.1 % (37.0-80.0); Platelet Count 249 K/mm3 (142-424); Red Blood Count 4.66 M/mm3 (4.20-5.40); Red Cell Distribution Width 14.3 % (11.5-17.5); White Blood Count 5.4 K/mm3 (4.8-10.8)
== END 2024-09-23 23:59 | disposition home or self-care (01) ==
LOC: PREOP 11:34
PROVIDERS: PCP Internal Medicine; Visit Provider Orthopaedic Surgery
DX: S82.899A Other fracture of unspecified lower leg, initial encounter for closed fracture (principal)
CPT/HCPCS: 80048; 85025; 93005

== ENCOUNTER 2024-09-28 07:38 | Day surgery (SDC) | payer MEDICARE, MEDICAID, SELFPAY ==
[2024-09-28] VITALS (11 sets, daily range): BP systolic 152–187; BP diastolic 61–89; PULSE 60–101; RESP 12–18; TEMP 36.2–43; O2SAT 94–100; BMI 32.9
[2024-09-28] MEDS: CEFAZOLIN SODIUM 2 GM in 0.9 % SODIUM CHLORIDE 100 ML IV (09:20)
--- NOTE | 2024-09-28 09:29 | P.PNANES_ITS ---
[facility] Disclaimer: The information contained in this section may have been updated after the patient was seen, as this information can be updated by other users. Medical History E-coli UTI UTI (urinary tract infection) Fever Acute alteration in mental status COVID-19 Asymptomatic hypertension Acute CVA (cerebrovascular accident) FHx: total knee replacement Encephalopathy acute Hypothermia Occipital stroke Encounter for wound care Hypoxemia reportedly post COVID 19 infection, oxygen supplementation through [facility], dtr denies prior sleep study testing History of CVA (cerebrovascular accident) Prior to 2018, CVA deficits per dtr were worsening memory and speech disturbances, denies weakness; further details unknown including but not limited to type of stroke, hospital, neuro follow up Bilateral hearing loss Chronic for 15+ years, dtr declines referral to ENT or audiometrics as patient refuses to consider hearing aides Encephalopathy Encephalopathy consistent with dementia slowly progressive over the last 5-10 years, worse s/p CVA prior to 2018, details unknown. MMSE today 20/30. Dementia Memory loss slowly progressive for at least 5-10 years, worse post CVA 2016, details unknown. Work-up consistent with dementia, possibly mixed type, especially vascular. Recurrent cellulitis of lower leg Cellulitis of foot, left Infestation by bed bug Dizziness Pneumonia due to COVID-19 virus Community acquired pneumonia Elevated blood pressure reading High grade dysplasia in colonic adenoma CAD (coronary artery disease) Obesity (BMI 30-39.9) Hip fracture Left groin pain Ankle fracture Right ankle pain Hip pain Diarrhea Neuropathy Cough Pre-op evaluation URI with cough and congestion Viral upper respiratory illness Finger infection Finger pain Dysphagia Thyroid nodule Colitis Hypokalemia Encounter for pre-operative cardiovascular clearance Edema Dyspnea History of CVA (cerebrovascular accident) Depression Anxiety Carotid artery stenosis HLD (hyperlipidemia) HTN (hypertension) GERD (gastroesophageal reflux disease) History of CVA (cerebrovascular accident) Influenza Surgical History History of carpal tunnel surgery History of hip surgery Family History Other No significant family history Social History (Updated 09/23/24 @ 12:03 by Rosanna Patel RN) Smoking Status: Never smoker second hand exposure: Yes alcohol intake: never substance use type: denies use current occupational status: disabled and other Travel in the last 8 weeks: None household members: family housing: house number of children: 6 current occupational exposures/hazards: No caffeine: Yes [facility] Anesthesia Checklist Patient Identification Patient Identification: Family Structural Data Admitted From: Long-term Nursing [facility] Planned Operative Procedure/s: removal retained hrdwr r foot Consent for Planned Operative Procedure(s) Verified: Yes NPO Status Verified Time NPO: 00:00 Additional verifications Anesthesia Reactions: No Hx Blood Transfusions: No Blood Transfusion Reaction: No Airway Assessment Mallampati Score:: Class II C-Spine Mobility Assessed: Yes TMJ Mobility Assessed: Yes Dentition: Edentulous Neurological Assessment Level of Consciousness: Awake, Alert and Inappropriate Anesthesia Plan Anesthesia Risk discussed: Yes Anesthesia Plan: Patient unable to respond/answer ASA Class: III Anesthesia Type: General
[2024-09-28 09:54] LABS: POC Glucose,Bedside 125 (70-110)
--- NOTE | 2024-09-28 10:13 | XR_ITS ---
FINAL REPORT CLINICAL HISTORY: hardware removal 5 SECONDS FLUORO TIME 0.24MGY COMPARISON: None FINDINGS: FLUOROSCOPY LESS THAN 1 HOUR HISTORY: Fluoroscopy guidance FINDINGS: Fluoroscopic guidance was provided for ankle hardware removal. A single spot film was obtained. A total of 5 seconds of fluoroscopy time was used. DAP: 0.24 mGy IMPRESSION: As above. Reviewed, Interpreted and Dictated by Brian Queen III, MD Transcribed by Hanna Hunt Authenticated and [facility]
[2024-09-28] MEDS: LIDOCAINE 1% W/EPI 1:100,000 20ML VIAL 40 ML (10:14)
--- NOTE | 2024-09-28 10:45 | P.PNANES_ITS ---
[facility] Anesthesia Record Part I Anesthesia Record I Intake, IV Amount: 1,000 Hydration: Adequate Estimated blood loss (mL): 0 Urine output (mL): 0 Blood Pressure: 170/72 SaO2: 94 Pulse Rate: 87 Airway Patency: Patent Respiratory Rate: 12 Temperature: 98 F Patient is:: Awake and Stable Stable to PACU at:: 10:40
--- NOTE | 2024-09-28 10:46 | P.OP_ITS ---
Date of procedure: 09/28/24 Pre-op Diagnosis:: Painful hardware right ankle Post-op Diagnosis:: Infected painful hardware right ankle Procedure performed:: 1. Removal of implants deep right ankle side plate and screws 2. Irrigation debridement skin subcutaneous bone right ankle. Surgeon:: Jaciel Lopez DO DISABILITY EXAMINER:: Jasen Ward Anesthesia: GETA Estimated blood loss (mL): 0 Operative findings:: Superficial and subcutaneous deep infection with loose right ankle hardware Operative note:: Patient identified preoperatively. Right ankle marked with yes my initials. Transported operative suite. Placed upon the operating bed. General anesthesia administered airway secured. Right lower extremities and prepped and draped with Hibiclens prep. Once prepped and draped final operative timeout performed to identify proper patient procedure and extremity. Everyone involved in the case agreed. There is no counter indications beginning. Did receive preoperative antibiotics. There was an area of wound over the plate which was previously a one third tubular plate with cortical screws on the fibula from old open reduction internal fixation there is also evidence of a broken syndesmotic screw and an intact syndesmotic screw. Leg was elevated pneumatic tourniquet inflated to 300 mmHg. Skin knife is used to incise through skin dissection was taken down to find infection at the midportion of the wound and tunneling that went to the midportion of the hardware and plate. There is no purulent abscess or drainage but there was abnormal appearing soft tissues with infection cultures were taken. Attention is then brought to removal of the plate the cortical screws were removed one of the syndesmotic screws removed once it aches the modic screw was broken so the head of the screw was removed. 3 distal cortical screws were removed and the plate was removed without difficulty. There was no gross abnormality of the bone but infected chronic infected appearing tissue at the midportion of the wound and superficial at the skin in the midportion of the wound. Significant irrigation performed with pulse lavage. Debridement of all infected tissue performed with rongeur. Lavage repeated. Then the wound was closed in layers deep layers with Prolene nylon the skin for closure. The tissue for closure appeared to be viable but frail. Large bulky dressing placed. Patient waken anesthesia taken recovery stable condition. Condition: stable Disposition: PACU Complications:: None apparent
--- NOTE | 2024-09-29 11:57 | P.PNANES_ITS ---
[facility] Anesthesia Record Part II Anesthesia Record Part II Discharge Time: 11:10 Destination: Surgical Day Care (OP Surgery) PACU nurse assessment reviewed?: Yes Patient Condition:: Good Anesthesia Complications:: None Swallowing reflex intact?: Yes Airway Patency: Patent Cyanosis?: No Blood Pressure: 175/89 SaO2: 100 Respiratory Rate: 18 Pulse Rate: 84 Temperature: 97.1 F Mental Status: Alert & Oriented Pain level:: 0 Nausea and/or vomitting:: None Intake, IV Amount: 0 Hydration: Adequate
[2024-09-29 11:58] VITALS: BP 175/89; PULSE 84; RESP 18; TEMP 36.2; O2SAT 100
== END 2024-09-28 11:45 | disposition home or self-care (01) ==
PROVIDERS: PCP Internal Medicine; Visit Provider Orthopaedic Surgery
PROC: (CPT 11000; principal; 2024-09-28 09:45)
DX: T84.69XA Infection and inflammatory reaction due to internal fixation device of other site, initial encounter (principal); Y79.2 Prosthetic and other implants, materials and accessory orthopedic devices associated with adverse incidents
CPT/HCPCS: 11000; 20680; 73600; 76000; 82962; 87070; 87075; 87077; 87186; 87205; 88304; 96374; J0690

== ENCOUNTER 2024-10-18 09:15 | Outpatient (CLI) | payer MEDICARE, MEDICAID, SELFPAY ==
--- NOTE | 2024-10-18 09:22 | XR_ITS ---
FINAL REPORT CLINICAL HISTORY: right ankle sx FINDINGS: Right ankle Three views were obtained. There is a broken screw through the distal tibia. There are also postoperative changes in the medial malleolus with 2 screws. Moderate degenerative changes are present. There is mild lateral talar tilt. Soft tissue calcifications are seen. There are calcaneal spurs. IMPRESSION: Degenerative and postsurgical changes as above. Reviewed, Interpreted and Dictated by Brian Queen III, MD Transcribed by Homa Marshall Authenticated and . [facility]
== END 2024-10-18 23:59 | disposition home or self-care (01) ==
LOC: RAD 09:18
PROVIDERS: PCP Nurse Practitioner Family; Visit Provider Orthopaedic Surgery
DX: T84.126A Displacement of internal fixation device of bone of right lower leg, initial encounter (principal)
CPT/HCPCS: 73610